=== PATIENT | male | born 1935 | race Caucasian/White ===

== ENCOUNTER 2017-11-08 22:45 | Inpatient (IN) | payer OTHER ==
--- NOTE | 2017-11-08 23:02 | PDOC ---
History of Present Illness - General History Source: Patient, Care Home Records Exam Limitations: No Limitations - History of Present Illness Initial Comments: 11/08/17 23:10 The patient is an 82 year old male from [facility] with past medical history of anemia, BPH, hypertension, hyperlipidemia, CAD, CKD, depression, anxiety, and dementia who presents to the ED for rectal bleed. As per intermediate, he was found to have blood per rectum this evening. Upon presentation to the ED, the patient was also found to be hypotensive in the 80s. The patient is a poor historian and is asymptomatic at this time. As per , the patient has been losing weight over the past few weeks and has been losing his appetite. As per nursing notes, the patient is on Xarelto, but the wifer reports she is unsure for what. The patient is known to follow up with physicians affiliated with [facility]. <[facility] - Last Filed: 11/08/17 23:47> <Carlie Perla - Last Filed: 11/09/17 00:41> - General Stated Complaint: RECTAL BLEED Time Seen by Provider: 11/08/17 22:52 Past History <[facility] - Last Filed: 11/08/17 23:47> <Carlie Perla - Last Filed: 11/09/17 00:41> - Past Medical History Allergies/Adverse Reactions: Allergies Allergy/AdvReac Type Severity Reaction Status Date / Time No Known Allergies Allergy Verified 11/08/17 23:20 Home Medications: Ambulatory Orders Acetaminophen 325 mg PO DAILY 11/08/17 Aspirin 81 mg PO DAILY 11/08/17 Calcium Carbonate/Vitamin D3 [Oyster Shell 500-Vit D3 200 Tb] 1 each PO DAILY Celexa - 10 mg PO DAILY 11/08/17 Clonazepam 0.125 mg PO DAILY 11/08/17 Donepezil HCl [Aricept -] 5 mg PO DAILY 11/08/17 Ferrous Sulfate 325 mg PO DAILY 11/08/17 Metoprolol Succinate 25 mg PO DAILY 11/08/17 Rivaroxaban [Xarelto -] 20 mg PO DAILY 11/08/17 Tamsulosin HCl [Flomax] 0.4 mg PO DAILY 11/08/17 Review of Systems - Review of Systems Able to Perform ROS?: Yes Comments:: 11/08/17 23:48 GENERAL/CONSTITUTIONAL: No fever or chills. No weakness. HEAD, EYES, EARS, NOSE AND THROAT: No change in vision. No ear pain or discharge. No sore throat. CARDIOVASCULAR: No chest pain or shortness of breath. RESPIRATORY: No cough, wheezing, or hemoptysis. GASTROINTESTINAL: Present: blood per rectum No nausea, vomiting, diarrhea or constipation. GENITOURINARY: No dysuria, frequency, or change in urination. MUSCULOSKELETAL: No joint or muscle swelling or pain. No neck or back pain. SKIN: No rash NEUROLOGIC: No headache, vertigo, loss of consciousness, or change in strength/ sensation. ENDOCRINE: No increased thirst. No abnormal weight change. HEMATOLOGIC/LYMPHATIC: No anemia, easy bleeding, or history of blood clots. ALLERGIC/IMMUNOLOGIC: No hives or skin allergy. All Other Systems: Reviewed and Negative <[facility] - Last Filed: 11/08/17 23:47> *Physical Exam - Physical Exam Comments: 11/08/17 23:48 GENERAL: Awake, alert, and fully oriented, in no acute distress HEAD: No signs of trauma EYES: PERRLA, EOMI, sclera anicteric, conjunctiva clear ENT: Auricles normal inspection, hearing grossly normal, nares patent, oropharynx clear without exudates. Moist mucosa NECK: Normal ROM, supple, no lymphadenopathy, JVD, or masses LUNGS: Breath sounds equal, clear to auscultation bilaterally. No wheezes, and no crackles HEART: Regular rate and rhythm, normal S1 and S2, no murmurs, rubs or gallops ABDOMEN: Soft, nontender, normoactive bowel sounds. No guarding, no rebound. No masses EXTREMITIES: Normal range of motion, no edema. No clubbing or cyanosis. No cords, erythema, or tenderness NEUROLOGICAL: Cranial nerves II through XII grossly intact. Normal speech, normal gait SKIN: Warm, Dry, normal turgor, no rashes or lesions noted. <LacyOd - Last Filed: 11/08/17 23:47> Heart Score/ECG Review - ECG Intrepretation Comment:: 11/09/17 00:40 sinus at 88, st depressiom v2-6, i avl, abnl ekg <Carlie Perla - Last Filed: 11/09/17 00:41> ED Treatment Course - LABORATORY CBC & Chemistry Diagram: 11/08/17 23:22 11/08/17 23:22 <[facility] - Last Filed: 11/08/17 23:47> - LABORATORY CBC & Chemistry Diagram: 11/08/17 23:22 11/08/17 23:22 <Carlie Perla - Last Filed: 11/09/17 00:41> Medical Decision Making - Medical Decision Making 11/08/17 23:[address] Dr[address] Singletary, television and radio repairer physician for GI. Call was returned promptly and case was discussed. Call placed to Dr. Alonzo, and call connected immediately. Case discussed. Call placed to ICU and case was discussed. <[facility] - Last Filed: 11/08/17 23:47> - Critical Care Time Total Critical Care Time (minutes): 45 Critical Care Statement: The care of this patient involved high complexity decision making to prevent further life threatening deterioration of the patient 's condition and/or to evaluate & treat vital organ system(s) failure or risk of failure. - Medical Decision Making 11/08/17 23:23 82yo sent from [facility] for eval of GI bleeding melena - active bleeding on xarelto hypotensive upon arrival also on aspirin pt is demented and cannot provide hx denies abd pain melena on exam case discussed with Dr. Singletary (GI) who will see the patient in consult will start protonix gtt will give ivf hdyraiton consenting for blood transfusion 11/08/17 23:37 case discussed with Mino from the ICU - accepts pt to the ICU case discussed with Dr. Alonzo - accepts pt to her service will place consult to Dr. Mcarthur 11/08/17 23:38 [facility] pRBC and FFP ordered <Carlie Perla - Last Filed: 11/09/17 00:41> *DC/Admit/Observation/Transfer - Attestations Scribe Attestion: 11/08/17 23:33 Documentation prepared by [facility], acting as medical aide for Carlie Perla DO. <[facility] - Last Filed: 11/08/17 23:47> - Discharge Dispostion Admit: Yes - Attestations Physician Attestion: 11/08/17 23:38 I, Dr. Carlie Perla, DO, attest that this document has been prepared under my direction and personally reviewed by me in its entirety. I further attest, that it accurately reflects all work, treatment, procedures and medical decision -making performed by me. <Carlie Perla - Last Filed: 11/09/17 00:41> Diagnosis at time of Disposition: GI bleed - Discharge Dispostion Condition at time of disposition: Critical
[2017-11-08] MEDS ORDERED: SODIUM CHLORIDE 0.9% 1000 ML INFUS.BAG IV ONE (23:23)
[2017-11-08] MEDS ORDERED: PANTOPRAZOLE SODIUM 40 MG VIAL ONE ×2 (23:24→23:45)
[2017-11-08] MEDS ORDERED: PANTOPRAZOLE SODIUM 40 MG VIAL IVPUSH ONE (23:30)
[2017-11-08 23:41] LABS: BASO % 0.3 % (0-2.0); EOS % 0.1 % (0-4.5); LYMPH % 4.3 % (8-40); MCH 31.5 pg (25.7-33.7); MCHC 32.2 g/dl (32.0-35.9); MEAN CELL VOLUME 97.8 fl (80-96); MEAN PLT VOLUME 8.4 fl (7.5-11.1); MONO % 2.5 % (3.8-10.2); NEUT % 92.8 % (42.8-82.8); PLATELET COUNT 265 K/MM3 (134-434); RBC 3.17 M/mm3 (4.00-5.60); WHITE BLOOD COUNT 13.9 K/mm3 (4.0-10.0)
[2017-11-08] MEDS: PANTOPRAZOLE SODIUM 80 MG in SODIUM CHLORIDE 100 ML IVPB SCH (23:50)
[2017-11-08 23:53] LABS: INR 2.97 (0.82-1.09); PROTHROMBIN TIME (PATIENT) 33.6 SEC (9.98-11.88)
[2017-11-08 23:56] LABS: ACTIVATED PTT 35.5 SECONDS (26.9-34.4)
[2017-11-09 00:25] LABS: ALBUMIN 2.3 g/dl (3.4-5.0); ANION GAP 9 (8-16); BILIRUBIN,TOTAL 0.4 mg/dL (0.2-1.0); BLOOD UREA NITROGEN 58 mg/dL (7-18); CALCIUM 8.2 mg/dL (8.5-10.1); CHLORIDE 106 mmol/L (98-107); CO2 26 mmol/L (21-32); CREATININE 1.5 mg/dL (0.7-1.3); GLUCOSE,RANDOM 132 mg/dL (74-106); SGPT/ALT 11 U/L (12-78); SODIUM 141 mmol/L (136-145); TOT PROT 5.5 g/dl (6.4-8.2)
[2017-11-09 00:28] LABS: ALK PHOS 111 U/L (45-117)
[2017-11-09 00:35] LABS: POTASSIUM 5.7 mmol/L (3.5-5.1); SGOT/AST 13 U/L (15-37)
[2017-11-09] MEDS ORDERED: DESMOPRESSIN ACETATE 4 MCG/ML AMP IVPB STA (00:44)
[2017-11-09 01:00] LABS: URINE APPEARANCE CLOUDY; URINE BILIRUBIN NEGATIVE (NEGATIVE); URINE BLOOD 1+ (NEGATIVE); URINE COLOR YELLOW; URINE GLUCOSE (UA) NEGATIVE (NEGATIVE); URINE KETONE NEGATIVE (NEGATIVE); URINE NITRITE NEGATIVE (NEGATIVE); URINE UROBILINOGEN NEGATIVE mg/dL (0.2-1.0)
[2017-11-09 01:14] LABS: URINE LEUK ESTERASE 3+ (NEGATIVE); URINE PROTEIN 1+ (NEGATIVE)
[2017-11-09 01:14] LABS: BASO % 1.7 % (0-2.0); EOS % 0.2 % (0-4.5); HEMATOCRIT 29.5 % (35.4-49); HEMOGLOBIN 9.1 GM/dL (11.7-16.9); LYMPH % 4.8 % (8-40); MCH 31.1 pg (25.7-33.7); MCHC 30.7 g/dl (32.0-35.9); MEAN CELL VOLUME 101.2 fl (80-96); MEAN PLT VOLUME 8.2 fl (7.5-11.1); MONO % 3.9 % (3.8-10.2); NEUT % 89.4 % (42.8-82.8); PLATELET COUNT 251 K/MM3 (134-434); RBC 2.92 M/mm3 (4.00-5.60); RDW 16.9 % (11.9-15.9)
[2017-11-09 01:15] LABS: EPI CELLS RARE /HPF (FEW)
--- NOTE | 2017-11-09 01:18 | CONSULT ---
Consult Consult Specialty:: PULM/CCM Referred by:: Dr. Evon Alonzo Reason for Consultation:: GIB - History of Present Illness Chief Complaint: MELENA History of Present Illness: Mr. Chen is an 82 y/o man w/ anemia, BPH, HTN, HLD, CAD, CKD, depression, anxiety, & BRETHA BIBA from [facility] w/ melena. In the ED pt hypotensive w/ SBP --> the 80's & copious melena. The patient is a poor historian and is asymptomatic. A/p , the pt has been FTT throughout the past few weeks w/ poor PO intake & rapid weigh loss. Of note, pt on Xarelto for PAD/PVD. Pt is originally from [place] & all of his physicains are loacted @ [facility]. Pt admitted to the ICU now w/ GIB. 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 No: CVA, Seizure Cardio/Vascular: Yes: CAD, HTN, Hyperlipdemia Pulmonary: Yes: COPD Gastrointestinal: No: GI Bleed, Hemorrhoids Hepatobiliary: No: Cirrhosis Renal/: Yes: BPH Heme/Onc: Yes: Anemia Psych: Yes: Depression - Alcohol/Substance Use Hx Alcohol Use: No - Smoking History Smoking history: Unknown if ever smoked Have you smoked in the past 12 months: No Home Medications - Allergies Allergies/Adverse Reactions: Allergies Allergy/AdvReac Type Severity Reaction Status Date / Time No Known Allergies Allergy Verified 11/08/17 23:20 - Home Medications Home Medications: Ambulatory Orders Acetaminophen 325 mg PO DAILY 11/08/17 Aspirin 81 mg PO DAILY 11/08/17 Calcium Carbonate/Vitamin D3 [Oyster Shell 500-Vit D3 200 Tb] 1 each PO DAILY Celexa - 10 mg PO DAILY 11/08/17 Clonazepam 0.125 mg PO DAILY 11/08/17 Donepezil HCl [Aricept -] 5 mg PO DAILY 11/08/17 Ferrous Sulfate 325 mg PO DAILY 11/08/17 Metoprolol Succinate 25 mg PO DAILY 11/08/17 Rivaroxaban [Xarelto -] 20 mg PO DAILY 11/08/17 Tamsulosin HCl [Flomax] 0.4 mg PO DAILY 11/08/17 Family Disease History - Family Disease History Family History: Unable to Obtain Review of Systems Unable to obtain ROS, reason: UTO --> BERTHA Physical Exam Vital Signs: Vital Signs Temperature 97.3 F L 11/08/17 23:11 Pulse Rate 60 11/08/17 23:11 Respiratory Rate 14 11/08/17 23:11 Blood Pressure 80/60 11/08/17 23:11 O2 Sat by Pulse Oximetry (%) Constitutional: Yes: No Distress, Pallor, Thin Eyes: Yes: WNL, Conjunctiva Clear, EOM Intact HENT: Yes: WNL, Atraumatic, Normocephalic Neck: Yes: WNL, Supple, Trachea Midline Cardiovascular: Yes: WNL, Regular Rate and Rhythm Respiratory: Yes: WNL, Regular, CTA Bilaterally Gastrointestinal: Yes: WNL, Normal Bowel Sounds, Soft, Hyperactive Bowel Sounds , Melena ...Rectal Exam: Yes: Deferred Renal/: Yes: WNL Breast(s): Yes: WNL Musculoskeletal: Yes: WNL (Chronic LE venous stasis changes L > R) Extremities: Yes: WNL, Other (Chronic Venous stasis changes L > R) Edema: No Integumentary: Yes: WNL Neurological: Yes: WNL, Alert ...Motor Strength: WNL Psychiatric: Yes: Agitated Labs: CBC, BMP 11/08/17 23:22 Imaging - Results Chest X-ray: Image Reviewed (CXR 11/08: Clear (My Read)) EKG: Report Reviewed (12-LEAD 11/09: RSR in the 80's w/o ect, ST depression throughout the anterolateral leads, QTc = 462ms (My Read).) Problem List - Problems (1) GI bleed Code(s): K92.2 - GASTROINTESTINAL HEMORRHAGE, UNSPECIFIED Assessment/Plan ASSESS: This is an 82 y/o man w/ anemia, BPH, HTN, HLD, CAD, CKD, PAD/DVD (on xeralto), depression, anxiety, & BERTHA BIBA from [facility] w/ a GIB. PLAN: -D/c Xeralto -NPO -HOB > 92% -Supp FiO2 for an SpO2 > 92% -Maintain large bore IVs X2 -Maintain active T &S -Consider KCentra -DDAVP -Vit K -PPI gtt -Normal Transfusion Thresholds -Trend LA -GI -Trend Troponin -Strict I's & O's -Monitor UOP -Replete e-lytes prn -Trend Troponins -Trend CK-MB -CARDS -SCDs -No AC for now Mino Schmidt, ACNP- [facility] [id number]
[2017-11-09 06:45] LABS: HEMATOCRIT 29.3 % (35.4-49); HEMOGLOBIN 9.6 GM/dL (11.7-16.9); MCH 31.6 pg (25.7-33.7); MCHC 32.9 g/dl (32.0-35.9); MEAN PLT VOLUME 8.1 fl (7.5-11.1); PLATELET COUNT 209 K/MM3 (134-434); RBC 3.05 M/mm3 (4.00-5.60); RDW 16.9 % (11.9-15.9); WHITE BLOOD COUNT 11.5 K/mm3 (4.0-10.0)
--- NOTE | 2017-11-09 07:01 | PN ---
Physical Exam: SUBJECTIVE: Patient seen and examined. Brought in [facility] with hx of melanotic stools, on xarelto for PAD. Had no melanotic bowel movement until around noon, with recent CBC showing drop from 9.6 to 8.6. Pt is demented at baseline but was awake and communicating (hard to comprehend). Came in initially with SBP in 80s but BP has been maintained with MAP>65. No hematemesis noted or bleeding from any orifice. OBJECTIVE: Vital Signs Period Temp Pulse Resp BP Sys/Mcdowell Pulse Ox Last 24 Hr 97.3 F-98.4 F 60-80 14-22 80-116/54-61 100 Vital Signs Temp 97.8 F 11/09/17 06:07 Pulse 70 11/09/17 06:07 Resp 22 11/09/17 06:07 BP 116/54 11/09/17 06:07 Pulse Ox 100 11/09/17 01:38 Intake & Output 11/06/17 11/07/17 11/08/17 11/09/17 23:59 23:59 23:59 23:59 Intake Total 410 Output Total 1300 Balance -890 Weight 81.647 kg 63.4 kg GENERAL: The patient is awake, but drowsy, communicating with slurred words and some confusion. HEAD: Normal with no signs of trauma. EYES: PERRL, extraocular movements intact, sclera anicteric, conjunctiva clear. ENT: oropharynx clear without exudates, moist mucous membranes, no evidence of bleeding, NC-2L . NECK: supple. LUNGS: Breath sounds equal, clear to auscultation bilaterally, no wheezes, no crackles, n HEART: Regular rate and rhythm, S1, S2 without murmur, rub or gallop. ABDOMEN: Soft, mild suprapubic tenderness and burning sensation,(ross in place draining clear urine). EXTREMITIES: 2+ pulses, warm, well-perfused, no edema. NEUROLOGICAL: Awake, demented at baseline but communicating. gait not observed. PSYCH: Unable to assess Lines: NC, ross, 2UE large bore peripheral lines Laboratory Results - last 24 hr 11/08/17 11/08/17 11/08/17 23:22 23:22 23:22 WBC RBC Hgb Hct MCV MCH MCHC RDW Plt Count MPV Neutrophils % Lymphocytes % Monocytes % Eosinophils % Basophils % PT with INR 33.60 H INR 2.97 H PTT (Actin FS) 35.5 H Sodium 141 Potassium 5.7 H Chloride 106 Carbon Dioxide 26 Anion Gap 9 BUN 58 H Creatinine 1.5 H Creat Clearance w eGFR 45.03 Random Glucose 132 H Lactic Acid 3.6 H* Calcium 8.2 L Magnesium 2.0 Total Bilirubin 0.4 AST 13 L ALT 11 L Alkaline Phosphatase 111 Creatine Kinase 34 L Troponin I 0.03 B-Natriuretic Peptide Total Protein 5.5 L Albumin 2.3 L Urine Color Urine Appearance Urine pH Ur Specific [place] Urine Protein Urine Glucose (UA) Urine Ketones Urine Blood Urine Nitrite Urine Bilirubin Urine Urobilinogen Ur Leukocyte Esterase Urine WBC (Auto) Urine RBC (Auto) Ur Epithelial Cells Stool Occult Blood Blood Type Antibody Screen Crossmatch 11/08/17 11/08/17 11/08/17 23:22 23:22 23:22 WBC 13.9 H RBC 3.17 L Hgb 10.0 L Hct 31.0 L MCV 97.8 H MCH 31.5 MCHC 32.2 RDW 16.0 H Plt Count 265 MPV 8.4 Neutrophils % 92.8 H Lymphocytes % 4.3 L Monocytes % 2.5 L Eosinophils % 0.1 Basophils % 0.3 PT with INR INR PTT (Actin FS) Sodium Potassium Chloride Carbon Dioxide Anion Gap BUN Creatinine Creat Clearance w eGFR Random Glucose Lactic Acid Calcium Magnesium Total Bilirubin AST ALT Alkaline Phosphatase Creatine Kinase Troponin I B-Natriuretic Peptide 8130.55 H Total Protein Albumin Urine Color Urine Appearance Urine pH Ur Specific [place] Urine Protein Urine Glucose (UA) Urine Ketones Urine Blood Urine Nitrite Urine Bilirubin Urine Urobilinogen Ur Leukocyte Esterase Urine WBC (Auto) Urine RBC (Auto) Ur Epithelial Cells Stool Occult Blood Blood Type O POSITIVE Antibody Screen Negative Crossmatch See Detail 11/08/17 11/08/17 11/09/17 23:23 23:57 00:49 WBC RBC Hgb Hct MCV MCH MCHC RDW Plt Count MPV Neutrophils % Lymphocytes % Monocytes % Eosinophils % Basophils % PT with INR INR PTT (Actin FS) Sodium Potassium Chloride Carbon Dioxide Anion Gap BUN Creatinine Creat Clearance w eGFR Random Glucose Lactic Acid Calcium Magnesium Total Bilirubin AST ALT Alkaline Phosphatase Creatine Kinase Troponin I B-Natriuretic Peptide Total Protein Albumin Urine Color Yellow Urine Appearance Cloudy Urine pH 5.0 Ur Specific [place] 1.017 Urine Protein 1+ H Urine Glucose (UA) Negative Urine Ketones Negative Urine Blood 1+ H Urine Nitrite Negative Urine Bilirubin Negative Urine Urobilinogen Negative Ur Leukocyte Esterase 3+ H Urine WBC (Auto) 608 Urine RBC (Auto) 19 Ur Epithelial Cells Rare Stool Occult Blood Negative Blood Type O POSITIVE Antibody Screen Crossmatch 11/09/17 11/09/17 00:50 03:30 WBC 14.0 H RBC 2.92 L Hgb 9.1 L Hct 29.5 L MCV 101.2 H MCH 31.1 MCHC 30.7 L RDW 16.9 H Plt Count 251 MPV 8.2 Neutrophils % 89.4 H Lymphocytes % 4.8 L Monocytes % 3.9 Eosinophils % 0.2 D Basophils % 1.7 D PT with INR INR PTT (Actin FS) Sodium Potassium Chloride Carbon Dioxide Anion Gap BUN Creatinine Creat Clearance w eGFR Random Glucose Lactic Acid 2.2 H* Calcium Magnesium Total Bilirubin AST ALT Alkaline Phosphatase Creatine Kinase Troponin I B-Natriuretic Peptide Total Protein Albumin Urine Color Urine Appearance Urine pH Ur Specific [place] Urine Protein Urine Glucose (UA) Urine Ketones Urine Blood Urine Nitrite Urine Bilirubin Urine Urobilinogen Ur Leukocyte Esterase Urine WBC (Auto) Urine RBC (Auto) Ur Epithelial Cells Stool Occult Blood Blood Type Antibody Screen Crossmatch Ambulatory Orders Acetaminophen 325 mg PO DAILY 11/08/17 Aspirin 81 mg PO DAILY 11/08/17 Calcium Carbonate/Vitamin D3 [Oyster Shell 500-Vit D3 200 Tb] 1 each PO DAILY Celexa - 10 mg PO DAILY 11/08/17 Clonazepam 0.125 mg PO DAILY 11/08/17 Donepezil HCl [Aricept -] 5 mg PO DAILY 11/08/17 Ferrous Sulfate 325 mg PO DAILY 11/08/17 Metoprolol Succinate 25 mg PO DAILY 11/08/17 Rivaroxaban [Xarelto -] 20 mg PO DAILY 11/08/17 Tamsulosin HCl [Flomax] 0.4 mg PO DAILY 11/08/17 Active Medications Generic Name Dose Route Start Last Admin Trade Name Freq PRN Reason Stop Dose Admin Pantoprazole Sodium 80 mg/ 100 mls @ 10 mls/hr 11/08/17 23:30 11/08/17 23:50 Sodium Chloride IVPB 10 mls/hr Q10H ERNIE Administration 8 MG/HR ASSESSMENT/PLAN: 82 y/o male with PMHx of anemia, BPH, HTN, HLD, CAD, CKD, depression, anxiety, presented from [facility] w/ melena (on home xarelto for PAD), found to be initially hypotensive w/ SBP- 80's in the ED. Neuro: Dementia, depression, anxiety Awake but confused On home Donepezil HCl [Aricept -] 5 mg PO DAILY On home Clonazepam 0.125 mg PO Celexa - 10 mg PO DAILY GI: Acute GI bleed- likely upper GI repeated melanotic stools- pt previously on xarelto- for PAD recent drop in Hb by 1g-11/09/17 at noon iv Vit k K stat FFPs 1U 2U PRBCs Repeat CBC- after transfusion Dr Enriquez on board follow coags Follow CBC- transfuse as needed Monitor for bleeding For EGD when less hypocoagulable Hold xarelto Protonix drip NPO- with acute bleed Hemonc: Recent hx of anemia Appears to be chronically anemic- on home iron Hx of PAD- on xarelto Hold xarelto in acute bleeding Cardio: HTN, HLD, CAD Hold ASA Hold Metoprolol Succinate 25 mg PO with hx of hypotension Hold xarelto in acute bleeding trops-0.03 BNP- 8130 Pulm: Acute hypoxic respiratory failure On NC- 2L Titrate to keep SpO2>92, wean off as tolerated CXR- clear : KEVEN R/O CKD Cr-1.5 Follow Ucx UA-LE 3+, WBC-608 Iv Ceftriaxone 2g daily CMPs Avooid nephrotoxic drugs Transfuse as needed FEN: Receiving transfusions, currently not on fluids Monitor lytes and replete as needed NPO- with active GI bleed Prophylaxis: GI- protonix drip DVT- SCDs ( no chemical prophylaxis in active bleed) Dispo: Continue ICU monitoring Visit type - Emergency Visit Emergency Visit: Yes ED Registration Date: 11/08/17 Care time: The patient presented to the Emergency Department on the above date and was hospitalized for further evaluation of their emergent condition. - New Patient This patient is new to me today: Yes Date on this admission: 11/09/17 - Critical Care Critical Care patient: Yes Total Critical Care Time (in minutes): 48 Critical Care Statement: The care of this patient involved high complexity decision making to prevent further life threatening deterioration of the patient 's condition and/or to evaluate & treat vital organ system(s) failure or risk of failure. - Discharge Referral Referred to [facility] No
[2017-11-09 07:14] LABS: CHLORIDE 110 mmol/L (98-107); POTASSIUM 5.1 mmol/L (3.5-5.1); SODIUM 143 mmol/L (136-145)
[2017-11-09 07:24] LABS: ALBUMIN 2.1 g/dl (3.4-5.0); ALK PHOS 92 U/L (45-117); ANION GAP 8 (8-16); BILIRUBIN,DIRECT 0.2 mg/dL (0.0-0.2); BILIRUBIN,TOTAL 0.6 mg/dL (0.2-1.0); BLOOD UREA NITROGEN 57 mg/dL (7-18); CALCIUM 7.5 mg/dL (8.5-10.1); CO2 25 mmol/L (21-32); CREATININE 1.5 mg/dL (0.7-1.3); GLUCOSE,RANDOM 93 mg/dL (74-106); SGOT/AST 11 U/L (15-37); SGPT/ALT 9 U/L (12-78); TOT PROT 4.9 g/dl (6.4-8.2)
[2017-11-09 09:21] LABS: MAGNESIUM 1.9 mg/dL (1.8-2.4); PHOSPHOROUS 3.1 mg/dL (2.5-4.9)
[2017-11-09] MEDS: PANTOPRAZOLE SODIUM 80 MG in SODIUM CHLORIDE 100 ML IVPB SCH (09:51)
[2017-11-09] MEDS: CEFTRIAXONE IN IS-OSM DEXTROSE 2 GM/50 ML BAG IVPB SCH (09:51)
--- NOTE | 2017-11-09 10:00 | EKG ---
Test Reason : Blood Pressure : / mmHG Vent. Rate : 088 BPM Atrial Rate : 088 BPM P-R Int : 164 ms QRS Dur : 094 ms QT Int : 382 ms P-R-T Axes : 026 087 155 degrees QTc Int : 462 ms POOR DATA QUALITY, INTERPRETATION MAY BE ADVERSELY AFFECTED NORMAL SINUS RHYTHM WITH SINUS ARRHYTHMIA ABNORMAL ECG NO PREVIOUS ECGS AVAILABLE Confirmed by DADA NEW MD ([id number]) on 11/09/2017 9:59:50 AM Referred By: Confirmed By:DADA NEW MD
--- NOTE | 2017-11-09 10:01 | PN ---
Progress Note (short form) - Note Progress Note: Case was d/w ER last night. Consult was for Dr. Garcia who was on service call last night. Discussed case w/ Dr. Bermudez this morning. Dr. Enriquez will be seeing the patient.
--- NOTE | 2017-11-09 10:24 | CON.CARD ---
Cardiology Consult (text) - Consultation Consultation Note: cc: gib hx from charts, pt with dementia hpi: 82 m hx dementia, htn, hld, pad, cad, ckd, sent [place] for [place] bleed. Pt on xarelto at [place] for pad per charts, had rectal bleed so came to ER. Pt offers no complaints but has significant dementia. No further gib this AM with BM. Bp initially low, now improved. pmh: per hpi psh: unknown social: unknown fam: unknown ros: unable to obtain 2/2 dementia meds: Home Medications Medication Instructions Recorded Acetaminophen 325 mg PO DAILY 11/08/17 Aspirin 81 mg PO DAILY 11/08/17 Calcium Carbonate/Vitamin D3 1 each PO DAILY 11/08/17 [Oyster Shell 500-Vit D3 200 Tb] Celexa - 10 mg PO DAILY 11/08/17 Clonazepam 0.125 mg PO DAILY 11/08/17 Donepezil HCl [Aricept -] 5 mg PO DAILY 11/08/17 Ferrous Sulfate 325 mg PO DAILY 11/08/17 Metoprolol Succinate 25 mg PO DAILY 11/08/17 Rivaroxaban [Xarelto -] 20 mg PO DAILY 11/08/17 Tamsulosin HCl [Flomax] 0.4 mg PO DAILY 11/08/17 pe: Vital Signs Period Temp Pulse Resp BP Sys/Mcdowell Pulse Ox Last 24 Hr 97.3 F-98.4 F 60-80 14-22 80-116/54-61 100-100 nad no jvd rrr s1s2 no mrg cta bl, poor eff awake, confused no jaundice diaphoresis pos dp pt no carotid bruits abd nt nd pos bs no le e/c/c Laboratory Last Values WBC 11.5 K/mm3 (4.0-10.0) H 11/09/17 06:30 RBC 3.05 M/mm3 (4.00-5.60) L 11/09/17 06:30 Hgb 9.6 GM/dL (11.7-16.9) L 11/09/17 06:30 Hct 29.3 % (35.4-49) L 11/09/17 06:30 MCV 96.0 fl (80-96) 11/09/17 06:30 MCH 31.6 pg (25.7-33.7) 11/09/17 06:30 MCHC 32.9 g/dl (32.0-35.9) 11/09/17 06:30 RDW 16.9 % (11.9-15.9) H 11/09/17 06:30 Plt Count 209 K/MM3 (134-434) 11/09/17 06:30 MPV 8.1 fl (7.5-11.1) 11/09/17 06:30 Neutrophils % 89.4 % (42.8-82.8) H 11/09/17 00:50 Lymphocytes % 4.8 % (8-40) L 11/09/17 00:50 Monocytes % 3.9 % (3.8-10.2) 11/09/17 00:50 Eosinophils % 0.2 % (0-4.5) D 11/09/17 00:50 Basophils % 1.7 % (0-2.0) D 11/09/17 00:50 PT with INR 33.60 SEC (9.98-11.88) H 11/08/17 23:22 INR 2.97 (0.82-1.09) H 11/08/17 23:22 PTT (Actin FS) 33.7 SECONDS (26.9-34.4) 11/09/17 06:30 Sodium 143 mmol/L (136-145) 11/09/17 06:30 Potassium 5.1 mmol/L (3.5-5.1) 11/09/17 06:30 Chloride 110 mmol/L (98-107) H 11/09/17 06:30 Carbon Dioxide 25 mmol/L (21-32) 11/09/17 06:30 Anion Gap 8 (8-16) 11/09/17 06:30 BUN 57 mg/dL (7-18) H 11/09/17 06:30 Creatinine 1.5 mg/dL (0.7-1.3) H 11/09/17 06:30 Creat Clearance w eGFR 45.03 (>60) 11/09/17 06:30 Random Glucose 93 mg/dL (74-106) D 11/09/17 06:30 Lactic Acid 1.4 mmol/L (0.0-2.0) 11/09/17 06:30 Calcium 7.5 mg/dL (8.5-10.1) L 11/09/17 06:30 Phosphorus 3.1 mg/dL (2.5-4.9) 11/09/17 06:30 Magnesium 1.9 mg/dL (1.8-2.4) 11/09/17 06:30 Total Bilirubin 0.6 mg/dL (0.2-1.0) D 11/09/17 06:30 Direct Bilirubin 0.2 mg/dL (0.0-0.2) 11/09/17 06:30 AST 11 U/L (15-37) L 11/09/17 06:30 ALT 9 U/L (12-78) L 11/09/17 06:30 Alkaline Phosphatase 92 U/L (45-117) 11/09/17 06:30 Creatine Kinase 34 IU/L (39-308) L 11/08/17 23:22 Troponin I 0.03 ng/ml (0.00-0.05) 11/09/17 06:30 B-Natriuretic Peptide 8130.55 pg/ml (5-450) H 11/08/17 23:22 Total Protein 4.9 g/dl (6.4-8.2) L 11/09/17 06:30 Albumin 2.1 g/dl (3.4-5.0) L 11/09/17 06:30 Urine Color Yellow 11/09/17 00:49 Urine Appearance Cloudy 11/09/17 00:49 Urine pH 5.0 (5.0-8.0) 11/09/17 00:49 Ur Specific [place] 1.017 (1.001-1.035) 11/09/17 00:49 Urine Protein 1+ (NEGATIVE) H 11/09/17 00:49 Urine Glucose (UA) Negative (NEGATIVE) 11/09/17 00:49 Urine Ketones Negative (NEGATIVE) 11/09/17 00:49 Urine Blood 1+ (NEGATIVE) H 11/09/17 00:49 Urine Nitrite Negative (NEGATIVE) 11/09/17 00:49 Urine Bilirubin Negative (NEGATIVE) 11/09/17 00:49 Urine Urobilinogen Negative mg/dL (0.2-1.0) 11/09/17 00:49 Ur Leukocyte Esterase 3+ (NEGATIVE) H 11/09/17 00:49 Urine WBC (Auto) 608 /hpf (3-5) 11/09/17 00:49 Urine RBC (Auto) 19 /hpf (0-3) 11/09/17 00:49 Ur Epithelial Cells Rare /HPF (FEW) 11/09/17 00:49 Stool Occult Blood Negative (NEGATIVE) 11/08/17 23:57 Blood Type O POSITIVE 11/08/17 23:23 Antibody Screen Negative 11/08/17 23:22 Crossmatch See Detail 11/08/17 23:22 cxr: clear lungs ecg: sr, nl intervals, ant/lat twis and subtle st depressions tele: sr, pacs a/p: 82 m hx dementia, htn, hld, pad, cad, ckd, sent [place] bleed. gib: -on xarelto at [place] for PAD per charts (needs further clarification from [place] records). holding for now. also holding asa. -hgb stable today, no further GIB with todays BM -plans per GI htn: -low bp initially, improved now. hold home bb and monitor for now. hld: -stable, statin not listed on home meds cad: -details not available -no signs acs, ce's neg x2 -ecg with subtle st depressions, likely due to demand from anemia in setting of cad -check echo -holding home asa and bb as above ckd: -unknown baseline, monitor cr trend here
--- NOTE | 2017-11-09 11:01 | CONSULT ---
Consult Consult Specialty:: general surgery Referred by:: Evon Alonzo -PMD Reason for Consultation:: GI bleed - History of Present Illness Chief Complaint: bloody bowel movements History of Present Illness: 82 yo male [place] resident [facility] anemia, BPH, hypertension, hyperlipidemia, CAD, CKD, dementia, depression, anxiety, and dementia who presents to the emergency department with rectal bleed. As per jail, he was found to have a bloody bowel movements the evening before admission. In the ED, the patient was also found to be hypotensive in the 80s. The patient is a poor historian. Per his , the patient has been losing weight over the past few weeks and has no appetite. Per nursing notes, the patient is on Xarelto. No previous abdominal surgery. Unable to determine if there is an individual history of colon cancer or diverticular disease. 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 No: CVA, Seizure Cardio/Vascular: Yes: CAD, HTN, Hyperlipdemia Pulmonary: Yes: COPD Gastrointestinal: No: GI Bleed, Hemorrhoids Hepatobiliary: No: Cirrhosis Renal/: Yes: BPH Psych: Yes: Depression - Alcohol/Substance Use Hx Alcohol Use: No - Smoking History Smoking history: Unknown if ever smoked Have you smoked in the past 12 months: No - Social History Place of : [facility] History of Recent Travel: No Home Medications - Allergies Allergies/Adverse Reactions: Allergies Allergy/AdvReac Type Severity Reaction Status Date / Time No Known Allergies Allergy Verified 11/08/17 23:20 - Home Medications Home Medications: Ambulatory Orders Acetaminophen 325 mg PO DAILY 11/08/17 Aspirin 81 mg PO DAILY 11/08/17 Calcium Carbonate/Vitamin D3 [Oyster Shell 500-Vit D3 200 Tb] 1 each PO DAILY Celexa - 10 mg PO DAILY 11/08/17 Clonazepam 0.125 mg PO DAILY 11/08/17 Donepezil HCl [Aricept -] 5 mg PO DAILY 11/08/17 Ferrous Sulfate 325 mg PO DAILY 11/08/17 Metoprolol Succinate 25 mg PO DAILY 11/08/17 Rivaroxaban [Xarelto -] 20 mg PO DAILY 11/08/17 Tamsulosin HCl [Flomax] 0.4 mg PO DAILY 11/08/17 Review of Systems - Review of Systems Constitutional: denies: Chills, Fever Eyes: denies: Blurred Vision, Recent Change in Vision HENT: denies: Difficult Swallowing, Throat Pain Neck: denies: Lumps, Pain on Movement Cardiovascular: denies: Chest Pain, Shortness of Breath Respiratory: denies: Cough, SOB Gastrointestinal: denies: Constipation, Diarrhea Genitourinary: denies: Burning, Discharge Breasts: reports: No Symptoms Reported. denies: Pain Musculoskeletal: denies: Muscle Cramps, Muscle Weakness Integumentary: reports: Bruising. denies: Pallor Neurological: reports: Confusion. denies: Change in LOC Hematology/Lymphatic: reports: Easily Bruised (xeralto), Excessive Bleeding Psychiatric: reports: Depression. denies: Anxiety Physical Exam Vital Signs: Vital Signs Temperature 97.7 F 11/09/17 10:00 Pulse Rate 76 11/09/17 10:00 Respiratory Rate 18 11/09/17 10:00 Blood Pressure 101/54 11/09/17 10:00 O2 Sat by Pulse Oximetry (%) 100 11/09/17 09:00 Vital Signs Period Temp Pulse Resp BP Sys/Mcdowell Pulse Ox Last 24 Hr 97.3 F-98.4 F 60-80 14-22 80-116/54-61 100-100 Constitutional: Yes: No Distress, Calm, Thin Eyes: Yes: Conjunctiva Clear, EOM Intact HENT: Yes: Atraumatic, Normocephalic Neck: Yes: Supple, Trachea Midline Cardiovascular: Yes: Regular Rate and Rhythm, S1, S2. No: Murmur Respiratory: Yes: Regular, CTA Bilaterally Gastrointestinal: Yes: Normal Bowel Sounds, Soft, Rectal Bleeding (melena, large melenic BM in exam), Other (scaphoid). No: Hepatomegaly, Tenderness, Tenderness, Epigastrium, Tenderness, Rebound ...Rectal Exam: Yes: Other (melena) Renal/: No: CVA Tenderness - Left, CVA Tenderness - Right Extremities: No: Calf Tenderness, Cool, Cyanosis Edema: No Peripheral Pulses WNL: Yes Integumentary: No: Rash Neurological: Yes: Alert, Confusion Psychiatric: Yes: Alert Labs: CBC, BMP 11/09/17 06:30 11/09/17 06:30 INR, PTT INR 2.97 (0.82-1.09) H 11/08/17 23:22 was on xeralto Imaging - Results Chest X-ray: Report Reviewed (clear lung hall), Image Reviewed EKG: Report Reviewed, Image Reviewed Problem List - Problems (1) Gastrointestinal hemorrhage with melena Assessment/Plan: 82yo male [place] presented from [place] with GI bleed with Melena X2, 1 gram drop in H& H, Transfused 1RBC with appropriate response, he is hemodynamically stable at present. NPO and IVF resuscitation monitored setting Transfuse RBC and FFP as needed Correct coagulopathy (vitK) Trend H&H [id number] GI reccomendations appreciated - upper and lower endoscopy Tagged RBC scan may useful in localizing the bleed before the weekend, compaired with angiography as this seem to be a relatively slower bleed Request records from [facility] will follow for serial exams. This patient is critically ill. Time spent reviewing chart, examining patient, talking with providers and/or family and documentation is 45 minutes Thank you for the opportunity to participate in the care of this patient. Code(s): K92.1 - MELENA (2) Hyperlipidemia Code(s): E78.5 - HYPERLIPIDEMIA, UNSPECIFIED (3) HTN (hypertension) Code(s): I10 - ESSENTIAL (PRIMARY) HYPERTENSION (4) CAD (coronary artery disease) Code(s): I25.10 - ATHSCL HEART DISEASE OF [place] CORONARY ARTERY W/O ANG PCTRS (5) BPH (benign prostatic hyperplasia) Code(s): N40.0 - BENIGN PROSTATIC HYPERPLASIA WITHOUT LOWER URINRY TRACT SYMP (6) Dementia Code(s): F03.90 - UNSPECIFIED DEMENTIA WITHOUT BEHAVIORAL DISTURBANCE
--- NOTE | 2017-11-09 12:07 | PN ---
Teaching Attending Note Name of Resident: Kaila Zamora ATTENDING PHYSICIAN STATEMENT I saw and evaluated the patient. I reviewed the resident's note and discussed the case with the resident. I agree with the resident's findings and plan as documented. SUBJECTIVE: Patient seen and examined in the ICU. Lethargic and confused, but arousable. Reports lower abdominal / supra-pubic discomfort. He denies CP or SOB. Intake & Output 11/06/17 11/07/17 11/08/17 11/09/17 23:59 23:59 23:59 23:59 Intake Total 410 Output Total 700 Balance -290 Weight 180 lb 139 lb 12.369 oz Last Vital Signs Temp Pulse Resp BP Pulse Ox 97.7 F 76 18 101/54 100 11/09/17 10:00 11/09/17 10:00 11/09/17 10:00 11/09/17 10:00 11/09/17 09:00 Active Medications Pantoprazole Sodium 80 mg/ (Sodium Chloride) 100 mls @ 10 mls/hr IVPB Q10H ERNIE PRN Reason: 8 MG/HR Stop: 11/09/17 18:00 Last Admin: 11/09/17 09:51 Dose: 10 mls/hr CEFTRIAXONE IN IS-OSM DEXTROSE (Ceftriaxone 2 Gm-D5w Bag) 2 gm in 50 mls @ 100 mls/hr IVPB DAILY ERNIE Last Admin: 11/09/17 09:51 Dose: 100 mls/hr Pantoprazole Sodium 160 mg/ (Dextrose) 290 mls @ 14.5 mls/hr IVPB Q20H ERNIE PRN Reason: 8 MG/HR Constitutional: Yes: No Distress, Pallor, Thin Eyes: Yes: WNL, Conjunctiva Clear, EOM Intact HENT: Yes: WNL, Atraumatic, Normocephalic Neck: Yes: WNL, Supple, Trachea Midline Cardiovascular: Yes: WNL, Regular Rate and Rhythm Respiratory: Yes: WNL, Regular, CTA Bilaterally Gastrointestinal: Yes: WNL, Normal Bowel Sounds, Soft, Hyperactive Bowel Sounds , Melena ...Rectal Exam: Yes: Deferred Renal/: Yes: WNL Breast(s): Yes: WNL Musculoskeletal: Yes: WNL (Chronic LE venous stasis changes L > R) Extremities: Yes: WNL, Other (Chronic Venous stasis changes L > R) Edema: No Integumentary: Yes: WNL Neurological: Yes: WNL, Alert ...Motor Strength: WNL Psychiatric: Yes: Agitated Labs: Laboratory Results - last 24 hr 11/08/17 11/08/17 11/08/17 23:22 23:22 23:22 WBC RBC Hgb Hct MCV MCH MCHC RDW Plt Count MPV Neutrophils % Lymphocytes % Monocytes % Eosinophils % Basophils % PT with INR 33.60 H INR 2.97 H PTT (Actin FS) 35.5 H Sodium 141 Potassium 5.7 H Chloride 106 Carbon Dioxide 26 Anion Gap 9 BUN 58 H Creatinine 1.5 H Creat Clearance w eGFR 45.03 Random Glucose 132 H Lactic Acid 3.6 H* Calcium 8.2 L Phosphorus Magnesium 2.0 Total Bilirubin 0.4 Direct Bilirubin AST 13 L ALT 11 L Alkaline Phosphatase 111 Creatine Kinase 34 L Troponin I 0.03 B-Natriuretic Peptide Total Protein 5.5 L Albumin 2.3 L Urine Color Urine Appearance Urine pH Ur Specific [place] Urine Protein Urine Glucose (UA) Urine Ketones Urine Blood Urine Nitrite Urine Bilirubin Urine Urobilinogen Ur Leukocyte Esterase Urine WBC (Auto) Urine RBC (Auto) Ur Epithelial Cells Stool Occult Blood Blood Type Antibody Screen Crossmatch 11/08/17 11/08/17 11/08/17 23:22 23:22 23:22 WBC 13.9 H RBC 3.17 L Hgb 10.0 L Hct 31.0 L MCV 97.8 H MCH 31.5 MCHC 32.2 RDW 16.0 H Plt Count 265 MPV 8.4 Neutrophils % 92.8 H Lymphocytes % 4.3 L Monocytes % 2.5 L Eosinophils % 0.1 Basophils % 0.3 PT with INR INR PTT (Actin FS) Sodium Potassium Chloride Carbon Dioxide Anion Gap BUN Creatinine Creat Clearance w eGFR Random Glucose Lactic Acid Calcium Phosphorus Magnesium Total Bilirubin Direct Bilirubin AST ALT Alkaline Phosphatase Creatine Kinase Troponin I B-Natriuretic Peptide 8130.55 H Total Protein Albumin Urine Color Urine Appearance Urine pH Ur Specific [place] Urine Protein Urine Glucose (UA) Urine Ketones Urine Blood Urine Nitrite Urine Bilirubin Urine Urobilinogen Ur Leukocyte Esterase Urine WBC (Auto) Urine RBC (Auto) Ur Epithelial Cells Stool Occult Blood Blood Type O POSITIVE Antibody Screen Negative Crossmatch See Detail 11/08/17 11/08/17 11/09/17 23:23 23:57 00:49 WBC RBC Hgb Hct MCV MCH MCHC RDW Plt Count MPV Neutrophils % Lymphocytes % Monocytes % Eosinophils % Basophils % PT with INR INR PTT (Actin FS) Sodium Potassium Chloride Carbon Dioxide Anion Gap BUN Creatinine Creat Clearance w eGFR Random Glucose Lactic Acid Calcium Phosphorus Magnesium Total Bilirubin Direct Bilirubin AST ALT Alkaline Phosphatase Creatine Kinase Troponin I B-Natriuretic Peptide Total Protein Albumin Urine Color Yellow Urine Appearance Cloudy Urine pH 5.0 Ur Specific [place] 1.017 Urine Protein 1+ H Urine Glucose (UA) Negative Urine Ketones Negative Urine Blood 1+ H Urine Nitrite Negative Urine Bilirubin Negative Urine Urobilinogen Negative Ur Leukocyte Esterase 3+ H Urine WBC (Auto) 608 Urine RBC (Auto) 19 Ur Epithelial Cells Rare Stool Occult Blood Negative Blood Type O POSITIVE Antibody Screen Crossmatch 11/09/17 11/09/17 11/09/17 00:50 03:30 06:30 WBC 14.0 H RBC 2.92 L Hgb 9.1 L Hct 29.5 L MCV 101.2 H MCH 31.1 MCHC 30.7 L RDW 16.9 H Plt Count 251 MPV 8.2 Neutrophils % 89.4 H Lymphocytes % 4.8 L Monocytes % 3.9 Eosinophils % 0.2 D Basophils % 1.7 D PT with INR INR PTT (Actin FS) Sodium Potassium Chloride Carbon Dioxide Anion Gap BUN Creatinine Creat Clearance w eGFR Random Glucose Lactic Acid 2.2 H* 1.4 Calcium Phosphorus Magnesium Total Bilirubin Direct Bilirubin AST ALT Alkaline Phosphatase Creatine Kinase Troponin I B-Natriuretic Peptide Total Protein Albumin Urine Color Urine Appearance Urine pH Ur Specific [place] Urine Protein Urine Glucose (UA) Urine Ketones Urine Blood Urine Nitrite Urine Bilirubin Urine Urobilinogen Ur Leukocyte Esterase Urine WBC (Auto) Urine RBC (Auto) Ur Epithelial Cells Stool Occult Blood Blood Type Antibody Screen Crossmatch 11/09/17 11/09/17 11/09/17 06:30 06:30 06:30 WBC 11.5 H RBC 3.05 L Hgb 9.6 L Hct 29.3 L MCV 96.0 MCH 31.6 MCHC 32.9 RDW 16.9 H Plt Count 209 MPV 8.1 Neutrophils % Lymphocytes % Monocytes % Eosinophils % Basophils % PT with INR INR PTT (Actin FS) 33.7 Sodium 143 Potassium 5.1 Chloride 110 H Carbon Dioxide 25 Anion Gap 8 BUN 57 H Creatinine 1.5 H Creat Clearance w eGFR 45.03 Random Glucose 93 D Lactic Acid Calcium 7.5 L Phosphorus 3.1 Magnesium 1.9 Total Bilirubin 0.6 D Direct Bilirubin 0.2 AST 11 L ALT 9 L Alkaline Phosphatase 92 Creatine Kinase Troponin I 0.03 B-Natriuretic Peptide Total Protein 4.9 L Albumin 2.1 L Urine Color Urine Appearance Urine pH Ur Specific [place] Urine Protein Urine Glucose (UA) Urine Ketones Urine Blood Urine Nitrite Urine Bilirubin Urine Urobilinogen Ur Leukocyte Esterase Urine WBC (Auto) Urine RBC (Auto) Ur Epithelial Cells Stool Occult Blood Blood Type Antibody Screen Crossmatch 11/09/17 11/09/17 06:30 06:30 WBC RBC Hgb Hct MCV MCH MCHC RDW Plt Count MPV Neutrophils % Lymphocytes % Monocytes % Eosinophils % Basophils % PT with INR INR PTT (Actin FS) Sodium Potassium Chloride Carbon Dioxide Anion Gap BUN Creatinine Creat Clearance w eGFR Random Glucose Lactic Acid Calcium Phosphorus Cancelled Magnesium Cancelled Total Bilirubin Cancelled Direct Bilirubin Cancelled AST Cancelled ALT Cancelled Alkaline Phosphatase Cancelled Creatine Kinase Troponin I B-Natriuretic Peptide Total Protein Cancelled Albumin Cancelled Urine Color Urine Appearance Urine pH Ur Specific [place] Urine Protein Urine Glucose (UA) Urine Ketones Urine Blood Urine Nitrite Urine Bilirubin Urine Urobilinogen Ur Leukocyte Esterase Urine WBC (Auto) Urine RBC (Auto) Ur Epithelial Cells Stool Occult Blood Blood Type Antibody Screen Crossmatch Problem List - Problems (1) GI bleed Code(s): K92.2 - GASTROINTESTINAL HEMORRHAGE, UNSPECIFIED Assessment/Plan GI Bleed Anemia BPH HTN HLD CAD CKD PAD on xeralto Depression Anxiety PLAN: -Continue to hold Xeralto -NPO -HOB > 92% -Supp FiO2 for an SpO2 > 92% -Maintain large bore IVs X2 -Noted DDAVP given -PPI drip -Normal Transfusion Thresholds -GI and surgical consults were called -Strict I's & O's -Monitor UOP -SCDs Dr Rojas Critical care time spent in reviewing chart, evaluating patient and formulating plan - 36 minutes.
[2017-11-09 12:51] LABS: BASO % 0.9 % (0-2.0); EOS % 0.5 % (0-4.5); HEMATOCRIT 26.6 % (35.4-49); HEMOGLOBIN 8.6 GM/dL (11.7-16.9); LYMPH % 11.1 % (8-40); MCH 30.9 pg (25.7-33.7); MCHC 32.3 g/dl (32.0-35.9); MEAN CELL VOLUME 95.5 fl (80-96); MEAN PLT VOLUME 7.6 fl (7.5-11.1); MONO % 6.2 % (3.8-10.2); NEUT % 81.3 % (42.8-82.8); PLATELET COUNT 174 K/MM3 (134-434); RBC 2.79 M/mm3 (4.00-5.60); RDW 17.5 % (11.9-15.9); WHITE BLOOD COUNT 9.9 K/mm3 (4.0-10.0)
--- NOTE | 2017-11-09 14:22 | CON.GI ---
Consult Consult Specialty:: GI - History of Present Illness History of Present Illness: Chart reviewed. Events noted. The pt cannot provide history due to dementia 82 yo male [place] resident with anemia, BPH, hypertension, hyperlipidemia, CAD, CKD , dementia, depression, anxiety, and dementia on Xarelto with INR ~ 3 sent to ED after observed to have one episode of melena. In ED noted to be hypotensive, hgb was 10 g/dl, positive UTI. No bms, or bleeding up uuntil this afternoon. Hgb decreased to 8 g/dl. No hemodynamic hanges. 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 No: CVA, Seizure Cardio/Vascular: Yes: CAD, HTN, Hyperlipdemia Pulmonary: Yes: COPD Gastrointestinal: No: GI Bleed, Hemorrhoids Hepatobiliary: No: Cirrhosis Renal/: Yes: BPH Psych: Yes: Depression - Alcohol/Substance Use Hx Alcohol Use: No - Smoking History Smoking history: Unknown if ever smoked Have you smoked in the past 12 months: No - Social History History of Recent Travel: No Home Medications - Allergies Allergies/Adverse Reactions: Allergies Allergy/AdvReac Type Severity Reaction Status Date / Time No Known Allergies Allergy Verified 11/08/17 23:20 - Home Medications Home Medications: Ambulatory Orders Acetaminophen 325 mg PO DAILY 11/08/17 Aspirin 81 mg PO DAILY 11/08/17 Calcium Carbonate/Vitamin D3 [Oyster Shell 500-Vit D3 200 Tb] 1 each PO DAILY Celexa - 10 mg PO DAILY 11/08/17 Clonazepam 0.125 mg PO DAILY 11/08/17 Donepezil HCl [Aricept -] 5 mg PO DAILY 11/08/17 Ferrous Sulfate 325 mg PO DAILY 11/08/17 Metoprolol Succinate 25 mg PO DAILY 11/08/17 Rivaroxaban [Xarelto -] 20 mg PO DAILY 11/08/17 Tamsulosin HCl [Flomax] 0.4 mg PO DAILY 11/08/17 Family Disease History - Family Disease History Family History: Unremarkable Review of Systems Findings/Remarks: Please refer to HPI and H&P. Physical Exam-GI Vital Signs: Vital Signs Temperature 97.7 F 11/09/17 14:00 Pulse Rate 66 11/09/17 14:00 Respiratory Rate 18 11/09/17 14:00 Blood Pressure 117/61 11/09/17 14:00 O2 Sat by Pulse Oximetry (%) 100 11/09/17 09:00 Constitutional: Yes: No Distress, Calm Eyes: Yes: Conjunctiva Clear HENT: Yes: Atraumatic Neck: Yes: Supple Cardiovascular: Yes: Regular Rate and Rhythm Respiratory: Yes: Regular Gastrointestinal Inspection: No: Ascites, Distention ...Palpate: No: Firm/Rigid, Guarding, Soft, Tenderness, Epigastium Neurological: Yes: Alert, Confusion. No: Lethargy Labs: CBC, BMP 11/09/17 12:40 11/09/17 06:30 INR, PTT INR 2.97 (0.82-1.09) H 11/08/17 23:22 Laboratory Tests 11/08/17 11/08/17 11/08/17 23:22 23:22 23:22 WBC RBC Hgb Hct MCV MCH MCHC RDW Plt Count MPV Neutrophils % Lymphocytes % Monocytes % Eosinophils % Basophils % PT with INR 33.60 H INR 2.97 H PTT (Actin FS) 35.5 H Sodium 141 Potassium 5.7 H Chloride 106 Carbon Dioxide 26 Anion Gap 9 BUN 58 H Creatinine 1.5 H Creat Clearance w eGFR 45.03 Random Glucose 132 H Lactic Acid 3.6 H* Calcium 8.2 L Phosphorus Magnesium 2.0 Total Bilirubin 0.4 Direct Bilirubin AST 13 L ALT 11 L Alkaline Phosphatase 111 Creatine Kinase 34 L Troponin I 0.03 B-Natriuretic Peptide Total Protein 5.5 L Albumin 2.3 L Urine Color Urine Appearance Urine pH Ur Specific [place] Urine Protein Urine Glucose (UA) Urine Ketones Urine Blood Urine Nitrite Urine Bilirubin Urine Urobilinogen Ur Leukocyte Esterase Urine WBC (Auto) Urine RBC (Auto) Ur Epithelial Cells Stool Occult Blood Blood Type Antibody Screen Crossmatch 11/08/17 11/08/17 11/08/17 23:22 23:22 23:22 WBC 13.9 H RBC 3.17 L Hgb 10.0 L Hct 31.0 L MCV 97.8 H MCH 31.5 MCHC 32.2 RDW 16.0 H Plt Count 265 MPV 8.4 Neutrophils % 92.8 H Lymphocytes % 4.3 L Monocytes % 2.5 L Eosinophils % 0.1 Basophils % 0.3 PT with INR INR PTT (Actin FS) Sodium Potassium Chloride Carbon Dioxide Anion Gap BUN Creatinine Creat Clearance w eGFR Random Glucose Lactic Acid Calcium Phosphorus Magnesium Total Bilirubin Direct Bilirubin AST ALT Alkaline Phosphatase Creatine Kinase Troponin I B-Natriuretic Peptide 8130.55 H Total Protein Albumin Urine Color Urine Appearance Urine pH Ur Specific [place] Urine Protein Urine Glucose (UA) Urine Ketones Urine Blood Urine Nitrite Urine Bilirubin Urine Urobilinogen Ur Leukocyte Esterase Urine WBC (Auto) Urine RBC (Auto) Ur Epithelial Cells Stool Occult Blood Blood Type O POSITIVE Antibody Screen Negative Crossmatch See Detail 11/08/17 11/08/17 11/09/17 23:23 23:57 00:49 WBC RBC Hgb Hct MCV MCH MCHC RDW Plt Count MPV Neutrophils % Lymphocytes % Monocytes % Eosinophils % Basophils % PT with INR INR PTT (Actin FS) Sodium Potassium Chloride Carbon Dioxide Anion Gap BUN Creatinine Creat Clearance w eGFR Random Glucose Lactic Acid Calcium Phosphorus Magnesium Total Bilirubin Direct Bilirubin AST ALT Alkaline Phosphatase Creatine Kinase Troponin I B-Natriuretic Peptide Total Protein Albumin Urine Color Yellow Urine Appearance Cloudy Urine pH 5.0 Ur Specific [place] 1.017 Urine Protein 1+ H Urine Glucose (UA) Negative Urine Ketones Negative Urine Blood 1+ H Urine Nitrite Negative Urine Bilirubin Negative Urine Urobilinogen Negative Ur Leukocyte Esterase 3+ H Urine WBC (Auto) 608 Urine RBC (Auto) 19 Ur Epithelial Cells Rare Stool Occult Blood Negative Blood Type O POSITIVE Antibody Screen Crossmatch 11/09/17 11/09/17 11/09/17 00:50 03:30 06:30 WBC 14.0 H RBC 2.92 L Hgb 9.1 L Hct 29.5 L MCV 101.2 H MCH 31.1 MCHC 30.7 L RDW 16.9 H Plt Count 251 MPV 8.2 Neutrophils % 89.4 H Lymphocytes % 4.8 L Monocytes % 3.9 Eosinophils % 0.2 D Basophils % 1.7 D PT with INR INR PTT (Actin FS) Sodium Potassium Chloride Carbon Dioxide Anion Gap BUN Creatinine Creat Clearance w eGFR Random Glucose Lactic Acid 2.2 H* 1.4 Calcium Phosphorus Magnesium Total Bilirubin Direct Bilirubin AST ALT Alkaline Phosphatase Creatine Kinase Troponin I B-Natriuretic Peptide Total Protein Albumin Urine Color Urine Appearance Urine pH Ur Specific [place] Urine Protein Urine Glucose (UA) Urine Ketones Urine Blood Urine Nitrite Urine Bilirubin Urine Urobilinogen Ur Leukocyte Esterase Urine WBC (Auto) Urine RBC (Auto) Ur Epithelial Cells Stool Occult Blood Blood Type Antibody Screen Crossmatch 11/09/17 11/09/17 11/09/17 06:30 06:30 06:30 WBC 11.5 H RBC 3.05 L Hgb 9.6 L Hct 29.3 L MCV 96.0 MCH 31.6 MCHC 32.9 RDW 16.9 H Plt Count 209 MPV 8.1 Neutrophils % Lymphocytes % Monocytes % Eosinophils % Basophils % PT with INR INR PTT (Actin FS) 33.7 Sodium 143 Potassium 5.1 Chloride 110 H Carbon Dioxide 25 Anion Gap 8 BUN 57 H Creatinine 1.5 H Creat Clearance w eGFR 45.03 Random Glucose 93 D Lactic Acid Calcium 7.5 L Phosphorus 3.1 Magnesium 1.9 Total Bilirubin 0.6 D Direct Bilirubin 0.2 AST 11 L ALT 9 L Alkaline Phosphatase 92 Creatine Kinase Troponin I 0.03 B-Natriuretic Peptide Total Protein 4.9 L Albumin 2.1 L Urine Color Urine Appearance Urine pH Ur Specific [place] Urine Protein Urine Glucose (UA) Urine Ketones Urine Blood Urine Nitrite Urine Bilirubin Urine Urobilinogen Ur Leukocyte Esterase Urine WBC (Auto) Urine RBC (Auto) Ur Epithelial Cells Stool Occult Blood Blood Type Antibody Screen Crossmatch 11/09/17 11/09/17 11/09/17 06:30 06:30 12:40 WBC 9.9 RBC 2.79 L Hgb 8.6 L D Hct 26.6 L MCV 95.5 MCH 30.9 MCHC 32.3 RDW 17.5 H Plt Count 174 MPV 7.6 Neutrophils % 81.3 Lymphocytes % 11.1 D Monocytes % 6.2 Eosinophils % 0.5 D Basophils % 0.9 PT with INR INR PTT (Actin FS) Sodium Potassium Chloride Carbon Dioxide Anion Gap BUN Creatinine Creat Clearance w eGFR Random Glucose Lactic Acid Calcium Phosphorus Cancelled Magnesium Cancelled Total Bilirubin Cancelled Direct Bilirubin Cancelled AST Cancelled ALT Cancelled Alkaline Phosphatase Cancelled Creatine Kinase Troponin I B-Natriuretic Peptide Total Protein Cancelled Albumin Cancelled Urine Color Urine Appearance Urine pH Ur Specific [place] Urine Protein Urine Glucose (UA) Urine Ketones Urine Blood Urine Nitrite Urine Bilirubin Urine Urobilinogen Ur Leukocyte Esterase Urine WBC (Auto) Urine RBC (Auto) Ur Epithelial Cells Stool Occult Blood Blood Type Antibody Screen Crossmatch Assessment/Plan An 82 yom, NHR with GI bleeding while unticoagulated with Xarelto, also was on ASA. In ICU for close monitoring. Hemodynamically stable, non-toxic and not in distress. Exam is negative for acute abdomen. Keep Hgb above 7 g/dl Reverse hypocoagulable state. Hold ASA if possible PPI po bid NPO except medications IVF hydration Plan EGD/Colonoscopy ?UTI
[2017-11-09] MEDS ORDERED: PT OWN MED DRAWER 7, Y5N ONE (15:15)
[2017-11-09] MEDS ORDERED: PANTOPRAZOLE SODIUM 160 MG in DEXTROSE 5%-WATER - 250 ML IVPB SCH ×2 (15:30→18:00)
[2017-11-09] MEDS ORDERED: PHYTONADIONE 10 MG/1 ML AMP IVPB ONE (16:00)
--- NOTE | 2017-11-09 22:01 | HP ---
Admitting History and Physical - Admission Chief Complaint: hypotensive / melena. patient is demented and unable to provide hx History of Present Illness: Mr. Chen is an 82 y/o man w/ anemia, BPH, HTN, HLD, CAD, CKD, depression, anxiety, & BERTHA BIBA from [facility] w/ melena, hypotension. patient with dementia unable to provide hx. In the ED pt hypotensive w/ SBP --> the 80's & copious melena. The patient is a poor historian and appears asymptomatic. A/p , over past few weeks patient w/ poor PO intake & rapid weigh loss. Of note, pt on Xarelto for PAD/ PVD. Pt is originally from [place] & all of his physicains are loacted @ [facility]. 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 No: CVA, Seizure Cardiovascular: Yes: CAD, HTN, Hyperlipdemia Pulmonary: Yes: COPD Gastrointestinal: No: GI Bleed, Hemorrhoids Hepatobiliary: No: Cirrhosis Renal/: Yes: BPH Heme/Onc: Yes: Anemia Psych: Yes: Depression - Smoking History Smoking history: Unknown if ever smoked Have you smoked in the past 12 months: No - Alcohol/Substance Use Hx Alcohol Use: No - Social History ADL: Support Services History of Recent Travel: No Home Medications - Allergies Allergies/Adverse Reactions: Allergies Allergy/AdvReac Type Severity Reaction Status Date / Time No Known Allergies Allergy Verified 11/08/17 23:20 - Home Medications Home Medications: Ambulatory Orders Acetaminophen 325 mg PO DAILY 11/08/17 Aspirin 81 mg PO DAILY 11/08/17 Calcium Carbonate/Vitamin D3 [Oyster Shell 500-Vit D3 200 Tb] 1 each PO DAILY Celexa - 10 mg PO DAILY 11/08/17 Clonazepam 0.125 mg PO DAILY 11/08/17 Donepezil HCl [Aricept -] 5 mg PO DAILY 11/08/17 Ferrous Sulfate 325 mg PO DAILY 11/08/17 Metoprolol Succinate 25 mg PO DAILY 11/08/17 Rivaroxaban [Xarelto -] 20 mg PO DAILY 11/08/17 Tamsulosin HCl [Flomax] 0.4 mg PO DAILY 02/01/18 Physical Examination Vital Signs: Vital Signs Temperature 97.7 F 11/09/17 18:00 Pulse Rate 72 11/09/17 18:00 Respiratory Rate 20 11/09/17 18:00 Blood Pressure 114/59 11/09/17 18:00 O2 Sat by Pulse Oximetry (%) 100 11/09/17 09:00 Constitutional: Yes: Calm, Cachectic, Pallor Eyes: Yes: Conjunctiva Clear, EOM Intact HENT: Yes: Atraumatic, Normocephalic Neck: Yes: Supple, Trachea Midline Cardiovascular: Yes: Regular Rate and Rhythm Respiratory: Yes: CTA Bilaterally Gastrointestinal: Yes: Normal Bowel Sounds, Soft, Melena ...Rectal Exam: Yes: Guaiac Positive Renal/: Yes: WNL Breast(s): Yes: WNL Musculoskeletal: Yes: WNL Extremities: No: Cold, Cool, Deformity Edema: No Peripheral Pulses: Left Radial: 2+, Right Radial: 2+, Left Doralis Pedis: 2+, Right Dorsalis Pedis: 2+, Left Femoral: 2+, Right Femoral: 2+ Wound/Incision: Yes: Clean/Dry Neurological: Yes: Pre-Existing Deficit Labs: CBC, BMP 11/09/17 12:40 11/09/17 06:30 Problem List - Problems (1) Gastrointestinal hemorrhage with melena Code(s): K92.1 - MELENA (2) GI bleed Code(s): K92.2 - GASTROINTESTINAL HEMORRHAGE, UNSPECIFIED (3) Dementia Code(s): F03.90 - UNSPECIFIED DEMENTIA WITHOUT BEHAVIORAL DISTURBANCE (4) BPH (benign prostatic hyperplasia) Code(s): N40.0 - BENIGN PROSTATIC HYPERPLASIA WITHOUT LOWER URINRY TRACT SYMP (5) CAD (coronary artery disease) Code(s): I25.10 - ATHSCL HEART DISEASE OF [place] CORONARY ARTERY W/O ANG PCTRS (6) HTN (hypertension) Code(s): I10 - ESSENTIAL (PRIMARY) HYPERTENSION (7) Hyperlipidemia Code(s): E78.5 - HYPERLIPIDEMIA, UNSPECIFIED Assessment/Plan admit to ICU transfuse 2 units P RBC FFP serial h/h - transfuse as needed off NOAC last dose night of admission Gi consult surgical consult
[2017-11-09] MEDS: PANTOPRAZOLE SOD 40 MG SUSPENSION PACKET PO SCH (22:15)
[2017-11-10 00:56] LABS: BASO % 0.7 % (0-2.0); HEMATOCRIT 30.6 % (35.4-49); HEMOGLOBIN 10.2 GM/dL (11.7-16.9); LYMPH % 8.6 % (8-40); MCH 31.5 pg (25.7-33.7); MCHC 33.3 g/dl (32.0-35.9); MEAN CELL VOLUME 94.4 fl (80-96); MEAN PLT VOLUME 8.3 fl (7.5-11.1); MONO % 6.4 % (3.8-10.2); NEUT % 81.3 % (42.8-82.8); PLATELET COUNT 170 K/MM3 (134-434); RBC 3.24 M/mm3 (4.00-5.60); RDW 17.1 % (11.9-15.9); WHITE BLOOD COUNT 9.4 K/mm3 (4.0-10.0)
[2017-11-10 06:15] LABS: BASO % 0.9 % (0-2.0); EOS % 4.2 % (0-4.5); HEMATOCRIT 30.7 % (35.4-49); HEMOGLOBIN 10.5 GM/dL (11.7-16.9); LYMPH % 8.3 % (8-40); MCHC 34.1 g/dl (32.0-35.9); MEAN CELL VOLUME 93.9 fl (80-96); MONO % 5.7 % (3.8-10.2); NEUT % 80.9 % (42.8-82.8); PLATELET COUNT 185 K/MM3 (134-434); RBC 3.27 M/mm3 (4.00-5.60); WHITE BLOOD COUNT 9.1 K/mm3 (4.0-10.0)
[2017-11-10 06:28] LABS: INR 1.18 (0.82-1.09); PROTHROMBIN TIME (PATIENT) 13.3 SEC (9.98-11.88)
[2017-11-10 06:52] LABS: ALBUMIN 2.4 g/dl (3.4-5.0); ANION GAP 5 (8-16); BLOOD UREA NITROGEN 50 mg/dL (7-18); CALCIUM 7.6 mg/dL (8.5-10.1); CHLORIDE 112 mmol/L (98-107); CO2 26 mmol/L (21-32); GLUCOSE,RANDOM 70 mg/dL (74-106); MAGNESIUM 1.9 mg/dL (1.8-2.4); POTASSIUM 4.1 mmol/L (3.5-5.1); SODIUM 143 mmol/L (136-145)
[2017-11-10 06:56] LABS: ALK PHOS 100 U/L (45-117); BILIRUBIN,TOTAL 0.7 mg/dL (0.2-1.0); CREATININE 1.1 mg/dL (0.7-1.3); PHOSPHOROUS 2.6 mg/dL (2.5-4.9); SGOT/AST 10 U/L (15-37); SGPT/ALT 10 U/L (12-78); TOT PROT 5.3 g/dl (6.4-8.2)
[2017-11-10] MEDS ORDERED: PT OWN MED DRAWER 7, Y5N ONE (09:15)
[2017-11-10] MEDS: CEFTRIAXONE IN IS-OSM DEXTROSE 2 GM/50 ML BAG IVPB SCH (09:16)
[2017-11-10] MEDS: PANTOPRAZOLE SOD 40 MG SUSPENSION PACKET PO SCH (09:16)
--- NOTE | 2017-11-10 09:18 | PN ---
Progress Note (short form) - Note Progress Note: PULMONARY/CCM Pt seen and examined in the ICU. 2 dark bowel movements noted by nursing overnight. Has received 3 units PRBC so far. Denies abdominal pain, shortness of breath or chest pain. Last Vital Signs Temp Pulse Resp BP Pulse Ox 97 F L 61 18 127/76 100 11/10/17 06:00 11/10/17 08:00 11/10/17 08:00 11/10/17 08:00 11/09/17 21:00 Intake & Output 11/07/17 11/08/17 11/09/17 11/10/17 23:59 23:59 23:59 23:59 Intake Total 1570 350 Output Total 1900 500 Balance -330 -150 Weight 81.647 kg 63.4 kg 64.138 kg Gen: confused, breathing nonlabored Heart: RRR Lung: decreased breath sounds at the bases Abd: soft, nontender Ext: no edema CBC, BMP 11/10/17 05:20 11/10/17 05:20 Active Medications Bisacodyl (Dulcolax -) 20 mg PO ONCE ONE Stop: 11/11/17 15:12 CEFTRIAXONE IN IS-OSM DEXTROSE (Ceftriaxone 2 Gm-D5w Bag) 2 gm in 50 mls @ 100 mls/hr IVPB DAILY [facility] Last Admin: 11/09/17 09:51 Dose: 100 mls/hr Pantoprazole Sodium (Protonix Packets For Oral Suspension -) 40 mg PO BID [facility] Last Admin: 11/09/17 22:15 Dose: 40 mg Polyethylene Glycol/Electrolytes (Golytely Solution -) 4,000 ml PO ONCE ONE Stop: 11/11/17 15:12 A/P GI Bleed Acute Blood Loss Anemia Lactic Acidosis UTI PAD CAD CKD HTN Hyperlipidemia Dementia - monitor H/H - transfuse as needed - protonix - hold all anticoagulation, antiplatelet therapy - continue antibiotics - f/u cultures - for EGD/colonoscopy per GI - DVT prophylaxis - continue ICU monitoring critical care time spent in reviewing chart, evaluating patient and formulating plan 35 min
--- NOTE | 2017-11-10 09:42 | PN ---
Progress Note, Physician Chief Complaint: GIB History of Present Illness: denies cp, sob, palpitations, wheezing - Current Medication List Current Medications: Active Medications Bisacodyl (Dulcolax -) 20 mg PO ONCE ONE Stop: 11/11/17 15:12 CEFTRIAXONE IN IS-OSM DEXTROSE (Ceftriaxone 2 Gm-D5w Bag) 2 gm in 50 mls @ 100 mls/hr IVPB DAILY [facility] Last Admin: 11/10/17 09:16 Dose: 100 mls/hr Pantoprazole Sodium (Protonix Packets For Oral Suspension -) 40 mg PO BID [facility] Last Admin: 11/10/17 09:16 Dose: 40 mg Polyethylene Glycol/Electrolytes (Golytely Solution -) 4,000 ml PO ONCE ONE Stop: 11/11/17 15:12 - Objective Vital Signs: Vital Signs Temperature 97 F L 11/10/17 06:00 Pulse Rate 61 11/10/17 08:00 Respiratory Rate 18 11/10/17 08:00 Blood Pressure 127/76 11/10/17 08:00 O2 Sat by Pulse Oximetry (%) 100 11/09/17 21:00 Constitutional: Yes: Well Nourished, No Distress, Calm Cardiovascular: Yes: Regular Rate and Rhythm, S1, S2. No: Gallop, Murmur Respiratory: Yes: Regular, CTA Bilaterally. No: Accessory Muscle Use, Rales, Wheezes Extremities: No: Cold Edema: No Neurological: Yes: Alert. No: Seizure Psychiatric: No: Agitated Labs: CBC, BMP 11/10/17 05:20 11/10/17 05:20 INR, PTT INR 1.18 (0.82-1.09) H D 11/10/17 05:20 - ....Imaging EKG: Other (tele: NSR, sinus arrhythmia) Assessment/Plan cxr: clear lungs ecg: sr, nl intervals, ant/lat twis and subtle st depressions Echo 11/25: borderline vs mildly reduced LVSF (regional wall motion eval is TDS) . nl RV. mild LAE. valve fxn WNL. a/p: 82 m hx dementia, htn, hld, pad, cad, ckd, [facility] [place]. gib: -[facility] xarelto [facility] for PAD per charts, with no mention of Afib--PAD is not an approved indication for NOAC, hence have to assume there is h/o pafib here. -no h/o CVA per [place] dx list. -also on ASA. -holding both ASA and AC until GIB w/u and tx is complete. for EGD/FOC per dr garcia. -hgb remains stable, BP/HR stable. -given pt baseline dementia, and current mentation (? at baseline or not), it seems that risks of GIB on AC are > benefits of CVA prevention. will plan to resume ASA later once stable per GI oracle application consultant. -he should have outpt f/u and if cognition/quality of life is such that CVA prevention makes sense at that time, d/w family can be re-visited regarding R/B of AC cad: -details not available, carries CAD dx per [place] notes -no signs acs here, ce's neg x2 -ecg with subtle st depressions, likely due to demand from anemia in setting of cad -preserved LV fxn on echo -holding home asa and bb, as above htn: -low bp initially, improved now. -holding home bb, monitor trend hld: -stable, statin not listed on home meds KEVEN: -unknown baseline -creat initially 1.5-->down to 1.1 -monitor labs trend
--- NOTE | 2017-11-10 13:59 | PN ---
Progress Note, Physician Chief Complaint: GI bleed History of Present Illness: 82 yo male [place] resident [facility] anemia, BPH, hypertension, hyperlipidemia, CAD, CKD, dementia, depression, anxiety, and dementia who presents to the emergency department with rectal bleed. As per fdc, he was found to have a bloody bowel movements the evening before admission. In the ED, the patient was also found to be hypotensive in the 80s. The patient is a poor historian. Per his , the patient has been losing weight over the past few weeks and has no appetite. Per nursing notes, the patient is on Xarelto. No previous abdominal surgery. Unable to determine if there is an individual history of colon cancer or diverticular disease. The majority of his care at [facility] - Current Medication List Current Medications: Active Medications Bisacodyl (Dulcolax -) 20 mg PO ONCE ONE Stop: 11/11/17 15:12 CEFTRIAXONE IN IS-OSM DEXTROSE (Ceftriaxone 2 Gm-D5w Bag) 2 gm in 50 mls @ 100 mls/hr IVPB DAILY [facility] Last Admin: 11/10/17 09:16 Dose: 100 mls/hr Pantoprazole Sodium (Protonix Packets For Oral Suspension -) 40 mg PO BID [facility] Last Admin: 11/10/17 09:16 Dose: 40 mg Polyethylene Glycol/Electrolytes (Golytely Solution -) 4,000 ml PO ONCE ONE Stop: 11/11/17 15:12 - Objective Vital Signs: Vital Signs Temperature 97.6 F 11/10/17 12:00 Pulse Rate 72 11/10/17 12:00 Respiratory Rate 18 11/10/17 12:00 Blood Pressure 111/70 11/10/17 12:00 O2 Sat by Pulse Oximetry (%) 100 11/10/17 10:00 Vital Signs Period Temp Pulse Resp BP Sys/Mcdowell Pulse Ox Last 24 Hr 97 F-98.8 F 60-74 16-20 109-141/59-83 100-100 Intake & Output 11/09/17 11/10/17 11/10/17 23:59 07:59 15:59 Intake Total 1160 350 Output Total 600 500 Balance 560 -150 Weight 141 lb 6.4 oz Intake: IV 110 protonix 110 IVPB 100 Packed Cells 350 350 Fresh Frozen Plasma 600 Output: Urine 600 500 Paul 600 500 Other: Voiding Method Indwelling Catheter Indwelling Catheter Bowel Movement Yes: dark/ loose bm Yes: dark, black, tarry, loose bm # Bowel Movements 1 1 Weight Measurement Method Built in [facility] Constitutional: Yes: No Distress, Calm Eyes: Yes: Conjunctiva Clear, EOM Intact HENT: Yes: Atraumatic, Normocephalic Neck: Yes: Supple, Trachea Midline Cardiovascular: Yes: Regular Rate and Rhythm, S1, S2 Respiratory: Yes: Regular, CTA Bilaterally Gastrointestinal: Yes: Normal Bowel Sounds, Soft, Rectal Bleeding, Other ( scaphoid). No: Tenderness ...Rectal Exam: Yes: Other (1 reported melenic stool) Edema: No Peripheral Pulses WNL: Yes Peripheral Pulses: Left Femoral: 2+, Right Femoral: 2+ Integumentary: Yes: Bruising Neurological: Yes: Alert, Oriented Psychiatric: Yes: Alert, Oriented Labs: CBC, BMP 11/10/17 05:20 11/10/17 05:20 INR, PTT INR 1.18 (0.82-1.09) H D 11/10/17 05:20 CBC,CMP WBC 9.1 K/mm3 (4.0-10.0) 11/10/17 05:20 RBC 3.27 M/mm3 (4.00-5.60) L 11/10/17 05:20 Hgb 10.5 GM/dL (11.7-16.9) L 11/10/17 05:20 Hct 30.7 % (35.4-49) L 11/10/17 05:20 MCV 93.9 fl (80-96) 11/10/17 05:20 MCH 32.0 pg (25.7-33.7) 11/10/17 05:20 MCHC 34.1 g/dl (32.0-35.9) 11/10/17 05:20 RDW 17.0 % (11.9-15.9) H 11/10/17 05:20 Plt Count 185 K/MM3 (134-434) 11/10/17 05:20 MPV 8.0 fl (7.5-11.1) 11/10/17 05:20 Neutrophils % 80.9 % (42.8-82.8) 11/10/17 05:20 Lymphocytes % 8.3 % (8-40) 11/10/17 05:20 Monocytes % 5.7 % (3.8-10.2) 11/10/17 05:20 Eosinophils % 4.2 % (0-4.5) 11/10/17 05:20 Basophils % 0.9 % (0-2.0) 11/10/17 05:20 Sodium 143 mmol/L (136-145) 11/10/17 05:20 Potassium 4.1 mmol/L (3.5-5.1) 11/10/17 05:20 Chloride 112 mmol/L (98-107) H 11/10/17 05:20 Carbon Dioxide 26 mmol/L (21-32) 11/10/17 05:20 Anion Gap 5 (8-16) L 11/10/17 05:20 BUN 50 mg/dL (7-18) H 11/10/17 05:20 Creatinine 1.1 mg/dL (0.7-1.3) D 11/10/17 05:20 Creat Clearance w eGFR > 60 (>60) 11/10/17 05:20 Random Glucose 70 mg/dL (74-106) L D 11/10/17 05:20 Lactic Acid 1.4 mmol/L (0.0-2.0) 11/09/17 06:30 Calcium 7.6 mg/dL (8.5-10.1) L 11/10/17 05:20 Phosphorus 2.6 mg/dL (2.5-4.9) 11/10/17 05:20 Magnesium 1.9 mg/dL (1.8-2.4) 11/10/17 05:20 Total Bilirubin 0.7 mg/dL (0.2-1.0) 11/10/17 05:20 Direct Bilirubin 0.2 mg/dL (0.0-0.2) 11/09/17 06:30 AST 10 U/L (15-37) L 11/10/17 05:20 ALT 10 U/L (12-78) L 11/10/17 05:20 Alkaline Phosphatase 100 U/L (45-117) 11/10/17 05:20 Creatine Kinase 34 IU/L (39-308) L 11/08/17 23:22 Troponin I 0.03 ng/ml (0.00-0.05) 11/09/17 06:30 B-Natriuretic Peptide 8130.55 pg/ml (5-450) H 11/08/17 23:22 Total Protein 5.3 g/dl (6.4-8.2) L 11/10/17 05:20 Albumin 2.4 g/dl (3.4-5.0) L 11/10/17 05:20 Problem List - Problems (1) Gastrointestinal hemorrhage with melena Assessment/Plan: 82yo male MMP presented from [place] with GI bleed with Melena X2, 1 gram drop in H& H, Transfused 1RBC with appropriate response, he is hemodynamically stable at present. slow but persistent GI bleed, coagulopathy improved. NPO and IVF resuscitation monitored setting Transfuse RBC and FFP as needed Trend H&H [id number] GI reccomendations appreciated - upper and lower endoscopy Tagged RBC scan not done Request records from [facility] will follow for serial exams Code(s): K92.1 - MELENA (2) Hyperlipidemia Code(s): E78.5 - HYPERLIPIDEMIA, UNSPECIFIED (3) HTN (hypertension) Code(s): I10 - ESSENTIAL (PRIMARY) HYPERTENSION (4) CAD (coronary artery disease) Code(s): I25.10 - ATHSCL HEART DISEASE OF [place] CORONARY ARTERY W/O ANG PCTRS (5) BPH (benign prostatic hyperplasia) Code(s): N40.0 - BENIGN PROSTATIC HYPERPLASIA WITHOUT LOWER URINRY TRACT SYMP (6) Dementia Code(s): F03.90 - UNSPECIFIED DEMENTIA WITHOUT BEHAVIORAL DISTURBANCE
--- NOTE | 2017-11-10 14:47 | PN ---
Progress Note, Physician History of Present Illness: Melena was reported. No scarlet hematochezia, or hematemesis. Hemodynamically stable. Hgb remains stable for now. The pt is awake an dalert, disoriented. - Current Medication List Current Medications: Active Medications Bisacodyl (Dulcolax -) 20 mg PO ONCE ONE Stop: 11/11/17 15:12 CEFTRIAXONE IN IS-OSM DEXTROSE (Ceftriaxone 2 Gm-D5w Bag) 2 gm in 50 mls @ 100 mls/hr IVPB DAILY [facility] Last Admin: 11/10/17 09:16 Dose: 100 mls/hr Pantoprazole Sodium (Protonix Packets For Oral Suspension -) 40 mg PO BID [facility] Last Admin: 11/10/17 09:16 Dose: 40 mg Polyethylene Glycol/Electrolytes (Golytely Solution -) 4,000 ml PO ONCE ONE Stop: 11/11/17 15:12 - Objective Vital Signs: Vital Signs Temperature 97.6 F 11/10/17 12:00 Pulse Rate 72 11/10/17 12:00 Respiratory Rate 18 11/10/17 12:00 Blood Pressure 111/70 11/10/17 12:00 O2 Sat by Pulse Oximetry (%) 100 11/10/17 10:00 Constitutional: Yes: No Distress, Pallor Eyes: Yes: Conjunctiva Clear HENT: Yes: Atraumatic Neck: Yes: Supple Gastrointestinal: Yes: Soft, Melena. No: Distention, Rectal Bleeding, Tenderness, Tenderness, Epigastrium, Vomiting Neurological: Yes: Alert Labs: CBC, BMP 11/10/17 05:20 11/10/17 05:20 INR, PTT INR 1.18 (0.82-1.09) H D 11/10/17 05:20 CBCD WBC 9.1 K/mm3 (4.0-10.0) 11/10/17 05:20 RBC 3.27 M/mm3 (4.00-5.60) L 11/10/17 05:20 Hgb 10.5 GM/dL (11.7-16.9) L 11/10/17 05:20 Hct 30.7 % (35.4-49) L 11/10/17 05:20 MCV 93.9 fl (80-96) 11/10/17 05:20 MCHC 34.1 g/dl (32.0-35.9) 11/10/17 05:20 RDW 17.0 % (11.9-15.9) H 11/10/17 05:20 Plt Count 185 K/MM3 (134-434) 11/10/17 05:20 MPV 8.0 fl (7.5-11.1) 11/10/17 05:20 CMP Sodium 143 mmol/L (136-145) 11/10/17 05:20 Potassium 4.1 mmol/L (3.5-5.1) 11/10/17 05:20 Chloride 112 mmol/L (98-107) H 11/10/17 05:20 Carbon Dioxide 26 mmol/L (21-32) 11/10/17 05:20 Anion Gap 5 (8-16) L 11/10/17 05:20 BUN 50 mg/dL (7-18) H 11/10/17 05:20 Creatinine 1.1 mg/dL (0.7-1.3) D 11/10/17 05:20 Creat Clearance w eGFR > 60 (>60) 11/10/17 05:20 Calcium 7.6 mg/dL (8.5-10.1) L 11/10/17 05:20 Total Bilirubin 0.7 mg/dL (0.2-1.0) 11/10/17 05:20 AST 10 U/L (15-37) L 11/10/17 05:20 ALT 10 U/L (12-78) L 11/10/17 05:20 Alkaline Phosphatase 100 U/L (45-117) 11/10/17 05:20 Total Protein 5.3 g/dl (6.4-8.2) L 11/10/17 05:20 Albumin 2.4 g/dl (3.4-5.0) L 11/10/17 05:20 Problem List - Problems (1) GI bleed Code(s): K92.2 - GASTROINTESTINAL HEMORRHAGE, UNSPECIFIED (2) Gastrointestinal hemorrhage with melena Code(s): K92.1 - MELENA Assessment/Plan An 82 yom, NHR with GI bleeding while unticoagulated with Xarelto, also was on ASA. In ICU for close monitoring. Hemodynamically stable, non-toxic and not in distress. Exam is negative for acute abdomen. Keep Hgb above 7 g/dl Reverse hypocoagulable state. Hold ASA if possible PPI po bid Clear liquid diet PO/IVF hydration Plan EGD/Colonoscopy
[2017-11-10] MEDS ORDERED: VASOPRESSIN 20 UNITS/ML VIAL IV ONE (17:43)
[2017-11-10] MEDS ORDERED: SUCCINYLCHOLINE CHLORIDE 200 MG/10 ML VIAL ONE (17:47)
[2017-11-10] MEDS ORDERED: NOREPINEPHRINE BITARTRATE 4 MG/4 ML ML IV ONE (17:49)
[2017-11-10] MEDS ORDERED: PHENYLEPHRINE HCL 10 MG/1 ML SINGLE DOSE VIAL ONE (17:52)
[2017-11-10] MEDS ORDERED: ADENOSINE 6 MG/2 ML VIAL IVPUSH ONE (18:49)
[2017-11-10] MEDS ORDERED: EPINEPHrine/PF 1 MG/1 ML (1:1,000) AMPULE ONE (18:59)
--- NOTE | 2017-11-10 19:15 | PN ---
Progress Note, Physician Chief Complaint: Was called to assess patient for EGD for GI bleed. Upon arrival to bedside, patient was unexpectedly unresponsive, with a BP of 50s/30s and HR 120s and satting 99%. Dr Peng arrived at bedside as well; he informed me that just an hour or so earlier, patient was alert and oriented and hemodynamically stable. Given the fact that the patient was about to code, and the fact that no ICU physician/GOLF COURSE SUPERINTENDENT/PA was immediately available, decision was made to intubate, start a central line and an [place] in order to stablize the patient. After patient was confirmed to be full code, we called the rapid response team and proceeded with the plan. Pt was easily intubated with a MAC3 and size 8.0 ETT after 100mg Succinylcholine given. I assisted Dr Peng with the central line- right triple lumen IJ placed under U/ S guidance - 1 attempt after sterile prep and drape. Left sided radial Kiko placed with 22G arrow after prep. Vasopressin (6units/hr) and levophed (30mcg/min) were initiated, bringing pressures to 130s/80s. Additional PRBCs and NaCl was given as well - Current Medication List Current Medications: Active Medications Bisacodyl (Dulcolax -) 20 mg PO ONCE ONE Stop: 11/11/17 15:12 CEFTRIAXONE IN IS-OSM DEXTROSE (Ceftriaxone 2 Gm-D5w Bag) 2 gm in 50 mls @ 100 mls/hr IVPB DAILY [facility] Last Admin: 11/10/17 09:16 Dose: 100 mls/hr Pantoprazole Sodium (Protonix Packets For Oral Suspension -) 40 mg PO BID [facility] Last Admin: 11/10/17 09:16 Dose: 40 mg Polyethylene Glycol/Electrolytes (Golytely Solution -) 4,000 ml PO ONCE ONE Stop: 11/11/17 15:12 - Objective Vital Signs: Vital Signs Temperature 97.7 F 11/10/17 14:00 Pulse Rate 71 11/10/17 14:00 Respiratory Rate 12 11/10/17 18:00 Blood Pressure 107/72 11/10/17 14:00 O2 Sat by Pulse Oximetry (%) 100 11/10/17 10:00 Constitutional: Yes: Other (hypotensive/unresponsive except to pain) Labs: CBC, BMP 11/10/17 05:20 11/10/17 05:20 INR, PTT INR 1.18 (0.82-1.09) H D 11/10/17 05:20 Assessment/Plan Further care to be continued by medical team
[2017-11-10] MEDS: SODIUM CHLORIDE IVPB SCH (19:30)
[2017-11-10] MEDS: OCTREOTIDE ACETATE IVPB SCH (19:30)
[2017-11-10] MEDS ORDERED: PANTOPRAZOLE SODIUM 80 MG in SODIUM CHLORIDE 100 ML IVPB SCH ×2 (19:30→20:15)
[2017-11-10] MEDS ORDERED: PANTOPRAZOLE SODIUM 160 MG in DEXTROSE 5%-WATER - 290 ML IVPB SCH (19:45)
--- NOTE | 2017-11-10 19:45 | PN ---
Progress Note (short form) - Note Progress Note: Called and informed about a large melenic stool which was passed shortly after 430pm. Patient was seen and examined in extremis. Non-responsive on IVF and blood transfusion started. vitals marginal 50/30 hr 130 and irregular. contacted by nurse to confirm that everything should be done to preserve life. Central venous access and arterial line placed emergently. Vasopressor and IVF boluses started. GI contacted for emergency endoscopy. Emergency upper endoscopy identified a large bleeding ulcer in the 1st portion of the duodenum. Injected with epinephrine. could note be clipped or cauterized per GI given location. IR is the next best option for treatment if and when this measure fails. He is not likely to survive a surgical procedure. This was discussed with the and son. They are considering goals of care. But for now would like to continue all efforts. Problem List - Problems (1) Gastrointestinal hemorrhage with melena Code(s): K92.1 - MELENA (2) Hyperlipidemia Code(s): E78.5 - HYPERLIPIDEMIA, UNSPECIFIED (3) HTN (hypertension) Code(s): I10 - ESSENTIAL (PRIMARY) HYPERTENSION (4) CAD (coronary artery disease) Code(s): I25.10 - ATHSCL HEART DISEASE OF [place] CORONARY ARTERY W/O ANG PCTRS (5) BPH (benign prostatic hyperplasia) Code(s): N40.0 - BENIGN PROSTATIC HYPERPLASIA WITHOUT LOWER URINRY TRACT SYMP (6) Dementia Code(s): F03.90 - UNSPECIFIED DEMENTIA WITHOUT BEHAVIORAL DISTURBANCE
--- NOTE | 2017-11-10 19:59 | PN ---
Progress Note (short form) - Note Progress Note: examined in ICU provides no complaints reports per nursing 2 dark BM overnight however patient remains hemodyamically stable Vital Signs Period Temp Pulse Resp BP Sys/Mcdowell Pulse Ox Last 24 Hr 97 F-98.8 F 60-94 12-26 53-141/31-83 100-100 Intake & Output 11/07/17 11/08/17 11/09/17 11/10/17 23:59 23:59 23:59 23:59 Intake Total 1570 750 Output Total 1900 1000 Balance -330 -250 Weight 180 lb 139 lb 12.369 oz 141 lb 6.4 oz IN bed NAD confused / unable to provide hx neck supple heart S1/S2 reg lungs no wheezing/ grossly clear abd soft no tenderness / ext no edema CBC, BMP 11/10/17 05:20 11/10/17 05:20 Active Medications Bisacodyl (Dulcolax -) 20 mg PO ONCE ONE Stop: 11/11/17 15:12 CEFTRIAXONE IN IS-OSM DEXTROSE (Ceftriaxone 2 Gm-D5w Bag) 2 gm in 50 mls @ 100 mls/hr IVPB DAILY [facility] Last Admin: 11/10/17 09:16 Dose: 100 mls/hr Octreotide Acetate 1,200 mcg/ (Sodium Chloride) 500 mls @ 20.83 mls/hr IVPB ASDIR ERNIE PRN Reason: 50 MCG/HR Pantoprazole Sodium 160 mg/ (Dextrose) 290 mls @ 14.5 mls/hr IVPB Q20H ERN[facility] Pantoprazole Sodium (Protonix Packets For Oral Suspension -) 40 mg PO BID [facility] Last Admin: 11/10/17 09:16 Dose: 40 mg Polyethylene Glycol/Electrolytes (Golytely Solution -) 4,000 ml PO ONCE ONE Stop: 11/11/17 15:12 Microbiology 11/09/17 00:59 Urine - Urine - Catheterized Urine Culture - Final NO GROWTH OBTAINED 82 y/o male Hx dementia /HTN /PAD/CKD/ PVD/ was transfered from [facility] with rectal bleed and hypotensive # Gi Bleed H/H has remained stable Gi / surgical consult on case off NOAC / ASA discussed with Cardio - will not resume A/C as no strong indications ASA only after clearing with GI continue to monitor h/h CCU care # HTN admitted with low Bp has remained stable will resume if needed # KEVEN Cr normalized unclear baseline Cr # CAD will discuss with cardio as poor hx No signs of ACS EKG / Echo / TNI negative for acute event Problem List - Problems (1) Gastrointestinal hemorrhage with melena Code(s): K92.1 - MELENA (2) GI bleed Code(s): K92.2 - GASTROINTESTINAL HEMORRHAGE, UNSPECIFIED (3) Dementia Code(s): F03.90 - UNSPECIFIED DEMENTIA WITHOUT BEHAVIORAL DISTURBANCE (4) BPH (benign prostatic hyperplasia) Code(s): N40.0 - BENIGN PROSTATIC HYPERPLASIA WITHOUT LOWER URINRY TRACT SYMP (5) CAD (coronary artery disease) Code(s): I25.10 - ATHSCL HEART DISEASE OF [place] CORONARY ARTERY W/O ANG PCTRS (6) HTN (hypertension) Code(s): I10 - ESSENTIAL (PRIMARY) HYPERTENSION (7) Hyperlipidemia Code(s): E78.5 - HYPERLIPIDEMIA, UNSPECIFIED
--- NOTE | 2017-11-10 20:06 | PROC ---
Endoscopy Procedure Endoscopy procedure completed. Please see scanned procedure report. EGD with control of bleeding in ICU 5. Informed by the pt's nurse pt had large, maroon-colored bm. Hypotensive. EGD at bedside revealed a large ~4 cm round, deep with attached clot and fresh blood ulcer. Slow, pulsating bleed noted at the age of the clot. The clot was removed form the ulcer bed revealing an actively bleeding area. The whole ulcer bed was injected with a total of 23 cc of 1:10,000 epi with immediate, complete hemostats. The ulcer is not amendable to clipping (too large), or cautery (too deep). The ulcer was irrigated for ~ 10 min with a total of ~ 300 cc sterile water through the scope while observing for recurrent bleeding. A complete hemostasis was achieved at the end of the procedure. No lesions in the total stomach, 2nd portion of the duodenum, or esophagus noted. An NGT was inserted and confirmed by endo direct visualization. The NGT to be connected to low intermittent suction to be used for medications as needed and to monitor for recurrent bleeding. PPI IV drip carafate octreotide 2 u PRBC again and CBC q 4 hrs x 24 hrs NPO except meds IR consult for possible embolization if actively bleeding again. and son on site. Discussed the endo results. Aware of the pt's state
[2017-11-10] MEDS: SODIUM CHLORIDE 1,000 ML IV SCH (20:15)
[2017-11-10] MEDS: NOREPINEPHRINE BITARTRATE 8,000 MCG in SODIUM CHLORIDE 492 ML IV SCH (20:30)
[2017-11-10] MEDS: PANTOPRAZOLE SODIUM 160 MG in DEXTROSE 5%-WATER - 290 ML IVPB SCH (21:00)
[2017-11-10 21:05] LABS: MCHC 31.7 g/dl (32.0-35.9); MEAN CELL VOLUME 94.5 fl (80-96); PLATELET COUNT 152 K/MM3 (134-434); RBC 2.24 M/mm3 (4.00-5.60); WHITE BLOOD COUNT 26.3 K/mm3 (4.0-10.0)
[2017-11-10 21:11] LABS: ARTERIAL BLOOD GAS BASE EXCESS -8.8 meq/l (-2-2); ARTERIAL BLOOD GAS pH 7.22 (7.35-7.45)
[2017-11-10 21:12] LABS: ARTERIAL BLD GAS O2 SATURATION 98.3 % (90-98.9)
[2017-11-10 21:21] LABS: HEMATOCRIT 21.1 % (35.4-49); HEMOGLOBIN 6.7 GM/dL (11.7-16.9)
[2017-11-10 21:42] LABS: INR 1.53 (0.82-1.09); PROTHROMBIN TIME (PATIENT) 17.3 SEC (9.98-11.88)
[2017-11-10 22:05] LABS: ANION GAP 10 (8-16); BLOOD UREA NITROGEN 49 mg/dL (7-18); CHLORIDE 117 mmol/L (98-107); CO2 20 mmol/L (21-32); CREATININE 1.1 mg/dL (0.7-1.3); GLUCOSE,RANDOM 180 mg/dL (74-106); MAGNESIUM 1.6 mg/dL (1.8-2.4); PHOSPHOROUS 3.2 mg/dL (2.5-4.9); POTASSIUM 3.8 mmol/L (3.5-5.1); SODIUM 147 mmol/L (136-145)
[2017-11-10 22:07] LABS: CALCIUM 6.3 mg/dL (8.5-10.1)
[2017-11-10] MEDS ORDERED: CALCIUM GLUCONATE 10% - 1,000 MG/10 ML VIAL IVPB ONE ×2 (22:11→22:12)
[2017-11-10 22:20] LABS: ANISOCYTOSIS 1+; OVALOCYTE 1+
[2017-11-10 22:21] LABS: PLATELET ESTIMATE ADEQUATE
[2017-11-10] MEDS ORDERED: PIPERACILLIN/TAZOB 3.375 GM 3.375 GM in DEXTROSE 5%-WATER - 100 ML IVPB ONE (22:45)
[2017-11-10] MEDS ORDERED: PIPERACILLIN/TAZOB 3.375 GM 3.375 GM in DEXTROSE 5%-WATER - 250 ML IVPB ONE (22:45)
[2017-11-10] MEDS ORDERED: VANCOMYCIN 1,000 MG in DEXTROSE 5%-WATER - 250 ML IVPB ONE (22:45)
[2017-11-10] MEDS ORDERED: PIPERACILLIN/TAZOB 3.375 GM/50 ML PRE-DOCKED IVPB ONE (22:45)
[2017-11-10 23:23] LABS: ALLENS TEST POSITIVE; ARTERIAL BLD GAS O2 SATURATION 98.8 % (90-98.9); ARTERIAL BLOOD GAS BASE EXCESS -9.8 meq/l (-2-2); ARTERIAL BLOOD GAS PCO2 37.3 mmHg (35-45)
[2017-11-10 23:24] LABS: ARTERIAL BLOOD GAS pH 7.26 (7.35-7.45)
[2017-11-11] MEDS ORDERED: PROPOFOL 1,000,000 MCG/100 ML VIAL ONE (01:29)
[2017-11-11] MEDS: PROPOFOL 1,000,000 MCG/100 ML VIAL IVPB SCH (01:31)
[2017-11-11 05:44] LABS: HEMOGLOBIN 9.3 GM/dL (11.7-16.9); LYMPH % 1.3 % (8-40); MCH 29.6 pg (25.7-33.7); MCHC 33.1 g/dl (32.0-35.9); MEAN CELL VOLUME 89.4 fl (80-96); MEAN PLT VOLUME 8.4 fl (7.5-11.1); MONO % 4.3 % (3.8-10.2); NEUT % 94.4 % (42.8-82.8); PLATELET COUNT 145 K/MM3 (134-434); RBC 3.13 M/mm3 (4.00-5.60); RDW 16.5 % (11.9-15.9); WHITE BLOOD COUNT 28.4 K/mm3 (4.0-10.0)
[2017-11-11 05:58] LABS: INR 1.36 (0.82-1.09); PROTHROMBIN TIME (PATIENT) 15.4 SEC (9.98-11.88)
[2017-11-11 06:01] LABS: ACTIVATED PTT 28.9 SECONDS (26.9-34.4)
[2017-11-11 07:13] LABS: ALBUMIN 2.2 g/dl (3.4-5.0); ALK PHOS 72 U/L (45-117); ANION GAP 11 (8-16); BILIRUBIN,TOTAL 0.8 mg/dL (0.2-1.0); BLOOD UREA NITROGEN 49 mg/dL (7-18); CHLORIDE 117 mmol/L (98-107); CO2 18 mmol/L (21-32); CREATININE 1.3 mg/dL (0.7-1.3); GLUCOSE,RANDOM 181 mg/dL (74-106); MAGNESIUM 1.4 mg/dL (1.8-2.4); PHOSPHOROUS 2.2 mg/dL (2.5-4.9); SGOT/AST 13 U/L (15-37); SGPT/ALT 11 U/L (12-78); SODIUM 146 mmol/L (136-145); TOT PROT 4.3 g/dl (6.4-8.2)
[2017-11-11 07:23] LABS: CALCIUM 6.7 mg/dL (8.5-10.1)
[2017-11-11] MEDS ORDERED: CALCIUM GLUCONATE 10% - 1,000 MG/10 ML VIAL IVPB STA ×2 (07:58→07:59)
[2017-11-11] MEDS: SODIUM CHLORIDE 1,000 ML IV SCH (08:39)
--- NOTE | 2017-11-11 09:04 | PN ---
Progress Note, Physician Chief Complaint: UGIB History of Present Illness: large melena yest, had urgent EGD. tele shows tachycardic all night and this AM, afib yest, currently MAT <120 bpm pt currently intubated, non-communicative - Current Medication List Current Medications: Active Medications Calcium Gluconate (Calcium Gluconate 10% -) 1,000 mg IVPB ONCE STA Stop: 11/11/17 07:59 Calcium Gluconate (Calcium Gluconate 10% -) 1,000 mg IVPB ONCE STA Stop: 11/11/17 08:00 Octreotide Acetate 1,200 mcg/ (Sodium Chloride) 500 mls @ 20.83 mls/hr IVPB ASDIR ERNIE PRN Reason: 50 MCG/HR Last Admin: 11/10/17 19:30 Dose: 20.83 mls/hr Sodium Chloride (Normal Saline -) 1,000 mls @ 150 mls/hr IV ASDIR ERNIE Last Admin: 11/11/17 08:39 Dose: 150 mls/hr Norepinephrine Bitartrate 8, (000 mcg/ Sodium Chloride) 500 mls @ 18.75 mls/hr IV TITR ERNIE; 5 MCG/MIN PRN Reason: Protocol Last Titration: 11/11/17 08:35 Dose: 7 mcg/min, 26.25 mls/hr Pantoprazole Sodium 160 mg/ (Dextrose) 290 mls @ 14.5 mls/hr IVPB Q20H ERNIE Last Admin: 11/10/17 21:00 Dose: 14.5 mls/hr Piperacillin Sod/Tazobactam (Sod 3.375 gm/ Dextrose) 100 mls @ 100 mls/hr IVPB Q8H-IV ERNIE Propofol (Diprivan -) 1,000,000 mcg in 100 mls @ 1.924 mls/hr IVPB TITR ERNIE; 5 MCG/KG/MIN PRN Reason: Protocol Last Admin: 11/11/17 01:31 Dose: 10 mcg/kg/min, 3.848 mls/hr Magnesium Sulfate/Dextrose 2 (gm/ Miscellaneous) 200 mls @ 100 mls/hr IVPB ONCE ONE Stop: 11/11/17 09:58 - Objective Vital Signs: Vital Signs Temperature 98.9 F 11/11/17 06:00 Pulse Rate 118 H 11/11/17 08:35 Respiratory Rate 28 H 11/11/17 08:33 Blood Pressure 153/98 11/11/17 08:35 O2 Sat by Pulse Oximetry (%) 100 11/10/17 20:00 Constitutional: Yes: Well Nourished, No Distress, Calm Cardiovascular: Yes: Pulse Irregular, S1, S2. No: JVD, Gallop, Murmur Respiratory: Yes: Regular, CTA Bilaterally (anteriorly). No: Accessory Muscle Use, Rales, Wheezes Extremities: No: Cold Edema: No Neurological: No: Alert, Oriented Psychiatric: No: Agitated Labs: CBC, BMP 11/11/17 05:25 11/11/17 05:25 INR, PTT INR 1.36 (0.82-1.09) H 11/11/17 05:25 - ....Imaging EKG: Other (tele: probably afib-->currently MAT. NSVT x5b vs AF with aberrancy) Assessment/Plan cxr: clear lungs cxr 11/10: no chf findings ecg: sr, nl intervals, ant/lat twis and subtle st depressions Echo 11/25: borderline vs mildly reduced LVSF (regional wall motion eval is TDS) . nl RV. mild LAE. valve fxn WNL. a/p: 82 m hx dementia, htn, hld, pad, cad, ckd, sent from [facility] for rectal bleed. PAfib, MAT: -episodes of both (ongoing MAT) 2/-->2/4 in setting of large UGIB and urgent EGD -HR remains suboptimal -hypotensive to 80s on 2/, ? due to GIB vs due to sedation at time of procedure /intubation. currently hemodynamically stable -start digoxin 0.125mg qd IVP rate control, serial dig levels ordered -if BP remains stable and no recurrent bleeding can start low dose metoprolol UGIB (from PUD): -recurrent large melena 2/3 with bleeding ulcer treated on EGD. -on xarelto at [facility] for PAD per charts, with no mention of Afib--PAD is not an approved indication for NOAC, hence have to assume there is h/o pafib here. no h /o CVA per [place] dx list, and per d/w family -also on ASA for CAD or PAD history (or both) -holding both ASA and AC until GIB w/u and tx is complete. for EGD/FOC per dr garcia. -family describes moderate dementia at baseline, which worsened the past 6 mo or so. -d/w'd dtr and today, that his risk of recurrent GIB on AC is fairly high even after the present episode is treated, vs estimated 4-5%/yr risk of stroke ( CHADS VASC =4-5 (? chf hx)). they state they strongly desire avoiding recurrent bleeding (bebeto given present episode was potentially life-threatening) or recurrent hospitalization, and hence prefer ASA over AC (verbalize understanding that ASA offers incomplete CVA prevention). -would not pursue Watchman here given pt's baseline dementia status -resume ASA 81 mg later once stable per GI nurse consultant. CHF: -prior h/o "water on the heart" per , ? details -Echo here unremarkable -euvolemic at present, observe PAD: -outside vascular follows for LE disease per family htn: -low bp initially, improved now. -holding home bb, monitor trend hld: -stable, statin not listed on home meds KEVEN: -unknown baseline -creat initially 1.5-->down to 1.1 -fluctuating but stable (1.3), observe trend est'd time in data review, pt exam, and formulating mgmt plan of potentially life-threatening problems = 35 min
--- NOTE | 2017-11-11 09:24 | PN ---
Progress Note (short form) - Note Progress Note: PULMONARY/CCM Pt seen and examined in the ICU. Events overnight noted. Acute blood loss requiring emergent EGD showing large pulsatile bleeding from 1st part of duodenum. s/p epinephrine injection with hemostasis, unable to cauterize or clip. GI/Anesthesia/surgery assistance greatly appreciated. Now intubated, sedated on levophed, protonix and octreotide gtts. Last Vital Signs Temp Pulse Resp BP Pulse Ox 98.9 F 118 H 28 H 153/98 100 11/11/17 06:00 11/11/17 08:35 11/11/17 08:33 11/11/17 08:35 11/10/17 20:00 Intake & Output 11/08/17 11/09/17 11/10/17 11/11/17 23:59 23:59 23:59 23:59 Intake Total 1570 2550 3428 Output Total 1900 1000 500 Balance -330 1550 2928 Weight 81.647 kg 63.4 kg 64.138 kg 78 kg Gen: confused, breathing nonlabored Heart: RRR Lung: decreased breath sounds at the bases Abd: soft, nontender Ext: no edema CBC, BMP 11/11/17 05:25 11/11/17 05:25 Active Medications Calcium Gluconate (Calcium Gluconate 10% -) 1,000 mg IVPB ONCE STA Stop: 11/11/17 07:59 Calcium Gluconate (Calcium Gluconate 10% -) 1,000 mg IVPB ONCE STA Stop: 11/11/17 08:00 Octreotide Acetate 1,200 mcg/ (Sodium Chloride) 500 mls @ 20.83 mls/hr IVPB ASDIR ERNIE PRN Reason: 50 MCG/HR Last Admin: 11/10/17 19:30 Dose: 20.83 mls/hr Sodium Chloride (Normal Saline -) 1,000 mls @ 150 mls/hr IV ASDIR ERNIE Last Admin: 11/11/17 08:39 Dose: 150 mls/hr Norepinephrine Bitartrate 8, (000 mcg/ Sodium Chloride) 500 mls @ 18.75 mls/hr IV TITR ERNIE; 5 MCG/MIN PRN Reason: Protocol Last Titration: 11/11/17 08:35 Dose: 7 mcg/min, 26.25 mls/hr Pantoprazole Sodium 160 mg/ (Dextrose) 290 mls @ 14.5 mls/hr IVPB Q20H ERNIE Last Admin: 11/10/17 21:00 Dose: 14.5 mls/hr Piperacillin Sod/Tazobactam (Sod 3.375 gm/ Dextrose) 100 mls @ 100 mls/hr IVPB Q8H-IV ERNIE Propofol (Diprivan -) 1,000,000 mcg in 100 mls @ 1.924 mls/hr IVPB TITR ERNIE; 5 MCG/KG/MIN PRN Reason: Protocol Last Admin: 11/11/17 01:31 Dose: 10 mcg/kg/min, 3.848 mls/hr Magnesium Sulfate/Dextrose 2 (gm/ Miscellaneous) 200 mls @ 100 mls/hr IVPB ONCE ONE Stop: 11/11/17 09:58 A/P GI Bleed from Duodenal Ulcer Acute Blood Loss Anemia Hemorrhagic Shock Lactic Acidosis UTI PAD CAD CKD HTN Hyperlipidemia Dementia - monitor H/H - transfuse as needed - protonix, octreotide gtts - hold all anticoagulation, antiplatelet therapy - taper pressors to maintain MAP >65 - continue antibiotics - f/u cultures - DVT prophylaxis - continue ICU monitoring critical care time spent in reviewing chart, evaluating patient and formulating plan 35 min
[2017-11-11] MEDS ORDERED: MAGNESIUM SULFATE IN WATER 2 GM/50 ML IVPB IVPB ONE (10:00)
[2017-11-11] MEDS: PIPERACILLIN/TAZOB 3.375 GM 3.375 GM in DEXTROSE 5%-WATER - 100 ML IVPB SCH ×2 (10:11→18:12)
[2017-11-11] MEDS ORDERED: CALCIUM GLUCONATE 10% - 1,000 MG/10 ML VIAL ONE (10:19)
--- NOTE | 2017-11-11 11:17 | CON.ID ---
Consult - History of Present Illness History of Present Illness: This is an 82 y.o. male NH resident with history of CAD, HTN, BLD, BPH, CKD, dementia, depression, PAD on Xarelto who presented with hypotension and melena. Reported to have weakness and lack of appetite prior to hospitalization. Pt underwent endoscopy and was noted to have duodenal ulcer bleeding. Hemostasis was achieved with epinephrine injection and is currently without melena. Pt is s /p multiple blood transfusions and developed leukocytosis, currently intubated/ sedated on Norepinephrine drip. Currently he has low grade fever 100.4F with wbc of 28K and elevated lactate level. Initially had been on Ceftriaxone for possible UTI. Now on broader spectrum antibiotics empirically. He is arousable but not a source of history. 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 No: CVA, Seizure Cardio/Vascular: Yes: CAD, HTN, Hyperlipdemia Pulmonary: Yes: COPD Gastrointestinal: No: GI Bleed, Hemorrhoids Hepatobiliary: No: Cirrhosis Renal/: Yes: BPH Psych: Yes: Depression - Alcohol/Substance Use Hx Alcohol Use: No - Smoking History Smoking history: Unknown if ever smoked Have you smoked in the past 12 months: No - Social History Usual Living Arrangement: Long Term ADL: Support Services History of Recent Travel: No Home Medications - Allergies Allergies/Adverse Reactions: Allergies Allergy/AdvReac Type Severity Reaction Status Date / Time No Known Allergies Allergy Verified 11/08/17 23:20 - Home Medications Home Medications: Ambulatory Orders Acetaminophen 325 mg PO DAILY 11/08/17 Aspirin 81 mg PO DAILY 11/08/17 Calcium Carbonate/Vitamin D3 [Oyster Shell 500-Vit D3 200 Tb] 1 each PO DAILY Celexa - 10 mg PO DAILY 11/08/17 Clonazepam 0.125 mg PO DAILY 11/08/17 Donepezil HCl [Aricept -] 5 mg PO DAILY 11/08/17 Ferrous Sulfate 325 mg PO DAILY 11/08/17 Metoprolol Succinate 25 mg PO DAILY 11/08/17 Rivaroxaban [Xarelto -] 20 mg PO DAILY 11/08/17 Tamsulosin HCl [Flomax] 0.4 mg PO DAILY 11/08/17 Family Disease History - Family Disease History Family History: Unable to Obtain Review of Systems Unable to obtain ROS, reason: pt intubated Physical Exam Vital Signs: Vital Signs Temperature 99.4 F 11/11/17 10:00 Pulse Rate 103 H 11/11/17 10:12 Respiratory Rate 18 11/11/17 10:33 Blood Pressure 158/89 11/11/17 10:12 O2 Sat by Pulse Oximetry (%) 100 11/10/17 20:00 Constitutional: Yes: Other (intubated/sedated) HENT: Yes: WNL Neck: Yes: Supple Cardiovascular: Yes: Tachycardia Respiratory: Yes: Intubated Gastrointestinal: Yes: Normal Bowel Sounds, Soft Renal/: Yes: Paul Present Extremities: Yes: Other (echymoses in upper extremities) Labs: CBC, BMP 11/11/17 05:25 11/11/17 05:25 Abnormal Lab Results 11/08/17 11/08/17 11/10/17 23:22 23:23 20:40 WBC 26.3 H D RBC 2.24 L D Hgb 6.7 L* D Hct 21.1 L D MCHC 31.7 L RDW 16.0 H Neutrophils % Neutrophils % (Manual) 91.0 H* Lymphocytes % Lymphocytes % (Manual) 1.0 L PT with INR INR ABG pH ABG pCO2 at Pt Temp ABG pO2 at Pt Temp ABG HCO3 ABG O2 Content ABG Base Excess Sodium Chloride Carbon Dioxide BUN Random Glucose Lactic Acid Calcium Phosphorus Magnesium AST ALT Troponin I Total Protein Albumin Crossmatch See Detail See Detail 11/10/17 11/10/17 11/10/17 20:40 20:40 20:40 WBC RBC Hgb Hct MCHC RDW Neutrophils % Neutrophils % (Manual) Lymphocytes % Lymphocytes % (Manual) PT with INR INR ABG pH ABG pCO2 at Pt Temp ABG pO2 at Pt Temp ABG HCO3 ABG O2 Content ABG Base Excess Sodium 147 H Chloride 117 H Carbon Dioxide 20 L D BUN 49 H Random Glucose 180 H D Lactic Acid 2.7 H* Calcium 6.3 L* Phosphorus Magnesium 1.6 L AST ALT Troponin I 0.06 H D Total Protein Albumin Crossmatch 11/10/17 11/10/17 11/10/17 20:40 20:49 23:00 WBC RBC Hgb Hct MCHC RDW Neutrophils % Neutrophils % (Manual) Lymphocytes % Lymphocytes % (Manual) PT with INR 17.30 H INR 1.53 H ABG pH 7.22 L* 7.26 L ABG pCO2 at Pt Temp 46.0 H ABG pO2 at Pt Temp 120.0 H 134.0 H ABG HCO3 17.9 L 16.0 L ABG O2 Content 10.8 L 11.8 L ABG Base Excess -8.8 L -9.8 L Sodium Chloride Carbon Dioxide BUN Random Glucose Lactic Acid Calcium Phosphorus Magnesium AST ALT Troponin I Total Protein Albumin Crossmatch 11/11/17 11/11/17 11/11/17 05:25 05:25 05:25 WBC 28.4 H RBC 3.13 L D Hgb 9.3 L D Hct 28.0 L D MCHC RDW 16.5 H Neutrophils % 94.4 H Neutrophils % (Manual) Lymphocytes % 1.3 L D Lymphocytes % (Manual) PT with INR 15.40 H INR 1.36 H ABG pH ABG pCO2 at Pt Temp ABG pO2 at Pt Temp ABG HCO3 ABG O2 Content ABG Base Excess Sodium 146 H Chloride 117 H Carbon Dioxide 18 L BUN 49 H Random Glucose 181 H Lactic Acid Calcium 6.7 L* Phosphorus 2.2 L D Magnesium 1.4 L AST 13 L D ALT 11 L Troponin I Total Protein 4.3 L Albumin 2.2 L Crossmatch 11/09/17: Urine culture - no growth Imaging - Results Chest X-ray: Report Reviewed (pulmonary congestion with possible Lt sided infiltrate) Problem List - Problems (1) BPH (benign prostatic hyperplasia) Code(s): N40.0 - BENIGN PROSTATIC HYPERPLASIA WITHOUT LOWER URINRY TRACT SYMP (2) CAD (coronary artery disease) Code(s): I25.10 - ATHSCL HEART DISEASE OF [place] CORONARY ARTERY W/O ANG PCTRS (3) Dementia Code(s): F03.90 - UNSPECIFIED DEMENTIA WITHOUT BEHAVIORAL DISTURBANCE (4) Duodenal ulcer with hemorrhage but without obstruction Code(s): K26.4 - CHRONIC OR UNSPECIFIED DUODENAL ULCER WITH HEMORRHAGE (5) Gastrointestinal hemorrhage with melena Code(s): K92.1 - MELENA (6) HTN (hypertension) Code(s): I10 - ESSENTIAL (PRIMARY) HYPERTENSION (7) Hyperlipidemia Code(s): E78.5 - HYPERLIPIDEMIA, UNSPECIFIED Assessment/Plan 82 y.o. male NH resident with multiple medical problems presenting with hypotension, anemia, multiple episodes of melena, bleeding duodenal ulcer s/p endoscopy/epinephrine injection/multiple blood transfusions. Currently with elevated wbc count, low grade fevers, lactic acidosis, intubated/sedated on norephinephrine drip. Shock Sepsis, possible PNA Acute GI bleed Acute respiratory failure/intubated - continue Zosyn IV - Blood cultures - sputum cultures - repeat Lactic Acid - monitor wbc and temperature trend - continue rest of care per ICU - GI/Surgery following cc time: 45 min Thank you
[2017-11-11] MEDS: DIGOXIN 0.5 MG/2 ML AMPUL IVPUSH SCH (11:30)
--- NOTE | 2017-11-11 12:14 | PROC ---
Central Line Insertion Indication: Vasopressor Risks and Benefits Explained: Yes Consent on Chart: Yes Central Line: Triple Lumen Catheter Sterile Technique: Yes Ultrasound Guided Assistance: Yes Position: Right Internal Jugular Post Insertion: Yes: Bilateral Breath Sounds, Chest X-Ray Ordered Sterile Dressing Applied: Yes Remarks: right IJ tlc modified seldinger attemped streile placement with ultrasound during emergency
[2017-11-11] MEDS: LACTATED RINGERS SOLUTION 1,000 ML/1,000 ML INFUS.BAG IV SCH (12:40)
--- NOTE | 2017-11-11 13:01 | EKG ---
Test Reason : Blood Pressure : / mmHG Vent. Rate : 182 BPM Atrial Rate : 187 BPM P-R Int : 000 ms QRS Dur : 090 ms QT Int : 278 ms P-R-T Axes : 000 093 192 degrees QTc Int : 483 ms ATRIAL FIBRILLATION WITH RAPID VENTRICULAR RESPONSE RIGHTWARD AXIS MARKED ST ABNORMALITY, POSSIBLE LATERAL SUBENDOCARDIAL INJURY ABNORMAL ECG WHEN COMPARED WITH ECG OF 09-NOV-2017 00:27, ATRIAL FIBRILLATION HAS REPLACED SINUS RHYTHM VENT. RATE HAS INCREASED BY 94 BPM CLINICAL CORRELATION IS RECOMMENDED Confirmed by ESTEVAN EUBANKS MD ([id number]) on 11/11/2017 1:01:45 PM Referred By: Confirmed By:ESTEVAN EUBANKS MD
--- NOTE | 2017-11-11 13:27 | PN ---
Progress Note, Physician History of Present Illness: intubated. awake, communicates via nodding his head. - Current Medication List Current Medications: Active Medications Digoxin (Lanoxin Injection -) 0.125 mg IVPUSH DAILY ERNIE Last Admin: 11/11/17 11:30 Dose: 0.125 mg Octreotide Acetate 1,200 mcg/ (Sodium Chloride) 500 mls @ 20.83 mls/hr IVPB ASDIR ERNIE PRN Reason: 50 MCG/HR Last Admin: 11/10/17 19:30 Dose: 20.83 mls/hr Norepinephrine Bitartrate 8, (000 mcg/ Sodium Chloride) 500 mls @ 18.75 mls/hr IV TITR ERNIE; 5 MCG/MIN PRN Reason: Protocol Last Titration: 11/11/17 12:21 Dose: 5 mcg/min, 18.75 mls/hr Pantoprazole Sodium 160 mg/ (Dextrose) 290 mls @ 14.5 mls/hr IVPB Q20H ERNIE Last Admin: 11/10/17 21:00 Dose: 14.5 mls/hr Piperacillin Sod/Tazobactam (Sod 3.375 gm/ Dextrose) 100 mls @ 100 mls/hr IVPB Q8H-IV ERNIE Last Admin: 11/11/17 10:11 Dose: 100 mls/hr Propofol (Diprivan -) 1,000,000 mcg in 100 mls @ 1.924 mls/hr IVPB TITR ERNIE; 5 MCG/KG/MIN PRN Reason: Protocol Last Admin: 11/11/17 01:31 Dose: 10 mcg/kg/min, 3.848 mls/hr Lactated Ringer's (Lactated Ringers Solution) 1,000 ml in 1,000 mls @ 100 mls/ hr IV ASDIR ERNIE Last Admin: 11/11/17 12:40 Dose: 100 mls/hr - Objective Vital Signs: Vital Signs Temperature 99.4 F 11/11/17 12:00 Pulse Rate 101 H 11/11/17 12:21 Respiratory Rate 18 11/11/17 12:00 Blood Pressure 141/63 11/11/17 12:21 O2 Sat by Pulse Oximetry (%) 100 11/11/17 10:00 Constitutional: Yes: No Distress, Calm. No: Pallor Eyes: Yes: Conjunctiva Clear Respiratory: Yes: Mechanically Ventilated Gastrointestinal: Yes: Soft, Melena, Other (NGT clear). No: Distention, Rectal Bleeding, Tenderness, Vomiting Neurological: Yes: Alert Labs: CBC, BMP 11/11/17 05:25 11/11/17 05:25 INR, PTT INR 1.36 (0.82-1.09) H 11/11/17 05:25 CBCD WBC 28.4 K/mm3 (4.0-10.0) H 11/11/17 05:25 RBC 3.13 M/mm3 (4.00-5.60) L D 11/11/17 05:25 Hgb 9.3 GM/dL (11.7-16.9) L D 11/11/17 05:25 Hct 28.0 % (35.4-49) L D 11/11/17 05:25 MCV 89.4 fl (80-96) 11/11/17 05:25 MCHC 33.1 g/dl (32.0-35.9) 11/11/17 05:25 RDW 16.5 % (11.9-15.9) H 11/11/17 05:25 Plt Count 145 K/MM3 (134-434) 11/11/17 05:25 MPV 8.4 fl (7.5-11.1) 11/11/17 05:25 CMP Sodium 146 mmol/L (136-145) H 11/11/17 05:25 Potassium 4.0 mmol/L (3.5-5.1) 11/11/17 05:25 Chloride 117 mmol/L (98-107) H 11/11/17 05:25 Carbon Dioxide 18 mmol/L (21-32) L 11/11/17 05:25 Anion Gap 11 (8-16) 11/11/17 05:25 BUN 49 mg/dL (7-18) H 11/11/17 05:25 Creatinine 1.3 mg/dL (0.7-1.3) 11/11/17 05:25 Creat Clearance w eGFR 53.12 (>60) 11/11/17 05:25 Calcium 6.7 mg/dL (8.5-10.1) L* 11/11/17 05:25 Total Bilirubin 0.8 mg/dL (0.2-1.0) 11/11/17 05:25 AST 13 U/L (15-37) L D 11/11/17 05:25 ALT 11 U/L (12-78) L 11/11/17 05:25 Alkaline Phosphatase 72 U/L (45-117) D 11/11/17 05:25 Total Protein 4.3 g/dl (6.4-8.2) L 11/11/17 05:25 Albumin 2.2 g/dl (3.4-5.0) L 11/11/17 05:25 Problem List - Problems (1) GI bleed Code(s): K92.2 - GASTROINTESTINAL HEMORRHAGE, UNSPECIFIED (2) Gastrointestinal hemorrhage with melena Code(s): K92.1 - MELENA (3) Duodenal ulcer disease Code(s): K26.9 - DUODENAL ULCER, UNSP ACUTE OR CHRONIC, W/O HEMOR OR PERF (4) Duodenal ulcer hemorrhage Code(s): K26.4 - CHRONIC OR UNSPECIFIED DUODENAL ULCER WITH HEMORRHAGE Assessment/Plan Awake. Intubated. Communicates via nodding his head. Clinically much better than last night. No BMs since last night. Continue current care and medications Hgb tonight Discussed with the pt's nurse
[2017-11-11] MEDS ORDERED: BISACODYL 5 MG TABLET.DR (FP) PO ONE (15:11)
[2017-11-11] MEDS ORDERED: PEG 3350/NA SULF BICARB CL/KCL 4000 ML SOLN.RECON PO ONE (15:11)
[2017-11-11] MEDS: PANTOPRAZOLE SODIUM 160 MG in DEXTROSE 5%-WATER - 290 ML IVPB SCH (17:59)
[2017-11-11] MEDS ORDERED: PT OWN MED DRAWER 7, Y5N ONE (18:10)
[2017-11-11] MEDS: OCTREOTIDE ACETATE IVPB SCH (19:30)
[2017-11-11] MEDS: SODIUM CHLORIDE IVPB SCH (19:30)
--- NOTE | 2017-11-11 20:49 | PN ---
Progress Note (short form) - Note Progress Note: examined in ICU Events overnight noted. patient with acute blood loss requiring emergent EGD /blood transfusion / FFP / was intubated and supported with pressors. Upper GI bleed identified and controlled . ---surgery and GI assistance greatly appreciated Now intubated, sedated on levophed, protonix and octreotide gtts. Vital Signs Period Temp Pulse Resp BP Sys/Mcdowell Pulse Ox Last 24 Hr 98.4 F-100.5 F 66-118 14-28 102-158/62-98 100-100 Intake & Output 11/08/17 11/09/17 11/10/17 11/11/17 23:59 23:59 23:59 23:59 Intake Total 1570 2550 5691.8 Output Total 1900 1000 800 Balance -330 1550 4891.8 Weight 180 lb 139 lb 12.369 oz 141 lb 6.4 oz 171 lb 15.369 oz Intubated / sedated neck no JVD heart S1/S2 reg lungs no wheezing/ grossly clear abd soft no tenderness / ext no edema CBC, BMP 11/10/17 05:20 11/10/17 05:20 Active Medications Bisacodyl (Dulcolax -) 20 mg PO ONCE ONE Stop: 11/11/17 15:12 CEFTRIAXONE IN IS-OSM DEXTROSE (Ceftriaxone 2 Gm-D5w Bag) 2 gm in 50 mls @ 100 mls/hr IVPB DAILY [facility] Last Admin: 11/10/17 09:16 Dose: 100 mls/hr Octreotide Acetate 1,200 mcg/ (Sodium Chloride) 500 mls @ 20.83 mls/hr IVPB ASDIR ERNIE PRN Reason: 50 MCG/HR Pantoprazole Sodium 160 mg/ (Dextrose) 290 mls @ 14.5 mls/hr IVPB Q20H [facility] Pantoprazole Sodium (Protonix Packets For Oral Suspension -) 40 mg PO BID [facility] Last Admin: 11/10/17 09:16 Dose: 40 mg Polyethylene Glycol/Electrolytes (Golytely Solution -) 4,000 ml PO ONCE ONE Stop: 11/11/17 15:12 Microbiology 11/09/17 00:59 Urine - Urine - Catheterized Urine Culture - Final NO GROWTH OBTAINED 82 y/o male Hx dementia /HTN /PAD/CKD/ PVD/ was transfered from [facility] with rectal bleed and hypotension. Episode of acute bleed late yesterday -- requiring transfusion / emergent EGD # Gi Bleed Acute Upper GI bleed /shock s/p blood transfusion / FFP s/p emergent EGD continue to monitor h/h continue protonix / octreotide drip avoid all A/C CCU care # shock, hemorrhagic continue supportive care CCu care # Tachyacrdia PA fib with rvr / MAT 2/2 to acute blood loss remains in MAT dig for rate control until Bp normalizes appreciate Cardio follow up Problem List - Problems (1) Gastrointestinal hemorrhage with melena Code(s): K92.1 - MELENA (2) GI bleed Code(s): K92.2 - GASTROINTESTINAL HEMORRHAGE, UNSPECIFIED (3) Dementia Code(s): F03.90 - UNSPECIFIED DEMENTIA WITHOUT BEHAVIORAL DISTURBANCE (4) BPH (benign prostatic hyperplasia) Code(s): N40.0 - BENIGN PROSTATIC HYPERPLASIA WITHOUT LOWER URINRY TRACT SYMP (5) CAD (coronary artery disease) Code(s): I25.10 - ATHSCL HEART DISEASE OF [place] CORONARY ARTERY W/O ANG PCTRS (6) HTN (hypertension) Code(s): I10 - ESSENTIAL (PRIMARY) HYPERTENSION (7) Hyperlipidemia Code(s): E78.5 - HYPERLIPIDEMIA, UNSPECIFIED
[2017-11-11] MEDS: NOREPINEPHRINE BITARTRATE 8,000 MCG in SODIUM CHLORIDE 492 ML IV SCH (22:31)
[2017-11-12] MEDS: PROPOFOL 1,000,000 MCG/100 ML VIAL IVPB SCH (01:30)
[2017-11-12] MEDS: PIPERACILLIN/TAZOB 3.375 GM 3.375 GM in DEXTROSE 5%-WATER - 100 ML IVPB SCH ×3 (02:00→18:44)
[2017-11-12 06:10] LABS: BASO % 0.4 % (0-2.0); EOS % 0.2 % (0-4.5); HEMATOCRIT 15.7 % (35.4-49); MCHC 32.7 g/dl (32.0-35.9); MEAN CELL VOLUME 91.9 fl (80-96); MEAN PLT VOLUME 8.5 fl (7.5-11.1); MONO % 5.8 % (3.8-10.2); NEUT % 89.6 % (42.8-82.8); PLATELET COUNT 122 K/MM3 (134-434); RBC 1.71 M/mm3 (4.00-5.60); WHITE BLOOD COUNT 13.4 K/mm3 (4.0-10.0)
[2017-11-12 06:48] LABS: ALBUMIN 1.4 g/dl (3.4-5.0); ANION GAP 10 (8-16); BLOOD UREA NITROGEN 44 mg/dL (7-18); CHLORIDE 118 mmol/L (98-107); CO2 21 mmol/L (21-32); GLUCOSE,RANDOM 142 mg/dL (74-106); MAGNESIUM 1.8 mg/dL (1.8-2.4); POTASSIUM 3.9 mmol/L (3.5-5.1); SODIUM 149 mmol/L (136-145)
[2017-11-12 06:52] LABS: INR 1.65 (0.82-1.09); PROTHROMBIN TIME (PATIENT) 18.7 SEC (9.98-11.88)
[2017-11-12 07:01] LABS: HEMOGLOBIN 5.1 GM/dL (11.7-16.9)
[2017-11-12 07:03] LABS: ALK PHOS 48 U/L (45-117); BILIRUBIN,TOTAL 0.6 mg/dL (0.2-1.0); CREATININE 1.5 mg/dL (0.7-1.3); PHOSPHOROUS 2.2 mg/dL (2.5-4.9); SGOT/AST 9 U/L (15-37); SGPT/ALT 8 U/L (12-78)
[2017-11-12 07:53] LABS: CALCIUM 6.4 mg/dL (8.5-10.1)
[2017-11-12] MEDS ORDERED: EPINEPHrine 1:10,000 (P-F SYR) 1 MG/10 ML DISP.SYRIN ONE (07:57)
[2017-11-12] MEDS ORDERED: PROPOFOL 20 ML ONE (08:23)
[2017-11-12] MEDS ORDERED: EPINEPHrine 1:10,000 (P-F SYR) 1 MG/10 ML DISP.SYRIN IVPUSH ONE (08:48)
--- NOTE | 2017-11-12 08:59 | PN ---
Physical Exam: SUBJECTIVE: Patient seen and examined in ICU Patient currently intubated/sedated/on levophed. Patient underwent EGD/clipping this AM. Hgb around 5.1 this morning. OBJECTIVE: Vital Signs Period Temp Pulse Resp BP Sys/Mcdowell Pulse Ox Last 24 Hr 97.5 F-100.5 F 66-154 14-23 79-158/50-89 99-100 GENERAL: The patient is Intubated/sedated HEAD: Normal with no signs of trauma. ENT: Tube in place LUNGS: Decreased Breath sounds , clear to auscultation bilaterally, no wheezes, no crackles, no accessory muscle use. HEART: Regular rate and rhythm, S1, S2 without murmur, rub or gallop. ABDOMEN: Soft, nontender, nondistended, normoactive bowel sounds, no guarding, no rebound, no hepatosplenomegaly, no masses. Laboratory Results - last 24 hr 11/08/17 11/08/17 11/10/17 23:22 23:23 20:40 WBC RBC Hgb Hct MCV MCH MCHC RDW Plt Count MPV Neutrophils % Lymphocytes % Monocytes % Eosinophils % Basophils % Hypersegmented Neuts Hypochromia Toxic Granulation Dohle Bodies Polychromasia Poikilocytosis Basophilic Stippling Anisocytosis Microcytosis Macrocytosis Spherocytes Siderocytes Sickle Cells Target Cells Tear Drop Cells Ovalocytes Stomatocytes Helmet Cells Dozier-[place] Bodies [place] Rings Sandie Cells Acanthocytes (Spur) Rouleaux Fragmented RBCs Schistocytes Morphology Comment PT with INR Cancelled INR Cancelled Sodium Potassium Chloride Carbon Dioxide Anion Gap BUN Creatinine Creat Clearance w eGFR POC Glucometer Random Glucose Lactic Acid Calcium Phosphorus Magnesium Total Bilirubin AST ALT Alkaline Phosphatase Total Protein Albumin Digoxin Blood Type O POSITIVE Antibody Screen Negative Crossmatch See Detail See Detail 11/11/17 11/11/17 11/11/17 05:25 05:25 05:39 WBC RBC Hgb Hct MCV MCH MCHC RDW Plt Count MPV Neutrophils % Lymphocytes % Monocytes % Eosinophils % Basophils % Hypersegmented Neuts Hypochromia Toxic Granulation Dohle Bodies Polychromasia Poikilocytosis Basophilic Stippling Anisocytosis Microcytosis Macrocytosis Spherocytes Siderocytes Sickle Cells Target Cells Tear Drop Cells Ovalocytes Stomatocytes Helmet Cells Dozier-[place] Bodies [place] Rings [place] Cells Acanthocytes (Spur) Rouleaux Fragmented RBCs Schistocytes Morphology Comment PT with INR INR Sodium Potassium Chloride Carbon Dioxide Anion Gap BUN Creatinine Creat Clearance w eGFR POC Glucometer [phone] Random Glucose Lactic Acid 1.9 Calcium Phosphorus Magnesium Total Bilirubin AST ALT Alkaline Phosphatase Total Protein Albumin Digoxin Blood Type O POSITIVE Antibody Screen Negative Crossmatch See Detail 11/12/17 11/12/17 11/12/17 05:20 05:20 05:40 WBC 13.4 H D RBC 1.71 L D Hgb 5.1 L* D Hct 15.7 L D MCV 91.9 MCH 30.0 MCHC 32.7 RDW 17.0 H Plt Count 122 L MPV 8.5 Neutrophils % 89.6 H Lymphocytes % 4.0 L D Monocytes % 5.8 Eosinophils % 0.2 D Basophils % 0.4 D Hypersegmented Neuts Cancelled Hypochromia Cancelled Toxic Granulation Cancelled Dohle Bodies Cancelled Polychromasia Cancelled Poikilocytosis Cancelled Basophilic Stippling Cancelled Anisocytosis Cancelled Microcytosis Cancelled Macrocytosis Cancelled Spherocytes Cancelled Siderocytes Cancelled Sickle Cells Cancelled Target Cells Cancelled Tear Drop Cells Cancelled Ovalocytes Cancelled Stomatocytes Cancelled Helmet Cells Cancelled Dozier-[place]el Bodies Cancelled [place] Rings Cancelled Sandie Cells Cancelled Acanthocytes (Spur) Cancelled Rouleaux Cancelled Fragmented RBCs Cancelled Schistocytes Cancelled Morphology Comment Cancelled PT with INR 18.70 H INR 1.65 H Sodium 149 H Potassium 3.9 Chloride 118 H Carbon Dioxide 21 Anion Gap 10 BUN 44 H Creatinine 1.5 H Creat Clearance w eGFR 45.03 POC Glucometer Random Glucose 142 H D Lactic Acid Calcium 6.4 L* Phosphorus 2.2 L Magnesium 1.8 D Total Bilirubin 0.6 D AST 9 L D ALT 8 L D Alkaline Phosphatase 48 D Total Protein 3.0 L D Albumin 1.4 L D Digoxin 0.2474 L Blood Type Antibody Screen Crossmatch Active Medications Generic Name Dose Route Start Last Admin Trade Name Freq PRN Reason Stop Dose Admin Digoxin 0.125 mg 11/11/17 10:45 11/11/17 11:30 Lanoxin Injection - IVPUSH 0.125 mg DAILY ERNIE Administration Octreotide Acetate 1,200 mcg/ 500 mls @ 20.83 mls/hr 11/10/17 19:30 11/11/17 19:30 Sodium Chloride IVPB 20.83 mls/hr ASDIR ERNIE Administration 50 MCG/HR Norepinephrine Bitartrate 8, 500 mls @ 18.75 mls/hr 11/10/17 20:30 11/11/17 22:31 000 mcg/ Sodium Chloride IV Not Given TITR ERNIE Protocol 5 MCG/MIN Pantoprazole Sodium 160 mg/ 290 mls @ 14.5 mls/hr 11/10/17 21:00 11/11/17 17: 59 Dextrose IVPB 14.5 mls/hr Q20H ERNIE Administration Piperacillin Sod/Tazobactam 100 mls @ 100 mls/hr 11/11/17 10:00 11/12/17 02: 00 Sod 3.375 gm/ Dextrose IVPB 100 mls/hr Q8H-IV ERNIE Administration Propofol 1,000,000 mcg in 100 mls @ 1.924 mls/hr 11/11/17 01:30 11/12/17 01: 30 Diprivan - IVPB Not Given TITR ERNIE Protocol 5 MCG/KG/MIN Lactated Ringer's 1,000 ml in 1,000 mls @ 100 mls/hr 11/11/17 12:15 11/11/17 12:40 Lactated Ringers Solution IV 100 mls/hr ASDIR ERNIE Administration ASSESSMENT/PLAN: 82 y/o male with PMHx of anemia, BPH, HTN, HLD, CAD, CKD, depression, anxiety, presented from [facility] w/ melena (on home xarelto for PAD), found to be initially hypotensive w/ SBP- 80's in the ED #GI Acute GI bleed from duodenal ulcer -S/p EGD and clipping this AM -Monitor CBC -Transfuse prbc as needed, maintan hgb >7 -Protonix drip and octreotide drip -Keep patient off anticoagulation -Given 10 mg IV Vit K to reverse coagulopathy -GI on board, Dr. Enriquez -Surgery on board, Dr. Peng #Heme Acute blood loss anemia -Monitor CBC -Transfuse prbc as needed, maintan hgb >7 -Keep patient off anticoagulation -Given 10 mg IV Vit K to reverse coagulopathy #Cardio HTN, HLD, CAD -Digoxin 0.25 mg po daily -Levophed for pressure support -LR @ 100 cc/hr -Hold ASA -Hold Metoprolol Succinate 25 mg PO with hx of hypotension -Hold xarelto in acute bleeding #Resp Intubated/sedated, sepsis -Continue propofol -Continue zosyn -Monitor respiratory status #Renal KEVEN on CKD -Continue zosyn -LR @ 100 cc/hr -Avoid nephrotoxic medications -monitor Cr, urine output #FEN/GI -LR @ 100 cc/hr -monitor BMP -NPO #PPx -SCDs -Protonix drip #Dispo: Continue icu level of care Visit type - Emergency Visit Emergency Visit: Yes ED Registration Date: 11/08/17 Care time: The patient presented to the Emergency Department on the above date and was hospitalized for further evaluation of their emergent condition. - New Patient This patient is new to me today: Yes Date on this admission: 11/12/17 - Critical Care Critical Care patient: Yes Total Critical Care Time (in minutes): 40 Critical Care Statement: The care of this patient involved high complexity decision making to prevent further life threatening deterioration of the patient 's condition and/or to evaluate & treat vital organ system(s) failure or risk of failure.
--- NOTE | 2017-11-12 09:13 | PROC ---
Endoscopy Procedure Endoscopy procedure completed. Please see scanned procedure report. Hgb 5 g/dl, melena and hemodynamic instability this am. An emergent EGD with control of bleeding via 4 cc of epi injection and 3 clips to the visible blood vessel in the duodenal bulb ulcer was done. Tachycardia in 170s during injection limited the total amount of epi given. Complete hemostasis achieved. 4 u of PRBC to be transfused today. IR for possible embolization if rebleeds. Pt's was informed of the events and the intervention.
--- NOTE | 2017-11-12 09:22 | PN ---
Progress Note, Physician Chief Complaint: GIB, tachy History of Present Illness: intubated, not communicative - Current Medication List Current Medications: Active Medications Digoxin (Lanoxin Injection -) 0.125 mg IVPUSH DAILY [facility] Last Admin: 11/11/17 11:30 Dose: 0.125 mg Octreotide Acetate 1,200 mcg/ (Sodium Chloride) 500 mls @ 20.83 mls/hr IVPB ASDIR ERNIE PRN Reason: 50 MCG/HR Last Admin: 11/11/17 19:30 Dose: 20.83 mls/hr Norepinephrine Bitartrate 8, (000 mcg/ Sodium Chloride) 500 mls @ 18.75 mls/hr IV TITR ERNIE; 5 MCG/MIN PRN Reason: Protocol Last Admin: 11/11/17 22:31 Dose: Not Given Pantoprazole Sodium 160 mg/ (Dextrose) 290 mls @ 14.5 mls/hr IVPB Q20H [facility] Last Admin: 11/11/17 17:59 Dose: 14.5 mls/hr Piperacillin Sod/Tazobactam (Sod 3.375 gm/ Dextrose) 100 mls @ 100 mls/hr IVPB Q8H-IV ERNIE Last Admin: 11/12/17 02:00 Dose: 100 mls/hr Propofol (Diprivan -) 1,000,000 mcg in 100 mls @ 1.924 mls/hr IVPB TITR ERNIE; 5 MCG/KG/MIN PRN Reason: Protocol Last Admin: 11/12/17 01:30 Dose: Not Given Lactated Ringer's (Lactated Ringers Solution) 1,000 ml in 1,000 mls @ 100 mls/ hr IV ASDIR [facility] Last Admin: 11/11/17 12:40 Dose: 100 mls/hr - Objective Vital Signs: Vital Signs Temperature 97.5 F L 11/12/17 06:00 Pulse Rate 121 H 11/12/17 08:57 Respiratory Rate 18 11/12/17 08:57 Blood Pressure 94/53 11/12/17 08:00 O2 Sat by Pulse Oximetry (%) 100 11/12/17 08:57 Constitutional: Yes: Well Nourished, No Distress, Calm Cardiovascular: Yes: Regular Rate and Rhythm, S1, S2. No: Gallop, Murmur Respiratory: Yes: Regular, CTA Bilaterally (anteriorly). No: Rales, Wheezes Extremities: No: Cold Edema: No Neurological: No: Alert, Oriented, Seizure Psychiatric: No: Agitated Labs: CBC, BMP 11/12/17 05:20 11/12/17 05:20 INR, PTT INR 1.65 (0.82-1.09) H 11/12/17 05:40 - ....Imaging EKG: Other (tele: MAT vs sinus tach/APCs (to 200 bpm briefly), prob no afib) Assessment/Plan cxr: clear lungs cxr /3: no chf findings ecg: sr, nl intervals, ant/lat twis and subtle st depressions Echo 11/25: borderline vs mildly reduced LVSF (regional wall motion eval is TDS) . nl RV. mild LAE. valve fxn WNL. a/p: 82 m hx dementia, htn, hld, pad, cad, ckd, [place]. PAfib, MAT: -episodes of both (ongoing MAT) 2/3-->2/4 in setting of large UGIB and urgent EGD -exacerbated overnight by acute large bleed and epinephrine injection into bleeding vessel at urgent EGD. -cont digoxin, incr dose to 0.25 qd, monitor daily levels UGIB (from PUD): -recurrent large melena 2/3 with bleeding ulcer treated on EGD. -severe rebleed 2/5 (hgb 5) with hypotension, urgent rpt EGD with control of visibly bleeding vessel. -on xarelto [place] for PAD per charts, with no mention of Afib--PAD is not an approved indication for NOAC, hence have to assume there is h/o pafib here. no h /o CVA per [place] dx list, and per d/w family -also on ASA for CAD or PAD history (or both) -holding both ASA and AC until GIB w/u and tx is complete. for EGD/FOC per dr garcia. -family describes moderate dementia at baseline, which worsened the past 6 mo or so. -d/w'd dtr and today, that his risk of recurrent GIB on AC is fairly high even after the present episode is treated, vs estimated 4-5%/yr risk of stroke ( CHADS VASC =4-5 (? chf hx)). they state they strongly desire avoiding recurrent bleeding (bebeto given present episode was potentially life-threatening) or recurrent hospitalization, and hence prefer ASA over AC (verbalize understanding that ASA offers incomplete CVA prevention). -would not pursue Watchman here given pt's baseline dementia status -resume ASA 81 mg later once stable per GI etl consultant. CHF: -prior h/o "water on the heart" per , ? details -Echo here unremarkable -euvolemic at present, observe PAD: -outside vascular follows for LE disease per family htn: -low bp initially, improved now. -holding home bb, monitor trend hld: -stable, statin not listed on home meds KEVEN: -unknown baseline -creat fluctuating 1.1-1.5 here -anemia correction +/- IVF as doing, observe trend est'd time in data review, pt exam, and formulating mgmt plan of potentially life-threatening problems = 35 min
--- NOTE | 2017-11-12 09:36 | PN ---
Progress Note, Physician Chief Complaint: GI bleed History of Present Illness: 82 yo male [place] resident [facility] anemia, BPH, hypertension, hyperlipidemia, CAD, CKD, dementia, depression, anxiety, and dementia who presents to the emergency department with rectal bleed. As per prison, he was found to have a bloody bowel movements the evening before admission. In the ED, the patient was also found to be hypotensive in the 80s. The patient is a poor historian. Per his , the patient has been losing weight over the past few weeks and has no appetite. Per nursing notes, the patient is on Xarelto. No previous abdominal surgery. Unable to determine if there is an individual history of colon cancer or diverticular disease. The majority of his care at [facility] - Current Medication List Current Medications: Active Medications Digoxin (Lanoxin Injection -) 0.125 mg IVPUSH DAILY ERNIE Last Admin: 11/11/17 11:30 Dose: 0.125 mg Octreotide Acetate 1,200 mcg/ (Sodium Chloride) 500 mls @ 20.83 mls/hr IVPB ASDIR ERNIE PRN Reason: 50 MCG/HR Last Admin: 11/11/17 19:30 Dose: 20.83 mls/hr Norepinephrine Bitartrate 8, (000 mcg/ Sodium Chloride) 500 mls @ 18.75 mls/hr IV TITR ERNIE; 5 MCG/MIN PRN Reason: Protocol Last Admin: 11/11/17 22:31 Dose: Not Given Pantoprazole Sodium 160 mg/ (Dextrose) 290 mls @ 14.5 mls/hr IVPB Q20H ERNIE Last Admin: 11/11/17 17:59 Dose: 14.5 mls/hr Piperacillin Sod/Tazobactam (Sod 3.375 gm/ Dextrose) 100 mls @ 100 mls/hr IVPB Q8H-IV ERNIE Last Admin: 11/12/17 02:00 Dose: 100 mls/hr Propofol (Diprivan -) 1,000,000 mcg in 100 mls @ 1.924 mls/hr IVPB TITR ERNIE; 5 MCG/KG/MIN PRN Reason: Protocol Last Admin: 11/12/17 01:30 Dose: Not Given Lactated Ringer's (Lactated Ringers Solution) 1,000 ml in 1,000 mls @ 100 mls/ hr IV ASDIR ERNIE Last Admin: 11/11/17 12:40 Dose: 100 mls/hr - Objective Vital Signs: Vital Signs Temperature 97.5 F L 11/12/17 06:00 Pulse Rate 121 H 11/12/17 08:57 Respiratory Rate 18 11/12/17 08:57 Blood Pressure 94/53 11/12/17 08:00 O2 Sat by Pulse Oximetry (%) 100 11/12/17 08:57 Vital Signs Period Temp Pulse Resp BP Sys/Mcdowell Pulse Ox Last 24 Hr 97.5 F-99.8 F 66-154 14-23 79-158/50-89 99-100 Intake & Output 11/11/17 11/12/17 11/12/17 23:59 07:59 15:59 Intake Total 2263.8 2026 0 Output Total 300 450 Balance 1963.8 1576 0 Weight 172 lb 6.4 oz Intake: IV 1813.8 1926 0 DIPRIVAN - 1,000,000 mcg 11.8 48 In 100 ml @ 5 MCG/KG/MIN 1.924 mls/hr IVPB TITR ERNIE Rx#:[id number] LACTATED RINGERS SOLUTION 350 1200 1,000 ml In 1,000 ml @ 100 mls/hr IV ASDIR ERNIE Rx#:[id number] Levophed - 8,000 Mcg In 278 540 Normal Saline - 492 ml @ 5 MCG/MIN 18.75 mls/hr IV TITR ERNIE Rx#:[id number] Normal Saline - 1,000 ml 1000 @ 150 mls/hr IV ASDIR ERNIE Rx#:[id number] protonix 174 138 IVPB 450 100 Output: Urine 300 450 Paul 300 450 Other: Voiding Method Indwelling Catheter Bowel Movement Yes Yes # Bowel Movements 1 2 Weight Measurement Method [facility] Constitutional: Yes: No Distress, Calm, Thin Eyes: Yes: Conjunctiva Clear, EOM Intact HENT: Yes: Atraumatic, Normocephalic Neck: Yes: Supple, Trachea Midline Cardiovascular: Yes: Regular Rate and Rhythm, S1, S2 Respiratory: Yes: Regular, Intubated, Mechanically Ventilated Gastrointestinal: Yes: Normal Bowel Sounds, Soft, Other (scaphoid). No: Tenderness ...Rectal Exam: Yes: Sphincter Tone Normal, Other (Melena) Genitourinary: No: CVA Tenderness - Left, CVA Tenderness - Right Extremities: No: Cool, Cyanosis Neurological: Yes: Alert, Oriented Psychiatric: Yes: Alert, Oriented Labs: CBC, BMP 11/12/17 05:20 11/12/17 05:20 INR, PTT INR 1.65 (0.82-1.09) H 11/12/17 05:40 Problem List - Problems (1) Gastrointestinal hemorrhage with melena Assessment/Plan: 82yo male [place] presented from [place] with GI bleed with Melena. MAssive transfusion over the weekend. 9 units, On ventilator and maintained on vasopressor. Refractory GI bleed. He is not likely to survive a surgical intervention at this time, this was discussed with the family . NPO and IVF resuscitation monitored setting Transfuse RBC and FFP as needed Trend H&H [id number] Re-eval by GI for repeat endoscopy appreciated IR for embolization of GDA Request records from [facility] will follow for serial exams Code(s): K92.1 - MELENA (2) Hyperlipidemia Code(s): E78.5 - HYPERLIPIDEMIA, UNSPECIFIED (3) HTN (hypertension) Code(s): I10 - ESSENTIAL (PRIMARY) HYPERTENSION (4) CAD (coronary artery disease) Code(s): I25.10 - ATHSCL HEART DISEASE OF [place] CORONARY ARTERY W/O ANG PCTRS (5) BPH (benign prostatic hyperplasia) Code(s): N40.0 - BENIGN PROSTATIC HYPERPLASIA WITHOUT LOWER URINRY TRACT SYMP (6) Dementia Code(s): F03.90 - UNSPECIFIED DEMENTIA WITHOUT BEHAVIORAL DISTURBANCE
[2017-11-12] MEDS: NOREPINEPHRINE BITARTRATE 8,000 MCG in SODIUM CHLORIDE 492 ML IV SCH ×2 (10:00→21:58)
[2017-11-12] MEDS ORDERED: PT OWN MED DRAWER 7, Y5N ONE ×2 (10:31→18:40)
[2017-11-12] MEDS: DIGOXIN 0.5 MG/2 ML AMPUL IVPUSH SCH ×2 (10:35→10:36)
--- NOTE | 2017-11-12 11:28 | PN ---
Progress Note (short form) - Note Progress Note: In view of recurrent, life-threatening duodenal bulb ulcer bleeding, the case was discussed with the interventional radiology service to have mesenteric angiogram with embolization of the blood supply to the duodenal bulb. Problem List - Problems (1) GI bleed Code(s): K92.2 - GASTROINTESTINAL HEMORRHAGE, UNSPECIFIED (2) Gastrointestinal hemorrhage with melena Code(s): K92.1 - MELENA (3) Duodenal ulcer disease Code(s): K26.9 - DUODENAL ULCER, UNSP ACUTE OR CHRONIC, W/O HEMOR OR PERF (4) Duodenal ulcer hemorrhage Code(s): K26.4 - CHRONIC OR UNSPECIFIED DUODENAL ULCER WITH HEMORRHAGE
--- NOTE | 2017-11-12 12:28 | PN ---
Teaching Attending Note Name of Resident: Ajit You ATTENDING PHYSICIAN STATEMENT I saw and evaluated the patient. I reviewed the resident's note and discussed the case with the resident. I agree with the resident's findings and plan as documented. SUBJECTIVE: Patient seen and examined in the ICU. S/P EGD with clipping this AM. Severe anemia despite transfusional support. AC mode of vent. Remains on NE for hemodynamic support. Intake & Output 11/09/17 11/10/17 11/11/17 11/12/17 23:59 23:59 23:59 23:59 Intake Total 1570 2550 5691.8 2026 Output Total 1900 1000 1100 450 Balance -330 1550 4591.8 1576 Weight 139 lb 12.369 oz 141 lb 6.4 oz 171 lb 15.369 oz 172 lb 6.4 oz Last Vital Signs Temp Pulse Resp BP Pulse Ox 99.2 F 140 H 18 96/77 100 11/12/17 10:00 11/12/17 10:35 11/12/17 11:25 11/12/17 10:00 11/12/17 10:02 Active Medications Digoxin (Lanoxin Injection -) 0.25 mg IVPUSH DAILY ERNIE Last Admin: 11/12/17 10:36 Dose: 0.25 mg Norepinephrine Bitartrate 8, (000 mcg/ Sodium Chloride) 500 mls @ 18.75 mls/hr IV TITR ERNIE; 5 MCG/MIN PRN Reason: Protocol Last Admin: 11/12/17 10:00 Dose: 15 mcg/min, 56.25 mls/hr Pantoprazole Sodium 160 mg/ (Dextrose) 290 mls @ 14.5 mls/hr IVPB Q20H ERNIE Last Admin: 11/11/17 17:59 Dose: 14.5 mls/hr Piperacillin Sod/Tazobactam (Sod 3.375 gm/ Dextrose) 100 mls @ 100 mls/hr IVPB Q8H-IV ERNIE Last Admin: 11/12/17 10:32 Dose: 100 mls/hr Propofol (Diprivan -) 1,000,000 mcg in 100 mls @ 1.924 mls/hr IVPB TITR ERNIE; 5 MCG/KG/MIN PRN Reason: Protocol Last Admin: 11/12/17 01:30 Dose: Not Given Lactated Ringer's (Lactated Ringers Solution) 1,000 ml in 1,000 mls @ 100 mls/ hr IV ASDIR ERNIE Last Admin: 11/11/17 12:40 Dose: 100 mls/hr Gen: Intubated and sedated Heart: RRR Lung: decreased breath sounds at the bases Abd: soft, (+) BS, nontender Ext: no edema Laboratory Results - last 24 hr 11/08/17 11/08/17 11/11/17 23:22 23:23 05:25 WBC RBC Hgb Hct MCV MCH MCHC RDW Plt Count MPV Neutrophils % Lymphocytes % Monocytes % Eosinophils % Basophils % Hypersegmented Neuts Hypochromia Toxic Granulation Dohle Bodies Polychromasia Poikilocytosis Basophilic Stippling Anisocytosis Microcytosis Macrocytosis Spherocytes Siderocytes Sickle Cells Target Cells Tear Drop Cells Ovalocytes Stomatocytes Helmet Cells Dozier-Garber Bodies [place] Cells Acanthocytes (Spur) Rouleaux Fragmented RBCs Schistocytes Morphology Comment PT with INR INR Sodium Potassium Chloride Carbon Dioxide Anion Gap BUN Creatinine Creat Clearance w eGFR POC Glucometer Random Glucose Calcium Phosphorus Magnesium Total Bilirubin AST ALT Alkaline Phosphatase Total Protein Albumin Digoxin Blood Type O POSITIVE O POSITIVE Antibody Screen Negative Negative Crossmatch See Detail See Detail See Detail 11/11/17 11/12/17 11/12/17 05:39 05:20 05:20 WBC 13.4 H D RBC 1.71 L D Hgb 5.1 L* D Hct 15.7 L D MCV 91.9 MCH 30.0 MCHC 32.7 RDW 17.0 H Plt Count 122 L MPV 8.5 Neutrophils % 89.6 H Lymphocytes % 4.0 L D Monocytes % 5.8 Eosinophils % 0.2 D Basophils % 0.4 D Hypersegmented Neuts Cancelled Hypochromia Cancelled Toxic Granulation Cancelled Dohle Bodies Cancelled Polychromasia Cancelled Poikilocytosis Cancelled Basophilic Stippling Cancelled Anisocytosis Cancelled Microcytosis Cancelled Macrocytosis Cancelled Spherocytes Cancelled Siderocytes Cancelled Sickle Cells Cancelled Target Cells Cancelled Tear Drop Cells Cancelled Ovalocytes Cancelled Stomatocytes Cancelled Helmet Cells Cancelled Dozier-Garber Bodies Cancelled [place] Cancelled [place] Cells Cancelled Acanthocytes (Spur) Cancelled Rouleaux Cancelled Fragmented RBCs Cancelled Schistocytes Cancelled Morphology Comment Cancelled PT with INR INR Sodium 149 H Potassium 3.9 Chloride 118 H Carbon Dioxide 21 Anion Gap 10 BUN 44 H Creatinine 1.5 H Creat Clearance w eGFR 45.03 POC Glucometer 268.65484 Random Glucose 142 H D Calcium 6.4 L* Phosphorus 2.2 L Magnesium 1.8 D Total Bilirubin 0.6 D AST 9 L D ALT 8 L D Alkaline Phosphatase 48 D Total Protein 3.0 L D Albumin 1.4 L D Digoxin 0.2474 L Blood Type Antibody Screen Crossmatch 11/12/17 05:40 WBC RBC Hgb Hct MCV MCH MCHC RDW Plt Count MPV Neutrophils % Lymphocytes % Monocytes % Eosinophils % Basophils % Hypersegmented Neuts Hypochromia Toxic Granulation Dohle Bodies Polychromasia Poikilocytosis Basophilic Stippling Anisocytosis Microcytosis Macrocytosis Spherocytes Siderocytes Sickle Cells Target Cells Tear Drop Cells Ovalocytes Stomatocytes Helmet Cells Dozier-Garber Bodies [place] Cells Acanthocytes (Spur) Rouleaux Fragmented RBCs Schistocytes Morphology Comment PT with INR 18.70 H INR 1.65 H Sodium Potassium Chloride Carbon Dioxide Anion Gap BUN Creatinine Creat Clearance w eGFR POC Glucometer Random Glucose Calcium Phosphorus Magnesium Total Bilirubin AST ALT Alkaline Phosphatase Total Protein Albumin Digoxin Blood Type Antibody Screen Crossmatch IMP: Acute Respiratory Failure GI Bleed from Duodenal Ulcer Acute Blood Loss Anemia Hemorrhagic Shock Lactic Acidosis UTI PAD CAD CKD HTN Hyperlipidemia Dementia - monitor H/H - transfuse as needed - protonix, octreotide gtts - hold all anticoagulation, antiplatelet therapy - taper pressors to maintain MAP >65 - continue antibiotics - f/u cultures - DVT prophylaxis - continue ICU monitoring - Case D/W IR and surgery and GI. Concern the the source of bleeding has not been adequately controlled. Patient is still in shock with severe anemia. We feel that the next best step in management would be IR evaluation and possible embolization given his critical condition. Will proceed with IR intervention. Dr Rojas Critical care time spent in reviewing chart, evaluating patient and formulating plan 36 min
[2017-11-12] MEDS: LACTATED RINGERS SOLUTION 1,000 ML/1,000 ML INFUS.BAG IV SCH (12:30)
--- NOTE | 2017-11-12 13:14 | PN ---
Progress Note, Physician History of Present Illness: continue to be intubated patient for embolization still with bleed on pressors - Current Medication List Current Medications: Active Medications Digoxin (Lanoxin Injection -) 0.25 mg IVPUSH DAILY [facility] Last Admin: 11/12/17 10:36 Dose: 0.25 mg Norepinephrine Bitartrate 8, (000 mcg/ Sodium Chloride) 500 mls @ 18.75 mls/hr IV TITR ERNIE; 5 MCG/MIN PRN Reason: Protocol Last Admin: 11/12/17 10:00 Dose: 15 mcg/min, 56.25 mls/hr Pantoprazole Sodium 160 mg/ (Dextrose) 290 mls @ 14.5 mls/hr IVPB Q20H [facility] Last Admin: 11/11/17 17:59 Dose: 14.5 mls/hr Piperacillin Sod/Tazobactam (Sod 3.375 gm/ Dextrose) 100 mls @ 100 mls/hr IVPB Q8H-IV [facility]NIE Last Admin: 11/12/17 10:32 Dose: 100 mls/hr Propofol (Diprivan -) 1,000,000 mcg in 100 mls @ 1.924 mls/hr IVPB TITR ERNIE; 5 MCG/KG/MIN PRN Reason: Protocol Last Admin: 11/12/17 01:30 Dose: Not Given Lactated Ringer's (Lactated Ringers Solution) 1,000 ml in 1,000 mls @ 100 mls/ hr IV ASDIR [facility] Last Admin: 11/11/17 12:40 Dose: 100 mls/hr - Objective Vital Signs: Vital Signs Temperature 98.3 F 11/12/17 12:00 Pulse Rate 135 H 11/12/17 12:00 Respiratory Rate 21 11/12/17 12:00 Blood Pressure 135/69 11/12/17 12:00 O2 Sat by Pulse Oximetry (%) 100 11/12/17 10:02 Constitutional: Yes: Other Cardiovascular: Yes: Regular Rate and Rhythm, Tachycardia Respiratory: Yes: Intubated, Mechanically Ventilated Gastrointestinal: Yes: Soft, Hypoactive Bowel Sounds Musculoskeletal: Yes: WNL Extremities: Yes: WNL Neurological: Yes: Other Labs: CBC, BMP 11/12/17 05:20 11/12/17 05:20 INR, PTT INR 1.65 (0.82-1.09) H 11/12/17 05:40 Assessment/Plan Problem List - Problems (1) Gastrointestinal hemorrhage with melena Code(s): K92.1 - MELENA (2) Hyperlipidemia Code(s): E78.5 - HYPERLIPIDEMIA, UNSPECIFIED (3) HTN (hypertension) Code(s): I10 - ESSENTIAL (PRIMARY) HYPERTENSION (4) CAD (coronary artery disease) Code(s): I25.10 - ATHSCL HEART DISEASE OF [place] CORONARY ARTERY W/O ANG PCTRS (5) BPH (benign prostatic hyperplasia) Code(s): N40.0 - BENIGN PROSTATIC HYPERPLASIA WITHOUT LOWER URINRY TRACT SYMP (6) Dementia Code(s): F03.90 - UNSPECIFIED DEMENTIA WITHOUT BEHAVIORAL DISTURBANCE Lactic Acidosis UTI PAD CKD plan continue abx await for final procedure patient critical rest as per icu and surgery pressors cc time 40 min
[2017-11-12] MEDS: PANTOPRAZOLE SODIUM 160 MG in DEXTROSE 5%-WATER - 290 ML IVPB SCH (13:26)
[2017-11-12] MEDS ORDERED: POTASSIUM PHOSPHATE 30 MM in SODIUM CHLORIDE 250 ML IVPB ONE (14:18)
[2017-11-12] MEDS ORDERED: CALCIUM GLUCONATE 10% - 1,000 MG/10 ML VIAL IVPB ONE (15:30)
[2017-11-12 18:24] LABS: BASO % 0.4 % (0-2.0); EOS % 0.1 % (0-4.5); HEMATOCRIT 31.8 % (35.4-49); HEMOGLOBIN 10.7 GM/dL (11.7-16.9); LYMPH % 4.1 % (8-40); MCHC 33.6 g/dl (32.0-35.9); MEAN CELL VOLUME 89.3 fl (80-96); MEAN PLT VOLUME 8.6 fl (7.5-11.1); MONO % 7.9 % (3.8-10.2); NEUT % 87.5 % (42.8-82.8); PLATELET COUNT 111 K/MM3 (134-434); RBC 3.56 M/mm3 (4.00-5.60); RDW 15.7 % (11.9-15.9); WHITE BLOOD COUNT 19.3 K/mm3 (4.0-10.0)
[2017-11-12 18:51] LABS: INR 1.38 (0.82-1.09); PROTHROMBIN TIME (PATIENT) 15.6 SEC (9.98-11.88)
[2017-11-12] MEDS ORDERED: NOREPINEPHRINE BITARTRATE 4 MG/4 ML ML IV ONE (19:07)
[2017-11-12 19:15] LABS: ALBUMIN 1.8 g/dl (3.4-5.0); ANION GAP 11 (8-16); BLOOD UREA NITROGEN 43 mg/dL (7-18); CHLORIDE 117 mmol/L (98-107); CO2 18 mmol/L (21-32); CREATININE 1.5 mg/dL (0.7-1.3); GLUCOSE,RANDOM 140 mg/dL (74-106); POTASSIUM 3.3 mmol/L (3.5-5.1); SGOT/AST 14 U/L (15-37); SGPT/ALT 11 U/L (12-78); SODIUM 146 mmol/L (136-145)
[2017-11-12 19:16] LABS: ALK PHOS 59 U/L (45-117); BILIRUBIN,TOTAL 1.2 mg/dL (0.2-1.0); TOT PROT 3.8 g/dl (6.4-8.2)
[2017-11-12 19:21] LABS: CALCIUM 6.6 mg/dL (8.5-10.1)
[2017-11-12] MEDS: MUPIROCIN 2% TOPICAL OINTMENT FOR DECOLONIZATION NS SCH (21:57)
[2017-11-12] MEDS: CHLORHEXIDINE GLUCONATE 4% CLEANSER FOR DECOLONIZATION TP SCH (22:00)
--- NOTE | 2017-11-12 23:38 | PN ---
Progress Note (short form) - Note Progress Note: examined in ICU acute bleed this am Hgb 5 g/dl, melena and hemodynamic instability this am. Emergent EGD with control of bleeding by GI. Complete hemostasis achieved. 4 u of PRBC to be transfused today. IR for possible embolization if rebleeds. Family aware Vital Signs Period Temp Pulse Resp BP Sys/Mcdowell Pulse Ox Last 24 Hr 96.4 F-99.2 F 76-171 18-21 68-195/42-104 100-100 Intake & Output 11/09/17 11/10/17 11/11/17 11/12/17 23:59 23:59 23:59 23:59 Intake Total 1570 2550 5691.8 5638 Output Total 1900 1000 1100 450 Balance -330 1550 4591.8 5188 Weight 139 lb 12.369 oz 141 lb 6.4 oz 171 lb 15.369 oz 172 lb 6.4 oz Intubated / sedated /hypotensive blood being transfused - on first unit Pale Intubated heart S1/S2 irreg / tachy lungs no wheezing/ grossly clear abd soft no tenderness / distended ext no edema Active Medications Bisacodyl (Dulcolax -) 20 mg PO ONCE ONE Stop: 11/11/17 15:12 CEFTRIAXONE IN IS-OSM DEXTROSE (Ceftriaxone 2 Gm-D5w Bag) 2 gm in 50 mls @ 100 mls/hr IVPB DAILY [facility] Last Admin: 11/10/17 09:16 Dose: 100 mls/hr Octreotide Acetate 1,200 mcg/ (Sodium Chloride) 500 mls @ 20.83 mls/hr IVPB ASDIR ERNIE PRN Reason: 50 MCG/HR Pantoprazole Sodium 160 mg/ (Dextrose) 290 mls @ 14.5 mls/hr IVPB Q20H [facility] Pantoprazole Sodium (Protonix Packets For Oral Suspension -) 40 mg PO BID [facility] Last Admin: 11/10/17 09:16 Dose: 40 mg Polyethylene Glycol/Electrolytes (Golytely Solution -) 4,000 ml PO ONCE ONE Stop: 11/11/17 15:12 Microbiology 11/09/17 00:59 Urine - Urine - Catheterized Urine Culture - Final NO GROWTH OBTAINED 82 y/o male Hx dementia /HTN /PAD/CKD/ PVD/ was transfered from [facility] with rectal bleed and hypotension. Episode of acute bleed late yesterday -- requiring transfusion / emergent EGD # Gi Bleed recurrent Acute Upper GI bleed /shock 4 unit blood transfusion now / FFP s/p repeat emergent EGD continue to monitor h/h continue protonix / octreotide drip avoid all A/C IR for possible emolization possible surgical intervention CCU care # shock, hemorrhagic continue supportive care CCu care # Tachyacrdia PA fib with rvr / MAT 2/2 to acute blood loss remains in MAT dig for rate control until Bp normalizes appreciate Cardio follow up Problem List - Problems (1) Gastrointestinal hemorrhage with melena Code(s): K92.1 - MELENA (2) GI bleed Code(s): K92.2 - GASTROINTESTINAL HEMORRHAGE, UNSPECIFIED (3) Dementia Code(s): F03.90 - UNSPECIFIED DEMENTIA WITHOUT BEHAVIORAL DISTURBANCE (4) BPH (benign prostatic hyperplasia) Code(s): N40.0 - BENIGN PROSTATIC HYPERPLASIA WITHOUT LOWER URINRY TRACT SYMP (5) CAD (coronary artery disease) Code(s): I25.10 - ATHSCL HEART DISEASE OF [place] CORONARY ARTERY W/O ANG PCTRS (6) HTN (hypertension) Code(s): I10 - ESSENTIAL (PRIMARY) HYPERTENSION (7) Hyperlipidemia Code(s): E78.5 - HYPERLIPIDEMIA, UNSPECIFIED
[2017-11-13] MEDS: PIPERACILLIN/TAZOB 3.375 GM 3.375 GM in DEXTROSE 5%-WATER - 100 ML IVPB SCH ×3 (03:00→18:59)
[2017-11-13] MEDS ORDERED: PT OWN MED DRAWER 7, Y5N ONE ×3 (03:51→18:51)
[2017-11-13 06:09] LABS: BASO % 0.3 % (0-2.0); EOS % 3.3 % (0-4.5); HEMATOCRIT 29.8 % (35.4-49); HEMOGLOBIN 10.1 GM/dL (11.7-16.9); LYMPH % 4.2 % (8-40); MCH 30.3 pg (25.7-33.7); MEAN CELL VOLUME 89.1 fl (80-96); MEAN PLT VOLUME 8.3 fl (7.5-11.1); MONO % 5.7 % (3.8-10.2); NEUT % 86.5 % (42.8-82.8); PLATELET COUNT 96 K/MM3 (134-434); RBC 3.34 M/mm3 (4.00-5.60); RDW 15.9 % (11.9-15.9); WHITE BLOOD COUNT 18.8 K/mm3 (4.0-10.0)
[2017-11-13 06:24] LABS: INR 1.33 (0.82-1.09)
[2017-11-13 06:27] LABS: ALBUMIN 1.6 g/dl (3.4-5.0); ANION GAP 10 (8-16); BLOOD UREA NITROGEN 38 mg/dL (7-18); CHLORIDE 118 mmol/L (98-107); CO2 19 mmol/L (21-32); GLUCOSE,RANDOM 122 mg/dL (74-106); MAGNESIUM 1.7 mg/dL (1.8-2.4); POTASSIUM 3.3 mmol/L (3.5-5.1); SODIUM 147 mmol/L (136-145)
[2017-11-13 06:42] LABS: ALK PHOS 60 U/L (45-117); BILIRUBIN,TOTAL 0.8 mg/dL (0.2-1.0); CREATININE 1.4 mg/dL (0.7-1.3); PHOSPHOROUS 2.6 mg/dL (2.5-4.9); SGOT/AST 11 U/L (15-37); SGPT/ALT 9 U/L (12-78); TOT PROT 3.5 g/dl (6.4-8.2)
[2017-11-13] MEDS ORDERED: PROPOFOL 1,000,000 MCG/100 ML VIAL ONE (06:51)
[2017-11-13 06:56] LABS: CALCIUM 6.5 mg/dL (8.5-10.1)
[2017-11-13] MEDS: PROPOFOL 1,000,000 MCG/100 ML VIAL IVPB SCH ×2 (07:18→14:28)
[2017-11-13] MEDS ORDERED: CALCIUM GLUCONATE 10% - 1,000 MG/10 ML VIAL IVPB ONE (08:20)
--- NOTE | 2017-11-13 08:25 | PN ---
Progress Note, Physician History of Present Illness: No BMs overnight. Hgb 10 g/dl. Levofed, propofol being tapered down. - Current Medication List Current Medications: Active Medications Chlorhexidine Gluconate (Hibiclens For Decolonization -) 1 applic TP HS [facility] Last Admin: 11/12/17 22:00 Dose: 1 applic Digoxin (Lanoxin Injection -) 0.25 mg IVPUSH DAILY [facility] Last Admin: 11/12/17 10:36 Dose: 0.25 mg Norepinephrine Bitartrate 8, (000 mcg/ Sodium Chloride) 500 mls @ 18.75 mls/hr IV TITR ERNIE; 5 MCG/MIN PRN Reason: Protocol Last Admin: 11/12/17 21:58 Dose: 10 mcg/min, 37.5 mls/hr Pantoprazole Sodium 160 mg/ (Dextrose) 290 mls @ 14.5 mls/hr IVPB Q20H [facility] Last Admin: 11/12/17 13:26 Dose: 14.5 mls/hr Piperacillin Sod/Tazobactam (Sod 3.375 gm/ Dextrose) 100 mls @ 100 mls/hr IVPB Q8H-IV [facility] Last Admin: 11/13/17 03:00 Dose: 100 mls/hr Propofol (Diprivan -) 1,000,000 mcg in 100 mls @ 1.924 mls/hr IVPB TITR ERNIE; 5 MCG/KG/MIN PRN Reason: Protocol Last Admin: 11/13/17 07:18 Dose: 50 mcg/kg/min, 19.241 mls/hr Lactated Ringer's (Lactated Ringers Solution) 1,000 ml in 1,000 mls @ 100 mls/ hr IV ASDIR [facility] Last Admin: 11/12/17 12:30 Dose: Not Given Mupirocin (Bactroban Ointment (For Decolonization) -) 1 applic NS BID [facility] Stop: 11/17/17 21:59 Last Admin: 11/12/17 21:57 Dose: 1 applic - Objective Vital Signs: Vital Signs Temperature 97.8 F 11/13/17 06:00 Pulse Rate 86 11/13/17 06:00 Respiratory Rate 18 11/13/17 07:26 Blood Pressure 123/83 11/13/17 06:00 O2 Sat by Pulse Oximetry (%) 100 11/13/17 00:54 Constitutional: Yes: Other (sedated) Gastrointestinal: Yes: Soft. No: Melena, Rectal Bleeding, Tenderness Labs: CBC, BMP 11/13/17 05:15 11/13/17 05:15 INR, PTT INR 1.33 (0.82-1.09) H 11/13/17 05:15 Laboratory Results - last 24 hr 11/08/17 11/11/17 11/12/17 23:22 05:25 18:00 WBC 19.3 H D RBC 3.56 L D Hgb 10.7 L D Hct 31.8 L D MCV 89.3 MCH 30.0 MCHC 33.6 RDW 15.7 Plt Count 111 L MPV 8.6 Neutrophils % 87.5 H Lymphocytes % 4.1 L Monocytes % 7.9 Eosinophils % 0.1 Basophils % 0.4 PT with INR INR PTT (Actin FS) Sodium Potassium Chloride Carbon Dioxide Anion Gap BUN Creatinine Creat Clearance w eGFR Random Glucose Calcium Phosphorus Magnesium Total Bilirubin AST ALT Alkaline Phosphatase Total Protein Albumin Digoxin Blood Type O POSITIVE O POSITIVE Antibody Screen Negative Negative Crossmatch See Detail See Detail 11/12/17 11/12/17 11/13/17 18:00 18:00 05:15 WBC RBC Hgb Hct MCV MCH MCHC RDW Plt Count MPV Neutrophils % Lymphocytes % Monocytes % Eosinophils % Basophils % PT with INR 15.60 H INR 1.38 H PTT (Actin FS) Sodium 146 H 147 H Potassium 3.3 L 3.3 L Chloride 117 H 118 H Carbon Dioxide 18 L 19 L Anion Gap 11 10 BUN 43 H 38 H Creatinine 1.5 H 1.4 H Creat Clearance w eGFR 45.03 48.76 Random Glucose 140 H 122 H Calcium 6.6 L* 6.5 L* Phosphorus 2.6 Magnesium 1.7 L Total Bilirubin 1.2 H D 0.8 D AST 14 L D 11 L D ALT 11 L D 9 L Alkaline Phosphatase 59 D 60 Total Protein 3.8 L D 3.5 L Albumin 1.8 L D 1.6 L Digoxin 0.6941 L Blood Type Antibody Screen Crossmatch 11/13/17 11/13/17 05:15 05:15 WBC 18.8 H RBC 3.34 L Hgb 10.1 L Hct 29.8 L MCV 89.1 MCH 30.3 MCHC 34.0 RDW 15.9 Plt Count 96 L MPV 8.3 Neutrophils % 86.5 H Lymphocytes % 4.2 L Monocytes % 5.7 Eosinophils % 3.3 D Basophils % 0.3 PT with INR 15.00 H INR 1.33 H PTT (Actin FS) 31.0 Sodium Potassium Chloride Carbon Dioxide Anion Gap BUN Creatinine Creat Clearance w eGFR Random Glucose Calcium Phosphorus Magnesium Total Bilirubin AST ALT Alkaline Phosphatase Total Protein Albumin Digoxin Blood Type Antibody Screen Crossmatch Problem List - Problems (1) GI bleed Code(s): K92.2 - GASTROINTESTINAL HEMORRHAGE, UNSPECIFIED (2) Gastrointestinal hemorrhage with melena Code(s): K92.1 - MELENA (3) Duodenal ulcer disease Code(s): K26.9 - DUODENAL ULCER, UNSP ACUTE OR CHRONIC, W/O HEMOR OR PERF (4) Duodenal ulcer hemorrhage Code(s): K26.4 - CHRONIC OR UNSPECIFIED DUODENAL ULCER WITH HEMORRHAGE Assessment/Plan No acute events overnight. Agree with weaning the pt of sedative and pressors Close monitoring for signs of rebleed. Hgb q6 hrs x 24 hrs Continue PPI, octreotide, carafate via OGT NPO
[2017-11-13 08:34] LABS: ARTERIAL BLD GAS O2 SATURATION 99.7 % (90-98.9); ARTERIAL BLOOD GAS BASE EXCESS -6.3 meq/l (-2-2)
[2017-11-13 08:36] LABS: ALLENS TEST POSITIVE
[2017-11-13] MEDS ORDERED: MAGNESIUM SULF 50% (8.12 MEQ/2 ML-1 GM VIAL) IVPB ONE (09:00)
--- NOTE | 2017-11-13 09:06 | PN ---
Progress Note, Physician Chief Complaint: GI bleed History of Present Illness: 82 yo [place] resident [facility] anemia, BPH, hypertension, hyperlipidemia, CAD, CKD, dementia, depression, anxiety, and dementia who presents to the emergency department with rectal bleed. Additional melena was reported, passing clots per rectum. He had second endoscopy and clipping of the bleeding ulcer as well as GDA embolization by IR. Remains in the ICU sedated and intubated. - Current Medication List Current Medications: Active Medications Chlorhexidine Gluconate (Hibiclens For Decolonization -) 1 applic TP HS [facility] Last Admin: 11/12/17 22:00 Dose: 1 applic Digoxin (Lanoxin Injection -) 0.25 mg IVPUSH DAILY [facility] Last Admin: 11/12/17 10:36 Dose: 0.25 mg Norepinephrine Bitartrate 8, (000 mcg/ Sodium Chloride) 500 mls @ 18.75 mls/hr IV TITR ERNIE; 5 MCG/MIN PRN Reason: Protocol Last Admin: 11/12/17 21:58 Dose: 10 mcg/min, 37.5 mls/hr Pantoprazole Sodium 160 mg/ (Dextrose) 290 mls @ 14.5 mls/hr IVPB Q20H [facility] Last Admin: 11/12/17 13:26 Dose: 14.5 mls/hr Piperacillin Sod/Tazobactam (Sod 3.375 gm/ Dextrose) 100 mls @ 100 mls/hr IVPB Q8H-IV [facility] Last Admin: 11/13/17 03:00 Dose: 100 mls/hr Propofol (Diprivan -) 1,000,000 mcg in 100 mls @ 1.924 mls/hr IVPB TITR ERNIE; 5 MCG/KG/MIN PRN Reason: Protocol Last Admin: 11/13/17 07:18 Dose: 50 mcg/kg/min, 19.241 mls/hr Lactated Ringer's (Lactated Ringers Solution) 1,000 ml in 1,000 mls @ 100 mls/ hr IV ASDIR [facility] Last Admin: 11/12/17 12:30 Dose: Not Given Potassium Chloride 10 meq/ (Sodium Chloride) 105 mls @ 100 mls/hr IVPB Q60M [facility] Stop: 11/13/17 10:29 Mupirocin (Bactroban Ointment (For Decolonization) -) 1 applic NS BID [facility] Stop: 11/17/17 21:59 Last Admin: 11/12/17 21:57 Dose: 1 applic - Objective Vital Signs: Vital Signs Temperature 97.8 F 11/13/17 06:00 Pulse Rate 86 11/13/17 06:00 Respiratory Rate 18 11/13/17 07:26 Blood Pressure 123/83 11/13/17 06:00 O2 Sat by Pulse Oximetry (%) 100 11/13/17 00:54 Vital Signs Period Temp Pulse Resp BP Sys/Mcdowell Pulse Ox Last 24 Hr 96.4 F-99.2 F 76-153 18-21 91-195/42-104 100-100 Intake & Output 11/12/17 11/13/17 11/13/17 23:59 07:59 15:59 Intake Total 3612 1972 Output Total 1100 Balance 3612 872 Weight 178 lb 4.8 oz Intake: IV 1662 1722 DIPRIVAN - 1,000,000 mcg 148 276 In 100 ml @ 5 MCG/KG/MIN 1.924 mls/hr IVPB TITR [facility] Rx#:[id number] LACTATED RINGERS SOLUTION 600 1,000 ml In 1,000 ml @ 100 mls/hr IV ASDIR [facility] Rx#:[id number] Levophed - 8,000 Mcg In 540 360 Normal Saline - 492 ml @ 5 MCG/MIN 18.75 mls/hr IV TITR ERNIE Rx#:[id number] normal saline 100 936 protonix 174 150 sandostatin drip 100 IVPB 550 250 Packed Cells 1400 Output: Urine 1100 Paul 1100 Other: Voiding Method Indwelling Catheter Weight Measurement Method Built in [facility] Constitutional: Yes: Well Nourished, No Distress, Calm Eyes: Yes: Conjunctiva Clear, EOM Intact HENT: Yes: Atraumatic, Normocephalic Neck: Yes: Supple, Trachea Midline Cardiovascular: Yes: Regular Rate and Rhythm, Tachycardia, S1, S2 Respiratory: Yes: Regular, CTA Bilaterally, Intubated, Mechanically Ventilated Gastrointestinal: Yes: Normal Bowel Sounds, Soft ...Rectal Exam: Yes: Deferred Genitourinary: No: CVA Tenderness - Left, CVA Tenderness - Right Musculoskeletal: No: Muscle Pain, Muscle Weakness Extremities: No: Cool, Cyanosis Edema: Yes Edema: LUE: 2+, RUE: 2+, LLE: 2+, RLE: 2+ Peripheral Pulses: Left Radial: 2+, Right Radial: 2+, Left Doralis Pedis: 2+, Right Dorsalis Pedis: 2+, Left Femoral: 2+, Right Femoral: 2+ Integumentary: No: Jaundice, Rash Neurological: Yes: Unresponsive (sedated) Psychiatric: Yes: Alert, Oriented Labs: CBC, BMP 11/13/17 05:15 11/13/17 05:15 INR, PTT INR 1.33 (0.82-1.09) H 11/13/17 05:15 Problem List - Problems (1) Gastrointestinal hemorrhage with melena Assessment/Plan: 82yo male MMP presented from [place] with GI bleed with Melena. MAssive transfusion over the weekend. 9 units, On ventilator and maintained on vasopressor. Refractory GI bleed. s/p repeat endoscopy and clipping and IR embolization of GDA. ICU management Transfuse RBC and FFP as needed Trend H&H [id number] Request records from [facility] electrolytes will follow for serial exams Code(s): K92.1 - MELENA (2) Hyperlipidemia Code(s): E78.5 - HYPERLIPIDEMIA, UNSPECIFIED (3) HTN (hypertension) Code(s): I10 - ESSENTIAL (PRIMARY) HYPERTENSION (4) CAD (coronary artery disease) Code(s): I25.10 - ATHSCL HEART DISEASE OF [place] CORONARY ARTERY W/O ANG PCTRS (5) BPH (benign prostatic hyperplasia) Code(s): N40.0 - BENIGN PROSTATIC HYPERPLASIA WITHOUT LOWER URINRY TRACT SYMP (6) Dementia Code(s): F03.90 - UNSPECIFIED DEMENTIA WITHOUT BEHAVIORAL DISTURBANCE
[2017-11-13] MEDS ORDERED: LYTES/YERBA SANTA 240 ML BOTTLE MM SCH (10:00)
--- NOTE | 2017-11-13 10:44 | PN ---
Progress Note (short form) - Note Progress Note: examined in ICU acute bleed this am Hgb 5 g/dl, melena and hemodynamic instability this am. Emergent EGD with control of bleeding by GI. Complete hemostasis achieved. 4 u of PRBC to be transfused today. IR for possible embolization if rebleeds. Family aware Vital Signs Period Temp Pulse Resp BP Sys/Mcdowell Pulse Ox Last 24 Hr 96.4 F-99.2 F 76-171 18-21 68-195/42-104 100-100 Intake & Output 11/09/17 11/10/17 11/11/17 11/12/17 23:59 23:59 23:59 23:59 Intake Total 1570 2550 5691.8 5638 Output Total 1900 1000 1100 450 Balance -330 1550 4591.8 5188 Weight 139 lb 12.369 oz 141 lb 6.4 oz 171 lb 15.369 oz 172 lb 6.4 oz Intubated / sedated /hypotensive blood being transfused - on first unit Pale Intubated heart S1/S2 irreg / tachy lungs no wheezing/ grossly clear abd soft no tenderness / distended ext no edema Active Medications Bisacodyl (Dulcolax -) 20 mg PO ONCE ONE Stop: 11/11/17 15:12 CEFTRIAXONE IN IS-OSM DEXTROSE (Ceftriaxone 2 Gm-D5w Bag) 2 gm in 50 mls @ 100 mls/hr IVPB DAILY [facility] Last Admin: 11/10/17 09:16 Dose: 100 mls/hr Octreotide Acetate 1,200 mcg/ (Sodium Chloride) 500 mls @ 20.83 mls/hr IVPB ASDIR ERNIE PRN Reason: 50 MCG/HR Pantoprazole Sodium 160 mg/ (Dextrose) 290 mls @ 14.5 mls/hr IVPB Q20H [facility] Pantoprazole Sodium (Protonix Packets For Oral Suspension -) 40 mg PO BID [facility] Last Admin: 11/10/17 09:16 Dose: 40 mg Polyethylene Glycol/Electrolytes (Golytely Solution -) 4,000 ml PO ONCE ONE Stop: 11/11/17 15:12 Microbiology 11/09/17 00:59 Urine - Urine - Catheterized Urine Culture - Final NO GROWTH OBTAINED 82 y/o male Hx dementia /HTN /PAD/CKD/ PVD/ was transfered from [facility] with rectal bleed and hypotension. Episode of acute bleed -- requiring transfusion / emergent EGD # Gi Bleed recurrent Acute Upper GI bleed /shock 4 unit blood transfusion now / FFP s/p repeat emergent EGD continue to monitor h/h continue protonix / octreotide drip avoid all A/C IR for possible emolization possible surgical intervention CCU care # shock, hemorrhagic continue supportive care CCu care # Tachyacrdia PA fib with rvr / MAT 2/2 to acute blood loss remains in MAT dig for rate control until Bp normalizes appreciate Cardio follow up Problem List - Problems (1) Gastrointestinal hemorrhage with melena Code(s): K92.1 - MELENA (2) GI bleed Code(s): K92.2 - GASTROINTESTINAL HEMORRHAGE, UNSPECIFIED (3) Dementia Code(s): F03.90 - UNSPECIFIED DEMENTIA WITHOUT BEHAVIORAL DISTURBANCE (4) BPH (benign prostatic hyperplasia) Code(s): N40.0 - BENIGN PROSTATIC HYPERPLASIA WITHOUT LOWER URINRY TRACT SYMP (5) CAD (coronary artery disease) Code(s): I25.10 - ATHSCL HEART DISEASE OF [place] CORONARY ARTERY W/O ANG PCTRS (6) HTN (hypertension) Code(s): I10 - ESSENTIAL (PRIMARY) HYPERTENSION (7) Hyperlipidemia Code(s): E78.5 - HYPERLIPIDEMIA, UNSPECIFIED
--- NOTE | 2017-11-13 11:06 | PN ---
Progress Note (short form) - Note Progress Note: Chief Complaint: GIB, tachy History of Present Illness: intubated, not communicative. s/p prbc's yesterday. Digoxin increased to 0.25 mg IV daily today. weaning pressors (remains on norepi). IVF con't. Current Medications Chlorhexidine Gluconate (Hibiclens For Decolonization -) 1 applic TP HS [facility] Last Admin: 11/12/17 22:00 Dose: 1 applic Digoxin (Lanoxin Injection -) 0.25 mg IVPUSH DAILY [facility] Last Admin: 11/12/17 10:36 Dose: 0.25 mg Norepinephrine Bitartrate 8, (000 mcg/ Sodium Chloride) 500 mls @ 18.75 mls/hr IV TITR ERNIE; 5 MCG/MIN PRN Reason: Protocol Last Titration: 11/13/17 10:32 Dose: 4 mcg/min, 15 mls/hr Pantoprazole Sodium 160 mg/ (Dextrose) 290 mls @ 14.5 mls/hr IVPB Q20H [facility] Last Admin: 11/12/17 13:26 Dose: 14.5 mls/hr Piperacillin Sod/Tazobactam (Sod 3.375 gm/ Dextrose) 100 mls @ 100 mls/hr IVPB Q8H-IV ERNIE Last Admin: 11/13/17 03:00 Dose: 100 mls/hr Propofol (Diprivan -) 1,000,000 mcg in 100 mls @ 1.924 mls/hr IVPB TITR ERNIE; 5 MCG/KG/MIN PRN Reason: Protocol Last Admin: 11/13/17 07:18 Dose: 50 mcg/kg/min, 19.241 mls/hr Lactated Ringer's (Lactated Ringers Solution) 1,000 ml in 1,000 mls @ 100 mls/ hr IV ASDIR [facility] Last Admin: 11/12/17 12:30 Dose: Not Given Mupirocin (Bactroban Ointment (For Decolonization) -) 1 applic NS BID [facility] Stop: 11/17/17 21:59 Last Admin: 11/12/17 21:57 Dose: 1 applic - Objective Vital Signs: Vital Signs - 24 hr 11/12/17 11/12/17 11/12/17 11:00 11:25 12:00 Temperature 98.6 F 98.3 F Pulse Rate 141 H 135 H Pulse Rate [ Left Calf] Respiratory 19 18 21 Rate Respiratory Rate [Left Calf ] Blood Pressure 91/42 135/69 Blood Pressure [Left Calf] O2 Sat by Pulse Oximetry (%) O2 Sat by Pulse Oximetry (%) [ Left Calf] 11/12/17 11/12/17 11/12/17 13:00 14:31 14:36 Temperature Pulse Rate 135 H 134 H Pulse Rate [ Left Calf] Respiratory 18 19 Rate Respiratory Rate [Left Calf ] Blood Pressure 138/75 131/62 Blood Pressure [Left Calf] O2 Sat by Pulse 100 Oximetry (%) O2 Sat by Pulse Oximetry (%) [ Left Calf] 11/12/17 11/12/17 11/12/17 14:46 14:56 15:06 Temperature Pulse Rate Pulse Rate [ 126 H 114 H 118 H Left Calf] Respiratory Rate Respiratory 19 19 Rate [Left Calf ] Blood Pressure Blood Pressure 130/62 103/62 191/101 [Left Calf] O2 Sat by Pulse Oximetry (%) O2 Sat by Pulse 100 100 100 Oximetry (%) [ Left Calf] 11/12/17 11/12/17 11/12/17 15:16 15:26 15:30 Temperature Pulse Rate Pulse Rate [ 113 H 116 H 141 H Left Calf] Respiratory Rate Respiratory 20 20 19 Rate [Left Calf ] Blood Pressure Blood Pressure 150/104 170/72 194/65 [Left Calf] O2 Sat by Pulse Oximetry (%) O2 Sat by Pulse 100 100 100 Oximetry (%) [ Left Calf] 11/12/17 11/12/17 11/12/17 15:40 15:47 16:01 Temperature Pulse Rate Pulse Rate [ 118 H 126 H 137 H Left Calf] Respiratory Rate Respiratory 19 19 19 Rate [Left Calf ] Blood Pressure Blood Pressure 195/64 180/48 155/95 [Left Calf] O2 Sat by Pulse Oximetry (%) O2 Sat by Pulse 100 100 100 Oximetry (%) [ Left Calf] 11/12/17 11/12/17 11/12/17 16:11 16:21 16:31 Temperature Pulse Rate Pulse Rate [ 111 H 109 H 128 H Left Calf] Respiratory Rate Respiratory 19 19 19 Rate [Left Calf ] Blood Pressure Blood Pressure 155/76 155/76 155/76 [Left Calf] O2 Sat by Pulse Oximetry (%) O2 Sat by Pulse 100 100 100 Oximetry (%) [ Left Calf] 11/12/17 11/12/17 11/12/17 16:41 16:51 17:01 Temperature Pulse Rate Pulse Rate [ 115 H 117 H 112 H Left Calf] Respiratory Rate Respiratory 19 20 19 Rate [Left Calf ] Blood Pressure Blood Pressure 163/59 146/83 146/83 [Left Calf] O2 Sat by Pulse Oximetry (%) O2 Sat by Pulse 100 100 100 Oximetry (%) [ Left Calf] 11/12/17 11/12/17 11/12/17 17:11 17:21 18:27 Temperature Pulse Rate 110 H Pulse Rate [ 76 114 H Left Calf] Respiratory 19 18 Rate Respiratory 19 19 Rate [Left Calf ] Blood Pressure 155/63 Blood Pressure 151/78 155/63 [Left Calf] O2 Sat by Pulse 100 Oximetry (%) O2 Sat by Pulse 100 100 Oximetry (%) [ Left Calf] 11/12/17 11/12/17 11/12/17 19:00 20:25 21:00 Temperature 96.8 F L 96.4 F L Pulse Rate 121 H 110 H Pulse Rate [ Left Calf] Respiratory 18 18 Rate Respiratory Rate [Left Calf ] Blood Pressure 167/85 134/76 Blood Pressure [Left Calf] O2 Sat by Pulse 100 Oximetry (%) O2 Sat by Pulse Oximetry (%) [ Left Calf] 11/12/17 11/12/17 11/13/17 21:30 21:58 00:00 Temperature Pulse Rate 116 H 86 Pulse Rate [ Left Calf] Respiratory 18 18 Rate Respiratory Rate [Left Calf ] Blood Pressure 140/92 Blood Pressure [Left Calf] O2 Sat by Pulse Oximetry (%) O2 Sat by Pulse Oximetry (%) [ Left Calf] 11/13/17 11/13/17 11/13/17 00:54 02:00 03:08 Temperature 98.2 F Pulse Rate 94 H 93 H Pulse Rate [ Left Calf] Respiratory 18 18 18 Rate Respiratory Rate [Left Calf ] Blood Pressure 134/79 Blood Pressure [Left Calf] O2 Sat by Pulse 100 Oximetry (%) O2 Sat by Pulse Oximetry (%) [ Left Calf] 11/13/17 11/13/17 11/13/17 04:00 05:00 06:00 Temperature 97.8 F Pulse Rate 86 86 Pulse Rate [ Left Calf] Respiratory 18 18 18 Rate Respiratory Rate [Left Calf ] Blood Pressure 129/82 123/83 Blood Pressure [Left Calf] O2 Sat by Pulse Oximetry (%) O2 Sat by Pulse Oximetry (%) [ Left Calf] 11/13/17 11/13/17 11/13/17 07:26 07:30 08:00 Temperature Pulse Rate 90 Pulse Rate [ Left Calf] Respiratory 18 18 Rate Respiratory Rate [Left Calf ] Blood Pressure 137/99 127/92 Blood Pressure [Left Calf] O2 Sat by Pulse Oximetry (%) O2 Sat by Pulse Oximetry (%) [ Left Calf] 11/13/17 11/13/17 11/13/17 09:00 09:14 10:32 Temperature Pulse Rate 96 H 97 H Pulse Rate [ Left Calf] Respiratory 18 Rate Respiratory Rate [Left Calf ] Blood Pressure 137/82 154/86 Blood Pressure [Left Calf] O2 Sat by Pulse Oximetry (%) O2 Sat by Pulse Oximetry (%) [ Left Calf] 11/13/17 10:44 Temperature Pulse Rate Pulse Rate [ Left Calf] Respiratory 18 Rate Respiratory Rate [Left Calf ] Blood Pressure Blood Pressure [Left Calf] O2 Sat by Pulse Oximetry (%) O2 Sat by Pulse Oximetry (%) [ Left Calf] Vital Signs - 24 hr 11/12/17 11/12/17 11/12/17 20:25 21:00 21:30 Temperature 96.4 F L Pulse Rate 110 H Respiratory 18 18 Rate Blood Pressure 134/76 O2 Sat by Pulse 100 Oximetry (%) 11/12/17 11/13/17 11/13/17 21:58 00:00 00:54 Temperature Pulse Rate 116 H 86 94 H Respiratory 18 18 Rate Blood Pressure 140/92 O2 Sat by Pulse 100 Oximetry (%) 11/13/17 11/13/17 11/13/17 02:00 03:08 04:00 Temperature 98.2 F Pulse Rate 93 H 86 Respiratory 18 18 18 Rate Blood Pressure 134/79 129/82 O2 Sat by Pulse Oximetry (%) 11/13/17 11/13/17 11/13/17 05:00 06:00 07:26 Temperature 97.8 F Pulse Rate 86 Respiratory 18 18 18 Rate Blood Pressure 123/83 O2 Sat by Pulse Oximetry (%) 11/13/17 11/13/17 11/13/17 07:30 08:00 09:00 Temperature Pulse Rate 90 Respiratory 18 18 Rate Blood Pressure 137/99 127/92 O2 Sat by Pulse Oximetry (%) 11/13/17 11/13/17 11/13/17 09:14 10:00 10:32 Temperature 99 F Pulse Rate 96 H 92 H 97 H Respiratory 18 Rate Blood Pressure 137/82 110/64 154/86 O2 Sat by Pulse Oximetry (%) 11/13/17 11/13/17 11/13/17 10:44 11:26 11:43 Temperature 97.5 F L Pulse Rate 92 H 77 Respiratory 18 18 Rate Blood Pressure 106/66 O2 Sat by Pulse Oximetry (%) Intake & Output 11/11/17 11/12/17 11/13/17 11/14/17 07:59 07:59 07:59 07:59 Intake Total 5628 4289.8 5584 Output Total 1000 1050 1100 Balance 4628 3239.8 4484 Weight 171 lb 15.369 oz 172 lb 6.4 oz 178 lb 4.8 oz Constitutional: Yes: Well Nourished, No Distress, Calm/sedated. Intubated Cardiovascular: Yes: Regular Rate and Rhythm, S1, S2. No: Gallop, Murmur Respiratory: Yes: Regular, CTA Bilaterally . No: Rales, Wheezes + bs soft nt nd Extremities: No: Cold Edema: No Neurological: No: Alert, Oriented, Seizure Psychiatric: No: Agitated Labs: CBC, BMP 11/13/17 05:15 11/13/17 05:15 Laboratory Tests 11/12/17 05:20 Hgb 5.1 L* D 11/10/17 11/12/17 11/12/17 23:00 05:20 18:00 Plt Count 111 L INR ABG pH 7.26 L ABG pCO2 at Pt Temp Sodium 149 H Creatinine 1.5 H Calcium Magnesium Total Bilirubin AST ALT Alkaline Phosphatase Albumin Digoxin 11/13/17 11/13/17 11/13/17 05:15 05:15 05:15 Plt Count 96 L INR 1.33 H ABG pH ABG pCO2 at Pt Temp Sodium Creatinine Calcium 6.5 L* Magnesium 1.7 L Total Bilirubin 0.8 D AST 11 L D ALT 9 L Alkaline Phosphatase 60 Albumin 1.6 L Digoxin 0.6941 L 11/13/17 08:18 Plt Count INR ABG pH 7.40 ABG pCO2 at Pt Temp 28.0 L D Sodium Creatinine Calcium Magnesium Total Bilirubin AST ALT Alkaline Phosphatase Albumin Digoxin - ....Imaging EKG: Other (tele: sr with intermittent SVT/afib and atrial runs. occ 3-4 beat nsvt. intermittent runs of accelerated idioventricular rhythm ) Assessment/Plan cxr: clear lungs cxr 11/10: no chf findings ecg: sr, nl intervals, ant/lat twis and subtle st depressions Echo 11/25: borderline vs mildly reduced LVSF (regional wall motion eval is TDS) . nl RV. mild LAE. valve fxn WNL. a/p: 82 m hx dementia, htn, hld, pad, cad, ckd, sent [place] for [place] bleed. PAfib , MAT: -on xarelto (in addition to asa for pad/cad) at [place] per charts, with no mention of Afib--indication for xarelto was reported as PAD which is not an approved indication--> hence have to assume there is h/o pafib here. no h/o CVA per [facility] dx list, and per d/w family - holding AC and ASA in setting of GIB. Resume asa if/when cleared by GI. -episodes of both rapid afib/MAT 2/3-->2/4 in setting of acute large GI bleed ( hgb drop to 5) and urgent EGD with epinephrine injection into bleeding vessel. -2/6 improving rate control today. Dig level subtherapeutic --> digoxin dose increased to 0.25 IV qd (first dose today), con't to monitor daily levels h/o CAD/pad, unknown details - outside vascular follows for LE disease per family. details of cad unknown. - 2/6 s/p prbc's yesterday for hgb 5. Intermittent accelerated idioventricular rhythm on tele --> aggressive lyte repletion. Norepi being weaned, digoxin level low today --> con't to monitor. UGIB (from [facility]): - p/w GIB in setting of xarelto and ASA --> now on hold. -recurrent large melena 2/3 with bleeding ulcer treated on EGD. -severe rebleed 2/5 (hgb 5) with hypotension, urgent rpt EGD with control of visibly bleeding vessel. -holding both ASA and AC until GIB w/u and tx is complete. s/p EGD/FOC and epinephrine injection. -family describes moderate dementia at baseline, which worsened the past 6 mo or so. 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 chf hx)). they state they strongly desire avoiding recurrent bleeding (bebeto given present episode was potentially life-threatening) or recurrent hospitalization, and hence prefer ASA over AC (verbalize understanding that ASA offers incomplete CVA prevention). -would not pursue Watchman here given pt's baseline dementia status -resume ASA 81 mg later once stable per GI healthcare risk control consultant. CHF: -prior h/o "water on the heart" per , ? details -Echo here unremarkable -2/6 Weight up today with increased congestion on cxr (by my review) s/p prbc's yesterday. However, patient still NPO requiring IVF and pressors. Would prioritize mgm't of bleed/hemodynamic stability and would not recommend changing management (ie. ok for continued ivf) htn: -remains on pressors -holding home bb, monitor trend hld: -stable, statin not listed on home meds KEVEN: -unknown baseline -creat fluctuating 1.1-1.5 here -anemia correction +/- IVF as doing, observe trend est'd time in data review, pt exam, and formulating mgmt plan of potentially life-threatening problems = 35 min
[2017-11-13] MEDS: PANTOPRAZOLE SODIUM 160 MG in DEXTROSE 5%-WATER - 290 ML IVPB SCH (11:21)
[2017-11-13] MEDS: POTASSIUM CHLORIDE 10 MEQ in SODIUM CHLORIDE 100 ML IVPB SCH ×2 (11:22→12:08)
[2017-11-13] MEDS: DIGOXIN 0.5 MG/2 ML AMPUL IVPUSH SCH (11:26)
[2017-11-13] MEDS: MUPIROCIN 2% TOPICAL OINTMENT FOR DECOLONIZATION NS SCH ×2 (11:33→22:28)
--- NOTE | 2017-11-13 11:36 | PN ---
Teaching Attending Note Name of Resident: Ajit You ATTENDING PHYSICIAN STATEMENT I saw and evaluated the patient. I reviewed the resident's note and discussed the case with the resident. I agree with the resident's findings and plan as documented. SUBJECTIVE: Patient seen and examined in the ICU. Remains intubated and sedated, AC Mode of vent. Lower bleeding noted this AM, dark liquid. Nothing is being aspirated from the NGT. Remains on NE for hemodynamic support. Intake & Output 11/10/17 11/11/17 11/12/17 11/13/17 23:59 23:59 23:59 23:59 Intake Total 2550 5691.8 5638 1972 Output Total 1000 8674 324 2920 Balance 1550 4591.8 5188 872 Weight 141 lb 6.4 oz 171 lb 15.369 oz 172 lb 6.4 oz 178 lb 4.8 oz Last Vital Signs Temp Pulse Resp BP Pulse Ox 97.8 F 92 H 18 154/86 100 11/13/17 06:00 11/13/17 11:26 11/13/17 10:44 11/13/17 10:32 11/13/17 00:54 Active Medications Chlorhexidine Gluconate (Hibiclens For Decolonization -) 1 applic TP HS [facility] Last Admin: 11/12/17 22:00 Dose: 1 applic Digoxin (Lanoxin Injection -) 0.25 mg IVPUSH DAILY [facility] Last Admin: 11/13/17 11:26 Dose: 0.25 mg Norepinephrine Bitartrate 8, (000 mcg/ Sodium Chloride) 500 mls @ 18.75 mls/hr IV TITR ERNIE; 5 MCG/MIN PRN Reason: Protocol Last Titration: 11/13/17 10:32 Dose: 4 mcg/min, 15 mls/hr Pantoprazole Sodium 160 mg/ (Dextrose) 290 mls @ 14.5 mls/hr IVPB Q20H [facility] Last Admin: 11/13/17 11:21 Dose: 14.5 mls/hr Piperacillin Sod/Tazobactam (Sod 3.375 gm/ Dextrose) 100 mls @ 100 mls/hr IVPB Q8H-IV [facility] Last Admin: 11/13/17 11:29 Dose: 100 mls/hr Propofol (Diprivan -) 1,000,000 mcg in 100 mls @ 1.924 mls/hr IVPB TITR ERNIE; 5 MCG/KG/MIN PRN Reason: Protocol Last Titration: 11/13/17 10:15 Dose: 0 mcg/kg/min, 0 mls/hr Lactated Ringer's (Lactated Ringers Solution) 1,000 ml in 1,000 mls @ 100 mls/ hr IV ASDIR [facility] Last Admin: 11/12/17 12:30 Dose: Not Given Mupirocin (Bactroban Ointment (For Decolonization) -) 1 applic NS BID [facility] Stop: 11/17/17 21:59 Last Admin: 11/13/17 11:33 Dose: 1 applic Gen: Intubated and sedated Heart: RRR Lung: decreased breath sounds at the bases Abd: soft, (+) BS, nontender Ext: no edema Laboratory Results - last 24 hr 11/08/17 11/11/17 11/12/17 23:22 05:25 18:00 WBC 19.3 H D RBC 3.56 L D Hgb 10.7 L D Hct 31.8 L D MCV 89.3 MCH 30.0 MCHC 33.6 RDW 15.7 Plt Count 111 L MPV 8.6 Neutrophils % 87.5 H Lymphocytes % 4.1 L Monocytes % 7.9 Eosinophils % 0.1 Basophils % 0.4 PT with INR INR PTT (Actin FS) Puncture Site ABG pH ABG pCO2 at Pt Temp ABG pO2 at Pt Temp ABG HCO3 ABG O2 Sat (Measured) ABG O2 Content ABG Base Excess Ramses Test O2 Delivery Device Oxygen Flow Rate Vent Mode Vent Rate Mechanical Rate PEEP Pressure Support Vent Sodium Potassium Chloride Carbon Dioxide Anion Gap BUN Creatinine Creat Clearance w eGFR Random Glucose Calcium Phosphorus Magnesium Total Bilirubin AST ALT Alkaline Phosphatase Total Protein Albumin Digoxin Blood Type O POSITIVE O POSITIVE Antibody Screen Negative Negative Crossmatch See Detail See Detail 11/12/17 11/12/17 11/13/17 18:00 18:00 05:15 WBC RBC Hgb Hct MCV MCH MCHC RDW Plt Count MPV Neutrophils % Lymphocytes % Monocytes % Eosinophils % Basophils % PT with INR 15.60 H INR 1.38 H PTT (Actin FS) Puncture Site ABG pH ABG pCO2 at Pt Temp ABG pO2 at Pt Temp ABG HCO3 ABG O2 Sat (Measured) ABG O2 Content ABG Base Excess Ramses Test O2 Delivery Device Oxygen Flow Rate Vent Mode Vent Rate Mechanical Rate PEEP Pressure Support Vent Sodium 146 H 147 H Potassium 3.3 L 3.3 L Chloride 117 H 118 H Carbon Dioxide 18 L 19 L Anion Gap 11 10 BUN 43 H 38 H Creatinine 1.5 H 1.4 H Creat Clearance w eGFR 45.03 48.76 Random Glucose 140 H 122 H Calcium 6.6 L* 6.5 L* Phosphorus 2.6 Magnesium 1.7 L Total Bilirubin 1.2 H D 0.8 D AST 14 L D 11 L D ALT 11 L D 9 L Alkaline Phosphatase 59 D 60 Total Protein 3.8 L D 3.5 L Albumin 1.8 L D 1.6 L Digoxin 0.6941 L Blood Type Antibody Screen Crossmatch 11/13/17 11/13/17 11/13/17 05:15 05:15 08:18 WBC 18.8 H RBC 3.34 L Hgb 10.1 L Hct 29.8 L MCV 89.1 MCH 30.3 MCHC 34.0 RDW 15.9 Plt Count 96 L MPV 8.3 Neutrophils % 86.5 H Lymphocytes % 4.2 L Monocytes % 5.7 Eosinophils % 3.3 D Basophils % 0.3 PT with INR 15.00 H INR 1.33 H PTT (Actin FS) 31.0 Puncture Site Right radial ABG pH 7.40 ABG pCO2 at Pt Temp 28.0 L D ABG pO2 at Pt Temp 174.0 H* D ABG HCO3 17.0 L ABG O2 Sat (Measured) 99.7 H* ABG O2 Content 14.6 L ABG Base Excess -6.3 L Ramses Test Positive O2 Delivery Device Mech vent Oxygen Flow Rate 50 Vent Mode A/c Vent Rate 18 Mechanical Rate Yes PEEP 5.0 Pressure Support Vent Tidal volume 400 Sodium Potassium Chloride Carbon Dioxide Anion Gap BUN Creatinine Creat Clearance w eGFR Random Glucose Calcium Phosphorus Magnesium Total Bilirubin AST ALT Alkaline Phosphatase Total Protein Albumin Digoxin Blood Type Antibody Screen Crossmatch IMP: Acute Respiratory Failure GI Bleed from Duodenal Ulcer Acute Blood Loss Anemia Hemorrhagic Shock Lactic Acidosis UTI PAD CAD CKD HTN Hyperlipidemia Dementia - monitor H/H - transfuse as needed - protonix, octreotide drips - hold all anticoagulation, antiplatelet therapy - taper pressors to maintain MAP >65 - continue antibiotics - f/u cultures - DVT prophylaxis - Close monitoring for bleeding: GI / IR / surgical backup in place - continue ICU monitoring Dr Rojas Critical care time spent in reviewing chart, evaluating patient and formulating plan 36 min
[2017-11-13] MEDS ORDERED: DEXTROSE 5%-0.45% SALINE 1,000 ML IV SCH (11:45)
--- NOTE | 2017-11-13 11:46 | PN ---
Physical Exam: SUBJECTIVE: Patient seen and examined Patient currently intubated/sedated/on levophed. Patient with liquidly melanotic stool during rounds. H/H stable this AM. No aspiration of bloody fluid from NG tube able to be obtained OBJECTIVE: Vital Signs Period Temp Pulse Resp BP Sys/Mcdowell Pulse Ox Last 24 Hr 96.4 F-98.3 F 76-141 18-21 103-195/48-104 100-100 GENERAL: The patient is Intubated/sedated HEAD: Normal with no signs of trauma. ENT: Tube in place LUNGS: Decreased Breath sounds , clear to auscultation bilaterally, no wheezes, no crackles, no accessory muscle use. HEART: Regular rate and rhythm, S1, S2 without murmur, rub or gallop. ABDOMEN: Soft, nontender, nondistended, normoactive bowel sounds, no guarding, no rebound, no hepatosplenomegaly, no masses. Laboratory Results - last 24 hr 11/08/17 11/11/17 11/12/17 23:22 05:25 18:00 WBC 19.3 H D RBC 3.56 L D Hgb 10.7 L D Hct 31.8 L D MCV 89.3 MCH 30.0 MCHC 33.6 RDW 15.7 Plt Count 111 L MPV 8.6 Neutrophils % 87.5 H Lymphocytes % 4.1 L Monocytes % 7.9 Eosinophils % 0.1 Basophils % 0.4 PT with INR INR PTT (Actin FS) Puncture Site ABG pH ABG pCO2 at Pt Temp ABG pO2 at Pt Temp ABG HCO3 ABG O2 Sat (Measured) ABG O2 Content ABG Base Excess Ramses Test O2 Delivery Device Oxygen Flow Rate Vent Mode Vent Rate Mechanical Rate PEEP Pressure Support Vent Sodium Potassium Chloride Carbon Dioxide Anion Gap BUN Creatinine Creat Clearance w eGFR Random Glucose Calcium Phosphorus Magnesium Total Bilirubin AST ALT Alkaline Phosphatase Total Protein Albumin Digoxin Blood Type O POSITIVE O POSITIVE Antibody Screen Negative Negative Crossmatch See Detail See Detail 11/12/17 11/12/17 11/13/17 18:00 18:00 05:15 WBC RBC Hgb Hct MCV MCH MCHC RDW Plt Count MPV Neutrophils % Lymphocytes % Monocytes % Eosinophils % Basophils % PT with INR 15.60 H INR 1.38 H PTT (Actin FS) Puncture Site ABG pH ABG pCO2 at Pt Temp ABG pO2 at Pt Temp ABG HCO3 ABG O2 Sat (Measured) ABG O2 Content ABG Base Excess Ramses Test O2 Delivery Device Oxygen Flow Rate Vent Mode Vent Rate Mechanical Rate PEEP Pressure Support Vent Sodium 146 H 147 H Potassium 3.3 L 3.3 L Chloride 117 H 118 H Carbon Dioxide 18 L 19 L Anion Gap 11 10 BUN 43 H 38 H Creatinine 1.5 H 1.4 H Creat Clearance w eGFR 45.03 48.76 Random Glucose 140 H 122 H Calcium 6.6 L* 6.5 L* Phosphorus 2.6 Magnesium 1.7 L Total Bilirubin 1.2 H D 0.8 D AST 14 L D 11 L D ALT 11 L D 9 L Alkaline Phosphatase 59 D 60 Total Protein 3.8 L D 3.5 L Albumin 1.8 L D 1.6 L Digoxin 0.6941 L Blood Type Antibody Screen Crossmatch 11/13/17 11/13/17 11/13/17 05:15 05:15 08:18 WBC 18.8 H RBC 3.34 L Hgb 10.1 L Hct 29.8 L MCV 89.1 MCH 30.3 MCHC 34.0 RDW 15.9 Plt Count 96 L MPV 8.3 Neutrophils % 86.5 H Lymphocytes % 4.2 L Monocytes % 5.7 Eosinophils % 3.3 D Basophils % 0.3 PT with INR 15.00 H INR 1.33 H PTT (Actin FS) 31.0 Puncture Site Right radial ABG pH 7.40 ABG pCO2 at Pt Temp 28.0 L D ABG pO2 at Pt Temp 174.0 H* D ABG HCO3 17.0 L ABG O2 Sat (Measured) 99.7 H* ABG O2 Content 14.6 L ABG Base Excess -6.3 L Ramses Test Positive O2 Delivery Device Mech vent Oxygen Flow Rate 50 Vent Mode A/c Vent Rate 18 Mechanical Rate Yes PEEP 5.0 Pressure Support Vent Tidal volume 400 Sodium Potassium Chloride Carbon Dioxide Anion Gap BUN Creatinine Creat Clearance w eGFR Random Glucose Calcium Phosphorus Magnesium Total Bilirubin AST ALT Alkaline Phosphatase Total Protein Albumin Digoxin Blood Type Antibody Screen Crossmatch Active Medications Generic Name Dose Route Start Last Admin Trade Name Freq PRN Reason Stop Dose Admin Chlorhexidine Gluconate 1 applic 11/12/17 22:00 11/12/17 22:00 Hibiclens For Decolonization - TP 1 applic HS ERNIE Administration Digoxin 0.25 mg 11/12/17 10:17 11/13/17 11:26 Lanoxin Injection - IVPUSH 0.25 mg DAILY ERNIE Administration Norepinephrine Bitartrate 8, 500 mls @ 18.75 mls/hr 11/10/17 20:30 11/13/17 10:32 000 mcg/ Sodium Chloride IV 4 mcg/min TITR ERNIE 15 mls/hr Protocol Titration 5 MCG/MIN Pantoprazole Sodium 160 mg/ 290 mls @ 14.5 mls/hr 11/10/17 21:00 11/13/17 11: 21 Dextrose IVPB 14.5 mls/hr Q20H ERNIE Administration Piperacillin Sod/Tazobactam 100 mls @ 100 mls/hr 11/11/17 10:00 11/13/17 11: 29 Sod 3.375 gm/ Dextrose IVPB 100 mls/hr Q8H-IV ERNIE Administration Propofol 1,000,000 mcg in 100 mls @ 1.924 mls/hr 11/11/17 01:30 11/13/17 10: 15 Diprivan - IVPB 0 mcg/kg/min TITR ERNIE 0 mls/hr Protocol Titration 5 MCG/KG/MIN Lactated Ringer's 1,000 ml in 1,000 mls @ 100 mls/hr 11/11/17 12:15 11/12/17 12:30 Lactated Ringers Solution IV Not Given ASDIR ERNIE Dextrose/Sodium Chloride 1,000 mls @ 100 mls/hr 11/13/17 11:45 D5-1/2ns - IV ASDIR ERNIE Mupirocin 1 applic 11/12/17 22:00 11/13/17 11:33 Bactroban Ointment (For Decolonization) - NS 11/17/17 21:59 1 applic BID ERNIE Administration ASSESSMENT/PLAN: 82 y/o male with PMHx of anemia, BPH, HTN, HLD, CAD, CKD, depression, anxiety, presented from [facility] w/ melena (on home xarelto for PAD), found to be initially hypotensive w/ SBP- 80's in the ED #GI Acute GI bleed from duodenal ulcer -S/p EGD and clipping and IR embolization -Monitor CBC -Transfuse prbc as needed, maintan hgb >7 -Protonix drip and octreotide drip -Keep patient off anticoagulation -Given 10 mg IV Vit K to reverse coagulopathy -Recheck CBC stat -GI on board, Dr. Enriquez -Surgery on board, Dr. Peng #Heme Acute blood loss anemia -Monitor CBC -Transfuse prbc as needed, maintan hgb >7 -Keep patient off anticoagulation -Given 10 mg IV Vit K to reverse coagulopathy -Recheck cbc stat #Cardio HTN, HLD, CAD -Digoxin 0.25 mg po daily -Levophed for pressure support -D5 1/2 NS@ 100 cc/hr with potassium -Hold ASA -Hold Metoprolol Succinate 25 mg PO with hx of hypotension -Hold xarelto in acute bleeding #Resp Intubated/sedated, sepsis -Continue propofol -Continue zosyn -Monitor respiratory status #Renal KEVEN on CKD -D5 1/2 NS@ 100 cc/hr w/ potassium -Avoid nephrotoxic medications -monitor Cr, urine output #FEN/GI -D5 1/2 NS@ 100 cc/hr w/ potassium -monitor BMP -NPO #PPx -SCDs -Protonix drip #Dispo: Continue icu level of care, Call IR if patient's BP drops Visit type - Emergency Visit Emergency Visit: Yes ED Registration Date: 11/08/17 Care time: The patient presented to the Emergency Department on the above date and was hospitalized for further evaluation of their emergent condition. - New Patient This patient is new to me today: No - Critical Care Critical Care patient: Yes Total Critical Care Time (in minutes): 40 Critical Care Statement: The care of this patient involved high complexity decision making to prevent further life threatening deterioration of the patient 's condition and/or to evaluate & treat vital organ system(s) failure or risk of failure.
[2017-11-13] MEDS ORDERED: D5-NS + 20 MEQ KCL - 20 MEQ/1,000 ML INFUS.BAG IV SCH (11:55)
[2017-11-13 14:27] LABS: HEMATOCRIT 30.3 % (35.4-49); HEMOGLOBIN 9.9 GM/dL (11.7-16.9); MCH 29.5 pg (25.7-33.7); MCHC 32.8 g/dl (32.0-35.9); MEAN CELL VOLUME 89.9 fl (80-96); MEAN PLT VOLUME 8.2 fl (7.5-11.1); PLATELET COUNT 77 K/MM3 (134-434); RBC 3.37 M/mm3 (4.00-5.60); RDW 16.3 % (11.9-15.9); WHITE BLOOD COUNT 19.6 K/mm3 (4.0-10.0)
--- NOTE | 2017-11-13 15:15 | PN ---
Progress Note, Physician History of Present Illness: continues to be sedated and intubated still on support wbc continues to be high - Current Medication List Current Medications: Active Medications Chlorhexidine Gluconate (Hibiclens For Decolonization -) 1 applic TP HS COUNT INCLUDES THE [facility] Last Admin: 11/12/17 22:00 Dose: 1 applic Digoxin (Lanoxin Injection -) 0.25 mg IVPUSH DAILY ERNIE Last Admin: 11/13/17 11:26 Dose: 0.25 mg Norepinephrine Bitartrate 8, (000 mcg/ Sodium Chloride) 500 mls @ 18.75 mls/hr IV TITR ERNIE; 5 MCG/MIN PRN Reason: Protocol Last Titration: 11/13/17 10:32 Dose: 4 mcg/min, 15 mls/hr Pantoprazole Sodium 160 mg/ (Dextrose) 290 mls @ 14.5 mls/hr IVPB Q20H ERNIE Last Admin: 11/13/17 11:21 Dose: 14.5 mls/hr Piperacillin Sod/Tazobactam (Sod 3.375 gm/ Dextrose) 100 mls @ 100 mls/hr IVPB Q8H-IV ERNIE Last Admin: 11/13/17 11:29 Dose: 100 mls/hr Propofol (Diprivan -) 1,000,000 mcg in 100 mls @ 1.924 mls/hr IVPB TITR ERNIE; 5 MCG/KG/MIN PRN Reason: Protocol Last Admin: 11/13/17 14:28 Dose: 50 mcg/kg/min, 19.241 mls/hr Dextrose/Sodium Chloride (Dextrose 5%-Normal Saline+20 Meq Kcl -) 20 meq in 1, 000 mls @ 100 mls/hr IV ASDIR ERNIE Last Admin: 11/13/17 12:52 Dose: 100 mls/hr Mupirocin (Bactroban Ointment (For Decolonization) -) 1 applic NS BID COUNT INCLUDES THE [facility] Stop: 11/17/17 21:59 Last Admin: 11/13/17 11:33 Dose: 1 applic - Objective Vital Signs: Vital Signs Temperature 97.5 F L 11/13/17 11:43 Pulse Rate 77 11/13/17 11:43 Respiratory Rate 18 11/13/17 12:30 Blood Pressure 106/66 11/13/17 11:43 O2 Sat by Pulse Oximetry (%) 100 11/13/17 00:54 Constitutional: Yes: Other Neck: Yes: Supple Cardiovascular: Yes: Regular Rate and Rhythm Respiratory: Yes: Intubated, Mechanically Ventilated Gastrointestinal: Yes: Soft, Hypoactive Bowel Sounds Extremities: Yes: WNL Labs: CBC, BMP 11/13/17 13:20 11/13/17 05:15 INR, PTT INR 1.33 (0.82-1.09) H 11/13/17 05:15 Assessment/Plan Problem List - Problems (1) Gastrointestinal hemorrhage with melena Code(s): K92.1 - MELENA (2) Hyperlipidemia Code(s): E78.5 - HYPERLIPIDEMIA, UNSPECIFIED (3) HTN (hypertension) Code(s): I10 - ESSENTIAL (PRIMARY) HYPERTENSION (4) CAD (coronary artery disease) Code(s): I25.10 - ATHSCL HEART DISEASE OF [place] CORONARY ARTERY W/O ANG PCTRS (5) BPH (benign prostatic hyperplasia) Code(s): N40.0 - BENIGN PROSTATIC HYPERPLASIA WITHOUT LOWER URINRY TRACT SYMP (6) Dementia Code(s): F03.90 - UNSPECIFIED DEMENTIA WITHOUT BEHAVIORAL DISTURBANCE Lactic Acidosis UTI PAD CKD plan continue abx follow h and h monitor vital closely rest as per icu wbc follow up cc time 40 min
[2017-11-13] MEDS ORDERED: NOREPINEPHRINE BITARTRATE 4 MG/4 ML ML IV ONE ×2 (17:20)
[2017-11-13] MEDS ORDERED: MAGNESIUM 1GM/D5W 100ML - 100 ML IVPB IVPB ONE (20:15)
[2017-11-13 22:00] LABS: BASO % 0.6 % (0-2.0); EOS % 6.1 % (0-4.5); HEMATOCRIT 27.8 % (35.4-49); HEMOGLOBIN 9.3 GM/dL (11.7-16.9); LYMPH % 5.7 % (8-40); MCH 30.2 pg (25.7-33.7); MCHC 33.5 g/dl (32.0-35.9); MEAN CELL VOLUME 90.2 fl (80-96); MEAN PLT VOLUME 8.3 fl (7.5-11.1); MONO % 4.6 % (3.8-10.2); PLATELET COUNT 85 K/MM3 (134-434); RBC 3.08 M/mm3 (4.00-5.60); RDW 16.1 % (11.9-15.9); WHITE BLOOD COUNT 16.2 K/mm3 (4.0-10.0)
[2017-11-13] MEDS: CHLORHEXIDINE GLUCONATE 0.12% 15ML CUP MM SCH (22:28)
[2017-11-13] MEDS: CHLORHEXIDINE GLUCONATE 4% CLEANSER FOR DECOLONIZATION TP SCH (22:28)
[2017-11-13] MEDS: NOREPINEPHRINE BITARTRATE 8,000 MCG in SODIUM CHLORIDE 492 ML IV SCH (22:31)
[2017-11-14] MEDS ORDERED: PT OWN MED DRAWER 7, Y5N ONE ×2 (01:16→21:06)
[2017-11-14] MEDS: PROPOFOL 1,000,000 MCG/100 ML VIAL IVPB SCH ×2 (01:18→09:58)
[2017-11-14] MEDS: PIPERACILLIN/TAZOB 3.375 GM 3.375 GM in DEXTROSE 5%-WATER - 100 ML IVPB SCH ×3 (01:18→17:56)
[2017-11-14 05:56] LABS: ARTERIAL BLOOD GAS BASE EXCESS -6.7 meq/l (-2-2); ARTERIAL BLOOD GAS PCO2 27.6 mmHg (35-45)
[2017-11-14 06:03] LABS: ALLENS TEST POSITIVE
[2017-11-14 06:10] LABS: ARTERIAL BLD GAS O2 SATURATION 99.7 % (90-98.9)
[2017-11-14 06:25] LABS: BASO % 0.5 % (0-2.0); EOS % 10.1 % (0-4.5); HEMATOCRIT 27.8 % (35.4-49); HEMOGLOBIN 9.5 GM/dL (11.7-16.9); LYMPH % 6.9 % (8-40); MCH 30.4 pg (25.7-33.7); MCHC 34.1 g/dl (32.0-35.9); MEAN CELL VOLUME 89.1 fl (80-96); MEAN PLT VOLUME 8.8 fl (7.5-11.1); MONO % 4.8 % (3.8-10.2); NEUT % 77.7 % (42.8-82.8); PLATELET COUNT 82 K/MM3 (134-434); RBC 3.13 M/mm3 (4.00-5.60); RDW 16.4 % (11.9-15.9); WHITE BLOOD COUNT 13.9 K/mm3 (4.0-10.0)
[2017-11-14 06:53] LABS: ALBUMIN 1.4 g/dl (3.4-5.0); ANION GAP 10 (8-16); BILIRUBIN,TOTAL 0.5 mg/dL (0.2-1.0); BLOOD UREA NITROGEN 27 mg/dL (7-18); CHLORIDE 120 mmol/L (98-107); CO2 19 mmol/L (21-32); CREATININE 1.3 mg/dL (0.7-1.3); GLUCOSE,RANDOM 151 mg/dL (74-106); MAGNESIUM 2.2 mg/dL (1.8-2.4); PHOSPHOROUS 1.6 mg/dL (2.5-4.9); SGOT/AST 11 U/L (15-37); SGPT/ALT 8 U/L (12-78); SODIUM 149 mmol/L (136-145); TOT PROT 3.4 g/dl (6.4-8.2)
[2017-11-14 07:05] LABS: ALK PHOS 59 U/L (45-117)
[2017-11-14 07:14] LABS: CALCIUM 6.6 mg/dL (8.5-10.1); POTASSIUM 2.9 mmol/L (3.5-5.1)
[2017-11-14 07:16] LABS: INR 1.22 (0.82-1.09); PROTHROMBIN TIME (PATIENT) 13.8 SEC (9.98-11.88)
[2017-11-14] MEDS ORDERED: POTASSIUM PHOSPHATE 30 MM in DEXTROSE 5%-WATER - 250 ML IVPB ONE (08:15)
[2017-11-14] MEDS ORDERED: CALCIUM GLUCONATE 10% - 1,000 MG/10 ML VIAL IVPB ONE (09:15)
[2017-11-14] MEDS: PANTOPRAZOLE SODIUM 160 MG in DEXTROSE 5%-WATER - 290 ML IVPB SCH (09:44)
--- NOTE | 2017-11-14 10:05 | PN ---
Progress Note, Physician History of Present Illness: No events to suggest ongoing bleeding. - Current Medication List Current Medications: Active Medications Chlorhexidine Gluconate (Hibiclens For Decolonization -) 1 applic TP HS [facility] Last Admin: 11/13/17 22:28 Dose: 1 applic Chlorhexidine Gluconate (Peridex -) 15 ml MM BID [facility] Last Admin: 11/13/17 22:28 Dose: 15 ml Digoxin (Lanoxin Injection -) 0.25 mg IVPUSH DAILY [facility] Last Admin: 11/13/17 11:26 Dose: 0.25 mg Norepinephrine Bitartrate 8, (000 mcg/ Sodium Chloride) 500 mls @ 18.75 mls/hr IV TITR ERNIE; 5 MCG/MIN PRN Reason: Protocol Last Admin: 11/13/17 22:31 Dose: 4 mcg/min, 15 mls/hr Pantoprazole Sodium 160 mg/ (Dextrose) 290 mls @ 14.5 mls/hr IVPB Q20H [facility] Last Admin: 11/13/17 11:21 Dose: 14.5 mls/hr Piperacillin Sod/Tazobactam (Sod 3.375 gm/ Dextrose) 100 mls @ 100 mls/hr IVPB Q8H-IV ERNIE Last Admin: 11/14/17 01:18 Dose: 100 mls/hr Propofol (Diprivan -) 1,000,000 mcg in 100 mls @ 1.924 mls/hr IVPB TITR ERNIE; 5 MCG/KG/MIN PRN Reason: Protocol Last Admin: 11/14/17 01:18 Dose: 50 mcg/kg/min, 19.241 mls/hr Dextrose/Sodium Chloride (Dextrose 5%-Normal Saline+20 Meq Kcl -) 20 meq in 1, 000 mls @ 100 mls/hr IV ASDIR [facility] Last Admin: 11/13/17 12:52 Dose: 100 mls/hr Potassium Phosphate 30 mm/ (Dextrose) 260 mls @ 62.5 mls/hr IVPB ONCE ONE Stop: 11/14/17 12:24 Mupirocin (Bactroban Ointment (For Decolonization) -) 1 applic NS BID [facility] Stop: 11/17/17 21:59 Last Admin: 11/13/17 22:28 Dose: 1 applic - Objective Vital Signs: Vital Signs Temperature 98.9 F 11/14/17 06:00 Pulse Rate 74 11/14/17 08:00 Respiratory Rate 18 11/14/17 08:15 Blood Pressure 101/75 11/14/17 08:00 O2 Sat by Pulse Oximetry (%) 100 11/14/17 08:09 Constitutional: Yes: No Distress, Calm, Pallor Gastrointestinal: Yes: Other (no guarding, rigidity). No: Distention, Hematemesis, Rectal Bleeding Labs: CBC, BMP 11/14/17 06:10 11/14/17 06:10 INR, PTT INR 1.22 (0.82-1.09) H 11/14/17 06:10 Problem List - Problems (1) GI bleed Code(s): K92.2 - GASTROINTESTINAL HEMORRHAGE, UNSPECIFIED (2) Gastrointestinal hemorrhage with melena Code(s): K92.1 - MELENA (3) Duodenal ulcer disease Code(s): K26.9 - DUODENAL ULCER, UNSP ACUTE OR CHRONIC, W/O HEMOR OR PERF (4) Duodenal ulcer hemorrhage Code(s): K26.4 - CHRONIC OR UNSPECIFIED DUODENAL ULCER WITH HEMORRHAGE Assessment/Plan No acute events overnight. Close monitoring for signs of rebleed. Continue PPI, octreotide, carafate via OGT NPO
--- NOTE | 2017-11-14 10:05 | PN ---
Physical Exam: SUBJECTIVE: Patient seen and examined Patient currently intubated/sedated/on levophed. Patient with minimal melena overnight. H/H stable this AM OBJECTIVE: Vital Signs Period Temp Pulse Resp BP Sys/Mcdowell Pulse Ox Last 24 Hr 97.2 F-99 F 67-97 18-84 95-154/64-86 100-100 GENERAL: The patient is Intubated/sedated HEAD: Normal with no signs of trauma. ENT: Tube in place, OG in place LUNGS: Decreased Breath sounds , clear to auscultation bilaterally, no wheezes, no crackles, no accessory muscle use. HEART: Regular rate and rhythm, S1, S2 without murmur, rub or gallop. ABDOMEN: Soft, nontender, nondistended, normoactive bowel sounds, no guarding, no rebound, no hepatosplenomegaly, no masses. Ext: 2+ edema with weeping Laboratory Results - last 24 hr 11/08/17 11/08/17 11/13/17 23:22 23:23 13:20 WBC 19.6 H RBC 3.37 L Hgb 9.9 L Hct 30.3 L MCV 89.9 MCH 29.5 MCHC 32.8 RDW 16.3 H Plt Count 77 L MPV 8.2 Neutrophils % Lymphocytes % Monocytes % Eosinophils % Basophils % PT with INR INR Puncture Site ABG pH ABG pCO2 at Pt Temp ABG pO2 at Pt Temp ABG HCO3 ABG O2 Sat (Measured) ABG O2 Content ABG Base Excess Ramses Test O2 Delivery Device Oxygen Flow Rate Vent Mode Vent Rate Mechanical Rate PEEP Pressure Support Vent Sodium Potassium Chloride Carbon Dioxide Anion Gap BUN Creatinine Creat Clearance w eGFR Random Glucose Calcium Phosphorus Magnesium Total Bilirubin AST ALT Alkaline Phosphatase Total Protein Albumin Digoxin Blood Type O POSITIVE O POSITIVE Antibody Screen Negative Crossmatch See Detail See Detail 11/13/17 11/14/17 11/14/17 21:50 06:00 06:10 WBC 16.2 H RBC 3.08 L Hgb 9.3 L Hct 27.8 L MCV 90.2 MCH 30.2 MCHC 33.5 RDW 16.1 H Plt Count 85 L MPV 8.3 Neutrophils % 83.0 H Lymphocytes % 5.7 L D Monocytes % 4.6 Eosinophils % 6.1 H D Basophils % 0.6 PT with INR INR Puncture Site Right radial ABG pH 7.40 ABG pCO2 at Pt Temp 27.6 L ABG pO2 at Pt Temp 188.0 H* ABG HCO3 16.6 L ABG O2 Sat (Measured) 99.7 H* ABG O2 Content 16.3 ABG Base Excess -6.7 L Ramses Test Positive O2 Delivery Device Mech vent Oxygen Flow Rate 50 Vent Mode A/c Vent Rate 18 Mechanical Rate Y PEEP 5.0 Pressure Support Vent 500 Sodium 149 H Potassium 2.9 L* Chloride 120 H Carbon Dioxide 19 L Anion Gap 10 BUN 27 H D Creatinine 1.3 Creat Clearance w eGFR 53.12 Random Glucose 151 H D Calcium 6.6 L* Phosphorus 1.6 L D Magnesium 2.2 D Total Bilirubin 0.5 D AST 11 L ALT 8 L Alkaline Phosphatase 59 Total Protein 3.4 L Albumin 1.4 L Digoxin 0.7366 L Blood Type Antibody Screen Crossmatch 11/14/17 11/14/17 06:10 06:10 WBC 13.9 H RBC 3.13 L Hgb 9.5 L Hct 27.8 L MCV 89.1 MCH 30.4 MCHC 34.1 RDW 16.4 H Plt Count 82 L MPV 8.8 Neutrophils % 77.7 Lymphocytes % 6.9 L D Monocytes % 4.8 Eosinophils % 10.1 H Basophils % 0.5 PT with INR 13.80 H INR 1.22 H Puncture Site ABG pH ABG pCO2 at Pt Temp ABG pO2 at Pt Temp ABG HCO3 ABG O2 Sat (Measured) ABG O2 Content ABG Base Excess Ramses Test O2 Delivery Device Oxygen Flow Rate Vent Mode Vent Rate Mechanical Rate PEEP Pressure Support Vent Sodium Potassium Chloride Carbon Dioxide Anion Gap BUN Creatinine Creat Clearance w eGFR Random Glucose Calcium Phosphorus Magnesium Total Bilirubin AST ALT Alkaline Phosphatase Total Protein Albumin Digoxin Blood Type Antibody Screen Crossmatch Active Medications Generic Name Dose Route Start Last Admin Trade Name Freq PRN Reason Stop Dose Admin Chlorhexidine Gluconate 1 applic 11/12/17 22:00 11/13/17 22:28 Hibiclens For Decolonization - TP 1 applic HS ERNIE Administration Chlorhexidine Gluconate 15 ml 11/13/17 22:00 11/13/17 22:28 Peridex - MM 15 ml BID ERNIE Administration Digoxin 0.25 mg 11/12/17 10:17 11/13/17 11:26 Lanoxin Injection - IVPUSH 0.25 mg DAILY ERNIE Administration Norepinephrine Bitartrate 8, 500 mls @ 18.75 mls/hr 11/10/17 20:30 11/13/17 22:31 000 mcg/ Sodium Chloride IV 4 mcg/min TITR ERNIE 15 mls/hr Protocol Administration 5 MCG/MIN Pantoprazole Sodium 160 mg/ 290 mls @ 14.5 mls/hr 11/10/17 21:00 11/13/17 11: 21 Dextrose IVPB 14.5 mls/hr Q20H ERNIE Administration Piperacillin Sod/Tazobactam 100 mls @ 100 mls/hr 11/11/17 10:00 11/14/17 01: 18 Sod 3.375 gm/ Dextrose IVPB 100 mls/hr Q8H-IV ERNIE Administration Propofol 1,000,000 mcg in 100 mls @ 1.924 mls/hr 11/11/17 01:30 11/14/17 01: 18 Diprivan - IVPB 50 mcg/kg/min TITR ERNIE 19.241 mls/hr Protocol Administration 5 MCG/KG/MIN Dextrose/Sodium Chloride 20 meq in 1,000 mls @ 100 mls/hr 11/13/17 11:55 03/25 12:52 Dextrose 5%-Normal Saline+20 Meq Kcl - IV 100 mls/hr ASDIR ERNIE Administration Potassium Phosphate 30 mm/ 260 mls @ 62.5 mls/hr 11/14/17 08:15 Dextrose IVPB 11/14/17 12:24 ONCE ONE Mupirocin 1 applic 11/12/17 22:00 11/13/17 22:28 Bactroban Ointment (For Decolonization) - NS 11/17/17 21:59 1 applic BID ERNIE Administration ASSESSMENT/PLAN: 82 y/o male with PMHx of anemia, BPH, HTN, HLD, CAD, CKD, depression, anxiety, presented from [facility] w/ melena (on home xarelto for PAD), found to be initially hypotensive w/ SBP- 80's in the ED #GI Acute GI bleed from duodenal ulcer -S/p EGD and clipping and IR embolization -Monitor CBC -Transfuse prbc as needed, maintan hgb >7 -Protonix drip -Keep patient off anticoagulation -Given 10 mg IV Vit K to reverse coagulopathy -GI on board, Dr. Enriquez -Surgery on board, Dr. Peng -IR on board, Dr. Pratt #Heme Acute blood loss anemia -Monitor CBC -Transfuse prbc as needed, maintan hgb >7 -Keep patient off anticoagulation -Given 10 mg IV Vit K to reverse coagulopathy #Cardio HTN, HLD, CAD -Digoxin 0.25 mg po daily -Levophed for pressure support -D5 1/2 NS@ 100 cc/hr with potassium -Hold ASA -Hold Metoprolol Succinate 25 mg PO with hx of hypotension -Hold xarelto in acute bleeding #Resp Intubated/sedated, sepsis -Propofol stopped today -Continue zosyn -Monitor respiratory status -Sedation vacations, trial on cpap to assess respiratory drive #Renal KEVEN on CKD -D5 1/2 NS@ 100 cc/hr w/ potassium -Avoid nephrotoxic medications -monitor Cr, urine output #FEN/GI -D5 1/2 NS@ 100 cc/hr w/ potassium -monitor BMP -NPO #PPx -SCDs -Protonix drip #Dispo: Continue icu level of care, Call IR or surgery if patient's BP drops or has large melanotic stool Visit type - Emergency Visit Emergency Visit: Yes ED Registration Date: 11/08/17 Care time: The patient presented to the Emergency Department on the above date and was hospitalized for further evaluation of their emergent condition. - New Patient This patient is new to me today: No - Critical Care Critical Care patient: Yes Total Critical Care Time (in minutes): 40 Critical Care Statement: The care of this patient involved high complexity decision making to prevent further life threatening deterioration of the patient 's condition and/or to evaluate & treat vital organ system(s) failure or risk of failure.
[2017-11-14] MEDS ORDERED: NOREPINEPHRINE BITARTRATE 4 MG/4 ML ML IV ONE (10:21)
[2017-11-14] MEDS: DIGOXIN 0.5 MG/2 ML AMPUL IVPUSH SCH (10:26)
[2017-11-14] MEDS: CHLORHEXIDINE GLUCONATE 0.12% 15ML CUP MM SCH ×2 (10:28→21:12)
[2017-11-14] MEDS: MUPIROCIN 2% TOPICAL OINTMENT FOR DECOLONIZATION NS SCH ×2 (10:30→21:11)
[2017-11-14] MEDS: KCL 10 MEQ IVPB 10 MEQ/100 ML INFUS.BAG IVPB SCH ×2 (11:05→12:33)
--- NOTE | 2017-11-14 11:32 | PN ---
Progress Note, Physician Chief Complaint: GI bleed History of Present Illness: 82 yo male [place] resident [facility] anemia, BPH, hypertension, hyperlipidemia, CAD, CKD, dementia, depression, anxiety, and dementia who presents to the emergency department with rectal bleed. Additional melena was reported, passing clots per rectum. He had second endoscopy and clipping of the bleeding ulcer as well as GDA embolization by IR. Remains in the ICU sedated and intubated. - Current Medication List Current Medications: Active Medications Chlorhexidine Gluconate (Hibiclens For Decolonization -) 1 applic TP HS COUNTS INCLUDE 234 BEDS AT THE [facility] Last Admin: 11/13/17 22:28 Dose: 1 applic Chlorhexidine Gluconate (Peridex -) 15 ml MM BID ERNIE Last Admin: 11/14/17 10:28 Dose: 15 ml Digoxin (Lanoxin Injection -) 0.25 mg IVPUSH DAILY COUNTS INCLUDE 234 BEDS AT THE [facility] Last Admin: 11/14/17 10:26 Dose: 0.25 mg Norepinephrine Bitartrate 8, (000 mcg/ Sodium Chloride) 500 mls @ 18.75 mls/hr IV TITR ERNIE; 5 MCG/MIN PRN Reason: Protocol Last Admin: 11/13/17 22:31 Dose: 4 mcg/min, 15 mls/hr Pantoprazole Sodium 160 mg/ (Dextrose) 290 mls @ 14.5 mls/hr IVPB Q20H COUNTS INCLUDE 234 BEDS AT THE [facility] Last Admin: 11/14/17 09:44 Dose: 14.5 mls/hr Piperacillin Sod/Tazobactam (Sod 3.375 gm/ Dextrose) 100 mls @ 100 mls/hr IVPB Q8H-IV ERNIE Last Admin: 11/14/17 10:03 Dose: 100 mls/hr Propofol (Diprivan -) 1,000,000 mcg in 100 mls @ 1.924 mls/hr IVPB TITR ERNIE; 5 MCG/KG/MIN PRN Reason: Protocol Last Admin: 11/14/17 09:58 Dose: 50 mcg/kg/min, 19.241 mls/hr Dextrose/Sodium Chloride (Dextrose 5%-Normal Saline+20 Meq Kcl -) 20 meq in 1, 000 mls @ 100 mls/hr IV ASDIR COUNTS INCLUDE 234 BEDS AT THE [facility] Last Admin: 11/13/17 12:52 Dose: 100 mls/hr Potassium Phosphate 30 mm/ (Dextrose) 260 mls @ 62.5 mls/hr IVPB ONCE ONE Stop: 11/14/17 12:24 Last Admin: 11/14/17 09:39 Dose: 62.5 mls/hr Mupirocin (Bactroban Ointment (For Decolonization) -) 1 applic NS BID ERNIE Stop: 11/17/17 21:59 Last Admin: 11/14/17 10:30 Dose: 1 applic - Objective Vital Signs: Vital Signs Temperature 98.9 F 11/14/17 06:00 Pulse Rate 74 11/14/17 10:26 Respiratory Rate 18 11/14/17 10:45 Blood Pressure 121/99 11/14/17 10:00 O2 Sat by Pulse Oximetry (%) 100 11/14/17 08:09 Vital Signs Period Temp Pulse Resp BP Sys/Mcdowell Pulse Ox Last 24 Hr 97.2 F-98.9 F 67-92 18-84 95-130/64-99 100-100 Intake & Output 11/13/17 11/14/17 11/14/17 23:59 07:59 15:59 Intake Total 2973.5 1265.4 Output Total 500 800 Balance 2473.5 465.4 Weight 178 lb 5 oz Intake: IV 2473.5 1065.4 DEXTROSE 5%-NORMAL SALINE 1200 700 +20 MEQ KCL - 20 meq In 1 ,000 ml @ 100 mls/hr IV ASDIR ERNIE Rx#:[id number] DIPRIVAN - 1,000,000 mcg 291 133 In 100 ml @ 5 MCG/KG/MIN 1.924 mls/hr IVPB TITR ERNIE Rx#:[id number] LACTATED RINGERS SOLUTION 300 1,000 ml In 1,000 ml @ 100 mls/hr IV ASDIR ERNIE Rx#:[id number] Levophed - 8,000 Mcg In 466 130.9 Normal Saline - 492 ml @ 5 MCG/MIN 18.75 mls/hr IV TITR ERNIE Rx#:[id number] protonix 216.5 101.5 IVPB 500 200 Output: Gastric Drainage 0 Urine 500 800 Paul 500 800 Other: Voiding Method Indwelling Catheter Bowel Movement Yes: maroon # Bowel Movements 1 Weight Measurement Method Built in [facility] Constitutional: Yes: Well Nourished, No Distress, Calm, Pallor (improved), Other Eyes: Yes: Conjunctiva Clear HENT: Yes: Atraumatic, Normocephalic Neck: Yes: Supple, Trachea Midline Cardiovascular: Yes: Regular Rate and Rhythm, S1, S2 Respiratory: Yes: Regular, Intubated, Mechanically Ventilated Gastrointestinal: Yes: Normal Bowel Sounds, Soft ...Rectal Exam: Yes: Deferred Genitourinary: No: CVA Tenderness - Left, CVA Tenderness - Right Extremities: No: Cool, Cyanosis Edema: No Peripheral Pulses WNL: Yes Integumentary: No: Jaundice, Rash Neurological: Yes: Alert, Oriented Psychiatric: Yes: Alert, Oriented Labs: CBC, BMP 11/14/17 06:10 11/14/17 06:10 INR, PTT INR 1.22 (0.82-1.09) H 11/14/17 06:10 Problem List - Problems (1) Gastrointestinal hemorrhage with melena Assessment/Plan: 82yo male [place] presented from [place] with GI bleed with Melena. MAssive transfusion over the weekend. 9 units, On ventilator and maintained on vasopressor. Refractory GI bleed. s/p repeat endoscopy and clipping and IR embolization of GDA. ICU management Transfuse RBC and FFP as needed Trend H&H [id number] correct electrolytes will follow for serial exams Code(s): K92.1 - MELENA (2) Hyperlipidemia Code(s): E78.5 - HYPERLIPIDEMIA, UNSPECIFIED (3) HTN (hypertension) Code(s): I10 - ESSENTIAL (PRIMARY) HYPERTENSION (4) CAD (coronary artery disease) Code(s): I25.10 - ATHSCL HEART DISEASE OF [place] CORONARY ARTERY W/O ANG PCTRS (5) BPH (benign prostatic hyperplasia) Code(s): N40.0 - BENIGN PROSTATIC HYPERPLASIA WITHOUT LOWER URINRY TRACT SYMP (6) Dementia Code(s): F03.90 - UNSPECIFIED DEMENTIA WITHOUT BEHAVIORAL DISTURBANCE
--- NOTE | 2017-11-14 12:15 | PN ---
Progress Note (short form) - Note Progress Note: Chief Complaint: GIB, tachy History of Present Illness: intubated, not communicative. remains on norepi Current Medications Generic Name Dose Route Start Last Admin Trade Name Dario PRN Reason Stop Dose Admin Chlorhexidine Gluconate 1 applic 11/12/17 22:00 11/13/17 22:28 Hibiclens For Decolonization - TP 1 applic HS ERNIE Administration Chlorhexidine Gluconate 15 ml 11/13/17 22:00 11/14/17 10:28 Peridex - MM 15 ml BID ERNIE Administration Digoxin 0.25 mg 11/12/17 10:17 11/14/17 10:26 Lanoxin Injection - IVPUSH 0.25 mg DAILY ERNIE Administration Norepinephrine Bitartrate 8, 500 mls @ 18.75 mls/hr 11/10/17 20:30 11/13/17 22:31 000 mcg/ Sodium Chloride IV 4 mcg/min TITR ERNIE 15 mls/hr Protocol Administration 5 MCG/MIN Pantoprazole Sodium 160 mg/ 290 mls @ 14.5 mls/hr 11/10/17 21:00 11/14/17 09: 44 Dextrose IVPB 14.5 mls/hr Q20H ERNIE Administration Piperacillin Sod/Tazobactam 100 mls @ 100 mls/hr 11/11/17 10:00 11/14/17 10: 03 Sod 3.375 gm/ Dextrose IVPB 100 mls/hr Q8H-IV ERNIE Administration Propofol 1,000,000 mcg in 100 mls @ 1.924 mls/hr 11/11/17 01:30 11/14/17 09: 58 Diprivan - IVPB 50 mcg/kg/min TITR ERNIE 19.241 mls/hr Protocol Administration 5 MCG/KG/MIN Dextrose/Sodium Chloride 20 meq in 1,000 mls @ 100 mls/hr 11/13/17 11:55 03/25 12:52 Dextrose 5%-Normal Saline+20 Meq Kcl - IV 100 mls/hr ASDIR ERNIE Administration Potassium Phosphate 30 mm/ 260 mls @ 62.5 mls/hr 11/14/17 08:15 11/14/17 09: 39 Dextrose IVPB 11/14/17 12:24 62.5 mls/hr ONCE ONE Administration Mupirocin 1 applic 11/12/17 22:00 11/14/17 10:30 Bactroban Ointment (For Decolonization) - NS 11/17/17 21:59 1 applic BID ERNIE Administration - Objective Vital Signs: Vital Signs Temp 98.9 F 11/14/17 06:00 Pulse 74 11/14/17 10:26 Resp 18 11/14/17 10:45 BP 121/99 11/14/17 10:00 Pulse Ox 100 11/14/17 08:09 Intake & Output 11/13/17 11/14/17 11/14/17 23:59 11:59 23:59 Intake Total 2973.5 1265.4 Output Total 500 800 Balance 2473.5 465.4 Weight 178 lb 5 oz Intake: IV 2473.5 1065.4 DEXTROSE 5%-NORMAL SALINE 1200 700 +20 MEQ KCL - 20 meq In 1 ,000 ml @ 100 mls/hr IV ASDIR ERNIE Rx#:[id number] DIPRIVAN - 1,000,000 mcg 291 133 In 100 ml @ 5 MCG/KG/MIN 1.924 mls/hr IVPB TITR ERNIE Rx#:[id number] LACTATED RINGERS SOLUTION 300 1,000 ml In 1,000 ml @ 100 mls/hr IV ASDIR ERNIE Rx#:[id number] Levophed - 8,000 Mcg In 466 130.9 Normal Saline - 492 ml @ 5 MCG/MIN 18.75 mls/hr IV TITR ERNIE Rx#:[id number] protonix 216.5 101.5 IVPB 500 200 Output: Gastric Drainage 0 Urine 500 800 Paul 500 800 Other: Voiding Method Indwelling Catheter Bowel Movement Yes: maroon # Bowel Movements 1 Weight Measurement Method Built in [facility] Constitutional: Yes: Well Nourished, No Distress, Calm/sedated. Intubated Cardiovascular: Yes: Regular Rate and Rhythm, S1, S2. No: Gallop, Murmur Respiratory: Yes: Regular, CTA Bilaterally vented. No: Rales, Wheezes + bs soft nt nd Extremities: No: Cold Edema: No Neurological: No: sedated no jaundice diaphoresis Psychiatric: No: Agitated Labs: Laboratory Last Values WBC 13.9 K/mm3 (4.0-10.0) H 11/14/17 06:10 RBC 3.13 M/mm3 (4.00-5.60) L 11/14/17 06:10 Hgb 9.5 GM/dL (11.7-16.9) L 11/14/17 06:10 Hct 27.8 % (35.4-49) L 11/14/17 06:10 MCV 89.1 fl (80-96) 11/14/17 06:10 MCH 30.4 pg (25.7-33.7) 11/14/17 06:10 MCHC 34.1 g/dl (32.0-35.9) 11/14/17 06:10 RDW 16.4 % (11.9-15.9) H 11/14/17 06:10 Plt Count 82 K/MM3 (134-434) L 11/14/17 06:10 MPV 8.8 fl (7.5-11.1) 11/14/17 06:10 Total Counted 100 11/10/17 20:40 Neutrophils % 77.7 % (42.8-82.8) 11/14/17 06:10 Neutrophils % (Manual) 91.0 % (42.8-82.8) H* 11/10/17 20:40 Band Neutrophils % 3.0 % 11/10/17 20:40 Lymphocytes % 6.9 % (8-40) L D 11/14/17 06:10 Lymphocytes % (Manual) 1.0 % (8-40) L 11/10/17 20:40 Monocytes % 4.8 % (3.8-10.2) 11/14/17 06:10 Monocytes % (Manual) 5 % (3.8-10.2) 11/10/17 20:40 Eosinophils % 10.1 % (0-4.5) H 11/14/17 06:10 Basophils % 0.5 % (0-2.0) 11/14/17 06:10 Differential Comment Man diff performed 11/10/17 20:40 Hypersegmented Neuts Cancelled 11/12/17 05:20 Hypochromia Cancelled 11/12/17 05:20 Toxic Granulation Cancelled 11/12/17 05:20 Dohle Bodies Cancelled 11/12/17 05:20 Platelet Estimate Adequate 11/10/17 20:40 Platelet Comment 11/10/17 20:40 Polychromasia Cancelled 11/12/17 05:20 Poikilocytosis 1+ 11/10/17 20:40 Basophilic Stippling Cancelled 11/12/17 05:20 Anisocytosis 1+ 11/10/17 20:40 Microcytosis Cancelled 11/12/17 05:20 Macrocytosis Cancelled 11/12/17 05:20 Spherocytes Cancelled 11/12/17 05:20 Siderocytes Cancelled 11/12/17 05:20 Sickle Cells Cancelled 11/12/17 05:20 Target Cells Cancelled 11/12/17 05:20 Tear Drop Cells Cancelled 11/12/17 05:20 Ovalocytes 1+ 11/10/17 20:40 Stomatocytes Cancelled 11/12/17 05:20 Helmet Cells Cancelled 11/12/17 05:20 Dozier-Lastrup Bodies Cancelled 11/12/17 05:20 [place] Rings Cancelled 11/12/17 05:20 Sandie Cells Cancelled 11/12/17 05:20 Acanthocytes (Spur) Cancelled 11/12/17 05:20 Rouleaux Cancelled 11/12/17 05:20 Fragmented RBCs Cancelled 11/12/17 05:20 Schistocytes Cancelled 11/12/17 05:20 Morphology Comment Cancelled 11/12/17 05:20 PT with INR 13.80 SEC (9.98-11.88) H 11/14/17 06:10 INR 1.22 (0.82-1.09) H 11/14/17 06:10 PTT (Actin FS) 31.0 SECONDS (26.9-34.4) 11/13/17 05:15 Anticoagulation Therapy No Result Required. 11/10/17 20:40 Puncture Site Right radial 11/14/17 06:00 ABG pH 7.40 (7.35-7.45) 11/14/17 06:00 ABG pCO2 at Pt Temp 27.6 mmHg (35-45) L 11/14/17 06:00 ABG pO2 at Pt Temp 188.0 mmHg (68-100) H* 11/14/17 06:00 ABG HCO3 16.6 meq/L (22-26) L 11/14/17 06:00 ABG O2 Sat (Measured) 99.7 % (90-98.9) H* 11/14/17 06:00 ABG O2 Content 16.3 % vol (15-22) 11/14/17 06:00 ABG Base Excess -6.7 meq/l (-2-2) L 11/14/17 06:00 Ramses Test Positive 11/14/17 06:00 O2 Delivery Device [facility] vent 11/14/17 06:00 Oxygen Flow Rate 50 11/14/17 06:00 Vent Mode A/c 11/14/17 06:00 Vent Rate 18 11/14/17 06:00 Mechanical Rate Y 11/14/17 06:00 PEEP 5.0 cmH2O 11/14/17 06:00 Pressure Support Vent 500 11/14/17 06:00 Sodium 149 mmol/L (136-145) H 11/14/17 06:10 Potassium 2.9 mmol/L (3.5-5.1) L* 11/14/17 06:10 Chloride 120 mmol/L (98-107) H 11/14/17 06:10 Carbon Dioxide 19 mmol/L (21-32) L 11/14/17 06:10 Anion Gap 10 (8-16) 11/14/17 06:10 BUN 27 mg/dL (7-18) H D 11/14/17 06:10 Creatinine 1.3 mg/dL (0.7-1.3) 11/14/17 06:10 Creat Clearance w eGFR 53.12 (>60) 11/14/17 06:10 POC Glucometer 268.92270 UNITS (80-120) 11/11/17 05:39 Random Glucose 151 mg/dL (74-106) H D 11/14/17 06:10 Lactic Acid 1.9 mmol/L (0.0-2.0) 11/11/17 05:25 Calcium 6.6 mg/dL (8.5-10.1) L* 11/14/17 06:10 Phosphorus 1.6 mg/dL (2.5-4.9) L D 11/14/17 06:10 Magnesium 2.2 mg/dL (1.8-2.4) D 11/14/17 06:10 Total Bilirubin 0.5 mg/dL (0.2-1.0) D 11/14/17 06:10 Direct Bilirubin 0.2 mg/dL (0.0-0.2) 11/09/17 06:30 AST 11 U/L (15-37) L 11/14/17 06:10 ALT 8 U/L (12-78) L 11/14/17 06:10 Alkaline Phosphatase 59 U/L (45-117) 11/14/17 06:10 Creatine Kinase 57 IU/L (39-308) 11/10/17 20:40 Troponin I 0.06 ng/ml (0.00-0.05) H D 11/10/17 20:40 B-Natriuretic Peptide 8130.55 pg/ml (5-450) H 11/08/17 23:22 Total Protein 3.4 g/dl (6.4-8.2) L 11/14/17 06:10 Albumin 1.4 g/dl (3.4-5.0) L 11/14/17 06:10 Urine Color Yellow 11/09/17 00:49 Urine Appearance Cloudy 11/09/17 00:49 Urine pH 5.0 (5.0-8.0) 11/09/17 00:49 Ur Specific [place] 1.017 (1.001-1.035) 11/09/17 00:49 Urine Protein 1+ (NEGATIVE) H 11/09/17 00:49 Urine Glucose (UA) Negative (NEGATIVE) 11/09/17 00:49 Urine Ketones Negative (NEGATIVE) 11/09/17 00:49 Urine Blood 1+ (NEGATIVE) H 11/09/17 00:49 Urine Nitrite Negative (NEGATIVE) 11/09/17 00:49 Urine Bilirubin Negative (NEGATIVE) 11/09/17 00:49 Urine Urobilinogen Negative mg/dL (0.2-1.0) 11/09/17 00:49 Ur Leukocyte Esterase 3+ (NEGATIVE) H 11/09/17 00:49 Urine WBC (Auto) 608 /hpf (3-5) 11/09/17 00:49 Urine RBC (Auto) 19 /hpf (0-3) 11/09/17 00:49 Ur Epithelial Cells Rare /HPF (FEW) 11/09/17 00:49 Stool Occult Blood Negative (NEGATIVE) 11/08/17 23:57 Digoxin 0.7366 ng/ml (0.8-2.0) L 11/14/17 06:10 Blood Type O POSITIVE 11/11/17 05:25 Antibody Screen Negative 11/11/17 05:25 Crossmatch See Detail 11/11/17 05:25 - ....Imaging EKG: Other (tele: sr with intermittent SVT/afib) cxr: no sig chf ecg: sr, nl intervals, ant/lat twis and subtle st depressions Echo 11/25: borderline vs mildly reduced LVSF (regional wall motion eval is TDS) . nl RV. mild LAE. valve fxn WNL. repeat echo 11/2017: lvh, nl lv/rv, mild tr, mild phtn est cct 35 mins a/p: 82 m hx dementia, htn, hld, pad, cad, ckd, sent from ri for rectal bleed. PAfib , MAT: -on xarelto (in addition to asa for pad/cad) at ri per charts, with no mention of Afib--indication for xarelto was reported as PAD which is not an approved indication--> hence have to assume there is h/o pafib here. no h/o CVA per [place] dx list, and per d/w family - holding AC and ASA in setting of GIB. Resume asa if/when cleared by GI. -episodes of both rapid afib/MAT 2/3-->2/4 in setting of acute large GI bleed ( hgb drop to 5) and urgent EGD with epinephrine injection into bleeding vessel. -2/6-7: improved rate control. cont dig (level ok). h/o CAD/pad, unknown details - outside vascular follows for LE disease per family. details of cad unknown. UGIB (from PUD): - p/w GIB in setting of xarelto and ASA --> now on hold. -recurrent large melena 2/3 with bleeding ulcer treated on EGD. -severe rebleed 2/5 (hgb 5) with hypotension, urgent rpt EGD with control of visibly bleeding vessel. -holding both ASA and AC until GIB w/u and tx is complete. s/p EGD/FOC and epinephrine injection. -family describes moderate dementia at baseline, which worsened the past 6 mo or so. 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 chf hx)). they state they strongly desire avoiding recurrent bleeding (bebeto given present episode was potentially life-threatening) or recurrent hospitalization, and hence prefer ASA over AC (verbalize understanding that ASA offers incomplete CVA prevention). -would not pursue Watchman here given pt's baseline dementia status -resume ASA 81 mg later once stable per GI law firm consultant. CHF: -prior h/o "water on the heart" per , ? details -Echo here unremarkable -patient still NPO requiring IVF and pressors. Would prioritize mgm't of bleed/ hemodynamic stability and would not recommend diuresis for now (ok for continued ivf) htn: -remains on pressors-->attempt to wean off -holding home bb, monitor trend hld: -stable, statin not listed on home meds KEVEN: -unknown baseline -creat fluctuating 1.1-1.5 here -anemia correction +/- IVF as doing, observe trend
[2017-11-14] MEDS ORDERED: D5-NS + 20 MEQ KCL - 20 MEQ/1,000 ML INFUS.BAG IV SCH (12:49)
[2017-11-14] MEDS: POTASSIUM CHLORIDE 20 MEQ in DEXTROSE 5%-NORMAL SALINE 1,000 ML IVPB SCH (14:34)
--- NOTE | 2017-11-14 15:18 | PN ---
Progress Note (short form) - Note Progress Note: 82 year old male intubated in ICU. s/p multiple rectal bleeds/ transfusions. Vital Signs Period Temp Pulse Resp BP Sys/Mcdowell Pulse Ox Last 24 Hr 97.2 F-98.9 F 67-92 12-21 98-130/64-99 100-100 HEENT- NL Neck- supple Lungs- clear bilaterally Heart- s1/s2 Abd- soft, NT Ext- 1 + pitting edema bilateral CBC, BMP 11/14/17 06:10 11/14/17 06:10 Active Medications Chlorhexidine Gluconate (Hibiclens For Decolonization -) 1 applic TP HS ERNIE Last Admin: 11/13/17 22:28 Dose: 1 applic Chlorhexidine Gluconate (Peridex -) 15 ml MM BID ERNIE Last Admin: 11/14/17 10:28 Dose: 15 ml Digoxin (Lanoxin Injection -) 0.25 mg IVPUSH DAILY [facility] Last Admin: 11/14/17 10:26 Dose: 0.25 mg Norepinephrine Bitartrate 8, (000 mcg/ Sodium Chloride) 500 mls @ 18.75 mls/hr IV TITR ERNIE; 5 MCG/MIN PRN Reason: Protocol Last Admin: 11/13/17 22:31 Dose: 4 mcg/min, 15 mls/hr Pantoprazole Sodium 160 mg/ (Dextrose) 290 mls @ 14.5 mls/hr IVPB Q20H ERNIE Last Admin: 11/14/17 09:44 Dose: 14.5 mls/hr Piperacillin Sod/Tazobactam (Sod 3.375 gm/ Dextrose) 100 mls @ 100 mls/hr IVPB Q8H-IV ERNIE Last Admin: 11/14/17 10:03 Dose: 100 mls/hr Propofol (Diprivan -) 1,000,000 mcg in 100 mls @ 1.924 mls/hr IVPB TITR ERNIE; 5 MCG/KG/MIN PRN Reason: Protocol Last Titration: 11/14/17 10:30 Dose: 0 mcg/kg/min, 0 mls/hr Potassium Chloride 20 meq/ (Dextrose/Sodium Chloride) 1,010 mls @ 100 mls/hr IVPB Q10H ERNIE Last Admin: 11/14/17 14:34 Dose: 100 mls/hr Mupirocin (Bactroban Ointment (For Decolonization) -) 1 applic NS BID ERNIE Stop: 11/17/17 21:59 Last Admin: 11/14/17 10:30 Dose: 1 applic # Intubated In ICU/ comatose # GI Bleed recurrent Acute Upper GI bleed /shock EGD results pending continue to monitor h/h continue protonix / octreotide drip avoid all A/C IR for possible emolization possible surgical intervention # shock, hemorrhagic continue supportive care CCU care # Tachycardia PA fib with rvr / MAT 2/2 to acute blood loss remains in MAT Problem List - Problems (1) Gastrointestinal hemorrhage with melena Code(s): K92.1 - MELENA (2) GI bleed Code(s): K92.2 - GASTROINTESTINAL HEMORRHAGE, UNSPECIFIED (3) Dementia Code(s): F03.90 - UNSPECIFIED DEMENTIA WITHOUT BEHAVIORAL DISTURBANCE (4) BPH (benign prostatic hyperplasia) Code(s): N40.0 - BENIGN PROSTATIC HYPERPLASIA WITHOUT LOWER URINRY TRACT SYMP (5) CAD (coronary artery disease) Code(s): I25.10 - ATHSCL HEART DISEASE OF [place] CORONARY ARTERY W/O ANG PCTRS (6) HTN (hypertension) Code(s): I10 - ESSENTIAL (PRIMARY) HYPERTENSION (7) Hyperlipidemia Code(s): E78.5 - HYPERLIPIDEMIA, UNSPECIFIED
--- NOTE | 2017-11-14 15:50 | PN ---
Teaching Attending Note Name of Resident: Ajit You ATTENDING PHYSICIAN STATEMENT I saw and evaluated the patient. I reviewed the resident's note and discussed the case with the resident. I agree with the resident's findings and plan as documented. SUBJECTIVE: Pt seen and examined in the ICU. Remains intubated, sedated. Dark stools overnight but H/H stable and last PRBC 2/5. OBJECTIVE: Last Vital Signs Temp Pulse Resp BP Pulse Ox 98.9 F 80 21 105/74 100 11/14/17 06:00 11/14/17 12:00 11/14/17 13:15 11/14/17 12:00 11/14/17 08:09 Intake & Output 11/11/17 11/12/17 11/13/17 11/14/17 23:59 23:59 23:59 23:59 Intake Total 5691.8 5638 4945.5 1265.4 Output Total 4934 744 1017 800 Balance 4591.8 5188 3345.5 465.4 Weight 78 kg 78.199 kg 80.876 kg 80.881 kg Gen: intubated, sedated Heart: RRR Lung: decreased breath sounds at the bases Abd: soft, nontender Ext: + edema CBC, BMP 11/14/17 06:10 11/14/17 06:10 Active Medications Chlorhexidine Gluconate (Hibiclens For Decolonization -) 1 applic TP HS [facility] Last Admin: 11/13/17 22:28 Dose: 1 applic Chlorhexidine Gluconate (Peridex -) 15 ml MM BID ERNIE Last Admin: 11/14/17 10:28 Dose: 15 ml Digoxin (Lanoxin Injection -) 0.25 mg IVPUSH DAILY [facility] Last Admin: 11/14/17 10:26 Dose: 0.25 mg Norepinephrine Bitartrate 8, (000 mcg/ Sodium Chloride) 500 mls @ 18.75 mls/hr IV TITR ERNIE; 5 MCG/MIN PRN Reason: Protocol Last Admin: 11/13/17 22:31 Dose: 4 mcg/min, 15 mls/hr Pantoprazole Sodium 160 mg/ (Dextrose) 290 mls @ 14.5 mls/hr IVPB Q20H ERNIE Last Admin: 11/14/17 09:44 Dose: 14.5 mls/hr Piperacillin Sod/Tazobactam (Sod 3.375 gm/ Dextrose) 100 mls @ 100 mls/hr IVPB Q8H-IV ERNIE Last Admin: 11/14/17 10:03 Dose: 100 mls/hr Propofol (Diprivan -) 1,000,000 mcg in 100 mls @ 1.924 mls/hr IVPB TITR ERNIE; 5 MCG/KG/MIN PRN Reason: Protocol Last Titration: 11/14/17 10:30 Dose: 0 mcg/kg/min, 0 mls/hr Potassium Chloride 20 meq/ (Dextrose/Sodium Chloride) 1,010 mls @ 100 mls/hr IVPB Q10H ERNIE Last Admin: 11/14/17 14:34 Dose: 100 mls/hr Mupirocin (Bactroban Ointment (For Decolonization) -) 1 applic NS BID ERNIE Stop: 11/17/17 21:59 Last Admin: 11/14/17 10:30 Dose: 1 applic ASSESSMENT AND PLAN: GI Bleed from Duodenal Ulcer Acute Blood Loss Anemia Hemorrhagic Shock Paroxysmal Atrial Fibrillation Lactic Acidosis UTI PAD CAD CKD HTN Hyperlipidemia Dementia - monitor H/H - transfuse as needed - protonix gtt - hold all anticoagulation, antiplatelet therapy - taper pressors to maintain MAP >65 - rate control - continue antibiotics - f/u cultures - DVT prophylaxis - continue ICU monitoring critical care time spent in reviewing chart, evaluating patient and formulating plan 35 min
--- NOTE | 2017-11-14 16:14 | PN ---
Progress Note, Physician History of Present Illness: continue to be intubated patient for embolization still with bleed on pressors - Current Medication List Current Medications: Active Medications Chlorhexidine Gluconate (Hibiclens For Decolonization -) 1 applic TP HS [facility] Last Admin: 11/13/17 22:28 Dose: 1 applic Chlorhexidine Gluconate (Peridex -) 15 ml MM BID [facility] Last Admin: 11/14/17 10:28 Dose: 15 ml Digoxin (Lanoxin Injection -) 0.25 mg IVPUSH DAILY [facility] Last Admin: 11/14/17 10:26 Dose: 0.25 mg Norepinephrine Bitartrate 8, (000 mcg/ Sodium Chloride) 500 mls @ 18.75 mls/hr IV TITR ERNIE; 5 MCG/MIN PRN Reason: Protocol Last Admin: 11/13/17 22:31 Dose: 4 mcg/min, 15 mls/hr Pantoprazole Sodium 160 mg/ (Dextrose) 290 mls @ 14.5 mls/hr IVPB Q20H [facility] Last Admin: 11/14/17 09:44 Dose: 14.5 mls/hr Piperacillin Sod/Tazobactam (Sod 3.375 gm/ Dextrose) 100 mls @ 100 mls/hr IVPB Q8H-IV ERNIE Last Admin: 11/14/17 10:03 Dose: 100 mls/hr Propofol (Diprivan -) 1,000,000 mcg in 100 mls @ 1.924 mls/hr IVPB TITR ERNIE; 5 MCG/KG/MIN PRN Reason: Protocol Last Titration: 11/14/17 10:30 Dose: 0 mcg/kg/min, 0 mls/hr Potassium Chloride 20 meq/ (Dextrose/Sodium Chloride) 1,010 mls @ 100 mls/hr IVPB Q10H [facility] Last Admin: 11/14/17 14:34 Dose: 100 mls/hr Mupirocin (Bactroban Ointment (For Decolonization) -) 1 applic NS BID [facility] Stop: 11/17/17 21:59 Last Admin: 11/14/17 10:30 Dose: 1 applic - Objective Vital Signs: Vital Signs Temperature 95.9 F L 11/14/17 14:00 Pulse Rate 91 H 11/14/17 14:00 Respiratory Rate 14 11/14/17 14:00 Blood Pressure 124/84 11/14/17 14:00 O2 Sat by Pulse Oximetry (%) 100 11/14/17 08:09 Constitutional: Yes: Other Cardiovascular: Yes: Regular Rate and Rhythm Respiratory: Yes: Intubated, Mechanically Ventilated Gastrointestinal: Yes: Soft Labs: CBC, BMP 11/14/17 06:10 11/14/17 06:10 INR, PTT INR 1.22 (0.82-1.09) H 11/14/17 06:10 - ....Imaging Chest X-ray: Report Reviewed, Image Reviewed Assessment/Plan Problem List - Problems (1) Gastrointestinal hemorrhage with melena Code(s): K92.1 - MELENA (2) Hyperlipidemia Code(s): E78.5 - HYPERLIPIDEMIA, UNSPECIFIED (3) HTN (hypertension) Code(s): I10 - ESSENTIAL (PRIMARY) HYPERTENSION (4) CAD (coronary artery disease) Code(s): I25.10 - ATHSCL HEART DISEASE OF [place] CORONARY ARTERY W/O ANG PCTRS (5) BPH (benign prostatic hyperplasia) Code(s): N40.0 - BENIGN PROSTATIC HYPERPLASIA WITHOUT LOWER URINRY TRACT SYMP (6) Dementia Code(s): F03.90 - UNSPECIFIED DEMENTIA WITHOUT BEHAVIORAL DISTURBANCE Lactic Acidosis UTI PAD CKD plan continue abx follow h and h monitor vital closely rest as per icu wbc follow up no gross bleeding noted wbc trending down cc time 40 min
[2017-11-14] MEDS: NOREPINEPHRINE BITARTRATE 8,000 MCG in SODIUM CHLORIDE 492 ML IV SCH ×2 (18:08→20:30)
[2017-11-14] MEDS ORDERED: POTASSIUM PHOSPHATE 40 MM in DEXTROSE 5%-WATER - 250 ML IVPB ONE (18:27)
[2017-11-14 19:21] LABS: HEMATOCRIT 30.1 % (35.4-49); HEMOGLOBIN 9.9 GM/dL (11.7-16.9); MCHC 32.9 g/dl (32.0-35.9); MEAN CELL VOLUME 91.4 fl (80-96); MEAN PLT VOLUME 9.3 fl (7.5-11.1); PLATELET COUNT 86 K/MM3 (134-434); WHITE BLOOD COUNT 13.8 K/mm3 (4.0-10.0)
[2017-11-14 19:36] LABS: ANION GAP 9 (8-16); BLOOD UREA NITROGEN 24 mg/dL (7-18); CHLORIDE 120 mmol/L (98-107); CO2 18 mmol/L (21-32); CREATININE 1.2 mg/dL (0.7-1.3); GLUCOSE,RANDOM 115 mg/dL (74-106); SODIUM 147 mmol/L (136-145)
[2017-11-14 19:48] LABS: CALCIUM 6.6 mg/dL (8.5-10.1)
[2017-11-14] MEDS: CHLORHEXIDINE GLUCONATE 4% CLEANSER FOR DECOLONIZATION TP SCH (21:12)
[2017-11-15] MEDS: POTASSIUM CHLORIDE 20 MEQ in DEXTROSE 5%-NORMAL SALINE 1,000 ML IVPB SCH ×3 (00:15→20:15)
[2017-11-15] MEDS: PANTOPRAZOLE SODIUM 160 MG in DEXTROSE 5%-WATER - 290 ML IVPB SCH ×2 (00:30→21:12)
[2017-11-15] MEDS: PIPERACILLIN/TAZOB 3.375 GM 3.375 GM in DEXTROSE 5%-WATER - 100 ML IVPB SCH ×3 (01:40→17:14)
[2017-11-15 05:59] LABS: ARTERIAL BLD GAS O2 SATURATION 98.1 % (90-98.9); ARTERIAL BLOOD GAS BASE EXCESS -8.7 meq/l (-2-2); ARTERIAL BLOOD GAS PCO2 29.3 mmHg (35-45); ARTERIAL BLOOD GAS pH 7.35 (7.35-7.45)
[2017-11-15 06:00] LABS: ALLENS TEST POSITIVE
[2017-11-15 06:23] LABS: BASO % 0.6 % (0-2.0); EOS % 3.7 % (0-4.5); HEMOGLOBIN 9.3 GM/dL (11.7-16.9); LYMPH % 3.9 % (8-40); MCH 30.3 pg (25.7-33.7); MCHC 33.2 g/dl (32.0-35.9); MEAN CELL VOLUME 91.4 fl (80-96); MEAN PLT VOLUME 9.5 fl (7.5-11.1); MONO % 4.7 % (3.8-10.2); NEUT % 87.1 % (42.8-82.8); PLATELET COUNT 93 K/MM3 (134-434); RBC 3.06 M/mm3 (4.00-5.60); RDW 16.7 % (11.9-15.9); WHITE BLOOD COUNT 13.2 K/mm3 (4.0-10.0)
[2017-11-15 07:01] LABS: CHLORIDE 121 mmol/L (98-107); POTASSIUM 3.9 mmol/L (3.5-5.1); SODIUM 148 mmol/L (136-145)
[2017-11-15 07:21] LABS: ALBUMIN 1.6 g/dl (3.4-5.0); ALK PHOS 71 U/L (45-117); ANION GAP 10 (8-16); BILIRUBIN,TOTAL 0.6 mg/dL (0.2-1.0); BLOOD UREA NITROGEN 22 mg/dL (7-18); CO2 17 mmol/L (21-32); CREATININE 1.2 mg/dL (0.7-1.3); GLUCOSE,RANDOM 118 mg/dL (74-106); MAGNESIUM 2.1 mg/dL (1.8-2.4); SGOT/AST 17 U/L (15-37); SGPT/ALT 10 U/L (12-78); TOT PROT 3.7 g/dl (6.4-8.2)
[2017-11-15 07:56] LABS: CALCIUM 6.7 mg/dL (8.5-10.1)
[2017-11-15] MEDS ORDERED: CALCIUM GLUCONATE 10% - 1,000 MG/10 ML VIAL IVPB ONE (09:02)
[2017-11-15] MEDS: MUPIROCIN 2% TOPICAL OINTMENT FOR DECOLONIZATION NS SCH ×2 (10:00→21:12)
--- NOTE | 2017-11-15 10:05 | PN ---
Physical Exam: SUBJECTIVE: Patient seen and examined Patient currently intubated/off sedation/on levophed. Patient with no bloody bowel movements overnight. H/H stable this AM OBJECTIVE: Vital Signs Period Temp Pulse Resp BP Sys/Mcdowell Pulse Ox Last 24 Hr 95.9 F-98.9 F 74-107 12-24 94-124/58-84 98-100 GENERAL: The patient is Intubated/sedated HEAD: Normal with no signs of trauma. ENT: Tube in place, OG in place LUNGS: Decreased Breath sounds , clear to auscultation bilaterally, no wheezes, no crackles, no accessory muscle use. HEART: Regular rate and rhythm, S1, S2 without murmur, rub or gallop. ABDOMEN: Soft, nontender, nondistended, normoactive bowel sounds, no guarding, no rebound, no hepatosplenomegaly, no masses. Ext: 2+ edema with weeping Laboratory Results - last 24 hr 11/11/17 11/14/17 11/14/17 05:25 18:45 18:45 WBC 13.8 H RBC 3.30 L Hgb 9.9 L Hct 30.1 L MCV 91.4 MCH 30.0 MCHC 32.9 RDW 17.0 H Plt Count 86 L MPV 9.3 Neutrophils % Lymphocytes % Monocytes % Eosinophils % Basophils % Puncture Site ABG pH ABG pCO2 at Pt Temp ABG pO2 at Pt Temp ABG HCO3 ABG O2 Sat (Measured) ABG O2 Content ABG Base Excess Ramses Test O2 Delivery Device Oxygen Flow Rate Vent Mode Vent Rate PEEP Pressure Support Vent Sodium 147 H Potassium 4.0 D Chloride 120 H Carbon Dioxide 18 L Anion Gap 9 BUN 24 H Creatinine 1.2 Creat Clearance w eGFR Random Glucose 115 H D Calcium 6.6 L* Phosphorus Magnesium Total Bilirubin AST ALT Alkaline Phosphatase Total Protein Albumin Digoxin Blood Type O POSITIVE Antibody Screen Negative Crossmatch See Detail 11/15/17 11/15/17 11/15/17 05:15 05:15 05:50 WBC 13.2 H RBC 3.06 L Hgb 9.3 L Hct 28.0 L MCV 91.4 MCH 30.3 MCHC 33.2 RDW 16.7 H Plt Count 93 L MPV 9.5 Neutrophils % 87.1 H Lymphocytes % 3.9 L D Monocytes % 4.7 Eosinophils % 3.7 Basophils % 0.6 Puncture Site Right radial ABG pH 7.35 ABG pCO2 at Pt Temp 29.3 L ABG pO2 at Pt Temp 98.0 D ABG HCO3 15.6 L ABG O2 Sat (Measured) 98.1 ABG O2 Content 12.6 L ABG Base Excess -8.7 L Ramses Test Positive O2 Delivery Device Mech vent Oxygen Flow Rate 40 Vent Mode A/c Vent Rate 14 PEEP 5.0 Pressure Support Vent 500 Sodium 148 H Potassium 3.9 Chloride 121 H Carbon Dioxide 17 L Anion Gap 10 BUN 22 H Creatinine 1.2 Creat Clearance w eGFR 58.26 Random Glucose 118 H Calcium 6.7 L* Phosphorus 3.0 D Magnesium 2.1 Total Bilirubin 0.6 AST 17 D ALT 10 L D Alkaline Phosphatase 71 D Total Protein 3.7 L Albumin 1.6 L Digoxin 1.1657 Blood Type Antibody Screen Crossmatch Active Medications Generic Name Dose Route Start Last Admin Trade Name Freq PRN Reason Stop Dose Admin Calcium Gluconate 1,000 mg 11/15/17 09:02 Calcium Gluconate 10% - IVPB 11/15/17 09:03 ONCE ONE Chlorhexidine Gluconate 1 applic 11/12/17 22:00 11/14/17 21:12 Hibiclens For Decolonization - TP 1 applic HS ERNIE Administration Chlorhexidine Gluconate 15 ml 11/13/17 22:00 11/14/17 21:12 Peridex - MM 15 ml BID ERNIE Administration Digoxin 0.25 mg 11/12/17 10:17 11/14/17 10:26 Lanoxin Injection - IVPUSH 0.25 mg DAILY ERNIE Administration Norepinephrine Bitartrate 8, 500 mls @ 18.75 mls/hr 11/10/17 20:30 11/15/17 04:00 000 mcg/ Sodium Chloride IV 2 mcg/min TITR ERNIE 7.5 mls/hr Protocol Titration 5 MCG/MIN Pantoprazole Sodium 160 mg/ 290 mls @ 14.5 mls/hr 11/10/17 21:00 11/15/17 00: 30 Dextrose IVPB 14.5 mls/hr Q20H ERNIE Administration Piperacillin Sod/Tazobactam 100 mls @ 100 mls/hr 11/11/17 10:00 11/15/17 01: 40 Sod 3.375 gm/ Dextrose IVPB 100 mls/hr Q8H-IV ERNIE Administration Potassium Chloride 20 meq/ 1,010 mls @ 100 mls/hr 11/14/17 14:15 11/15/17 00: 15 Dextrose/Sodium Chloride IVPB 100 mls/hr Q10H ERNIE Administration Mupirocin 1 applic 11/12/17 22:00 11/14/17 21:11 Bactroban Ointment (For Decolonization) - NS 11/17/17 21:59 1 applic BID ERNIE Administration ASSESSMENT/PLAN: 82 y/o male with PMHx of anemia, BPH, HTN, HLD, CAD, CKD, depression, anxiety, presented from [facility] w/ melena (on home xarelto for PAD), found to be initially hypotensive w/ SBP- 80's in the ED #GI Acute GI bleed from duodenal ulcer -S/p EGD and clipping and IR embolization -Monitor CBC -Transfuse prbc as needed, maintan hgb >7 -Protonix drip -Keep patient off anticoagulation -Given 10 mg IV Vit K to reverse coagulopathy -GI on board, Dr. Enriquez -Surgery on board, Dr. Peng -IR on board, Dr. Pratt #Heme Acute blood loss anemia, stable -Monitor CBC -Transfuse prbc as needed, maintan hgb >7 -Keep patient off anticoagulation -Given 10 mg IV Vit K to reverse coagulopathy #Cardio HTN, HLD, CAD -Digoxin 0.25 mg po daily -Levophed for pressure support -D5 1/2 NS@ 100 cc/hr with potassium -Hold ASA -Hold Metoprolol Succinate 25 mg PO with hx of hypotension -Hold xarelto in acute bleeding #Resp Intubated/sedated, sepsis -Propofol stopped -Continue zosyn -Mucus plugging on cxr, will suction -Monitor respiratory status -Sedation vacations, trial on cpap to assess respiratory drive #Renal KEVEN on CKD -D5 1/2 NS@ 100 cc/hr w/ potassium -Avoid nephrotoxic medications -monitor Cr, urine output #FEN/GI -D5 1/2 NS@ 100 cc/hr w/ potassium -monitor BMP -Will start tube feeds #PPx -SCDs -Protonix drip #Dispo: Continue icu level of care Visit type - Emergency Visit Emergency Visit: Yes ED Registration Date: 02/01/18 Care time: The patient presented to the Emergency Department on the above date and was hospitalized for further evaluation of their emergent condition. - New Patient This patient is new to me today: No - Critical Care Critical Care patient: Yes Total Critical Care Time (in minutes): 35 Critical Care Statement: The care of this patient involved high complexity decision making to prevent further life threatening deterioration of the patient 's condition and/or to evaluate & treat vital organ system(s) failure or risk of failure.
[2017-11-15] MEDS: DIGOXIN 0.5 MG/2 ML AMPUL IVPUSH SCH (10:15)
[2017-11-15] MEDS: CHLORHEXIDINE GLUCONATE 0.12% 15ML CUP MM SCH ×2 (10:15→21:12)
--- NOTE | 2017-11-15 10:36 | PN ---
Progress Note, Physician Chief Complaint: GI bleed History of Present Illness: 82 yo male [place] resident [facility] anemia, BPH, hypertension, hyperlipidemia, CAD, CKD, dementia, depression, anxiety, and dementia who presents to the emergency department with rectal bleed. Additional melena was reported, passing clots per rectum. He had second endoscopy and clipping of the bleeding ulcer as well as GDA embolization by IR. Remains in the ICU sedated and intubated. - Current Medication List Current Medications: Active Medications Calcium Gluconate (Calcium Gluconate 10% -) 1,000 mg IVPB ONCE ONE Stop: 11/15/17 09:03 Last Admin: 11/15/17 10:27 Dose: 1,000 mg Chlorhexidine Gluconate (Hibiclens For Decolonization -) 1 applic TP HS [facility] Last Admin: 11/14/17 21:12 Dose: 1 applic Chlorhexidine Gluconate (Peridex -) 15 ml MM BID [facility] Last Admin: 11/15/17 10:15 Dose: 15 ml Digoxin (Lanoxin Injection -) 0.25 mg IVPUSH DAILY [facility] Last Admin: 11/15/17 10:15 Dose: 0.25 mg Norepinephrine Bitartrate 8, (000 mcg/ Sodium Chloride) 500 mls @ 18.75 mls/hr IV TITR ERNIE; 5 MCG/MIN PRN Reason: Protocol Last Titration: 11/15/17 04:00 Dose: 2 mcg/min, 7.5 mls/hr Pantoprazole Sodium 160 mg/ (Dextrose) 290 mls @ 14.5 mls/hr IVPB Q20H [facility] Last Admin: 11/15/17 00:30 Dose: 14.5 mls/hr Piperacillin Sod/Tazobactam (Sod 3.375 gm/ Dextrose) 100 mls @ 100 mls/hr IVPB Q8H-IV ERNIE Last Admin: 11/15/17 10:14 Dose: 100 mls/hr Potassium Chloride 20 meq/ (Dextrose/Sodium Chloride) 1,010 mls @ 100 mls/hr IVPB Q10H ERNIE Last Admin: 11/15/17 10:16 Dose: 100 mls/hr Mupirocin (Bactroban Ointment (For Decolonization) -) 1 applic NS BID [facility] Stop: 11/17/17 21:59 Last Admin: 11/14/17 21:11 Dose: 1 applic - Objective Vital Signs: Vital Signs Temperature 98.9 F 11/15/17 06:00 Pulse Rate 72 11/15/17 10:15 Respiratory Rate 15 11/15/17 09:53 Blood Pressure 120/70 11/15/17 08:00 O2 Sat by Pulse Oximetry (%) 100 11/15/17 09:56 Vital Signs Period Temp Pulse Resp BP Sys/Mcdowell Pulse Ox Last 24 Hr 95.9 F-98.9 F 72-107 12-24 94-124/58-84 98-100 Intake & Output 11/15/17 11/15/17 11/15/17 07:59 15:59 23:59 Intake Total 1464 200 Output Total 300 400 Balance 1164 -200 Weight 187 lb 14.4 oz Intake: IV 1364 DEXTROSE 5%-NORMAL SALINE 1100 +20 MEQ KCL - 20 meq In 1 ,000 ml @ 100 mls/hr IV ASDIR ERNIE Rx#:[id number] Levophed - 8,000 Mcg In 90 Normal Saline - 492 ml @ 5 MCG/MIN 18.75 mls/hr IV TITR ERNIE Rx#:[id number] protonix 174 IVPB 100 200 Output: Gastric Drainage 0 Urine 300 400 Paul 300 400 Other: Voiding Method Indwelling Catheter Indwelling Catheter Bowel Movement No Weight Measurement Method Built in Bedscale Constitutional: Yes: Well Nourished, No Distress, Calm HENT: Yes: Atraumatic, Normocephalic Neck: Yes: Supple, Trachea Midline Cardiovascular: Yes: Regular Rate and Rhythm, S1, S2. No: Murmur Respiratory: Yes: Regular, CTA Bilaterally, Intubated, Mechanically Ventilated Gastrointestinal: Yes: Normal Bowel Sounds, Soft, Other (scaphoid). No: Tenderness ...Rectal Exam: Yes: Deferred Genitourinary: No: CVA Tenderness - Left, CVA Tenderness - Right Extremities: No: Cool, Cyanosis Edema: Yes Edema: LUE: 2+, RUE: 2+, LLE: 2+, RLE: 2+ Peripheral Pulses WNL: Yes Integumentary: Yes: Petechiae. No: Jaundice, Rash Neurological: Yes: Alert, Oriented Psychiatric: Yes: Alert, Oriented Labs: CBC, BMP 11/15/17 05:15 11/15/17 05:15 INR, PTT INR 1.22 (0.82-1.09) H 11/14/17 06:10 Problem List - Problems (1) Gastrointestinal hemorrhage with melena Assessment/Plan: 82yo male MMP presented from [place] with GI bleed with Melena. Massive transfusion over the weekend. 9 units, On ventilator and maintained on vasopressor. Refractory GI bleed. s/p repeat endoscopy and clipping and IR embolization of GDA. sheath removed today. he is very edematous peripherally. no more bloody bowel movements. ICU management Trend H&H i0bonks correct electrolytes will follow for serial exams This patient is critically ill. Time spent reviewing chart, examining patient, talking with providers and/or family and documentation is 35 minutes Code(s): K92.1 - MELENA (2) Hyperlipidemia Code(s): E78.5 - HYPERLIPIDEMIA, UNSPECIFIED (3) HTN (hypertension) Code(s): I10 - ESSENTIAL (PRIMARY) HYPERTENSION (4) CAD (coronary artery disease) Code(s): I25.10 - ATHSCL HEART DISEASE OF [place] CORONARY ARTERY W/O ANG PCTRS (5) BPH (benign prostatic hyperplasia) Code(s): N40.0 - BENIGN PROSTATIC HYPERPLASIA WITHOUT LOWER URINRY TRACT SYMP (6) Dementia Code(s): F03.90 - UNSPECIFIED DEMENTIA WITHOUT BEHAVIORAL DISTURBANCE
--- NOTE | 2017-11-15 11:21 | PN ---
Progress Note (short form) - Note Progress Note: Chief Complaint: GIB, tachy History of Present Illness: intubated, not communicative. pressors off now Current Medications Generic Name Dose Route Start Last Admin Trade Name Dario PRN Reason Stop Dose Admin Chlorhexidine Gluconate 1 applic 11/12/17 22:00 11/14/17 21:12 Hibiclens For Decolonization - TP 1 applic HS ERNIE Administration Chlorhexidine Gluconate 15 ml 11/13/17 22:00 11/15/17 10:15 Peridex - MM 15 ml BID ERNIE Administration Digoxin 0.25 mg 11/12/17 10:17 11/15/17 10:15 Lanoxin Injection - IVPUSH 0.25 mg DAILY ERNIE Administration Norepinephrine Bitartrate 8, 500 mls @ 18.75 mls/hr 11/10/17 20:30 11/15/17 04:00 000 mcg/ Sodium Chloride IV 2 mcg/min TITR ERNIE 7.5 mls/hr Protocol Titration 5 MCG/MIN Pantoprazole Sodium 160 mg/ 290 mls @ 14.5 mls/hr 11/10/17 21:00 11/15/17 00: 30 Dextrose IVPB 14.5 mls/hr Q20H ERNIE Administration Piperacillin Sod/Tazobactam 100 mls @ 100 mls/hr 11/11/17 10:00 11/15/17 10: 14 Sod 3.375 gm/ Dextrose IVPB 100 mls/hr Q8H-IV ERNIE Administration Potassium Chloride 20 meq/ 1,010 mls @ 100 mls/hr 11/14/17 14:15 11/15/17 10: 16 Dextrose/Sodium Chloride IVPB 100 mls/hr Q10H ERNIE Administration Mupirocin 1 applic 11/12/17 22:00 11/14/17 21:11 Bactroban Ointment (For Decolonization) - NS 11/17/17 21:59 1 applic BID ERNIE Administration - Objective Vital Signs: Vital Signs Temp 98.9 F 11/15/17 06:00 Pulse 72 11/15/17 10:15 Resp 15 11/15/17 09:53 BP 120/70 11/15/17 08:00 Pulse Ox 100 11/15/17 09:56 Intake & Output 11/14/17 11/14/17 11/15/17 11:59 23:59 11:59 Intake Total 1265.4 1464 Output Total 800 500 300 Balance 465.4 -500 1164 Weight 178 lb 5 oz 187 lb 14.4 oz Intake: IV 1065.4 1364 DEXTROSE 5%-NORMAL SALINE 700 1100 +20 MEQ KCL - 20 meq In 1 ,000 ml @ 100 mls/hr IV ASDIR ERNIE Rx#:[id number] DIPRIVAN - 1,000,000 mcg 133 In 100 ml @ 5 MCG/KG/MIN 1.924 mls/hr IVPB TITR ERNIE Rx#:[id number] Levophed - 8,000 Mcg In 130.9 90 Normal Saline - 492 ml @ 5 MCG/MIN 18.75 mls/hr IV TITR ERNIE Rx#:[id number] protonix 101.5 174 IVPB 200 100 Output: Gastric Drainage 0 Urine 800 500 300 Paul 800 500 300 Other: Voiding Method Indwelling Catheter Indwelling Catheter Bowel Movement No No Weight Measurement Method [facility] in [facility] Constitutional: Yes: Well Nourished, No Distress, Calm/sedated. Intubated Cardiovascular: Yes: Regular Rate and Rhythm, S1, S2. No: Gallop, Murmur Respiratory: Yes: Regular, CTA Bilaterally vented. No: Rales, Wheezes + bs soft nt nd Extremities: No: Cold Edema: No Neurological: No: sedated no jaundice diaphoresis Psychiatric: No: Agitated Labs: Laboratory Last Values WBC 13.2 K/mm3 (4.0-10.0) H 11/15/17 05:15 RBC 3.06 M/mm3 (4.00-5.60) L 11/15/17 05:15 Hgb 9.3 GM/dL (11.7-16.9) L 11/15/17 05:15 Hct 28.0 % (35.4-49) L 11/15/17 05:15 MCV 91.4 fl (80-96) 11/15/17 05:15 MCH 30.3 pg (25.7-33.7) 11/15/17 05:15 MCHC 33.2 g/dl (32.0-35.9) 11/15/17 05:15 RDW 16.7 % (11.9-15.9) H 11/15/17 05:15 Plt Count 93 K/MM3 (134-434) L 11/15/17 05:15 MPV 9.5 fl (7.5-11.1) 11/15/17 05:15 Total Counted 100 11/10/17 20:40 Neutrophils % 87.1 % (42.8-82.8) H 11/15/17 05:15 Neutrophils % (Manual) 91.0 % (42.8-82.8) H* 11/10/17 20:40 Band Neutrophils % 3.0 % 11/10/17 20:40 Lymphocytes % 3.9 % (8-40) L D 11/15/17 05:15 Lymphocytes % (Manual) 1.0 % (8-40) L 11/10/17 20:40 Monocytes % 4.7 % (3.8-10.2) 11/15/17 05:15 Monocytes % (Manual) 5 % (3.8-10.2) 11/10/17 20:40 Eosinophils % 3.7 % (0-4.5) 11/15/17 05:15 Basophils % 0.6 % (0-2.0) 11/15/17 05:15 Differential Comment Man diff performed 11/10/17 20:40 Hypersegmented Neuts Cancelled 11/12/17 05:20 Hypochromia Cancelled 11/12/17 05:20 Toxic Granulation Cancelled 11/12/17 05:20 Dohle Bodies Cancelled 11/12/17 05:20 Platelet Estimate Adequate 11/10/17 20:40 Platelet Comment 11/10/17 20:40 Polychromasia Cancelled 11/12/17 05:20 Poikilocytosis 1+ 11/10/17 20:40 Basophilic Stippling Cancelled 11/12/17 05:20 Anisocytosis 1+ 11/10/17 20:40 Microcytosis Cancelled 11/12/17 05:20 Macrocytosis Cancelled 11/12/17 05:20 Spherocytes Cancelled 11/12/17 05:20 Siderocytes Cancelled 11/12/17 05:20 Sickle Cells Cancelled 11/12/17 05:20 Target Cells Cancelled 11/12/17 05:20 Tear Drop Cells Cancelled 11/12/17 05:20 Ovalocytes 1+ 11/10/17 20:40 Stomatocytes Cancelled 11/12/17 05:20 Helmet Cells Cancelled 11/12/17 05:20 Dozier-Erma Bodies Cancelled 11/12/17 05:20 [place] Rings Cancelled 11/12/17 05:20 [place] Cells Cancelled 11/12/17 05:20 Acanthocytes (Spur) Cancelled 11/12/17 05:20 Rouleaux Cancelled 11/12/17 05:20 Fragmented RBCs Cancelled 11/12/17 05:20 Schistocytes Cancelled 11/12/17 05:20 Morphology Comment Cancelled 11/12/17 05:20 PT with INR 13.80 SEC (9.98-11.88) H 11/14/17 06:10 INR 1.22 (0.82-1.09) H 11/14/17 06:10 PTT (Actin FS) 31.0 SECONDS (26.9-34.4) 11/13/17 05:15 Anticoagulation Therapy No Result Required. 11/10/17 20:40 Puncture Site Right radial 11/15/17 05:50 ABG pH 7.35 (7.35-7.45) 11/15/17 05:50 ABG pCO2 at Pt Temp 29.3 mmHg (35-45) L 11/15/17 05:50 ABG pO2 at Pt Temp 98.0 mmHg (68-100) D 11/15/17 05:50 ABG HCO3 15.6 meq/L (22-26) L 11/15/17 05:50 ABG O2 Sat (Measured) 98.1 % (90-98.9) 11/15/17 05:50 ABG O2 Content 12.6 % vol (15-22) L 11/15/17 05:50 ABG Base Excess -8.7 meq/l (-2-2) L 11/15/17 05:50 Ramses Test Positive 11/15/17 05:50 O2 Delivery Device Mech vent 11/15/17 05:50 Oxygen Flow Rate 40 11/15/17 05:50 Vent Mode A/c 11/15/17 05:50 Vent Rate 14 11/15/17 05:50 Mechanical Rate Y 11/14/17 06:00 PEEP 5.0 cmH2O 11/15/17 05:50 Pressure Support Vent 500 11/15/17 05:50 Sodium 148 mmol/L (136-145) H 11/15/17 05:15 Potassium 3.9 mmol/L (3.5-5.1) 11/15/17 05:15 Chloride 121 mmol/L (98-107) H 11/15/17 05:15 Carbon Dioxide 17 mmol/L (21-32) L 11/15/17 05:15 Anion Gap 10 (8-16) 11/15/17 05:15 BUN 22 mg/dL (7-18) H 11/15/17 05:15 Creatinine 1.2 mg/dL (0.7-1.3) 11/15/17 05:15 Creat Clearance w eGFR 58.26 (>60) 11/15/17 05:15 POC Glucometer 268.05451 UNITS (80-120) 11/11/17 05:39 Random Glucose 118 mg/dL (74-106) H 11/15/17 05:15 Lactic Acid 1.9 mmol/L (0.0-2.0) 11/11/17 05:25 Calcium 6.7 mg/dL (8.5-10.1) L* 11/15/17 05:15 Phosphorus 3.0 mg/dL (2.5-4.9) D 11/15/17 05:15 Magnesium 2.1 mg/dL (1.8-2.4) 11/15/17 05:15 Total Bilirubin 0.6 mg/dL (0.2-1.0) 11/15/17 05:15 Direct Bilirubin 0.2 mg/dL (0.0-0.2) 11/09/17 06:30 AST 17 U/L (15-37) D 11/15/17 05:15 ALT 10 U/L (12-78) L D 11/15/17 05:15 Alkaline Phosphatase 71 U/L (45-117) D 11/15/17 05:15 Creatine Kinase 57 IU/L (39-308) 11/10/17 20:40 Troponin I 0.06 ng/ml (0.00-0.05) H D 11/10/17 20:40 B-Natriuretic Peptide 8130.55 pg/ml (5-450) H 11/08/17 23:22 Total Protein 3.7 g/dl (6.4-8.2) L 11/15/17 05:15 Albumin 1.6 g/dl (3.4-5.0) L 11/15/17 05:15 Urine Color Yellow 11/09/17 00:49 Urine Appearance Cloudy 11/09/17 00:49 Urine pH 5.0 (5.0-8.0) 11/09/17 00:49 Ur Specific [place] 1.017 (1.001-1.035) 11/09/17 00:49 Urine Protein 1+ (NEGATIVE) H 11/09/17 00:49 Urine Glucose (UA) Negative (NEGATIVE) 11/09/17 00:49 Urine Ketones Negative (NEGATIVE) 11/09/17 00:49 Urine Blood 1+ (NEGATIVE) H 11/09/17 00:49 Urine Nitrite Negative (NEGATIVE) 11/09/17 00:49 Urine Bilirubin Negative (NEGATIVE) 11/09/17 00:49 Urine Urobilinogen Negative mg/dL (0.2-1.0) 11/09/17 00:49 Ur Leukocyte Esterase 3+ (NEGATIVE) H 11/09/17 00:49 Urine WBC (Auto) 608 /hpf (3-5) 11/09/17 00:49 Urine RBC (Auto) 19 /hpf (0-3) 11/09/17 00:49 Ur Epithelial Cells Rare /HPF (FEW) 11/09/17 00:49 Stool Occult Blood Negative (NEGATIVE) 11/08/17 23:57 Digoxin 1.1657 ng/ml (0.8-2.0) 11/15/17 05:15 Blood Type O POSITIVE 11/11/17 05:25 Antibody Screen Negative 11/11/17 05:25 Crossmatch See Detail 11/11/17 05:25 - ....Imaging EKG: Other (tele: afib, rate ok) cxr: no sig chf ecg: sr, nl intervals, ant/lat twis and subtle st depressions Echo 11/25: borderline vs mildly reduced LVSF (regional wall motion eval is TDS) . nl RV. mild LAE. valve fxn WNL. repeat echo 11/2017: lvh, nl lv/rv, mild tr, mild phtn est cct 35 mins a/p: 82 m hx dementia, htn, hld, pad, cad, ckd, [facility] [place] [facility] [place]. PAfib , MAT: -on xarelto (in addition to asa for pad/cad) at [facility] per charts, with no mention of Afib--indication for xarelto was reported as PAD which is not an approved indication--> hence have to assume there is h/o pafib here. no h/o CVA per [place] dx list, and per d/w family - holding AC and ASA in setting of GIB. Resume asa if/when cleared by GI. -episodes of both rapid afib/MAT 2/3-->2/4 in setting of acute large GI bleed ( hgb drop to 5) and urgent EGD with epinephrine injection into bleeding vessel. -6-8: improved rate control. cont dig (level ok). h/o CAD/pad, unknown details - outside vascular follows for LE disease per family. details of cad unknown. UGIB (from PUD): - p/w GIB in setting of xarelto and ASA --> now on hold. -recurrent large melena 2/3 with bleeding ulcer treated on EGD. -severe rebleed 2/5 (hgb 5) with hypotension, urgent rpt EGD with control of visibly bleeding vessel. -holding both ASA and AC until GIB w/u and tx is complete. s/p EGD/FOC and epinephrine injection. -family describes moderate dementia at baseline, which worsened the past 6 mo or so. 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 chf hx)). they state they strongly desire avoiding recurrent bleeding (bebeto given present episode was potentially life-threatening) or recurrent hospitalization, and hence prefer ASA over AC (verbalize understanding that ASA offers incomplete CVA prevention). -would not pursue Watchman here given pt's baseline dementia status -resume ASA 81 mg later once stable per GI bath design sales consultant. CHF: -prior h/o "water on the heart" per , ? details -Echo here unremarkable -patient still NPO requiring IVF and pressors. Would prioritize mgm't of bleed/ hemodynamic stability and would not recommend diuresis for now (ok for continued ivf) htn: -pressors off now -holding home bb, monitor trend hld: -stable, statin not listed on home meds KEVEN: -unknown baseline -creat fluctuating 1.1-1.5 here -anemia correction +/- IVF as doing, observe trend
--- NOTE | 2017-11-15 13:15 | PN ---
Teaching Attending Note Name of Resident: Ajit You ATTENDING PHYSICIAN STATEMENT I saw and evaluated the patient. I reviewed the resident's note and discussed the case with the resident. I agree with the resident's findings and plan as documented. SUBJECTIVE: Patient seen and examined in the ICU. Remains intubated and sedated. No occult blood noted. No blood transfusions required overnight. Remains on NE for hemodynamic support. OBJECTIVE: Intake & Output 11/12/17 11/13/17 11/14/17 11/15/17 23:59 23:59 23:59 23:59 Intake Total 5638 4945.5 1265.4 1464 Output Total 450 1600 1300 300 Balance 5188 3345.5 -34.6 1164 Weight 172 lb 6.4 oz 178 lb 4.8 oz 178 lb 5 oz 187 lb 14.4 oz Last Vital Signs Temp Pulse Resp BP Pulse Ox 98.9 F 71 16 104/60 100 11/15/17 06:00 11/15/17 12:00 11/15/17 12:00 11/15/17 12:00 11/15/17 09:56 Active Medications Chlorhexidine Gluconate (Hibiclens For Decolonization -) 1 applic TP HS REPLACED BY [facility] Last Admin: 11/14/17 21:12 Dose: 1 applic Chlorhexidine Gluconate (Peridex -) 15 ml MM BID ERNIE Last Admin: 11/15/17 10:15 Dose: 15 ml Digoxin (Lanoxin Injection -) 0.25 mg IVPUSH DAILY ERNIE Last Admin: 11/15/17 10:15 Dose: 0.25 mg Norepinephrine Bitartrate 8, (000 mcg/ Sodium Chloride) 500 mls @ 18.75 mls/hr IV TITR ERNIE; 5 MCG/MIN PRN Reason: Protocol Last Titration: 11/15/17 04:00 Dose: 2 mcg/min, 7.5 mls/hr Pantoprazole Sodium 160 mg/ (Dextrose) 290 mls @ 14.5 mls/hr IVPB Q20H ERNIE Last Admin: 11/15/17 00:30 Dose: 14.5 mls/hr Piperacillin Sod/Tazobactam (Sod 3.375 gm/ Dextrose) 100 mls @ 100 mls/hr IVPB Q8H-IV ERNIE Last Admin: 11/15/17 10:14 Dose: 100 mls/hr Potassium Chloride 20 meq/ (Dextrose/Sodium Chloride) 1,010 mls @ 100 mls/hr IVPB Q10H REPLACED BY [facility] Last Admin: 11/15/17 10:16 Dose: 100 mls/hr Mupirocin (Bactroban Ointment (For Decolonization) -) 1 applic NS BID REPLACED BY [facility] Stop: 11/17/17 21:59 Last Admin: 11/14/17 21:11 Dose: 1 applic Gen: intubated, sedated Heart: RRR Lung: decreased breath sounds at the bases Abd: soft, nontender Ext: + edema Laboratory Results - last 24 hr 11/11/17 11/14/17 11/14/17 05:25 18:45 18:45 WBC 13.8 H RBC 3.30 L Hgb 9.9 L Hct 30.1 L MCV 91.4 MCH 30.0 MCHC 32.9 RDW 17.0 H Plt Count 86 L MPV 9.3 Neutrophils % Lymphocytes % Monocytes % Eosinophils % Basophils % Puncture Site ABG pH ABG pCO2 at Pt Temp ABG pO2 at Pt Temp ABG HCO3 ABG O2 Sat (Measured) ABG O2 Content ABG Base Excess Ramses Test O2 Delivery Device Oxygen Flow Rate Vent Mode Vent Rate PEEP Pressure Support Vent Sodium 147 H Potassium 4.0 D Chloride 120 H Carbon Dioxide 18 L Anion Gap 9 BUN 24 H Creatinine 1.2 Creat Clearance w eGFR Random Glucose 115 H D Calcium 6.6 L* Phosphorus Magnesium Total Bilirubin AST ALT Alkaline Phosphatase Total Protein Albumin Digoxin Blood Type O POSITIVE Antibody Screen Negative Crossmatch See Detail 11/15/17 11/15/17 11/15/17 05:15 05:15 05:50 WBC 13.2 H RBC 3.06 L Hgb 9.3 L Hct 28.0 L MCV 91.4 MCH 30.3 MCHC 33.2 RDW 16.7 H Plt Count 93 L MPV 9.5 Neutrophils % 87.1 H Lymphocytes % 3.9 L D Monocytes % 4.7 Eosinophils % 3.7 Basophils % 0.6 Puncture Site Right radial ABG pH 7.35 ABG pCO2 at Pt Temp 29.3 L ABG pO2 at Pt Temp 98.0 D ABG HCO3 15.6 L ABG O2 Sat (Measured) 98.1 ABG O2 Content 12.6 L ABG Base Excess -8.7 L Ramses Test Positive O2 Delivery Device Mech vent Oxygen Flow Rate 40 Vent Mode A/c Vent Rate 14 PEEP 5.0 Pressure Support Vent 500 Sodium 148 H Potassium 3.9 Chloride 121 H Carbon Dioxide 17 L Anion Gap 10 BUN 22 H Creatinine 1.2 Creat Clearance w eGFR 58.26 Random Glucose 118 H Calcium 6.7 L* Phosphorus 3.0 D Magnesium 2.1 Total Bilirubin 0.6 AST 17 D ALT 10 L D Alkaline Phosphatase 71 D Total Protein 3.7 L Albumin 1.6 L Digoxin 1.1657 Blood Type Antibody Screen Crossmatch ASSESSMENT AND PLAN: GI Bleed from Duodenal Ulcer Acute Blood Loss Anemia Hemorrhagic Shock Paroxysmal Atrial Fibrillation Lactic Acidosis UTI PAD CAD CKD HTN Hyperlipidemia Dementia - monitor H/H - transfuse as needed - protonix drip - hold all anticoagulation, antiplatelet therapy - taper pressors to maintain MAP >65 - rate control - continue antibiotics - f/u cultures - DVT prophylaxis - continue ICU monitoring Dr Rojas Critical care time spent in reviewing chart, evaluating patient and formulating plan 35 min
--- NOTE | 2017-11-15 13:27 | PN ---
Progress Note, Physician History of Present Illness: continue to be intubated improving remaining stable wbc trending downward - Current Medication List Current Medications: Active Medications Chlorhexidine Gluconate (Hibiclens For Decolonization -) 1 applic TP HS [facility] Last Admin: 11/14/17 21:12 Dose: 1 applic Chlorhexidine Gluconate (Peridex -) 15 ml MM BID [facility] Last Admin: 11/15/17 10:15 Dose: 15 ml Digoxin (Lanoxin Injection -) 0.25 mg IVPUSH DAILY [facility] Last Admin: 11/15/17 10:15 Dose: 0.25 mg Norepinephrine Bitartrate 8, (000 mcg/ Sodium Chloride) 500 mls @ 18.75 mls/hr IV TITR ERNIE; 5 MCG/MIN PRN Reason: Protocol Last Titration: 11/15/17 04:00 Dose: 2 mcg/min, 7.5 mls/hr Pantoprazole Sodium 160 mg/ (Dextrose) 290 mls @ 14.5 mls/hr IVPB Q20H [facility] Last Admin: 11/15/17 00:30 Dose: 14.5 mls/hr Piperacillin Sod/Tazobactam (Sod 3.375 gm/ Dextrose) 100 mls @ 100 mls/hr IVPB Q8H-IV [facility] Last Admin: 11/15/17 10:14 Dose: 100 mls/hr Potassium Chloride 20 meq/ (Dextrose/Sodium Chloride) 1,010 mls @ 100 mls/hr IVPB Q10H [facility] Last Admin: 11/15/17 10:16 Dose: 100 mls/hr Mupirocin (Bactroban Ointment (For Decolonization) -) 1 applic NS BID [facility] Stop: 11/17/17 21:59 Last Admin: 11/14/17 21:11 Dose: 1 applic - Objective Vital Signs: Vital Signs Temperature 98.9 F 11/15/17 06:00 Pulse Rate 71 11/15/17 12:00 Respiratory Rate 16 11/15/17 12:00 Blood Pressure 104/60 11/15/17 12:00 O2 Sat by Pulse Oximetry (%) 100 11/15/17 09:56 Constitutional: Yes: No Distress, Calm Cardiovascular: Yes: Regular Rate and Rhythm Respiratory: Yes: Intubated, Mechanically Ventilated Gastrointestinal: Yes: Normal Bowel Sounds, Soft Musculoskeletal: Yes: WNL Extremities: Yes: WNL Neurological: Yes: Other Psychiatric: Yes: Other Labs: CBC, BMP 11/15/17 05:15 11/15/17 05:15 INR, PTT INR 1.22 (0.82-1.09) H 11/14/17 06:10 - ....Imaging Chest X-ray: Report Reviewed, Image Reviewed Assessment/Plan Problem List - Problems (1) Gastrointestinal hemorrhage with melena Code(s): K92.1 - MELENA (2) Hyperlipidemia Code(s): E78.5 - HYPERLIPIDEMIA, UNSPECIFIED (3) HTN (hypertension) Code(s): I10 - ESSENTIAL (PRIMARY) HYPERTENSION (4) CAD (coronary artery disease) Code(s): I25.10 - ATHSCL HEART DISEASE OF [place] CORONARY ARTERY W/O ANG PCTRS (5) BPH (benign prostatic hyperplasia) Code(s): N40.0 - BENIGN PROSTATIC HYPERPLASIA WITHOUT LOWER URINRY TRACT SYMP (6) Dementia Code(s): F03.90 - UNSPECIFIED DEMENTIA WITHOUT BEHAVIORAL DISTURBANCE Lactic Acidosis UTI PAD CKD plan continue abx follow h and h monitor vital closely rest as per icu wbc follow up wbc trending down cc time 40 min
--- NOTE | 2017-11-15 15:25 | PN ---
Progress Note (short form) - Note Progress Note: PT found intubated and comatose in ICU. Transfusion not needed last night. Vital Signs Period Temp Pulse Resp BP Sys/Mcdowell Pulse Ox Last 24 Hr 97.4 F-98.9 F 69-107 14-24 92-120/52-83 98-100 HEENT- NL Neck- Supple Lungs- Clear Heart- S1/S2 Abd- soft, NT Ext- Trace LE edema 3+ pitting edema in bilateral UEs CBC, BMP 11/15/17 05:15 11/15/17 05:15 Active Medications Chlorhexidine Gluconate (Hibiclens For Decolonization -) 1 applic TP HS [facility] Last Admin: 11/14/17 21:12 Dose: 1 applic Chlorhexidine Gluconate (Peridex -) 15 ml MM BID ERNIE Last Admin: 11/15/17 10:15 Dose: 15 ml Digoxin (Lanoxin Injection -) 0.25 mg IVPUSH DAILY [facility] Last Admin: 11/15/17 10:15 Dose: 0.25 mg Norepinephrine Bitartrate 8, (000 mcg/ Sodium Chloride) 500 mls @ 18.75 mls/hr IV TITR ERNIE; 5 MCG/MIN PRN Reason: Protocol Last Titration: 11/15/17 04:00 Dose: 2 mcg/min, 7.5 mls/hr Pantoprazole Sodium 160 mg/ (Dextrose) 290 mls @ 14.5 mls/hr IVPB Q20H [facility] Last Admin: 11/15/17 00:30 Dose: 14.5 mls/hr Piperacillin Sod/Tazobactam (Sod 3.375 gm/ Dextrose) 100 mls @ 100 mls/hr IVPB Q8H-IV [facility] Last Admin: 11/15/17 10:14 Dose: 100 mls/hr Potassium Chloride 20 meq/ (Dextrose/Sodium Chloride) 1,010 mls @ 100 mls/hr IVPB Q10H [facility] Last Admin: 11/15/17 10:16 Dose: 100 mls/hr Mupirocin (Bactroban Ointment (For Decolonization) -) 1 applic NS BID ERNIE Stop: 11/17/17 21:59 Last Admin: 11/14/17 21:11 Dose: 1 applic # Intubated In ICU/ comatose # GI Bleed recurrent Acute Upper GI bleed /shock Duodenal ulcer continue to monitor h/h continue protonix avoid all A/C IR for possible emolization possible surgical intervention # shock, hemorrhagic continue supportive care # Tachycardia PA fib with rvr / MAT Problem List - Problems (1)_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
[2017-11-15] MEDS: CHLORHEXIDINE GLUCONATE 4% CLEANSER FOR DECOLONIZATION TP SCH (21:12)
[2017-11-15] MEDS ORDERED: PT OWN MED DRAWER 7, Y5N ONE (23:17)
[2017-11-16] MEDS: PIPERACILLIN/TAZOB 3.375 GM 3.375 GM in DEXTROSE 5%-WATER - 100 ML IVPB SCH ×2 (01:11→10:26)
[2017-11-16 06:17] LABS: BASO % 0.7 % (0-2.0); EOS % 1.8 % (0-4.5); HEMATOCRIT 26.5 % (35.4-49); HEMOGLOBIN 8.8 GM/dL (11.7-16.9); LYMPH % 9.2 % (8-40); MCH 30.9 pg (25.7-33.7); MCHC 33.3 g/dl (32.0-35.9); MEAN CELL VOLUME 93.1 fl (80-96); MEAN PLT VOLUME 8.9 fl (7.5-11.1); MONO % 6.6 % (3.8-10.2); NEUT % 81.7 % (42.8-82.8); PLATELET COUNT 116 K/MM3 (134-434); RBC 2.85 M/mm3 (4.00-5.60); RDW 17.4 % (11.9-15.9); WHITE BLOOD COUNT 9.4 K/mm3 (4.0-10.0)
[2017-11-16] MEDS: POTASSIUM CHLORIDE 20 MEQ in DEXTROSE 5%-NORMAL SALINE 1,000 ML IVPB SCH ×3 (06:25→22:09)
[2017-11-16 06:42] LABS: CHLORIDE 122 mmol/L (98-107); POTASSIUM 3.8 mmol/L (3.5-5.1); SODIUM 149 mmol/L (136-145)
[2017-11-16 06:50] LABS: ALBUMIN 1.5 g/dl (3.4-5.0); ALK PHOS 75 U/L (45-117); ANION GAP 8 (8-16); BILIRUBIN,TOTAL 0.5 mg/dL (0.2-1.0); BLOOD UREA NITROGEN 15 mg/dL (7-18); CO2 19 mmol/L (21-32); CREATININE 1.2 mg/dL (0.7-1.3); GLUCOSE,RANDOM 84 mg/dL (74-106); MAGNESIUM 1.9 mg/dL (1.8-2.4); PHOSPHOROUS 2.4 mg/dL (2.5-4.9); SGOT/AST 18 U/L (15-37); SGPT/ALT 12 U/L (12-78); TOT PROT 3.6 g/dl (6.4-8.2)
[2017-11-16 06:52] LABS: ARTERIAL BLOOD GAS PCO2 30.6 mmHg (35-45); ARTERIAL BLOOD GAS pH 7.37 (7.35-7.45)
[2017-11-16 07:20] LABS: ALLENS TEST POSITIVE
[2017-11-16 07:22] LABS: CALCIUM 6.6 mg/dL (8.5-10.1)
[2017-11-16 07:22] LABS: ARTERIAL BLD GAS O2 SATURATION 99.6 % (90-98.9)
--- NOTE | 2017-11-16 08:20 | PN ---
Progress Note, Physician History of Present Illness: No events to suggest ongoing GI bleeding. Open eyes to verbal stimuli. - Current Medication List Current Medications: Active Medications Chlorhexidine Gluconate (Hibiclens For Decolonization -) 1 applic TP HS [facility] Last Admin: 11/15/17 21:12 Dose: 1 applic Chlorhexidine Gluconate (Peridex -) 15 ml MM BID [facility] Last Admin: 11/15/17 21:12 Dose: 15 ml Digoxin (Lanoxin Injection -) 0.25 mg IVPUSH DAILY [facility] Last Admin: 11/15/17 10:15 Dose: 0.25 mg Pantoprazole Sodium 160 mg/ (Dextrose) 290 mls @ 14.5 mls/hr IVPB Q20H [facility] Last Admin: 11/15/17 21:12 Dose: 14.5 mls/hr Piperacillin Sod/Tazobactam (Sod 3.375 gm/ Dextrose) 100 mls @ 100 mls/hr IVPB Q8H-IV [facility] Last Admin: 11/16/17 01:11 Dose: 100 mls/hr Potassium Chloride 20 meq/ (Dextrose/Sodium Chloride) 1,010 mls @ 100 mls/hr IVPB Q10H [facility] Last Admin: 11/16/17 06:25 Dose: 100 mls/hr Mupirocin (Bactroban Ointment (For Decolonization) -) 1 applic NS BID [facility] Stop: 11/17/17 21:59 Last Admin: 11/15/17 21:12 Dose: 1 applic Potassium Phos/Sodium Phos (Phos-Nak Packet -) 1 packet PO ONCE ONE Stop: 11/16/17 07:48 - Objective Vital Signs: Vital Signs Temperature 98.5 F 11/16/17 06:00 Pulse Rate 72 11/16/17 07:50 Respiratory Rate 17 11/16/17 07:50 Blood Pressure 118/65 11/16/17 06:00 O2 Sat by Pulse Oximetry (%) 99 11/16/17 07:50 Constitutional: Yes: No Distress, Calm Respiratory: Yes: Mechanically Ventilated Neurological: Yes: Other (arousable) Labs: CBC, BMP 11/16/17 05:00 11/16/17 05:00 INR, PTT INR 1.22 (0.82-1.09) H 11/14/17 06:10 Problem List - Problems (1) GI bleed Code(s): K92.2 - GASTROINTESTINAL HEMORRHAGE, UNSPECIFIED (2) Gastrointestinal hemorrhage with melena Code(s): K92.1 - MELENA (3) Duodenal ulcer disease Code(s): K26.9 - DUODENAL ULCER, UNSP ACUTE OR CHRONIC, W/O HEMOR OR PERF (4) Duodenal ulcer hemorrhage Code(s): K26.4 - CHRONIC OR UNSPECIFIED DUODENAL ULCER WITH HEMORRHAGE Assessment/Plan No acute events overnight. Close monitoring for signs of rebleed. Continue PPI, octreotide, carafate via OGT Nutrition evaluation and start GT feeding unless planning to extubate today
[2017-11-16] MEDS ORDERED: NAPH,MB-DB/K PH,MBDB POWDER PACKET PO ONE (09:00)
--- NOTE | 2017-11-16 09:59 | PN ---
Progress Note, Physician Chief Complaint: GI bleed History of Present Illness: 82 yo male [place] resident [facility] anemia, BPH, hypertension, hyperlipidemia, CAD, CKD, dementia, depression, anxiety, and dementia who presents to the emergency department with rectal bleed. Additional melena was reported, passing clots per rectum. He had second endoscopy and clipping of the bleeding ulcer as well as GDA embolization by IR. Remains in the ICU sedated and intubated. - Current Medication List Current Medications: Active Medications Chlorhexidine Gluconate (Hibiclens For Decolonization -) 1 applic TP HS [facility] Last Admin: 11/15/17 21:12 Dose: 1 applic Chlorhexidine Gluconate (Peridex -) 15 ml MM BID [facility] Last Admin: 11/15/17 21:12 Dose: 15 ml Digoxin (Lanoxin Injection -) 0.25 mg IVPUSH DAILY [facility] Last Admin: 11/15/17 10:15 Dose: 0.25 mg Pantoprazole Sodium 160 mg/ (Dextrose) 290 mls @ 14.5 mls/hr IVPB Q20H [facility] Last Admin: 11/15/17 21:12 Dose: 14.5 mls/hr Piperacillin Sod/Tazobactam (Sod 3.375 gm/ Dextrose) 100 mls @ 100 mls/hr IVPB Q8H-IV [facility] Last Admin: 11/16/17 01:11 Dose: 100 mls/hr Potassium Chloride 20 meq/ (Dextrose/Sodium Chloride) 1,010 mls @ 100 mls/hr IVPB Q10H [facility] Last Admin: 11/16/17 06:25 Dose: 100 mls/hr Mupirocin (Bactroban Ointment (For Decolonization) -) 1 applic NS BID [facility] Stop: 11/17/17 21:59 Last Admin: 11/15/17 21:12 Dose: 1 applic - Objective Vital Signs: Vital Signs Temperature 98.5 F 11/16/17 06:00 Pulse Rate 72 11/16/17 07:50 Respiratory Rate 17 11/16/17 07:50 Blood Pressure 118/65 11/16/17 06:00 O2 Sat by Pulse Oximetry (%) 99 11/16/17 07:50 Vital Signs Period Temp Pulse Resp BP Sys/Mcdowell Pulse Ox Last 24 Hr 98.4 F-98.9 F 69-82 12-18 92-120/52-72 99-100 Intake & Output 11/15/17 11/16/17 11/16/17 23:59 07:59 15:59 Intake Total 1440 644 Output Total 400 300 Balance 1040 344 Weight 184 lb 9.6 oz Intake: IV 1180 174 Levophed - 8,000 Mcg In 10 Normal Saline - 492 ml @ 5 MCG/MIN 18.75 mls/hr IV TITR ERNIE Rx#:[id number] Right Forearm 1000 protonix 170 174 IVPB 100 100 Tube Feeding 80 210 Tube Irrigant 80 160 Output: Urine 400 300 Paul 400 300 Other: Voiding Method Indwelling Catheter Indwelling Catheter Bowel Movement Yes Yes # Bowel Movements 1 1 Weight Measurement Method Built in [facility] Constitutional: Yes: No Distress, Calm, Thin Eyes: Yes: Conjunctiva Clear, EOM Intact HENT: Yes: Atraumatic, Normocephalic Neck: Yes: Supple, Trachea Midline Cardiovascular: Yes: Regular Rate and Rhythm, S1, S2 Respiratory: Yes: Regular, CTA Bilaterally, Intubated, Mechanically Ventilated Gastrointestinal: Yes: Normal Bowel Sounds, Soft, Other (scaphoid). No: Tenderness ...Rectal Exam: Yes: Deferred Genitourinary: No: CVA Tenderness - Left, CVA Tenderness - Right Musculoskeletal: No: Muscle Pain, Muscle Weakness Extremities: No: Cool, Cyanosis Neurological: Yes: Alert, Oriented, Other (sedated) Psychiatric: Yes: Alert, Oriented Labs: CBC, BMP 11/16/17 05:00 11/16/17 05:00 INR, PTT INR 1.22 (0.82-1.09) H 11/14/17 06:10 Problem List - Problems (1) Gastrointestinal hemorrhage with melena Assessment/Plan: 82yo male [place] presented [place] with GI bleed with Melena. Massive transfusion over the weekend. 9 units, On ventilator and maintained on vasopressor. Refractory GI bleed. s/p repeat endoscopy and clipping and IR embolization of GDA. sheath removed. He is very edematous peripherally. no more bloody bowel movements. ICU management Trend H&H [id number] correct electrolytes diuressis will follow for serial exams This patient is critically ill. Time spent reviewing chart, examining patient, talking with providers and/or family and documentation is 35 minutes Code(s): K92.1 - MELENA (2) Hyperlipidemia Code(s): E78.5 - HYPERLIPIDEMIA, UNSPECIFIED (3) HTN (hypertension) Code(s): I10 - ESSENTIAL (PRIMARY) HYPERTENSION (4) CAD (coronary artery disease) Code(s): I25.10 - ATHSCL HEART DISEASE OF [place] CORONARY ARTERY W/O ANG PCTRS (5) BPH (benign prostatic hyperplasia) Code(s): N40.0 - BENIGN PROSTATIC HYPERPLASIA WITHOUT LOWER URINRY TRACT SYMP (6) Dementia Code(s): F03.90 - UNSPECIFIED DEMENTIA WITHOUT BEHAVIORAL DISTURBANCE
[2017-11-16] MEDS ORDERED: PT OWN MED DRAWER 7, Y5N ONE (10:13)
[2017-11-16] MEDS: DIGOXIN 0.5 MG/2 ML AMPUL IVPUSH SCH (10:25)
[2017-11-16] MEDS: CHLORHEXIDINE GLUCONATE 0.12% 15ML CUP MM SCH ×2 (10:27→22:11)
--- NOTE | 2017-11-16 11:11 | PN ---
Progress Note (short form) - Note Progress Note: Chief Complaint: GIB, tachy History of Present Illness: intubated, not communicative. pressors off now Current Medications Generic Name Dose Route Start Last Admin Trade Name Dario PRN Reason Stop Dose Admin Chlorhexidine Gluconate 1 applic 11/12/17 22:00 11/15/17 21:12 Hibiclens For Decolonization - TP 1 applic HS ERNIE Administration Chlorhexidine Gluconate 15 ml 11/13/17 22:00 11/16/17 10:27 Peridex - MM 15 ml BID ERNIE Administration Digoxin 0.25 mg 11/12/17 10:17 11/16/17 10:25 Lanoxin Injection - IVPUSH 0.25 mg DAILY ERNIE Administration Pantoprazole Sodium 160 mg/ 290 mls @ 14.5 mls/hr 11/10/17 21:00 11/15/17 21: 12 Dextrose IVPB 14.5 mls/hr Q20H ERNIE Administration Piperacillin Sod/Tazobactam 100 mls @ 100 mls/hr 11/11/17 10:00 11/16/17 10: 26 Sod 3.375 gm/ Dextrose IVPB 100 mls/hr Q8H-IV ERNIE Administration Potassium Chloride 20 meq/ 1,010 mls @ 100 mls/hr 11/14/17 14:15 11/16/17 06: 25 Dextrose/Sodium Chloride IVPB 100 mls/hr Q10H ERNIE Administration Mupirocin 1 applic 11/12/17 22:00 11/15/17 21:12 Bactroban Ointment (For Decolonization) - NS 11/17/17 21:59 1 applic BID ERNIE Administration - Objective Vital Signs: Vital Signs Temp 98.5 F 11/16/17 06:00 Pulse 74 11/16/17 10:25 Resp 17 11/16/17 07:50 BP 118/65 11/16/17 06:00 Pulse Ox 99 11/16/17 07:50 Intake & Output 11/15/17 11/15/17 11/16/17 11:59 23:59 11:59 Intake Total 1464 1640 644 Output Total 300 800 300 Balance 1164 840 344 Weight 187 lb 14.4 oz 184 lb 9.6 oz Intake: IV 1364 1180 174 DEXTROSE 5%-NORMAL SALINE 1100 +20 MEQ KCL - 20 meq In 1 ,000 ml @ 100 mls/hr IV ASDIR ERNIE Rx#:[id number] Levophed - 8,000 Mcg In 90 10 Normal Saline - 492 ml @ 5 MCG/MIN 18.75 mls/hr IV TITR ERNIE Rx#:[id number] Right Forearm 1000 protonix 174 170 174 IVPB 100 300 100 Tube Feeding 80 210 Tube Irrigant 80 160 Output: Gastric Drainage 0 Urine 300 800 300 Paul 300 800 300 Other: Voiding Method Indwelling Catheter Indwelling Catheter Indwelling Catheter Bowel Movement No Yes Yes # Bowel Movements 1 1 Weight Measurement Method Built in [facility] Built in [facility] Constitutional: Yes: Well Nourished, No Distress, Calm/sedated. Intubated Cardiovascular: Yes: Regular Rate and Rhythm, S1, S2. No: Gallop, Murmur Respiratory: Yes: Regular, CTA Bilaterally vented. No: Rales, Wheezes + bs soft nt nd Extremities: No: Cold Edema: No Neurological: No: sedated no jaundice diaphoresis Psychiatric: No: Agitated Labs: Laboratory Last Values WBC 9.4 K/mm3 (4.0-10.0) 11/16/17 05:00 RBC 2.85 M/mm3 (4.00-5.60) L 11/16/17 05:00 Hgb 8.8 GM/dL (11.7-16.9) L 11/16/17 05:00 Hct 26.5 % (35.4-49) L 11/16/17 05:00 MCV 93.1 fl (80-96) 11/16/17 05:00 MCH 30.9 pg (25.7-33.7) 11/16/17 05:00 MCHC 33.3 g/dl (32.0-35.9) 11/16/17 05:00 RDW 17.4 % (11.9-15.9) H 11/16/17 05:00 Plt Count 116 K/MM3 (134-434) L D 11/16/17 05:00 MPV 8.9 fl (7.5-11.1) 11/16/17 05:00 Total Counted 100 11/10/17 20:40 Neutrophils % 81.7 % (42.8-82.8) 11/16/17 05:00 Neutrophils % (Manual) 91.0 % (42.8-82.8) H* 11/10/17 20:40 Band Neutrophils % 3.0 % 11/10/17 20:40 Lymphocytes % 9.2 % (8-40) D 11/16/17 05:00 Lymphocytes % (Manual) 1.0 % (8-40) L 11/10/17 20:40 Monocytes % 6.6 % (3.8-10.2) 11/16/17 05:00 Monocytes % (Manual) 5 % (3.8-10.2) 11/10/17 20:40 Eosinophils % 1.8 % (0-4.5) 11/16/17 05:00 Basophils % 0.7 % (0-2.0) 11/16/17 05:00 Differential Comment Man diff performed 11/10/17 20:40 Hypersegmented Neuts Cancelled 11/12/17 05:20 Hypochromia Cancelled 11/12/17 05:20 Toxic Granulation Cancelled 11/12/17 05:20 Dohle Bodies Cancelled 11/12/17 05:20 Platelet Estimate Adequate 11/10/17 20:40 Platelet Comment 11/10/17 20:40 Polychromasia Cancelled 11/12/17 05:20 Poikilocytosis 1+ 11/10/17 20:40 Basophilic Stippling Cancelled 11/12/17 05:20 Anisocytosis 1+ 11/10/17 20:40 Microcytosis Cancelled 11/12/17 05:20 Macrocytosis Cancelled 11/12/17 05:20 Spherocytes Cancelled 11/12/17 05:20 Siderocytes Cancelled 11/12/17 05:20 Sickle Cells Cancelled 11/12/17 05:20 Target Cells Cancelled 11/12/17 05:20 Tear Drop Cells Cancelled 11/12/17 05:20 Ovalocytes 1+ 11/10/17 20:40 Stomatocytes Cancelled 11/12/17 05:20 Helmet Cells Cancelled 11/12/17 05:20 Dozier-Garland Bodies Cancelled 11/12/17 05:20 [place] Rings Cancelled 11/12/17 05:20 Sandie Cells Cancelled 11/12/17 05:20 Acanthocytes (Spur) Cancelled 11/12/17 05:20 Rouleaux Cancelled 11/12/17 05:20 Fragmented RBCs Cancelled 11/12/17 05:20 Schistocytes Cancelled 11/12/17 05:20 Morphology Comment Cancelled 11/12/17 05:20 PT with INR 13.80 SEC (9.98-11.88) H 11/14/17 06:10 INR 1.22 (0.82-1.09) H 11/14/17 06:10 PTT (Actin FS) 31.0 SECONDS (26.9-34.4) 11/13/17 05:15 Anticoagulation Therapy No Result Required. 11/10/17 20:40 Puncture Site Right radial 11/16/17 06:00 ABG pH 7.37 (7.35-7.45) 11/16/17 06:00 ABG pCO2 at Pt Temp 30.6 mmHg (35-45) L 11/16/17 06:00 ABG pO2 at Pt Temp 150.0 mmHg (68-100) H D 11/16/17 06:00 ABG HCO3 17.1 meq/L (22-26) L 11/16/17 06:00 ABG O2 Sat (Measured) 99.6 % (90-98.9) H* 11/16/17 06:00 ABG O2 Content 12.1 % vol (15-22) L 11/16/17 06:00 ABG Base Excess -7.0 meq/l (-2-2) L 11/16/17 06:00 Ramses Test Positive 11/16/17 06:00 O2 Delivery Device Mech vent 11/15/17 05:50 Oxygen Flow Rate No Result Required. 11/16/17 06:00 Vent Mode A/c 11/15/17 05:50 Vent Rate 14 11/15/17 05:50 Mechanical Rate Y 11/14/17 06:00 PEEP 5.0 cmH2O 11/15/17 05:50 Pressure Support Vent 500 11/15/17 05:50 Sodium 149 mmol/L (136-145) H 11/16/17 05:00 Potassium 3.8 mmol/L (3.5-5.1) 11/16/17 05:00 Chloride 122 mmol/L (98-107) H 11/16/17 05:00 Carbon Dioxide 19 mmol/L (21-32) L 11/16/17 05:00 Anion Gap 8 (8-16) 11/16/17 05:00 BUN 15 mg/dL (7-18) D 11/16/17 05:00 Creatinine 1.2 mg/dL (0.7-1.3) 11/16/17 05:00 Creat Clearance w eGFR 58.26 (>60) 11/16/17 05:00 POC Glucometer 268.62338 UNITS (80-120) 11/11/17 05:39 Random Glucose 84 mg/dL (74-106) D 11/16/17 05:00 Lactic Acid 1.9 mmol/L (0.0-2.0) 11/11/17 05:25 Calcium 6.6 mg/dL (8.5-10.1) L* 11/16/17 05:00 Phosphorus 2.4 mg/dL (2.5-4.9) L 11/16/17 05:00 Magnesium 1.9 mg/dL (1.8-2.4) 11/16/17 05:00 Total Bilirubin 0.5 mg/dL (0.2-1.0) 11/16/17 05:00 Direct Bilirubin 0.2 mg/dL (0.0-0.2) 11/09/17 06:30 AST 18 U/L (15-37) 11/16/17 05:00 ALT 12 U/L (12-78) 11/16/17 05:00 Alkaline Phosphatase 75 U/L (45-117) 11/16/17 05:00 Creatine Kinase 57 IU/L (39-308) 11/10/17 20:40 Troponin I 0.06 ng/ml (0.00-0.05) H D 11/10/17 20:40 B-Natriuretic Peptide 8130.55 pg/ml (5-450) H 11/08/17 23:22 Total Protein 3.6 g/dl (6.4-8.2) L 11/16/17 05:00 Albumin 1.5 g/dl (3.4-5.0) L 11/16/17 05:00 Urine Color Yellow 11/09/17 00:49 Urine Appearance Cloudy 11/09/17 00:49 Urine pH 5.0 (5.0-8.0) 11/09/17 00:49 Ur Specific [place] 1.017 (1.001-1.035) 11/09/17 00:49 Urine Protein 1+ (NEGATIVE) H 11/09/17 00:49 Urine Glucose (UA) Negative (NEGATIVE) 11/09/17 00:49 Urine Ketones Negative (NEGATIVE) 11/09/17 00:49 Urine Blood 1+ (NEGATIVE) H 11/09/17 00:49 Urine Nitrite Negative (NEGATIVE) 11/09/17 00:49 Urine Bilirubin Negative (NEGATIVE) 11/09/17 00:49 Urine Urobilinogen Negative mg/dL (0.2-1.0) 11/09/17 00:49 Ur Leukocyte Esterase 3+ (NEGATIVE) H 11/09/17 00:49 Urine WBC (Auto) 608 /hpf (3-5) 11/09/17 00:49 Urine RBC (Auto) 19 /hpf (0-3) 11/09/17 00:49 Ur Epithelial Cells Rare /HPF (FEW) 11/09/17 00:49 Stool Occult Blood Negative (NEGATIVE) 11/08/17 23:57 Digoxin 1.1657 ng/ml (0.8-2.0) 11/15/17 05:15 Blood Type O POSITIVE 11/11/17 05:25 Antibody Screen Negative 11/11/17 05:25 Crossmatch See Detail 11/11/17 05:25 - ....Imaging EKG: Other (tele: afib, rate ok) cxr: left opacification, slightly improved ecg: sr, nl intervals, ant/lat twis and subtle st depressions Echo 11/25: borderline vs mildly reduced LVSF (regional wall motion eval is TDS) . nl RV. mild LAE. valve fxn WNL. repeat echo 11/2017: lvh, nl lv/rv, mild tr, mild phtn est cct 36 mins a/p: 82 m hx dementia, htn, hld, pad, cad, ckd, sent from or for rectal bleed. PAfib , MAT: -on xarelto (in addition to asa for pad/cad) at or per charts, with no mention of Afib--indication for xarelto was reported as PAD which is not an approved indication--> hence have to assume there is h/o pafib here. no h/o CVA per [place] dx list, and per d/w family - holding AC and ASA in setting of GIB. Resume asa if/when cleared by GI. -episodes of both rapid afib/MAT 2/3-->2/4 in setting of acute large GI bleed ( hgb drop to 5) and urgent EGD with epinephrine injection into bleeding vessel. -/6-9: improved rate control. cont dig (level ok). h/o CAD/pad, unknown details - outside vascular follows for LE disease per family. details of cad unknown. UGIB (from PUD): - p/w GIB in setting of xarelto and ASA --> now on hold. -recurrent large melena 2/3 with bleeding ulcer treated on EGD. -severe rebleed 2/5 (hgb 5) with hypotension, urgent rpt EGD with control of visibly bleeding vessel. -holding both ASA and AC until GIB w/u and tx is complete. s/p EGD/FOC and epinephrine injection. -family describes moderate dementia at baseline, which worsened the past 6 mo or so. 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 chf hx)). they state they strongly desire avoiding recurrent bleeding (bebeto given present episode was potentially life-threatening) or recurrent hospitalization, and hence prefer ASA over AC (verbalize understanding that ASA offers incomplete CVA prevention). -would not pursue Watchman here given pt's baseline dementia status -resume ASA 81 mg later once stable per GI intelligence consultant. CHF: -prior h/o "water on the heart" per , ? details -Echo here unremarkable -patient still NPO requiring IVF. Would prioritize mgm't of bleed/hemodynamic stability and would not recommend diuresis for now (ok for continued ivf) htn: -pressors off now -holding home bb, monitor trend hld: -stable, statin not listed on home meds KEVEN: -unknown baseline -creat fluctuating 1.1-1.5 here
--- NOTE | 2017-11-16 11:29 | PN ---
Teaching Attending Note Name of Resident: Ajit You ATTENDING PHYSICIAN STATEMENT I saw and evaluated the patient. I reviewed the resident's note and discussed the case with the resident. I agree with the resident's findings and plan as documented. SUBJECTIVE: Patient seen and examined in the ICU. Remains intubated. Drowsy but arousable and intermittently follows simple commands. No occult blood noted. No blood transfusions required overnight. Currently off NE for hemodynamic support. OBJECTIVE: Intake & Output 11/13/17 11/14/17 11/15/17 11/16/17 23:59 23:59 23:59 23:59 Intake Total 4945.5 1265.4 3104 644 Output Total 1600 1300 1100 300 Balance 3345.5 -34.6 2004 344 Weight 178 lb 4.8 oz 178 lb 5 oz 187 lb 14.4 oz 184 lb 9.6 oz Last Vital Signs Temp Pulse Resp BP Pulse Ox 98.5 F 74 16 118/65 98 11/16/17 06:00 11/16/17 10:25 11/16/17 11:13 11/16/17 06:00 11/16/17 09:50 Active Medications Chlorhexidine Gluconate (Hibiclens For Decolonization -) 1 applic TP HS [facility] Last Admin: 11/15/17 21:12 Dose: 1 applic Chlorhexidine Gluconate (Peridex -) 15 ml MM BID [facility] Last Admin: 11/16/17 10:27 Dose: 15 ml Digoxin (Lanoxin Injection -) 0.25 mg IVPUSH DAILY [facility] Last Admin: 11/16/17 10:25 Dose: 0.25 mg Pantoprazole Sodium 160 mg/ (Dextrose) 290 mls @ 14.5 mls/hr IVPB Q20H [facility] Last Admin: 11/15/17 21:12 Dose: 14.5 mls/hr Piperacillin Sod/Tazobactam (Sod 3.375 gm/ Dextrose) 100 mls @ 100 mls/hr IVPB Q8H-IV [facility] Last Admin: 11/16/17 10:26 Dose: 100 mls/hr Potassium Chloride 20 meq/ (Dextrose/Sodium Chloride) 1,010 mls @ 100 mls/hr IVPB Q10H [facility] Last Admin: 11/16/17 06:25 Dose: 100 mls/hr Mupirocin (Bactroban Ointment (For Decolonization) -) 1 applic NS BID ERNIE Stop: 11/17/17 21:59 Last Admin: 11/15/17 21:12 Dose: 1 applic Gen: intubated,drowsy but arousable Heart: RRR Lung: decreased breath sounds at the bases Abd: soft, nontender Ext: + edema Laboratory Results - last 24 hr 11/11/17 11/16/17 11/16/17 05:25 05:00 05:00 WBC 9.4 RBC 2.85 L Hgb 8.8 L Hct 26.5 L MCV 93.1 MCH 30.9 MCHC 33.3 RDW 17.4 H Plt Count 116 L D MPV 8.9 Neutrophils % 81.7 Lymphocytes % 9.2 D Monocytes % 6.6 Eosinophils % 1.8 Basophils % 0.7 Puncture Site ABG pH ABG pCO2 at Pt Temp ABG pO2 at Pt Temp ABG HCO3 ABG O2 Sat (Measured) ABG O2 Content ABG Base Excess Ramses Test Oxygen Flow Rate Sodium 149 H Potassium 3.8 Chloride 122 H Carbon Dioxide 19 L Anion Gap 8 BUN 15 D Creatinine 1.2 Creat Clearance w eGFR 58.26 Random Glucose 84 D Calcium 6.6 L* Phosphorus 2.4 L Magnesium 1.9 Total Bilirubin 0.5 AST 18 ALT 12 Alkaline Phosphatase 75 Total Protein 3.6 L Albumin 1.5 L Blood Type O POSITIVE Antibody Screen Negative Crossmatch See Detail 11/16/17 06:00 WBC RBC Hgb Hct MCV MCH MCHC RDW Plt Count MPV Neutrophils % Lymphocytes % Monocytes % Eosinophils % Basophils % Puncture Site Right radial ABG pH 7.37 ABG pCO2 at Pt Temp 30.6 L ABG pO2 at Pt Temp 150.0 H D ABG HCO3 17.1 L ABG O2 Sat (Measured) 99.6 H* ABG O2 Content 12.1 L ABG Base Excess -7.0 L Ramses Test Positive Oxygen Flow Rate No Result Required. Sodium Potassium Chloride Carbon Dioxide Anion Gap BUN Creatinine Creat Clearance w eGFR Random Glucose Calcium Phosphorus Magnesium Total Bilirubin AST ALT Alkaline Phosphatase Total Protein Albumin Blood Type Antibody Screen Crossmatch ASSESSMENT AND PLAN: GI Bleed from Duodenal Ulcer Acute Blood Loss Anemia Hemorrhagic Shock Paroxysmal Atrial Fibrillation Lactic Acidosis UTI PAD CAD CKD HTN Hyperlipidemia Dementia - monitor H/H - transfuse as needed - protonix - hold all anticoagulation, antiplatelet therapy - Monitor off pressors as MAP is maintained >65 - rate control - Monitor off antibiotics for now - DVT prophylaxis - continue ICU monitoring Dr Rojas Critical care time spent in reviewing chart, evaluating patient and formulating plan 35 min
--- NOTE | 2017-11-16 13:18 | PN ---
Physical Exam: SUBJECTIVE: Patient seen and examined Patient currently intubated/off sedation/off levophed. Patient with no bloody bowel movements overnight. H/H stable this AM Opens eyes to stimuli OBJECTIVE: Vital Signs Period Temp Pulse Resp BP Sys/Mcdowell Pulse Ox Last 24 Hr 97 F-98.9 F 69-82 8-18 102-125/60-79 98-100 GENERAL: The patient is Intubated HEAD: Normal with no signs of trauma. Opens eyes to stimuli ENT: Tube in place, OG in place LUNGS: Decreased Breath sounds , clear to auscultation bilaterally, no wheezes, no crackles, no accessory muscle use. HEART: Regular rate and rhythm, S1, S2 without murmur, rub or gallop. ABDOMEN: Soft, nontender, nondistended, normoactive bowel sounds, no guarding, no rebound, no hepatosplenomegaly, no masses. Ext: 2+ edema with weeping Laboratory Results - last 24 hr 11/16/17 11/16/17 11/16/17 05:00 05:00 06:00 WBC 9.4 RBC 2.85 L Hgb 8.8 L Hct 26.5 L MCV 93.1 MCH 30.9 MCHC 33.3 RDW 17.4 H Plt Count 116 L D MPV 8.9 Neutrophils % 81.7 Lymphocytes % 9.2 D Monocytes % 6.6 Eosinophils % 1.8 Basophils % 0.7 Puncture Site Right radial ABG pH 7.37 ABG pCO2 at Pt Temp 30.6 L ABG pO2 at Pt Temp 150.0 H D ABG HCO3 17.1 L ABG O2 Sat (Measured) 99.6 H* ABG O2 Content 12.1 L ABG Base Excess -7.0 L Ramses Test Positive Oxygen Flow Rate No Result Required. Sodium 149 H Potassium 3.8 Chloride 122 H Carbon Dioxide 19 L Anion Gap 8 BUN 15 D Creatinine 1.2 Creat Clearance w eGFR 58.26 Random Glucose 84 D Calcium 6.6 L* Phosphorus 2.4 L Magnesium 1.9 Total Bilirubin 0.5 AST 18 ALT 12 Alkaline Phosphatase 75 Total Protein 3.6 L Albumin 1.5 L Active Medications Generic Name Dose Route Start Last Admin Trade Name Freq PRN Reason Stop Dose Admin Chlorhexidine Gluconate 1 applic 11/12/17 22:00 11/15/17 21:12 Hibiclens For Decolonization - TP 1 applic HS ERNIE Administration Chlorhexidine Gluconate 15 ml 11/13/17 22:00 11/16/17 10:27 Peridex - MM 15 ml BID ERNIE Administration Digoxin 0.25 mg 11/12/17 10:17 11/16/17 10:25 Lanoxin Injection - IVPUSH 0.25 mg DAILY ERNIE Administration Pantoprazole Sodium 160 mg/ 290 mls @ 14.5 mls/hr 11/10/17 21:00 11/15/17 21: 12 Dextrose IVPB 14.5 mls/hr Q20H ERNIE Administration Potassium Chloride 20 meq/ 1,010 mls @ 100 mls/hr 11/14/17 14:15 11/16/17 06: 25 Dextrose/Sodium Chloride IVPB 100 mls/hr Q10H ERNIE Administration Mupirocin 1 applic 11/12/17 22:00 11/15/17 21:12 Bactroban Ointment (For Decolonization) - NS 11/17/17 21:59 1 applic BID ERNIE Administration ASSESSMENT/PLAN: 82 y/o male with PMHx of anemia, BPH, HTN, HLD, CAD, CKD, depression, anxiety, presented from [facility] w/ melena (on home xarelto for PAD), found to be initially hypotensive w/ SBP- 80's in the ED #GI Acute GI bleed from duodenal ulcer -S/p EGD and clipping and IR embolization -Monitor CBC -Transfuse prbc as needed, maintan hgb >7 -Protonix drip -Keep patient off anticoagulation -Given 10 mg IV Vit K to reverse coagulopathy -GI on board, Dr. Enriquez -Surgery on board, Dr. Peng -IR on board, Dr. Pratt #Heme Acute blood loss anemia, stable -Monitor CBC -Transfuse prbc as needed, maintan hgb >7 -Keep patient off anticoagulation -Given 10 mg IV Vit K to reverse coagulopathy #Cardio HTN, HLD, CAD -Digoxin 0.25 mg po daily -Off levophed -D5 1/2 NS@ 100 cc/hr with potassium -Hold ASA -Hold Metoprolol Succinate 25 mg PO with hx of hypotension -Hold xarelto in acute bleeding #Resp Intubated/sedated, sepsis -Propofol stopped -Continue zosyn -CXR improved -Monitor respiratory status -Sedation vacations, trial on cpap to assess respiratory drive #Renal KEVEN on CKD -D5 1/2 NS@ 100 cc/hr w/ potassium -Avoid nephrotoxic medications -monitor Cr, urine output #FEN/GI -D5 1/2 NS@ 100 cc/hr w/ potassium -monitor BMP -Will start tube feeds #PPx -SCDs -Protonix drip #Dispo: Continue icu level of care Visit type - Emergency Visit Emergency Visit: Yes ED Registration Date: 11/08/17 Care time: The patient presented to the Emergency Department on the above date and was hospitalized for further evaluation of their emergent condition. - New Patient This patient is new to me today: No - Critical Care Critical Care patient: Yes Total Critical Care Time (in minutes): 35 Critical Care Statement: The care of this patient involved high complexity decision making to prevent further life threatening deterioration of the patient 's condition and/or to evaluate & treat vital organ system(s) failure or risk of failure.
[2017-11-16] MEDS: MUPIROCIN 2% TOPICAL OINTMENT FOR DECOLONIZATION NS SCH ×2 (13:36→22:10)
--- NOTE | 2017-11-16 16:30 | PN ---
Progress Note, Physician History of Present Illness: still intubated stable wbc normal - Current Medication List Current Medications: Active Medications Chlorhexidine Gluconate (Hibiclens For Decolonization -) 1 applic TP HS [facility] Last Admin: 11/15/17 21:12 Dose: 1 applic Chlorhexidine Gluconate (Peridex -) 15 ml MM BID [facility] Last Admin: 11/16/17 10:27 Dose: 15 ml Digoxin (Lanoxin Injection -) 0.25 mg IVPUSH DAILY [facility] Last Admin: 11/16/17 10:25 Dose: 0.25 mg Pantoprazole Sodium 160 mg/ (Dextrose) 290 mls @ 14.5 mls/hr IVPB Q20H [facility] Last Admin: 11/15/17 21:12 Dose: 14.5 mls/hr Potassium Chloride 20 meq/ (Dextrose/Sodium Chloride) 1,010 mls @ 100 mls/hr IVPB Q10H [facility] Last Admin: 11/16/17 13:31 Dose: 100 mls/hr Mupirocin (Bactroban Ointment (For Decolonization) -) 1 applic NS BID [facility] Stop: 11/17/17 21:59 Last Admin: 11/16/17 13:36 Dose: 1 applic - Objective Vital Signs: Vital Signs Temperature 97 F L 11/16/17 10:00 Pulse Rate 68 11/16/17 16:00 Respiratory Rate 12 11/16/17 16:00 Blood Pressure 98/56 11/16/17 16:00 O2 Sat by Pulse Oximetry (%) 98 11/16/17 09:50 Constitutional: Yes: No Distress, Calm Cardiovascular: Yes: Regular Rate and Rhythm Respiratory: Yes: Intubated, Mechanically Ventilated Gastrointestinal: Yes: Normal Bowel Sounds, Soft Musculoskeletal: Yes: WNL Extremities: Yes: WNL Neurological: Yes: Other Labs: CBC, BMP 11/16/17 05:00 11/16/17 05:00 INR, PTT INR 1.22 (0.82-1.09) H 11/14/17 06:10 Assessment/Plan Problem List - Problems (1) Gastrointestinal hemorrhage with melena Code(s): K92.1 - MELENA (2) Hyperlipidemia Code(s): E78.5 - HYPERLIPIDEMIA, UNSPECIFIED (3) HTN (hypertension) Code(s): I10 - ESSENTIAL (PRIMARY) HYPERTENSION (4) CAD (coronary artery disease) Code(s): I25.10 - ATHSCL HEART DISEASE OF [place] CORONARY ARTERY W/O ANG PCTRS (5) BPH (benign prostatic hyperplasia) Code(s): N40.0 - BENIGN PROSTATIC HYPERPLASIA WITHOUT LOWER URINRY TRACT SYMP (6) Dementia Code(s): F03.90 - UNSPECIFIED DEMENTIA WITHOUT BEHAVIORAL DISTURBANCE Lactic Acidosis UTI PAD CKD plan icu stopped abx s wbc normal will monitor without abx now' rest continue current mgmt cc time 40 min
[2017-11-16] MEDS: PANTOPRAZOLE SODIUM 160 MG in DEXTROSE 5%-WATER - 290 ML IVPB SCH (22:09)
[2017-11-16] MEDS: CHLORHEXIDINE GLUCONATE 4% CLEANSER FOR DECOLONIZATION TP SCH (22:10)
--- NOTE | 2017-11-17 01:27 | PN ---
Progress Note (short form) - Note Progress Note: examined in ICU no new events over night off sedation for over 24 hrs responds to loud verbal and tactile stimuli remains intubated Intake & Output 11/14/17 11/15/17 11/16/1718 23:59 23:59 23:59 23:59 Intake Total 1265.4 3104 1578 Output Total 1300 1100 800 Balance -34.6 2004 778 Weight 178 lb 5 oz 187 lb 14.4 oz 184 lb 9.6 oz Vital Signs Period Temp Pulse Resp BP Sys/Mcdowell Pulse Ox Last 24 Hr 97 F-98.7 F 68-82 8-18 95-125/56-79 98-100 Pale Intubated heart S1/S2 irreg / tachy lungs no wheezing/ grossly clear abd soft no tenderness / distended ext no edema CBC, BMP 11/16/17 05:00 11/16/17 05:00 Microbiology 11/09/17 00:59 Urine - Urine - Catheterized Urine Culture - Final NO GROWTH OBTAINED Active Medications Chlorhexidine Gluconate (Hibiclens For Decolonization -) 1 applic TP HS [facility] Last Admin: 11/16/17 22:10 Dose: 1 applic Chlorhexidine Gluconate (Peridex -) 15 ml MM BID [facility] Last Admin: 11/16/17 22:11 Dose: 15 ml Digoxin (Lanoxin Injection -) 0.25 mg IVPUSH DAILY [facility] Last Admin: 11/16/17 10:25 Dose: 0.25 mg Pantoprazole Sodium 160 mg/ (Dextrose) 290 mls @ 14.5 mls/hr IVPB Q20H [facility] Last Admin: 11/16/17 22:09 Dose: Not Given Potassium Chloride 20 meq/ (Dextrose/Sodium Chloride) 1,010 mls @ 100 mls/hr IVPB Q10H [facility] Last Admin: 11/16/17 22:09 Dose: Not Given Mupirocin (Bactroban Ointment (For Decolonization) -) 1 applic NS BID [facility] Stop: 11/17/17 21:59 Last Admin: 11/16/17 22:10 Dose: 1 applic 82 y/o male Hx dementia /HTN /PAD/CKD/ PVD/ was transfered from [facility] with rectal bleed and hypotension. Episode of acute bleed -- requiring transfusion / emergent EGD X 2 # Gi Bleed recurrent Acute Upper GI bleed /shock 4 unit blood transfusion now / FFP s/p repeat emergent EGD continue to monitor h/h continue protonix / octreotide drip avoid all A/C CCU care # s/p shock, hemorrhagic off pressors / off sedation continue supportive care CCu care Problem List - Problems (1) Gastrointestinal hemorrhage with melena Code(s): K92.1 - MELENA (2) GI bleed Code(s): K92.2 - GASTROINTESTINAL HEMORRHAGE, UNSPECIFIED (3) Dementia Code(s): F03.90 - UNSPECIFIED DEMENTIA WITHOUT BEHAVIORAL DISTURBANCE (4) BPH (benign prostatic hyperplasia) Code(s): N40.0 - BENIGN PROSTATIC HYPERPLASIA WITHOUT LOWER URINRY TRACT SYMP (5) CAD (coronary artery disease) Code(s): I25.10 - ATHSCL HEART DISEASE OF [place] CORONARY ARTERY W/O ANG PCTRS (6) HTN (hypertension) Code(s): I10 - ESSENTIAL (PRIMARY) HYPERTENSION (7) Hyperlipidemia Code(s): E78.5 - HYPERLIPIDEMIA, UNSPECIFIED
[2017-11-17] MEDS: POTASSIUM CHLORIDE 20 MEQ in DEXTROSE 5%-NORMAL SALINE 1,000 ML IVPB SCH (04:37)
[2017-11-17 06:37] LABS: BASO % 0.2 % (0-2.0); EOS % 2.3 % (0-4.5); HEMOGLOBIN 8.7 GM/dL (11.7-16.9); LYMPH % 8.6 % (8-40); MCH 31.1 pg (25.7-33.7); MCHC 33.3 g/dl (32.0-35.9); MEAN CELL VOLUME 93.1 fl (80-96); MEAN PLT VOLUME 8.8 fl (7.5-11.1); NEUT % 82.9 % (42.8-82.8); PLATELET COUNT 132 K/MM3 (134-434); RBC 2.79 M/mm3 (4.00-5.60); WHITE BLOOD COUNT 9.6 K/mm3 (4.0-10.0)
[2017-11-17 07:03] LABS: CHLORIDE 123 mmol/L (98-107); POTASSIUM 3.8 mmol/L (3.5-5.1); SODIUM 149 mmol/L (136-145)
[2017-11-17 07:03] LABS: ARTERIAL BLD GAS O2 SATURATION 99.2 % (90-98.9); ARTERIAL BLOOD GAS BASE EXCESS -6.4 meq/l (-2-2); ARTERIAL BLOOD GAS pH 7.36 (7.35-7.45)
[2017-11-17 07:26] LABS: ALBUMIN 1.4 g/dl (3.4-5.0); ALK PHOS 79 U/L (45-117); ANION GAP 6 (8-16); BILIRUBIN,TOTAL 0.3 mg/dL (0.2-1.0); BLOOD UREA NITROGEN 13 mg/dL (7-18); CO2 20 mmol/L (21-32); GLUCOSE,RANDOM 114 mg/dL (74-106); MAGNESIUM 1.9 mg/dL (1.8-2.4); PHOSPHOROUS 1.9 mg/dL (2.5-4.9); SGOT/AST 14 U/L (15-37); SGPT/ALT 12 U/L (12-78); TOT PROT 3.5 g/dl (6.4-8.2)
[2017-11-17 07:31] LABS: ALLENS TEST POSITIVE
[2017-11-17 07:44] LABS: CALCIUM 6.4 mg/dL (8.5-10.1)
--- NOTE | 2017-11-17 09:10 | PN ---
Progress Note (short form) - Note Progress Note: PULM/CCM SUBJECTIVE: Patient seen and examined in the ICU. -no further melena, counts stable -passing SBT this am OBJECTIVE: Vital Signs Temp 98.7 F 11/17/17 06:00 Pulse 77 11/17/17 08:34 Resp 16 11/17/17 08:34 BP 112/64 11/17/17 06:00 Pulse Ox 100 11/17/17 08:34 Intake & Output 11/16/17 11/16/17 11/17/17 11:59 23:59 11:59 Intake Total 634 663 4311 Output Total 300 500 350 Balance 344 434 767 Weight 83.733 kg 85.094 kg Intake: IV 174 174 177 protonix 174 174 177 IVPB 100 100 100 Tube Feeding 210 420 600 Tube Irrigant 160 240 240 Output: Urine 300 500 350 Paul 300 500 350 Other: Voiding Method Indwelling Catheter Indwelling Catheter Bowel Movement Yes Yes Yes # Bowel Movements 1 1 1 [facility] Active Medications Chlorhexidine Gluconate (Hibiclens For Decolonization -) 1 applic TP HS [facility] Last Admin: 11/16/17 22:10 Dose: 1 applic Chlorhexidine Gluconate (Peridex -) 15 ml MM BID [facility] Last Admin: 11/16/17 22:11 Dose: 15 ml Digoxin (Lanoxin Injection -) 0.25 mg IVPUSH DAILY [facility] Last Admin: 11/16/17 10:25 Dose: 0.25 mg Furosemide (Lasix Injection -) 20 mg IVPUSH ONCE ONE Stop: 11/17/17 09:16 Pantoprazole Sodium 160 mg/ (Dextrose) 290 mls @ 14.5 mls/hr IVPB Q20H [facility] Last Admin: 11/16/17 22:09 Dose: Not Given Mupirocin (Bactroban Ointment (For Decolonization) -) 1 applic NS BID [facility] Stop: 11/17/17 21:59 Last Admin: 11/16/17 22:10 Dose: 1 applic Gen: awakens to voice Heart: RRR Lung: diminished bases Abd: soft, nontender, non distended, +BS Ext: + edema Neuro: non focal exam. CBC, BMP 11/17/17 06:15 11/17/17 06:15 ASSESSMENT AND PLAN: GI Bleed from Duodenal Ulcer Acute Blood Loss Anemia Hemorrhagic Shock Paroxysmal Atrial Fibrillation Lactic Acidosis UTI PAD CAD CKD HTN Hyperlipidemia Dementia - monitor H/H - transfuse as needed - protonix daily - hold all anticoagulation, antiplatelet therapy - vent wean today - Monitor off pressors as MAP is maintained >65 - rate control - add free water for hypernatremia - Monitor off antibiotics for now - DVT prophylaxis with SCD - continue ICU monitoring Moy Tavares ACNP 4424 35min CCT
[2017-11-17] MEDS ORDERED: FUROSEMIDE 40 MG/4 ML INJECTABLE VIAL IVPUSH ONE (09:15)
[2017-11-17] MEDS: CHLORHEXIDINE GLUCONATE 0.12% 15ML CUP MM SCH ×2 (09:41→22:13)
[2017-11-17] MEDS: DIGOXIN 0.5 MG/2 ML AMPUL IVPUSH SCH (09:41)
[2017-11-17] MEDS: MUPIROCIN 2% TOPICAL OINTMENT FOR DECOLONIZATION NS SCH (10:44)
--- NOTE | 2017-11-17 11:58 | PN ---
Progress Note, Physician Chief Complaint: GI bleed History of Present Illness: 82 yo male [place] resident PMH anemia, BPH, hypertension, hyperlipidemia, CAD, CKD, dementia, depression, anxiety, and dementia who presents to the emergency department with rectal bleed. Additional melena was reported, passing clots per rectum. He had second endoscopy and clipping of the bleeding ulcer as well as GDA embolization by IR. Remains in the ICU extubated today - Current Medication List Current Medications: Active Medications Chlorhexidine Gluconate (Hibiclens For Decolonization -) 1 applic TP HS [facility] Last Admin: 11/16/17 22:10 Dose: 1 applic Chlorhexidine Gluconate (Peridex -) 15 ml MM BID [facility] Last Admin: 11/17/17 09:41 Dose: 15 ml Digoxin (Lanoxin Injection -) 0.25 mg IVPUSH DAILY [facility] Last Admin: 11/17/17 09:41 Dose: 0.25 mg Pantoprazole Sodium 160 mg/ (Dextrose) 290 mls @ 14.5 mls/hr IVPB Q20H [facility] Last Admin: 11/16/17 22:09 Dose: Not Given Mupirocin (Bactroban Ointment (For Decolonization) -) 1 applic NS BID [facility] Stop: 11/17/17 21:59 Last Admin: 11/17/17 10:44 Dose: 1 applic - Objective Vital Signs: Vital Signs Temperature 99.4 F 11/17/17 10:00 Pulse Rate 81 11/17/17 10:01 Respiratory Rate 16 11/17/17 10:00 Blood Pressure 132/78 11/17/17 10:00 O2 Sat by Pulse Oximetry (%) 100 11/17/17 10:01 Vital Signs Period Temp Pulse Resp BP Sys/Mcdowell Pulse Ox Last 24 Hr 98.5 F-99.4 F 68-82 -18 95-132/56-79 98-100 Intake & Output 11/16/17 11/17/17 11/17/17 23:59 07:59 15:59 Intake Total 1117 Output Total 200 350 Balance -200 767 Weight 187 lb 9.6 oz Intake: IV 177 protonix 177 IVPB 100 Tube Feeding 600 Tube Irrigant 240 Output: Urine 200 350 Paul 200 350 Other: Voiding Method Indwelling Catheter Bowel Movement Yes Yes # Bowel Movements 1 1 Weight Measurement Method Built in Bedscale Constitutional: Yes: Well Nourished, No Distress Eyes: Yes: Conjunctiva Clear, EOM Intact HENT: Yes: Atraumatic, Normocephalic Neck: Yes: Supple, Trachea Midline Cardiovascular: Yes: Regular Rate and Rhythm, S1, S2 Respiratory: Yes: Regular, CTA Bilaterally. No: Cough Gastrointestinal: Yes: Normal Bowel Sounds, Soft. No: Tenderness ...Rectal Exam: Yes: Deferred Genitourinary: No: CVA Tenderness - Left, CVA Tenderness - Right Musculoskeletal: No: Muscle Pain, Muscle Weakness Extremities: No: Cold, Cool Neurological: Yes: Alert, Oriented Psychiatric: Yes: Alert, Oriented Labs: CBC, BMP 11/17/17 06:15 11/17/17 06:15 INR, PTT INR 1.22 (0.82-1.09) H 11/14/17 06:10 Problem List - Problems (1) Gastrointestinal hemorrhage with melena Assessment/Plan: 82yo male MMP [place] with GI bleed with Melena. Massive transfusion over the weekend. 9 units, On ventilator and maintained on vasopressor. Refractory GI bleed. s/p repeat endoscopy and clipping and IR embolization of GDA. sheath removed. He is very edematous peripherally. no more bloody bowel movements, extubated today. ICU management correct electrolytes continue diuresis will follow peripherally from this point This patient is critically ill. Time spent reviewing chart, examining patient, talking with providers and/or family and documentation is 35 minutes Code(s): K92.1 - MELENA (2) Hyperlipidemia Code(s): E78.5 - HYPERLIPIDEMIA, UNSPECIFIED (3) HTN (hypertension) Code(s): I10 - ESSENTIAL (PRIMARY) HYPERTENSION (4) CAD (coronary artery disease) Code(s): I25.10 - ATHSCL HEART DISEASE OF [place] CORONARY ARTERY W/O ANG PCTRS (5) BPH (benign prostatic hyperplasia) Code(s): N40.0 - BENIGN PROSTATIC HYPERPLASIA WITHOUT LOWER URINRY TRACT SYMP (6) Dementia Code(s): F03.90 - UNSPECIFIED DEMENTIA WITHOUT BEHAVIORAL DISTURBANCE
--- NOTE | 2017-11-17 15:20 | PN ---
Progress Note, Physician History of Present Illness: wbc still normal patient extubated today on mask family in room - Current Medication List Current Medications: Active Medications Chlorhexidine Gluconate (Hibiclens For Decolonization -) 1 applic TP HS [facility] Last Admin: 11/16/17 22:10 Dose: 1 applic Chlorhexidine Gluconate (Peridex -) 15 ml MM BID [facility] Last Admin: 11/17/17 09:41 Dose: 15 ml Digoxin (Lanoxin Injection -) 0.25 mg IVPUSH DAILY [facility] Last Admin: 11/17/17 09:41 Dose: 0.25 mg Pantoprazole Sodium 160 mg/ (Dextrose) 290 mls @ 14.5 mls/hr IVPB Q20H [facility] Last Admin: 11/16/17 22:09 Dose: Not Given Mupirocin (Bactroban Ointment (For Decolonization) -) 1 applic NS BID [facility] Stop: 11/17/17 21:59 Last Admin: 11/17/17 10:44 Dose: 1 applic - Objective Vital Signs: Vital Signs Temperature 99.4 F 11/17/17 10:00 Pulse Rate 88 11/17/17 12:00 Respiratory Rate 16 11/17/17 12:00 Blood Pressure 102/60 11/17/17 12:00 O2 Sat by Pulse Oximetry (%) 100 11/17/17 10:01 Constitutional: Yes: No Distress, Calm Cardiovascular: Yes: Regular Rate and Rhythm Respiratory: Yes: On Venti-Mask, Poor Air Entry, Other Gastrointestinal: Yes: Normal Bowel Sounds, Soft Musculoskeletal: Yes: WNL Extremities: Yes: WNL Neurological: Yes: Alert Psychiatric: Yes: Alert Labs: CBC, BMP 11/17/17 06:15 11/17/17 06:15 INR, PTT INR 1.22 (0.82-1.09) H 11/14/17 06:10 Assessment/Plan Problem List - Problems (1) Gastrointestinal hemorrhage with melena Code(s): K92.1 - MELENA (2) Hyperlipidemia Code(s): E78.5 - HYPERLIPIDEMIA, UNSPECIFIED (3) HTN (hypertension) Code(s): I10 - ESSENTIAL (PRIMARY) HYPERTENSION (4) CAD (coronary artery disease) Code(s): I25.10 - ATHSCL HEART DISEASE OF [place] CORONARY ARTERY W/O ANG PCTRS (5) BPH (benign prostatic hyperplasia) Code(s): N40.0 - BENIGN PROSTATIC HYPERPLASIA WITHOUT LOWER URINRY TRACT SYMP (6) Dementia Code(s): F03.90 - UNSPECIFIED DEMENTIA WITHOUT BEHAVIORAL DISTURBANCE Lactic Acidosis UTI PAD CKD plan continue to monitor off of abx close watch on resp status watch for any bleeding rest as per icu patient stable rest as per primary cc time 40 min
--- NOTE | 2017-11-17 16:57 | PN ---
Progress Note (short form) - Note Progress Note: examined in ICU no new events over night off sedation for over 24 hrs responds to loud verbal and tactile stimuli remains intubated Intake & Output 11/14/17 11/15/1718 11/17/17 23:59 23:59 23:59 23:59 Intake Total 1265.4 3104 1578 1117 Output Total 1300 7598 762 9087 Balance -34.6 2004 778 -233 Weight 178 lb 5 oz 187 lb 14.4 oz 184 lb 9.6 oz 187 lb 9.6 oz Vital Signs Period Temp Pulse Resp BP Sys/Mcdowell Pulse Ox Last 24 Hr 98.5 F-99.6 F 70-89 13-18 95-132/58-78 98-100 Pale Intubated heart S1/S2 irreg / tachy lungs no wheezing/ grossly clear abd soft no tenderness / distended ext RUE extensive edema / weeping +edema CBC, BMP 11/17/17 06:15 11/17/17 06:15 Microbiology 11/09/17 00:59 Urine - Urine - Catheterized Urine Culture - Final NO GROWTH OBTAINED Active Medications Chlorhexidine Gluconate (Hibiclens For Decolonization -) 1 applic TP HS [facility] Last Admin: 11/16/17 22:10 Dose: 1 applic Chlorhexidine Gluconate (Peridex -) 15 ml MM BID [facility] Last Admin: 11/17/17 09:41 Dose: 15 ml Digoxin (Lanoxin Injection -) 0.25 mg IVPUSH DAILY [facility] Last Admin: 11/17/17 09:41 Dose: 0.25 mg Pantoprazole Sodium 160 mg/ (Dextrose) 290 mls @ 14.5 mls/hr IVPB Q20H [facility] Last Admin: 11/16/17 22:09 Dose: Not Given Mupirocin (Bactroban Ointment (For Decolonization) -) 1 applic NS BID [facility] Stop: 11/17/17 21:59 Last Admin: 11/17/17 10:44 Dose: 1 applic 82 y/o male Hx dementia /HTN /PAD/CKD/ PVD/ was transfered from [facility] with rectal bleed and hypotension. Xarelto indused coagulopathy in setting of duodenal bulb ulcer resulting in hemorrhagic shock requiring transfusion PRBC /FFP/ emergent EGD X 2 / IR embolization to control bleeding. being weaned this am off sedation for >48hrs # Gi Bleed recurrent Acute Upper GI bleed /shock 9 unit blood transfusion to date s/p emergent EGD X2 / emolization continue to monitor h/h # s/p shock, hemorrhagic off pressors / off sedation continue supportive care wean as tolerated follow lytes hypoalbumin -- TPN? CCu care Problem List - Problems (1) Gastrointestinal hemorrhage with melena Code(s): K92.1 - MELENA (2) GI bleed Code(s): K92.2 - GASTROINTESTINAL HEMORRHAGE, UNSPECIFIED (3) Dementia Code(s): F03.90 - UNSPECIFIED DEMENTIA WITHOUT BEHAVIORAL DISTURBANCE (4) BPH (benign prostatic hyperplasia) Code(s): N40.0 - BENIGN PROSTATIC HYPERPLASIA WITHOUT LOWER URINRY TRACT SYMP (5) CAD (coronary artery disease) Code(s): I25.10 - ATHSCL HEART DISEASE OF [place] CORONARY ARTERY W/O ANG PCTRS (6) HTN (hypertension) Code(s): I10 - ESSENTIAL (PRIMARY) HYPERTENSION (7) Hyperlipidemia Code(s): E78.5 - HYPERLIPIDEMIA, UNSPECIFIED
--- NOTE | 2017-11-17 19:58 | PN ---
Progress Note (short form) - Note Progress Note: Chief Complaint: GIB, tachy History of Present Illness: extubated this morning, lethargic off sedation. off IVF. s/p lasix 20 mg IV x 1 this morning. Slight bp drop after lasix dose. Current Medications Chlorhexidine Gluconate (Hibiclens For Decolonization -) 1 applic TP HS [facility] Last Admin: 11/16/17 22:10 Dose: 1 applic Chlorhexidine Gluconate (Peridex -) 15 ml MM BID [facility] Last Admin: 11/17/17 09:41 Dose: 15 ml Digoxin (Lanoxin Injection -) 0.25 mg IVPUSH DAILY [facility] Last Admin: 11/17/17 09:41 Dose: 0.25 mg Pantoprazole Sodium 160 mg/ (Dextrose) 290 mls @ 14.5 mls/hr IVPB Q20H [facility] Last Admin: 11/16/17 22:09 Dose: Not Given Mupirocin (Bactroban Ointment (For Decolonization) -) 1 applic NS BID [facility] Stop: 11/17/17 21:59 Last Admin: 11/17/17 10:44 Dose: 1 applic - Objective Vital Signs: Vital Signs - 24 hr 11/16/17 11/16/17 11/16/17 20:00 21:00 22:00 Temperature 98.6 F Pulse Rate 75 80 Respiratory 15 18 16 Rate Blood Pressure 118/73 95/58 O2 Sat by Pulse 98 Oximetry (%) 11/16/17 11/17/17 11/17/17 23:36 00:00 02:00 Temperature 98.5 F Pulse Rate 82 82 Respiratory 17 16 16 Rate Blood Pressure 117/68 128/78 O2 Sat by Pulse Oximetry (%) 11/17/17 11/17/17 11/17/17 02:25 04:00 05:00 Temperature Pulse Rate 80 Respiratory 16 16 16 Rate Blood Pressure 109/71 O2 Sat by Pulse Oximetry (%) 11/17/17 11/17/17 11/17/17 06:00 07:00 08:00 Temperature 98.7 F Pulse Rate 80 76 Respiratory 16 18 16 Rate Blood Pressure 112/64 126/73 O2 Sat by Pulse 100 Oximetry (%) 11/17/17 11/17/17 11/17/17 08:34 08:55 09:00 Temperature Pulse Rate 77 Respiratory 16 17 16 Rate Blood Pressure O2 Sat by Pulse 100 100 Oximetry (%) 11/17/17 11/17/17 11/17/17 09:41 10:00 10:01 Temperature 99.4 F Pulse Rate 78 80 81 Respiratory 16 Rate Blood Pressure 132/78 O2 Sat by Pulse 100 Oximetry (%) 11/17/17 11/17/17 11/17/17 12:00 14:00 16:00 Temperature 99.6 F Pulse Rate 88 89 71 Respiratory 16 13 13 Rate Blood Pressure 102/60 97/60 107/61 O2 Sat by Pulse Oximetry (%) Intake & Output 11/15/17 11/16/17 11/17/17 11/18/17 07:59 07:59 07:59 07:59 Intake Total 1464 2284 2051 375 Output Total 800 4981 389 5223 Balance 664 1184 1201 -1425 Weight 187 lb 14.4 oz 184 lb 9.6 oz 187 lb 9.6 oz Constitutional: Yes: Well Nourished, No Distress, lethargic Cardiovascular: Yes: Regular Rate and Rhythm, S1, S2. No: Gallop, Murmur Respiratory: Yes: bibasilar rales poor effort + bs soft nt nd Extremities: No: Cold Edema: No Neurological: No: sedated no jaundice diaphoresis Psychiatric: No: Agitated Labs: CBC, BMP 11/17/17 06:15 11/17/17 06:15 - ....Imaging EKG: Other (tele: aries javier) cxr: left opacification, slightly improved ecg: sr, nl intervals, ant/lat twis and subtle st depressions Echo 11/25: borderline vs mildly reduced LVSF (regional wall motion eval is TDS) . nl RV. mild LAE. valve fxn WNL. repeat echo 11/2017: lvh, nl lv/rv, mild tr, mild phtn est cct 36 mins a/p: 82 m hx dementia, htn, hld, pad, cad, ckd, sent [place] bleed. PAfib , MAT: -on xarelto (in addition to asa for pad/cad) [place] per charts, with no mention of Afib--indication for xarelto was reported as PAD which is not an approved indication--> hence have to assume there is h/o pafib here. no h/o CVA per [place] dx list, and per d/w family - holding AC and ASA in setting of GIB. Resume asa if/when cleared by GI. -episodes of both rapid afib/MAT 2/-->24 in setting of acute large GI bleed ( hgb drop to 5) and urgent EGD with epinephrine injection into bleeding vessel. -11/13-: improved rate control. cont dig (level ok). - 11/17: in sr. dig level ok today. h/o CAD/pad, unknown details - outside vascular follows for LE disease per family. details of cad unknown. UGIB (from PUD): - p/w GIB in setting of xarelto and ASA --> now on hold. -recurrent large melena 2/3 with bleeding ulcer treated on EGD. -severe rebleed 2/ (hgb 5) with hypotension, urgent rpt EGD with control of visibly bleeding vessel. -holding both ASA and AC until GIB w/u and tx is complete. s/p EGD/FOC and epinephrine injection. -family describes moderate dementia at baseline, which worsened the past 6 mo or so. 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 chf hx)). they state they strongly desire avoiding recurrent bleeding (bebeto given present episode was potentially life-threatening) or recurrent hospitalization, and hence prefer ASA over AC (verbalize understanding that ASA offers incomplete CVA prevention). -would not pursue Watchman here given pt's baseline dementia status -resume ASA 81 mg later once stable per GI data communications software consultant. CHF: -prior h/o "water on the heart" per , ? details -Echo here unremarkable - s/p IVF - 11/17: trial of lasix 20 mg IV x 1. Will monitor direction of sodium and assess need for further doses tomorrow. htn: -pressors off now -holding home bb, monitor trend hld: -stable, statin not listed on home meds KEVEN/hypernatremia: -unknown baseline -creat fluctuating 1.1-1.5 here
[2017-11-17] MEDS: PANTOPRAZOLE SODIUM 160 MG in DEXTROSE 5%-WATER - 290 ML IVPB SCH (22:11)
[2017-11-17] MEDS: CHLORHEXIDINE GLUCONATE 4% CLEANSER FOR DECOLONIZATION TP SCH (22:13)
[2017-11-18 06:10] LABS: HEMATOCRIT 27.7 % (35.4-49); HEMOGLOBIN 9.2 GM/dL (11.7-16.9); MCH 31.4 pg (25.7-33.7); MCHC 33.2 g/dl (32.0-35.9); MEAN CELL VOLUME 94.5 fl (80-96); MEAN PLT VOLUME 8.6 fl (7.5-11.1); PLATELET COUNT 171 K/MM3 (134-434); RBC 2.93 M/mm3 (4.00-5.60); RDW 19.5 % (11.9-15.9); WHITE BLOOD COUNT 10.8 K/mm3 (4.0-10.0)
[2017-11-18 06:35] LABS: CHLORIDE 119 mmol/L (98-107); POTASSIUM 3.8 mmol/L (3.5-5.1); SODIUM 147 mmol/L (136-145)
[2017-11-18 06:43] LABS: ALBUMIN 1.6 g/dl (3.4-5.0); ALK PHOS 88 U/L (45-117); BILIRUBIN,TOTAL 0.7 mg/dL (0.2-1.0); BLOOD UREA NITROGEN 13 mg/dL (7-18); CO2 22 mmol/L (21-32); GLUCOSE,RANDOM 70 mg/dL (74-106); MAGNESIUM 1.9 mg/dL (1.8-2.4); PHOSPHOROUS 2.4 mg/dL (2.5-4.9); SGOT/AST 15 U/L (15-37); SGPT/ALT 11 U/L (12-78); TOT PROT 3.9 g/dl (6.4-8.2)
[2017-11-18 07:34] LABS: CALCIUM 6.7 mg/dL (8.5-10.1)
[2017-11-18 08:09] LABS: ANION GAP 8 (8-16)
[2017-11-18] MEDS: DIGOXIN 0.5 MG/2 ML AMPUL IVPUSH SCH (09:19)
[2017-11-18] MEDS: CHLORHEXIDINE GLUCONATE 0.12% 15ML CUP MM SCH ×2 (09:19→21:05)
[2017-11-18] MEDS ORDERED: PT OWN MED DRAWER 7, Y5N ONE (11:18)
--- NOTE | 2017-11-18 12:22 | PN ---
Progress Note, Physician History of Present Illness: stable on nasal canula wbc marginally higher - Current Medication List Current Medications: Active Medications Chlorhexidine Gluconate (Hibiclens For Decolonization -) 1 applic TP HS [facility] Last Admin: 11/17/17 22:13 Dose: 1 applic Chlorhexidine Gluconate (Peridex -) 15 ml MM BID [facility] Last Admin: 11/18/17 09:19 Dose: 15 ml Digoxin (Lanoxin Injection -) 0.25 mg IVPUSH DAILY [facility] Last Admin: 11/18/17 09:19 Dose: 0.25 mg Pantoprazole Sodium 160 mg/ (Dextrose) 290 mls @ 14.5 mls/hr IVPB Q20H [facility] Last Admin: 11/17/17 22:11 Dose: Not Given - Objective Vital Signs: Vital Signs Temperature 98.6 F 11/18/17 10:00 Pulse Rate 66 11/18/17 12:00 Respiratory Rate 12 11/18/17 12:00 Blood Pressure 120/64 11/18/17 12:00 O2 Sat by Pulse Oximetry (%) 100 11/18/17 09:00 Constitutional: Yes: No Distress, Calm Cardiovascular: Yes: S1, S2 Respiratory: Yes: On Nasal O2, Poor Air Entry, Rhonchi Gastrointestinal: Yes: Normal Bowel Sounds, Soft Neurological: Yes: Alert Psychiatric: Yes: Alert Labs: CBC, BMP 11/18/17 05:55 11/18/17 05:55 INR, PTT INR 1.22 (0.82-1.09) H 11/14/17 06:10 - ....Imaging Chest X-ray: Report Reviewed, Image Reviewed Assessment/Plan Problem List - Problems (1) Gastrointestinal hemorrhage with melena Code(s): K92.1 - MELENA (2) Hyperlipidemia Code(s): E78.5 - HYPERLIPIDEMIA, UNSPECIFIED (3) HTN (hypertension) Code(s): I10 - ESSENTIAL (PRIMARY) HYPERTENSION (4) CAD (coronary artery disease) Code(s): I25.10 - ATHSCL HEART DISEASE OF [place] CORONARY ARTERY W/O ANG PCTRS (5) BPH (benign prostatic hyperplasia) Code(s): N40.0 - BENIGN PROSTATIC HYPERPLASIA WITHOUT LOWER URINRY TRACT SYMP (6) Dementia Code(s): F03.90 - UNSPECIFIED DEMENTIA WITHOUT BEHAVIORAL DISTURBANCE Lactic Acidosis UTI PAD CKD plan continue to monitor off of abx close watch on resp status watch for any bleeding rest as per icu patient stable rest as per primary monitor wbc chest pt cc time 40 min
--- NOTE | 2017-11-18 15:11 | PN ---
Progress Note (short form) - Note Progress Note: PULM/CCM Pt seen & examined in the ICU, Hgb stable in the 9.0's, off all pressors, gently diuresing, pt is confused but remains extubated & in NAD, no reported melena. ACTIVE MEDS Chlorhexidine Gluconate (Hibiclens For Decolonization -) 1 applic TP HS [facility] Last Admin: 11/17/17 22:13 Dose: 1 applic Chlorhexidine Gluconate (Peridex -) 15 ml MM BID [facility] Last Admin: 11/18/17 09:19 Dose: 15 ml Digoxin (Lanoxin Injection -) 0.25 mg IVPUSH DAILY [facility] Last Admin: 11/18/17 09:19 Dose: 0.25 mg Pantoprazole Sodium 160 mg/ (Dextrose) 290 mls @ 14.5 mls/hr IVPB Q20H [facility] Last Admin: 11/18/17 15:17 Dose: 14.5 mls/hr V/S Temp 98.6 F 11/18/17 18:00 Pulse 77 11/18/17 20:00 Resp 15 11/18/17 20:00 BP 97/62 11/18/17 20:00 Pulse Ox 100 11/18/17 19:24 I's & O's 11/17/17 11/18/17 11/18/17 23:59 11:59 23:59 Intake Total 375 164 165 Output Total 1999 250 300 Balance -1625 -86 -135 Weight 85.82 kg Intake: IV 164 164 165 protonix 164 164 165 IVPB 211 Output: Gastric Drainage 0 Urine 1999 250 300 Paul 1999 250 300 Other: Voiding Method Indwelling Catheter Indwelling Catheter Indwelling Catheter Bowel Movement No 1 Weight Measurement Method Built in Bedscale Gen: Confused but responds to voice Heart: RRR Lung: diminished bases Abd: soft, nontender, non distended, +BS Ext: + edema Neuro: non focal exam. CBC, BMP 11/18/17 05:55 11/18/17 05:55 RECENT STUDIES TO NOTE: CXR 11/17: Since 11/16/2017, again those chin artifact with right jugular line. Endotracheal tube cannot be seen because of the technique utilized. The NG tube has been removed. Again noted is the large heart with decrease in pulmonary and pleural findings. Correlation recommended. ASSESS: This is an 82 y/o man, SNF resident w/ dementia, HTN, HLD, PAD, CAD, & CKD, admitted on 11/16 for GIB in the setting of xarelto and ASA now s/p EGD w/ epi injection into bleeding vessel, c/c/b severe re-bleed requiring repeat EGD & re-injection of visibly bleeding vessel. PLAN: - monitor H/H - normal transfusion thresholds - protonix daily - hold all anticoagulation - Restart ASA a/p GI - DO NOT restart Xeralto - rate control - free water for hypernatremia - Gentle diuresis - Monitor off antibiotics for now - DVT prophylaxis with SCD DGL, ACNP-BC [facility] ICU PULM/CCM 4436 39min CCT Problem List - Problems (1) GI bleed Code(s): K92.2 - GASTROINTESTINAL HEMORRHAGE, UNSPECIFIED
[2017-11-18] MEDS: PANTOPRAZOLE SODIUM 160 MG in DEXTROSE 5%-WATER - 290 ML IVPB SCH (15:17)
--- NOTE | 2017-11-18 16:07 | PN ---
Progress Note (short form) - Note Progress Note: CC: GIB S: s/p lasix 20 mg IV x 1 yesterday. Per nursing, no longer receiving tube feeds since NTG was pulled after extubation yesterday. patient alert but not oriented. mumbles, difficult to understand but does not appear to be in distress. Current Medications Chlorhexidine Gluconate (Hibiclens For Decolonization -) 1 applic TP HS [facility] Last Admin: 11/17/17 22:13 Dose: 1 applic Chlorhexidine Gluconate (Peridex -) 15 ml MM BID [facility] Last Admin: 11/18/17 09:19 Dose: 15 ml Digoxin (Lanoxin Injection -) 0.25 mg IVPUSH DAILY [facility] Last Admin: 11/18/17 09:19 Dose: 0.25 mg Pantoprazole Sodium 160 mg/ (Dextrose) 290 mls @ 14.5 mls/hr IVPB Q20H [facility] Last Admin: 11/18/17 15:17 Dose: 14.5 mls/hr Vital Signs - 24 hr 11/17/17 11/17/17 11/17/17 18:00 20:00 22:00 Temperature 98.4 F Pulse Rate 76 74 72 Respiratory 23 16 16 Rate Blood Pressure 115/56 116/74 117/69 O2 Sat by Pulse 100 Oximetry (%) 11/18/17 11/18/17 11/18/17 00:00 02:00 04:00 Temperature 98.6 F Pulse Rate 68 66 60 Respiratory 12 12 14 Rate Blood Pressure 96/59 104/64 102/62 O2 Sat by Pulse Oximetry (%) 11/18/17 11/18/17 11/18/17 06:00 08:00 08:16 Temperature 98.4 F Pulse Rate 68 68 Respiratory 14 12 Rate Blood Pressure 118/64 115/62 O2 Sat by Pulse 100 Oximetry (%) 11/18/17 11/18/17 11/18/17 09:00 09:19 10:00 Temperature 98.6 F Pulse Rate 66 64 Respiratory 12 Rate Blood Pressure 112/63 O2 Sat by Pulse 100 Oximetry (%) 11/18/17 11/18/17 12:00 13:53 Temperature 98.7 F Pulse Rate 66 54 L Respiratory 12 12 Rate Blood Pressure 120/64 115/56 O2 Sat by Pulse Oximetry (%) Intake & Output 02/09/11/17/17 11/18/17 11/19/17 07:59 07:59 07:59 07:59 Intake Total 2284 2051 539 165 Output Total 1656 863 0980 300 Balance 1184 1201 -1711 -135 Weight 184 lb 9.6 oz 187 lb 9.6 oz 189 lb 3.2 oz CBC, BMP 11/18/17 05:55 11/18/17 05:55 Laboratory Tests 11/17/17 06:15 Digoxin 1.3903 EKG: Other (tele: aries javier) cxr: left opacification, slightly improved ecg: sr, nl intervals, ant/lat twis and subtle st depressions Echo 11/25: borderline vs mildly reduced LVSF (regional wall motion eval is TDS) . nl RV. mild LAE. valve fxn WNL. repeat echo 11/2017: lvh, nl lv/rv, mild tr, mild phtn est cct 36 mins a/p: 82 m hx dementia, htn, hld, pad, cad, ckd, sent from [facility] for rectal bleed. PAfib , MAT: -on xarelto (in addition to asa for pad/cad) at [facility] per charts, with no mention of Afib--indication for xarelto was reported as PAD which is not an approved indication--> hence have to assume there is h/o pafib here. no h/o CVA per CT dx list, and per d/w family - holding AC and ASA in setting of GIB. Resume asa if/when cleared by GI. -episodes of both rapid afib/MAT 2/3-->2/4 in setting of acute large GI bleed ( hgb drop to 5) and urgent EGD with epinephrine injection into bleeding vessel. -11/13-: improved rate control. cont dig (level ok). -11/17- 11/18: in sr. dig level ok 11/17 h/o CAD/pad, unknown details - outside vascular follows for LE disease per family. details of cad unknown. UGIB (from PUD): - p/w GIB in setting of xarelto and ASA --> now on hold. -recurrent large melena 2/3 with bleeding ulcer treated on EGD. -severe rebleed 2/5 (hgb 5) with hypotension, urgent rpt EGD with control of visibly bleeding vessel. -holding both ASA and AC until GIB w/u and tx is complete. s/p EGD/FOC and epinephrine injection. -family describes moderate dementia at baseline, which worsened the past 6 mo or so. 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 chf hx)). they state they strongly desire avoiding recurrent bleeding (bebeto given present episode was potentially life-threatening) or recurrent hospitalization, and hence prefer ASA over AC (verbalize understanding that ASA offers incomplete CVA prevention). -would not pursue Watchman here given pt's baseline dementia status -resume ASA 81 mg later once stable per GI solution consultant. CHF: -prior h/o "water on the heart" per , ? details -Echo here unremarkable - s/p IVF - 11/17: trial of lasix 20 mg IV x 1. Will monitor direction of sodium and assess need for further doses tomorrow. - 11/18: remains NPO, but still with pulmonary congestion on exam and sodium improved s/p lasix 20 mg IV x 1 yesterday. Will repeat dose today, cont to monitor closely. htn: -pressors off now -holding home bb, monitor trend hld: -stable, statin not listed on home meds KEVEN/hypernatremia: -unknown baseline -creat fluctuating 1.1-1.5 here extubated on 11/17.
[2017-11-18] MEDS ORDERED: FUROSEMIDE 40 MG/4 ML INJECTABLE VIAL IVPUSH ONE (16:15)
[2017-11-18] MEDS: KCL 10 MEQ IVPB 10 MEQ/100 ML INFUS.BAG IVPB SCH (16:50)
[2017-11-18] MEDS: CHLORHEXIDINE GLUCONATE 4% CLEANSER FOR DECOLONIZATION TP SCH (21:05)
--- NOTE | 2017-11-18 23:45 | PN ---
Progress Note (short form) - Note Progress Note: examined in ICU remains extubated / responding to verbal stinuli unclear speech / ??comprehension Vital Signs Period Temp Pulse Resp BP Sys/Mcdowell Pulse Ox Last 24 Hr 98.4 F-98.7 F 54-77 12-16 96-120/56-64 100-100 Intake & Output 11/15/17 11/16/17 11/17/17 11/18/17 23:59 23:59 23:59 23:59 Intake Total 3104 1578 1492 329 Output Total 2480 942 1949 2050 Balance 2003 579 -483 -2265 Weight 187 lb 14.4 oz 184 lb 9.6 oz 187 lb 9.6 oz 189 lb 3.2 oz Pale extubated/ NAD heart S1/S2 irreg / tachy lungs no wheezing/ grossly clear abd soft no tenderness / distended ext + edema / weeping +edema CBC, BMP 11/18/17 05:55 11/18/17 05:55 Microbiology 11/11/17 18:00 Blood - Central Line Blood Culture - Final NO GROWTH AFTER 5 DAYS INCUBATION 11/10/17 22:00 Sputum - Endotrachea Suction/Ventilator Gram Stain - Final 11/10/17 22:00 Sputum - Endotrachea Suction/Ventilator Sputum Culture - Final 11/09/17 00:59 Urine - Urine - Catheterized Urine Culture - Final NO GROWTH OBTAINED Active Medications Chlorhexidine Gluconate (Hibiclens For Decolonization -) 1 applic TP HS [facility] Last Admin: 11/18/17 21:05 Dose: 1 applic Chlorhexidine Gluconate (Peridex -) 15 ml MM BID [facility] Last Admin: 11/18/17 21:05 Dose: Not Given Digoxin (Lanoxin Injection -) 0.25 mg IVPUSH DAILY [facility] Last Admin: 11/18/17 09:19 Dose: 0.25 mg Pantoprazole Sodium 160 mg/ (Dextrose) 290 mls @ 14.5 mls/hr IVPB Q20H [facility] Last Admin: 11/18/17 15:17 Dose: 14.5 mls/hr 82 y/o male Hx dementia /HTN /PAD/CKD/ PVD/ was transfered from [facility] with rectal bleed and hypotension. Episode of recurrent GI bleed -- requiring transfusion / emergent EGD X 2 weaned / remains extubated off sedation # Gi Bleed no melena / H&H remains stable continue to monitor h/h # s/p shock, hemorrhagic hemodynamically stable # dementia more alert / responding to verbal unclear if at baseline Problem List - Problems (1) Gastrointestinal hemorrhage with melena Code(s): K92.1 - MELENA (2) GI bleed Code(s): K92.2 - GASTROINTESTINAL HEMORRHAGE, UNSPECIFIED (3) Dementia Code(s): F03.90 - UNSPECIFIED DEMENTIA WITHOUT BEHAVIORAL DISTURBANCE (4) BPH (benign prostatic hyperplasia) Code(s): N40.0 - BENIGN PROSTATIC HYPERPLASIA WITHOUT LOWER URINRY TRACT SYMP (5) CAD (coronary artery disease) Code(s): I25.10 - ATHSCL HEART DISEASE OF [place] CORONARY ARTERY W/O ANG PCTRS (6) HTN (hypertension) Code(s): I10 - ESSENTIAL (PRIMARY) HYPERTENSION (7) Hyperlipidemia Code(s): E78.5 - HYPERLIPIDEMIA, UNSPECIFIED
--- NOTE | 2017-11-19 07:55 | PN ---
Physical Exam: ICU RESIDENT NOTE SUBJECTIVE: Extubated. Awake, confused. As per nurse no episodes of bleeding last night. Stable vitals OBJECTIVE: Vital Signs Period Temp Pulse Resp BP Sys/Mcdowell Pulse Ox Last 24 Hr 98.4 F-98.7 F 54-77 18 97-120/56-88 100-100 GEN: Awake, alert, confused HEENT: PERRLA CV: S1, S2, RRR LUNG: Bibasilar crackles ABD: Soft, NT, ND MSK: +2 pedal edema CBC, BMP 11/18/17 05:55 11/18/17 05:55 Active Medications Generic Name Dose Route Start Last Admin Trade Name Freq PRN Reason Stop Dose Admin Chlorhexidine Gluconate 1 applic 11/12/17 22:00 11/18/17 21:05 Hibiclens For Decolonization - TP 1 applic HS ERNIE Administration Chlorhexidine Gluconate 15 ml 11/13/17 22:00 11/18/17 21:05 Peridex - MM Not Given BID ERNIE Digoxin 0.25 mg 11/12/17 10:17 11/18/17 09:19 Lanoxin Injection - IVPUSH 0.25 mg DAILY ERNIE Administration Pantoprazole Sodium 160 mg/ 290 mls @ 14.5 mls/hr 11/10/17 21:00 11/18/17 15: 17 Dextrose IVPB 14.5 mls/hr Q20H ERNIE Administration ASSESSMENT/PLAN: 82yo M with PMhx of Anemia, HTN, CAD, CKD, Anxiety who presented from [facility] w/ melena (on home Xarelto for ?pAfib), admitted for severe GI bleed w / hemodynamic instability # GI - UGI Bleed from duodenal ulcer -- S/p emergent EGD x2 with multiple clips and IR embolization. H/H currently stable. No events to suggest bleeding. On protonix drip. Vit K prn -- Dr Enriquez, Dr Peng/June, Dr Marquez evaluated # CV - Acute Blood loss. ?pAfib, CAD, HTN, -- Extubated since 11/17. Off pressors since 11/15. Hemodynamically stable. Currently sinus. On digoxin 0.25ivp daily for rate control. Dig level ok. Hold AntiHTN. -- Family prefers ASA over AC due to risk of recurrent bleed. Resume when stable -- No CHF on echo. s/p Lasix trial # FEN/PPX - No IVF, NGT attempted. SCDs, protonix drip # Dispo - H/H stable. BP stable. Continue ICU monitoring for now Kimo Hawkins MD - PGY1 ICU Medicine Visit type - Emergency Visit Emergency Visit: No - New Patient This patient is new to me today: No - Critical Care Critical Care patient: No Critical Care Statement: 45 - Discharge Referral Referred to [facility] Med P.C.: No
[2017-11-19 09:02] LABS: HEMATOCRIT 27.8 % (35.4-49); HEMOGLOBIN 9.1 GM/dL (11.7-16.9); MCHC 32.9 g/dl (32.0-35.9); MEAN CELL VOLUME 94.5 fl (80-96); MEAN PLT VOLUME 8.2 fl (7.5-11.1); PLATELET COUNT 190 K/MM3 (134-434); RBC 2.94 M/mm3 (4.00-5.60); RDW 20.7 % (11.9-15.9); WHITE BLOOD COUNT 10.5 K/mm3 (4.0-10.0)
[2017-11-19 09:37] LABS: ANION GAP 6 (8-16); BLOOD UREA NITROGEN 13 mg/dL (7-18); CALCIUM 7.1 mg/dL (8.5-10.1); CHLORIDE 116 mmol/L (98-107); CO2 24 mmol/L (21-32); GLUCOSE,RANDOM 61 mg/dL (74-106); MAGNESIUM 2.1 mg/dL (1.8-2.4); POTASSIUM 3.9 mmol/L (3.5-5.1); SODIUM 146 mmol/L (136-145)
[2017-11-19] MEDS: PANTOPRAZOLE SODIUM 160 MG in DEXTROSE 5%-WATER - 290 ML IVPB SCH (09:57)
[2017-11-19] MEDS: DIGOXIN 0.5 MG/2 ML AMPUL IVPUSH SCH (09:58)
[2017-11-19] MEDS: CHLORHEXIDINE GLUCONATE 0.12% 15ML CUP MM SCH (10:14)
--- NOTE | 2017-11-19 11:12 | PN ---
Progress Note (short form) - Note Progress Note: examined in ICU remains extubated nurses doing oral care -- unable to elicit gag reflex will have swallow eval - however seems may be high risk for aspiration nutrition -- defer to GI GUT ( ngt) vs TPN Vital Signs Period Temp Pulse Resp BP Sys/Mcdowell Pulse Ox Last 24 Hr 97.8 F-98.7 F 54-77 12-18 97-121/56-88 100-100 Intake & Output 11/16/17 11/17/17 11/18/17 11/19/17 23:59 23:59 23:59 23:59 Intake Total 1578 1492 329 Output Total 800 2350 2050 900 Balance 498 -264 -1906 -900 Weight 184 lb 9.6 oz 187 lb 9.6 oz 189 lb 3.2 oz 176 lb 12.8 oz more alert / speaking in short sentences extubated/ NAD heart S1/S2 irreg / tachy lungs rhonchi right > left / decreased BS at left base abd soft no tenderness / distended ext + edema / weeping Upper ext CBC, BMP 11/19/17 07:55 11/19/17 07:55 Microbiology 11/11/17 18:00 Blood - Central Line Blood Culture - Final NO GROWTH AFTER 5 DAYS INCUBATION 11/10/17 22:00 Sputum - Endotrachea Suction/Ventilator Gram Stain - Final 11/10/17 22:00 Sputum - Endotrachea Suction/Ventilator Sputum Culture - Final 11/09/17 00:59 Urine - Urine - Catheterized Urine Culture - Final NO GROWTH OBTAINED Active Medications Chlorhexidine Gluconate (Hibiclens For Decolonization -) 1 applic TP HS [facility] Last Admin: 11/18/17 21:05 Dose: 1 applic Chlorhexidine Gluconate (Peridex -) 15 ml MM BID [facility] Last Admin: 11/19/17 10:14 Dose: Not Given Digoxin (Lanoxin Injection -) 0.25 mg IVPUSH DAILY [facility] Last Admin: 11/19/17 09:58 Dose: 0.25 mg Pantoprazole Sodium 160 mg/ (Dextrose) 290 mls @ 14.5 mls/hr IVPB Q20H [facility] Last Admin: 11/19/17 09:57 Dose: 14.5 mls/hr 82 y/o male Hx dementia /HTN /PAD/CKD/ PVD/ was transfered from [facility] with rectal bleed and hypotension. Episode of recurrent GI bleed -- requiring transfusion / emergent EGD X 2 weaned / remains extubated off sedation # extubated swallow eval nutrition -- defer to GI discussed with CCU team # Gi Bleed no melena / H&H remains stable continue to monitor h/h # s/p shock, hemorrhagic hemodynamically stable # dementia more alert / responding to verbal unclear if at baseline but improving Problem List - Problems (1) Gastrointestinal hemorrhage with melena Code(s): K92.1 - MELENA (2) GI bleed Code(s): K92.2 - GASTROINTESTINAL HEMORRHAGE, UNSPECIFIED (3) Dementia Code(s): F03.90 - UNSPECIFIED DEMENTIA WITHOUT BEHAVIORAL DISTURBANCE (4) BPH (benign prostatic hyperplasia) Code(s): N40.0 - BENIGN PROSTATIC HYPERPLASIA WITHOUT LOWER URINRY TRACT SYMP (5) CAD (coronary artery disease) Code(s): I25.10 - ATHSCL HEART DISEASE OF [place] CORONARY ARTERY W/O ANG PCTRS (6) HTN (hypertension) Code(s): I10 - ESSENTIAL (PRIMARY) HYPERTENSION (7) Hyperlipidemia Code(s): E78.5 - HYPERLIPIDEMIA, UNSPECIFIED
--- NOTE | 2017-11-19 11:46 | PN ---
Progress Note, Physician History of Present Illness: No events to suggest ongoing GI bleeding. Able to hold simple conversation - Current Medication List Current Medications: Active Medications Chlorhexidine Gluconate (Hibiclens For Decolonization -) 1 applic TP HS [facility] Last Admin: 11/18/17 21:05 Dose: 1 applic Chlorhexidine Gluconate (Peridex -) 15 ml MM BID [facility] Last Admin: 11/19/17 10:14 Dose: Not Given Digoxin (Lanoxin Injection -) 0.25 mg IVPUSH DAILY [facility] Last Admin: 11/19/17 09:58 Dose: 0.25 mg Pantoprazole Sodium 160 mg/ (Dextrose) 290 mls @ 14.5 mls/hr IVPB Q20H [facility] Last Admin: 11/19/17 09:57 Dose: 14.5 mls/hr - Objective Vital Signs: Vital Signs Temperature 97.8 F 11/19/17 10:00 Pulse Rate 75 11/19/17 10:00 Respiratory Rate 16 11/19/17 10:00 Blood Pressure 117/75 11/19/17 10:00 O2 Sat by Pulse Oximetry (%) 100 11/19/17 10:00 Constitutional: Yes: No Distress, Calm Eyes: Yes: Conjunctiva Clear HENT: Yes: Atraumatic Neck: Yes: Supple Gastrointestinal: Yes: Soft Neurological: Yes: Alert Labs: CBC, BMP 11/19/17 07:55 11/19/17 07:55 INR, PTT INR 1.22 (0.82-1.09) H 11/14/17 06:10 CBCD WBC 10.5 K/mm3 (4.0-10.0) H 11/19/17 07:55 RBC 2.94 M/mm3 (4.00-5.60) L 11/19/17 07:55 Hgb 9.1 GM/dL (11.7-16.9) L 11/19/17 07:55 Hct 27.8 % (35.4-49) L 11/19/17 07:55 MCV 94.5 fl (80-96) 11/19/17 07:55 MCHC 32.9 g/dl (32.0-35.9) 11/19/17 07:55 RDW 20.7 % (11.9-15.9) H 11/19/17 07:55 Plt Count 190 K/MM3 (134-434) 11/19/17 07:55 MPV 8.2 fl (7.5-11.1) 11/19/17 07:55 CMP Sodium 146 mmol/L (136-145) H 11/19/17 07:55 Potassium 3.9 mmol/L (3.5-5.1) 11/19/17 07:55 Chloride 116 mmol/L (98-107) H 11/19/17 07:55 Carbon Dioxide 24 mmol/L (21-32) 11/19/17 07:55 Anion Gap 6 (8-16) L 11/19/17 07:55 BUN 13 mg/dL (7-18) 11/19/17 07:55 Creatinine 1.0 mg/dL (0.7-1.3) 11/19/17 07:55 Creat Clearance w eGFR > 60 (>60) 11/18/17 05:55 Calcium 7.1 mg/dL (8.5-10.1) L 11/19/17 07:55 Total Bilirubin 0.7 mg/dL (0.2-1.0) D 11/18/17 05:55 AST 15 U/L (15-37) 11/18/17 05:55 ALT 11 U/L (12-78) L 11/18/17 05:55 Alkaline Phosphatase 88 U/L (45-117) 11/18/17 05:55 Total Protein 3.9 g/dl (6.4-8.2) L 11/18/17 05:55 Albumin 1.6 g/dl (3.4-5.0) L 11/18/17 05:55 Problem List - Problems (1) GI bleed Code(s): K92.2 - GASTROINTESTINAL HEMORRHAGE, UNSPECIFIED (2) Gastrointestinal hemorrhage with melena Code(s): K92.1 - MELENA (3) Duodenal ulcer disease Code(s): K26.9 - DUODENAL ULCER, UNSP ACUTE OR CHRONIC, W/O HEMOR OR PERF (4) Duodenal ulcer hemorrhage Code(s): K26.4 - CHRONIC OR UNSPECIFIED DUODENAL ULCER WITH HEMORRHAGE Assessment/Plan No acute events Hgb stable w/o signs of GI bleeding Continue PPI, carafate
--- NOTE | 2017-11-19 12:23 | PN ---
Teaching Attending Note Name of Resident: Kimo Hawkins ATTENDING PHYSICIAN STATEMENT I saw and evaluated the patient. I reviewed the resident's note and discussed the case with the resident. I agree with the resident's findings and plan as documented. SUBJECTIVE: Pt seen and examined in the ICU. Remains extubated. No further bleeding noted. OBJECTIVE: Last Vital Signs Temp Pulse Resp BP Pulse Ox 97.8 F 75 16 117/75 100 11/19/17 10:00 11/19/17 10:00 11/19/17 10:00 11/19/17 10:00 11/19/17 10:00 Intake & Output 11/16/17 11/17/17 11/18/17 11/19/17 23:59 23:59 23:59 23:59 Intake Total 1578 1492 329 Output Total 800 2350 2050 900 Balance 778 -858 -1721 -900 Weight 83.733 kg 85.094 kg 85.82 kg 80.195 kg Gen: somnolent but arousable Heart: RRR Lung: decreased breath sounds at the bases Abd: soft, nontender Ext: + edema CBC, BMP 11/19/17 07:55 11/19/17 07:55 Active Medications Chlorhexidine Gluconate (Hibiclens For Decolonization -) 1 applic TP HS [facility] Last Admin: 11/18/17 21:05 Dose: 1 applic Chlorhexidine Gluconate (Peridex -) 15 ml MM BID [facility] Last Admin: 11/19/17 10:14 Dose: Not Given Digoxin (Lanoxin Injection -) 0.25 mg IVPUSH DAILY [facility] Last Admin: 11/19/17 09:58 Dose: 0.25 mg Pantoprazole Sodium 160 mg/ (Dextrose) 290 mls @ 14.5 mls/hr IVPB Q20H [facility] Last Admin: 11/19/17 09:57 Dose: 14.5 mls/hr ASSESSMENT AND PLAN: GI Bleed from Duodenal Ulcer Acute Blood Loss Anemia Hemorrhagic Shock s/p EGD/clipping s/p IR embolization of GDA Paroxysmal Atrial Fibrillation Lactic Acidosis UTI PAD CAD CKD HTN Hyperlipidemia Dementia - monitor H/H - transfuse as needed - protonix gtt - hold all anticoagulation, antiplatelet therapy - off pressors, maintain MAP >65 - rate control - s/p antibiotics - d/w GI if can place NGT for enteral feeds - DVT prophylaxis - continue ICU monitoring critical care time spent in reviewing chart, evaluating patient and formulating plan 35 min
--- NOTE | 2017-11-19 14:34 | PN ---
Progress Note, Physician History of Present Illness: stable on nasal canula patient looks much better no gag plan for ng tube placement for feeding - Current Medication List Current Medications: Active Medications Chlorhexidine Gluconate (Hibiclens For Decolonization -) 1 applic TP HS [facility] Last Admin: 11/18/17 21:05 Dose: 1 applic Chlorhexidine Gluconate (Peridex -) 15 ml MM BID [facility] Last Admin: 11/19/17 10:14 Dose: Not Given Digoxin (Lanoxin Injection -) 0.25 mg IVPUSH DAILY [facility] Last Admin: 11/19/17 09:58 Dose: 0.25 mg Pantoprazole Sodium 160 mg/ (Dextrose) 290 mls @ 14.5 mls/hr IVPB Q20H [facility] Last Admin: 11/19/17 09:57 Dose: 14.5 mls/hr - Objective Vital Signs: Vital Signs Temperature 97.8 F 11/19/17 10:00 Pulse Rate 79 11/19/17 12:00 Respiratory Rate 16 11/19/17 12:00 Blood Pressure 82/61 11/19/17 12:00 O2 Sat by Pulse Oximetry (%) 100 11/19/17 10:00 Constitutional: Yes: No Distress, Calm Cardiovascular: Yes: Regular Rate and Rhythm, S1, S2 Respiratory: Yes: Regular, On Nasal O2, Other Gastrointestinal: Yes: Normal Bowel Sounds, Soft Musculoskeletal: Yes: WNL Extremities: Yes: WNL Neurological: Yes: Alert Psychiatric: Yes: Alert Labs: CBC, BMP 11/19/17 07:55 11/19/17 07:55 INR, PTT INR 1.22 (0.82-1.09) H 11/14/17 06:10 - ....Imaging Chest X-ray: Report Reviewed, Image Reviewed Assessment/Plan Problem List - Problems (1) Gastrointestinal hemorrhage with melena Code(s): K92.1 - MELENA (2) Hyperlipidemia Code(s): E78.5 - HYPERLIPIDEMIA, UNSPECIFIED (3) HTN (hypertension) Code(s): I10 - ESSENTIAL (PRIMARY) HYPERTENSION (4) CAD (coronary artery disease) Code(s): I25.10 - ATHSCL HEART DISEASE OF [place] CORONARY ARTERY W/O ANG PCTRS (5) BPH (benign prostatic hyperplasia) Code(s): N40.0 - BENIGN PROSTATIC HYPERPLASIA WITHOUT LOWER URINRY TRACT SYMP (6) Dementia Code(s): F03.90 - UNSPECIFIED DEMENTIA WITHOUT BEHAVIORAL DISTURBANCE Lactic Acidosis UTI PAD CKD plan continue to monitor off of abx close watch on resp status watch for any bleeding rest as per icu patient stable rest as per primary monitor wbc chest pt nutrition cc time 40 min
[2017-11-19] MEDS: CHLORHEXIDINE GLUCONATE 4% CLEANSER FOR DECOLONIZATION TP SCH (21:28)
[2017-11-20] MEDS: PANTOPRAZOLE SODIUM 160 MG in DEXTROSE 5%-WATER - 290 ML IVPB SCH (01:00)
[2017-11-20 06:24] LABS: HEMATOCRIT 27.7 % (35.4-49); HEMOGLOBIN 9.3 GM/dL (11.7-16.9); MCH 31.7 pg (25.7-33.7); MCHC 33.4 g/dl (32.0-35.9); MEAN CELL VOLUME 94.7 fl (80-96); MEAN PLT VOLUME 8.1 fl (7.5-11.1); PLATELET COUNT 245 K/MM3 (134-434); RBC 2.92 M/mm3 (4.00-5.60); RDW 20.8 % (11.9-15.9); WHITE BLOOD COUNT 9.9 K/mm3 (4.0-10.0)
[2017-11-20 06:54] LABS: ALBUMIN 1.7 g/dl (3.4-5.0); ANION GAP 4 (8-16); BILIRUBIN,TOTAL 0.3 mg/dL (0.2-1.0); BLOOD UREA NITROGEN 13 mg/dL (7-18); CHLORIDE 115 mmol/L (98-107); CO2 26 mmol/L (21-32); CREATININE 0.9 mg/dL (0.7-1.3); GLUCOSE,RANDOM 78 mg/dL (74-106); POTASSIUM 3.9 mmol/L (3.5-5.1); SGOT/AST 15 U/L (15-37); SGPT/ALT 9 U/L (12-78); SODIUM 145 mmol/L (136-145); TOT PROT 4.3 g/dl (6.4-8.2)
[2017-11-20 06:55] LABS: ALK PHOS 97 U/L (45-117)
--- NOTE | 2017-11-20 08:32 | PN ---
Progress Note, Physician History of Present Illness: More awake and alert today, more talkative. Tube feeds started. No further bleeds. Good UOP - Current Medication List Current Medications: Active Medications Chlorhexidine Gluconate (Hibiclens For Decolonization -) 1 applic TP HS [facility] Last Admin: 11/19/17 21:28 Dose: 1 applic Digoxin (Lanoxin Injection -) 0.25 mg IVPUSH DAILY [facility] Last Admin: 11/19/17 09:58 Dose: 0.25 mg Pantoprazole Sodium 160 mg/ (Dextrose) 290 mls @ 14.5 mls/hr IVPB Q20H [facility] Last Admin: 11/20/17 01:00 Dose: 14.5 mls/hr - Objective Vital Signs: Vital Signs Temperature 98.8 F 11/20/17 06:00 Pulse Rate 72 11/20/17 08:00 Respiratory Rate 18 11/20/17 08:00 Blood Pressure 120/76 11/20/17 08:00 O2 Sat by Pulse Oximetry (%) 98 11/19/17 21:00 Additional Findings/Remarks: GEN: AAOx3, NAD, Lying in distress HEENT: PERRLA, EOMi CV: S1, S2, RRR LUNG: Bibasilar crackles ABD: Soft, NT, ND MSK: no edema, no erythema Labs: CBC, BMP 11/20/17 05:25 11/20/17 05:25 INR, PTT INR 1.22 (0.82-1.09) H 11/14/17 06:10 Assessment/Plan 82yo M with PMhx of Anemia, HTN, CAD, CKD, Anxiety who presented from [facility] w/ melena (on home Xarelto for ?pAfib), admitted for severe GI bleed w / hemodynamic instability. S/p emergent EGD x2 with multiple clips and IR embolization # GI: UGI Bleed from duodenal ulcer -- H/H stable. No active bleeds. Continue protonix ggt # CV: Acute Blood loss. ?pAfib, CAD, HTN, -- Extubated since 11/17. Off pressors since 11/15. Hemodynamically stable. Currently sinus. Digoxin 0.25 faily for rate control. -- Family prefers ASA over AC due to risk of recurrent bleed. Resume when stable -- Good UOP # FEN/PPX: No IVF, NGT w/ bolus feeds, SCDs, protonix drip # Dispo: H/H stable. BP stable. Pt improving. Transfer order placed. PHLEBOTOMIST for Dr Alonzo notified Kimo Hawkins MD - PGY1 ICU Medicine
[2017-11-20] MEDS ORDERED: NAPH,MB-DB/K PH,MBDB POWDER PACKET PO ONE (09:45)
--- NOTE | 2017-11-20 10:14 | PN ---
Progress Note (short form) - Note Progress Note: CC: GIB S: NGT placed yesterday. Tube feeds started overnight. no cp, sob, palps, dizziness. alert but not oriented. + cough. Current Medications Chlorhexidine Gluconate (Hibiclens For Decolonization -) 1 applic TP HS [facility] Last Admin: 11/19/17 21:28 Dose: 1 applic Pantoprazole Sodium 160 mg/ (Dextrose) 290 mls @ 14.5 mls/hr IVPB Q20H [facility] Last Admin: 11/20/17 01:00 Dose: 14.5 mls/hr Potassium Phos/Sodium Phos (Phos-Nak Packet -) 2 packet NGT TID [facility] Stop: 11/20/17 22:01 Vital Signs - 24 hr 11/19/17 11/19/17 11/19/17 12:00 14:00 16:00 Temperature 98.0 F Pulse Rate 79 76 79 Respiratory 16 12 14 Rate Blood Pressure 82/61 137/75 127/70 O2 Sat by Pulse Oximetry (%) 11/19/17 11/19/17 11/19/17 17:43 18:00 20:00 Temperature 97.6 F Pulse Rate 70 77 Respiratory 16 14 Rate Blood Pressure 130/79 135/78 O2 Sat by Pulse 100 98 Oximetry (%) 11/19/17 11/19/17 11/19/17 20:55 21:00 22:00 Temperature 98.5 F Pulse Rate 77 Respiratory 14 Rate Blood Pressure 130/92 O2 Sat by Pulse 98 98 Oximetry (%) 11/20/17 11/20/17 11/20/17 00:00 02:00 04:00 Temperature 98.2 F Pulse Rate 70 78 73 Respiratory 14 14 12 Rate Blood Pressure 134/77 130/77 140/72 O2 Sat by Pulse Oximetry (%) 11/20/17 11/20/17 11/20/17 06:00 08:00 08:46 Temperature 98.8 F Pulse Rate 74 72 Respiratory 15 18 18 Rate Blood Pressure 131/72 120/76 O2 Sat by Pulse 99 Oximetry (%) Intake & Output 11/18/17 11/19/17 11/20/17 11/21/17 07:59 07:59 07:59 07:59 Intake Total 539 165 918 Output Total 6600 8970 1100 135 Balance -6451 -2535 -182 -135 Weight 189 lb 3.2 oz 176 lb 12.8 oz 171 lb 3.2 oz Constitutional: Yes: Well Nourished, No Distress, Respiratory: Yes: bibasilar rales poor effort + bs soft nt nd Extremities: No: Cold Edema: No Neurological: No: sedated no jaundice diaphoresis Psychiatric: No: Agitated alert, not oriented + dp/pt no carotid bruit CBC, BMP 11/20/17 05:25 11/20/17 05:25 Laboratory Tests 11/19/17 11/20/17 07:55 05:25 Sodium 146 H Magnesium 2.0 Total Bilirubin 0.3 D AST 15 ALT 9 L Alkaline Phosphatase 97 Albumin 1.7 L 11/17/17 06:15 Digoxin 1.3903 EKG: Other (prior tele: aries javier) cxr: left opacification, slightly improved ecg: sr, nl intervals, ant/lat twis and subtle st depressions Echo 11/25: borderline vs mildly reduced LVSF (regional wall motion eval is TDS) . nl RV. mild LAE. valve fxn WNL. repeat echo 11/2017: lvh, nl lv/rv, mild tr, mild phtn est cct 36 mins a/p: 82 m hx dementia, htn, hld, pad, cad, ckd, sent from [facility] for rectal bleed. PAfib , MAT: -on xarelto (in addition to asa for pad/cad) at [facility] per charts, with no mention of Afib--indication for xarelto was reported as PAD which is not an approved indication--> hence have to assume there is h/o pafib here. no h/o CVA per ID dx list, and per d/w family - holding AC and ASA in setting of GIB. Resume asa if/when cleared by GI. -episodes of both rapid afib/MAT 2/3-->2/4 in setting of acute large GI bleed ( hgb drop to 5) and urgent EGD with epinephrine injection into bleeding vessel. -11/13-: improved rate control. cont dig (level ok). -11/17- 11/18: in sr. dig level ok 11/17 - 11/20: Remains in SR. last dig level 11/17. Patient has NGT. Transition to PO digoxin. Will check digoxin level prior to dosing. h/o CAD/pad, unknown details - outside vascular follows for LE disease per family. details of cad unknown. UGIB (from PUD): - p/w GIB in setting of xarelto and ASA --> now on hold. -recurrent large melena 2/3 with bleeding ulcer treated on EGD. -severe rebleed 2/5 (hgb 5) with hypotension, urgent rpt EGD with control of visibly bleeding vessel. -holding both ASA and AC until GIB w/u and tx is complete. s/p EGD/FOC and epinephrine injection. -family describes moderate dementia at baseline, which worsened the past 6 mo or so. 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 chf hx)). they state they strongly desire avoiding recurrent bleeding (bebeto given present episode was potentially life-threatening) or recurrent hospitalization, and hence prefer ASA over AC (verbalize understanding that ASA offers incomplete CVA prevention). -would not pursue Watchman here given pt's baseline dementia status -resume ASA 81 mg later once stable per GI brand sales consultant. CHF: -prior h/o "water on the heart" per , ? details -Echo here unremarkable - s/p IVF - 11/17 and 11/18: given lasix 20 mg IV x 1 each day. Hypernatremia continued to improve but patient remained NPO so no further lasix given 09/18. - 11/20: NGT placed yesterday, TF's started in evening. Patient remained slightly net negative/even yesterday off of lasix. Will hold again today htn: -pressors off now -holding home bb, monitor trend. 09/19 Bp improving today. Will resume BB tomorrow if remains stable. hld: -stable, statin not listed on home meds KEVEN/hypernatremia: -unknown baseline -creat fluctuating 1.1-1.5 here extubated on 11/17.
[2017-11-20] MEDS: DIGOXIN 0.5 MG/2 ML AMPUL IVPUSH SCH (10:50)
[2017-11-20] MEDS: NAPH,MB-DB/K PH,MBDB POWDER PACKET NGT SCH ×2 (10:55→17:00)
--- NOTE | 2017-11-20 12:51 | PN ---
Teaching Attending Note Name of Resident: Kimo Hawkins ATTENDING PHYSICIAN STATEMENT I saw and evaluated the patient. I reviewed the resident's note and discussed the case with the resident. I agree with the resident's findings and plan as documented. SUBJECTIVE: Pt seen and examined in the ICU. No further bleeding noted. More alert, awake today. at bedside. NGT placed yesterday, tolerating feeds. OBJECTIVE: Last Vital Signs Temp Pulse Resp BP Pulse Ox 97.8 F 71 11 L 137/92 99 11/20/17 10:00 11/20/17 10:00 11/20/17 10:00 11/20/17 10:00 11/20/17 08:46 Intake & Output 11/17/17 11/18/17 11/19/17 11/20/17 23:59 23:59 23:59 23:59 Intake Total 1492 329 264 654 Output Total 2350 2050 1700 435 Balance -858 -1721 -1436 219 Weight 85.094 kg 85.82 kg 80.195 kg 77.655 kg Gen: NAD at rest Heart: RRR Lung: decreased breath sounds at the bases Abd: soft, nontender Ext: less edema CBC, BMP 11/20/17 05:25 11/20/17 05:25 Active Medications Chlorhexidine Gluconate (Hibiclens For Decolonization -) 1 applic TP HS [facility] Last Admin: 11/19/17 21:28 Dose: 1 applic Pantoprazole Sodium 160 mg/ (Dextrose) 290 mls @ 14.5 mls/hr IVPB Q20H [facility] Last Admin: 11/20/17 01:00 Dose: 14.5 mls/hr Potassium Phos/Sodium Phos (Phos-Nak Packet -) 2 packet NGT TID [facility] Stop: 11/20/17 22:01 Last Admin: 11/20/17 10:55 Dose: 2 packet ASSESSMENT AND PLAN: GI Bleed from Duodenal Ulcer Acute Blood Loss Anemia Hemorrhagic Shock s/p EGD/clipping s/p IR embolization of GDA Paroxysmal Atrial Fibrillation Lactic Acidosis resolved UTI treated PAD CAD CKD HTN Hyperlipidemia Dementia - monitor H/H - transfuse as needed - protonix per GI, can likely change to BID dosing - hold all anticoagulation, antiplatelet therapy - off pressors, maintain MAP >65 - rate control - s/p antibiotics - enteral feeds via NGT - aspiration precautions - DVT prophylaxis - can monitor on floor critical care time spent in reviewing chart, evaluating patient and formulating plan 35 min
--- NOTE | 2017-11-20 13:44 | PN ---
Progress Note, Physician History of Present Illness: stable on nasal canula ng tube placed no complaints - Current Medication List Current Medications: Active Medications Chlorhexidine Gluconate (Hibiclens For Decolonization -) 1 applic TP HS [facility] Last Admin: 11/19/17 21:28 Dose: 1 applic Pantoprazole Sodium 160 mg/ (Dextrose) 290 mls @ 14.5 mls/hr IVPB Q20H [facility] Last Admin: 11/20/17 01:00 Dose: 14.5 mls/hr Potassium Phos/Sodium Phos (Phos-Nak Packet -) 2 packet NGT TID [facility] Stop: 11/20/17 22:01 Last Admin: 11/20/17 10:55 Dose: 2 packet - Objective Vital Signs: Vital Signs Temperature 97.8 F 11/20/17 10:00 Pulse Rate 71 11/20/17 10:00 Respiratory Rate 11 L 11/20/17 10:00 Blood Pressure 137/92 11/20/17 10:00 O2 Sat by Pulse Oximetry (%) 99 11/20/17 08:46 Constitutional: Yes: No Distress, Calm Cardiovascular: Yes: S1, S2 Respiratory: Yes: Regular, On Nasal O2, Poor Air Entry Gastrointestinal: Yes: Normal Bowel Sounds, Soft, Other (ng in place) Musculoskeletal: Yes: WNL Extremities: Yes: WNL Neurological: Yes: Alert Psychiatric: Yes: Alert Labs: CBC, BMP 11/20/17 05:25 11/20/17 05:25 INR, PTT INR 1.22 (0.82-1.09) H 11/14/17 06:10 Assessment/Plan Problem List - Problems (1) Gastrointestinal hemorrhage with melena Code(s): K92.1 - MELENA (2) Hyperlipidemia Code(s): E78.5 - HYPERLIPIDEMIA, UNSPECIFIED (3) HTN (hypertension) Code(s): I10 - ESSENTIAL (PRIMARY) HYPERTENSION (4) CAD (coronary artery disease) Code(s): I25.10 - ATHSCL HEART DISEASE OF [place] CORONARY ARTERY W/O ANG PCTRS (5) BPH (benign prostatic hyperplasia) Code(s): N40.0 - BENIGN PROSTATIC HYPERPLASIA WITHOUT LOWER URINRY TRACT SYMP (6) Dementia Code(s): F03.90 - UNSPECIFIED DEMENTIA WITHOUT BEHAVIORAL DISTURBANCE Lactic Acidosis UTI PAD CKD plan normal wbc continue to monitor ng tube feeding incentive vinay continue monitoring for any bleeding--resolved rest as per icu cc time 40 min
[2017-11-20] MEDS ORDERED: NAPH,MB-DB/K PH,MBDB POWDER PACKET NGT SCH (22:00)
[2017-11-20] MEDS ORDERED: PT OWN MED DRAWER 7, Y5N ONE (22:01)
--- NOTE | 2017-11-20 23:03 | PN ---
Progress Note (short form) - Note Progress Note: examined in ICU remains extubated NGT in place -- tolerating feeds Vital Signs Period Temp Pulse Resp BP Sys/Mcdowell Pulse Ox Last 24 Hr 97.8 F-98.8 F 69-78 11-18 106-140/59-92 97-99 Intake & Output 11/17/17 11/18/17 11/19/17 11/20/17 23:59 23:59 23:59 23:59 Intake Total 1492 468 179 4609.5 Output Total 2350 2050 1700 435 Balance -858 -1721 -1436 928.5 Weight 187 lb 9.6 oz 189 lb 3.2 oz 176 lb 12.8 oz 171 lb 3.2 oz more alert / speaking in short sentences heart S1/S2 irreg / tachy lungs rhonchi right > left / decreased BS at left base abd soft no tenderness / distended ext + edema / weeping Upper ext CBC, BMP 11/20/17 05:25 11/20/17 05:25 Microbiology 11/11/17 18:00 Blood - Central Line Blood Culture - Final NO GROWTH AFTER 5 DAYS INCUBATION 11/10/17 22:00 Sputum - Endotrachea Suction/Ventilator Gram Stain - Final 11/10/17 22:00 Sputum - Endotrachea Suction/Ventilator Sputum Culture - Final 11/09/17 00:59 Urine - Urine - Catheterized Urine Culture - Final NO GROWTH OBTAINED Active Medications Active Medications Pantoprazole Sodium 160 mg/ (Dextrose) 290 mls @ 14.5 mls/hr IVPB Q20H [facility] 82 y/o male Hx dementia /HTN /PAD/CKD/ PVD/ was transfered from [facility] with rectal bleed and hypotension. Episode of recurrent GI bleed from duodenal ulcer / hemorrhagic shock/-- requiring transfusion / emergent EGD X 2 /embolization by IR weaned / remains extubated NGT in place -tolerating feeds # Gi bleed monitor h/h PPi transfuse as needed # A fib continue off a/c currently rate controlled # UTI Abx completed # HTN remains normotensive s/p pressors MAP >65 # CAD stable # CKD monitor bmp stable # Dementia unclear if at baseline but more alert Problem List - Problems (1) Gastrointestinal hemorrhage with melena Code(s): K92.1 - MELENA (2) GI bleed Code(s): K92.2 - GASTROINTESTINAL HEMORRHAGE, UNSPECIFIED (3) Dementia Code(s): F03.90 - UNSPECIFIED DEMENTIA WITHOUT BEHAVIORAL DISTURBANCE (4) BPH (benign prostatic hyperplasia) Code(s): N40.0 - BENIGN PROSTATIC HYPERPLASIA WITHOUT LOWER URINRY TRACT SYMP (5) CAD (coronary artery disease) Code(s): I25.10 - ATHSCL HEART DISEASE OF [place] CORONARY ARTERY W/O ANG PCTRS (6) HTN (hypertension) Code(s): I10 - ESSENTIAL (PRIMARY) HYPERTENSION (7) Hyperlipidemia Code(s): E78.5 - HYPERLIPIDEMIA, UNSPECIFIED
[2017-11-21] MEDS ORDERED: PT OWN MED DRAWER 7, Y5N ONE (04:32)
[2017-11-21] MEDS: PANTOPRAZOLE SODIUM 160 MG in DEXTROSE 5%-WATER - 290 ML IVPB SCH ×3 (04:47→22:01)
[2017-11-21 07:52] LABS: HEMATOCRIT 31.9 % (35.4-49); HEMOGLOBIN 10.3 GM/dL (11.7-16.9); MCH 30.7 pg (25.7-33.7); MCHC 32.3 g/dl (32.0-35.9); MEAN CELL VOLUME 95.1 fl (80-96); MEAN PLT VOLUME 7.8 fl (7.5-11.1); PLATELET COUNT 243 K/MM3 (134-434); RBC 3.35 M/mm3 (4.00-5.60); RDW 21.3 % (11.9-15.9); WHITE BLOOD COUNT 9.7 K/mm3 (4.0-10.0)
[2017-11-21 08:13] LABS: CHLORIDE 113 mmol/L (98-107); SODIUM 145 mmol/L (136-145)
[2017-11-21 09:04] LABS: ALBUMIN 1.7 g/dl (3.4-5.0); ALK PHOS 111 U/L (45-117); ANION GAP 7 (8-16); BILIRUBIN,TOTAL 0.3 mg/dL (0.2-1.0); BLOOD UREA NITROGEN 13 mg/dL (7-18); CALCIUM 7.5 mg/dL (8.5-10.1); CO2 25 mmol/L (21-32); CREATININE 0.9 mg/dL (0.7-1.3); GLUCOSE,RANDOM 107 mg/dL (74-106); MAGNESIUM 2.4 mg/dL (1.8-2.4); PHOSPHOROUS 2.4 mg/dL (2.5-4.9); SGOT/AST 16 U/L (15-37); SGPT/ALT 9 U/L (12-78); TOT PROT 4.7 g/dl (6.4-8.2)
--- NOTE | 2017-11-21 16:18 | PN ---
Progress Note (short form) - Note Progress Note: CC: GIB S: + Tube feeds alert but not oriented. + cough. Unable to obtain reliable history from patient, but denies sob, cp, dizziness, abdominal discomfort. Appears comfortable. Digoxin dose held yesterday for elevated levels. Current Medications Pantoprazole Sodium 160 mg/ (Dextrose) 290 mls @ 14.5 mls/hr IVPB Q20H [facility] Last Admin: 11/21/17 04:47 Dose: 14.5 mls/hr Vital Signs - 24 hr 11/20/17 11/20/17 11/20/17 18:28 20:53 21:00 Temperature 98.3 F 98.1 F Pulse Rate 74 78 Respiratory 18 18 Rate Blood Pressure 128/74 106/59 O2 Sat by Pulse 95 Oximetry (%) 11/21/17 11/21/17 02:00 06:00 Temperature 99 F 97.9 F Pulse Rate 68 81 Respiratory 18 18 Rate Blood Pressure 123/61 140/80 O2 Sat by Pulse Oximetry (%) Intake & Output 11/19/17 11/20/17 11/21/17 11/22/17 07:59 07:59 07:59 07:59 Intake Total 449 416 7569.5 Output Total 2700 1100 635 Balance -2535 -182 954.5 Weight 176 lb 12.8 oz 171 lb 3.2 oz Constitutional: Yes: Well Nourished, No Distress, Respiratory: Yes: dullness at left base, + right basilar rales, poor effort + bs soft nt nd Extremities: + dp/pt Edema: trace-1+ dependent edema Neurological: alert No: sedated no jaundice diaphoresis Psychiatric: No: Agitated alert, not oriented no carotid bruit CBC, BMP 11/21/17 06:00 11/21/17 06:00 Laboratory Tests 11/20/17 11/21/17 05:25 06:00 Magnesium 2.4 Albumin 1.7 L Digoxin 2.0234 H EKG: Other (prior tele: aries javier) cxr: left opacification, slightly improved ecg: sr, nl intervals, ant/lat twis and subtle st depressions Echo 11/25: borderline vs mildly reduced LVSF (regional wall motion eval is TDS) . nl RV. mild LAE. valve fxn WNL. repeat echo 11/2017: lvh, nl lv/rv, mild tr, mild phtn a/p: 82 m hx dementia, htn, hld, pad, cad, ckd, sent from [facility] for rectal bleed. PAfib , MAT: -on xarelto (in addition to asa for pad/cad) at [facility] per charts, with no mention of Afib--indication for xarelto was reported as PAD which is not an approved indication--> hence have to assume there is h/o pafib here. no h/o CVA per [place] dx list, and per d/w family - holding AC and ASA in setting of GIB. Resume asa if/when cleared by GI. -episodes of both rapid afib/MAT 2/-->2/4 in setting of acute large GI bleed ( hgb drop to 5) and urgent EGD with epinephrine injection into bleeding vessel. -11/13-: improved rate control. cont dig (level ok). -11/17- 11/18: in sr. dig level ok 11/17 - 11/20: Remains in SR. last dig level 11/17. Patient has NGT. Will check digoxin level prior to transitioning to po digoxin - 11/21: HR remains controlled. Dig level elevated yesterday digoxin held. Repeat tomorrow and resume po digoxin at lower dose. h/o CAD/pad, unknown details - outside vascular follows for LE disease per family. details of cad unknown. UGIB (from PUD): - p/w GIB in setting of xarelto and ASA --> now on hold. -recurrent large melena 2/3 with bleeding ulcer treated on EGD. -severe rebleed 2/5 (hgb 5) with hypotension, urgent rpt EGD with control of visibly bleeding vessel. -holding both ASA and AC until GIB w/u and tx is complete. s/p EGD/FOC and epinephrine injection. -family describes moderate dementia at baseline, which worsened the past 6 mo or so. 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 chf hx)). they state they strongly desire avoiding recurrent bleeding (bebeto given present episode was potentially life-threatening) or recurrent hospitalization, and hence prefer ASA over AC (verbalize understanding that ASA offers incomplete CVA prevention). -would not pursue Watchman here given pt's baseline dementia status -resume ASA 81 mg later once stable per GI speech correction consultant. CHF: -prior h/o "water on the heart" per , ? details -Echo here unremarkable - s/p IVF - 11/17 and 11/18: given lasix 20 mg IV x 1 each day. Hypernatremia continued to improve but patient remained NPO so no further lasix given 09/18. - 11/20: NGT placed 11/19, TF's started in evening. Patient remained slightly net negative/even yesterday off of lasix. Will hold again today - 11/21: patient now net positive with development of some increased dependent edema. cxr yesterday still with opacification of left lung --> will give another dose of lasix 20 mg IV x 1 today. htn: -pressors off now -holding home bb, monitor trend. 09/19 Bp improving today. Will resume BB tomorrow if remains stable. hld: -stable, statin not listed on home meds KEVEN/hypernatremia: -unknown baseline -creat/na now normalized, monitor with intermittent lasix. extubated on 11/17.
[2017-11-21] MEDS ORDERED: FUROSEMIDE 40 MG/4 ML INJECTABLE VIAL IVPUSH ONE (16:48)
--- NOTE | 2017-11-21 20:27 | PN ---
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 cannot provide any hx or complaint keep crying saying "dont hurt me" although no one touching him NGT in place -- tolerating feeds Vital Signs Period Temp Pulse Resp BP Sys/Mcdowell Pulse Ox Last 24 Hr 97.4 F-99 F 68-81 18-18 106-140/59-80 95-95 Intake & Output 11/18/17 11/19/17 11/20/17 11/21/17 23:59 23:59 23:59 23:59 Intake Total 675 468 6921.5 588 Output Total 0 1700 435 500 Balance -1721 -1436 1220.5 88 Weight 189 lb 3.2 oz 176 lb 12.8 oz 171 lb 3.2 oz more confused today heart S1/S2 irreg / tachy lungs rhonchi right > left / decreased BS at left base abd soft no tenderness / distended ross in place ext + edema / weeping Upper ext CBC, BMP 11/21/17 06:00 11/21/17 06:00 Microbiology 11/11/17 18:00 Blood - Central Line Blood Culture - Final NO GROWTH AFTER 5 DAYS INCUBATION 11/10/17 22:00 Sputum - Endotrachea Suction/Ventilator Gram Stain - Final 11/10/17 22:00 Sputum - Endotrachea Suction/Ventilator Sputum Culture - Final 11/09/17 00:59 Urine - Urine - Catheterized Urine Culture - Final NO GROWTH OBTAINED Active Medications Pantoprazole Sodium 160 mg/ (Dextrose) 290 mls @ 14.5 mls/hr IVPB Q20H [facility] Last Admin: 11/21/17 18:49 Dose: Not Given 82 y/o male Hx dementia /HTN /PAD/CKD/ PVD/ was transfered from [facility] with rectal bleed and hypotension. Episode of recurrent GI bleed from duodenal ulcer / hemorrhagic shock/-- requiring transfusion / emergent EGD X 2 /embolization by IR has remained hemodynamically stable transfered to medical floor NGT in place -tolerating feeds # s/p Gi bleed monitor h/h -- stable PPi transfuse as needed # nutrition NGT feeding add protein supplement # A fib continue off a/c currently rate controlled # UTI Abx completed # HTN remains normotensive s/p pressors MAP >65 # CAD stable # CKD monitor bmp stable # Dementia unclear if at baseline but more alert supportive care start passive ROM at bedside Problem List - Problems (1) Gastrointestinal hemorrhage with melena Code(s): K92.1 - MELENA (2) GI bleed Code(s): K92.2 - GASTROINTESTINAL HEMORRHAGE, UNSPECIFIED (3) Dementia Code(s): F03.90 - UNSPECIFIED DEMENTIA WITHOUT BEHAVIORAL DISTURBANCE (4) BPH (benign prostatic hyperplasia) Code(s): N40.0 - BENIGN PROSTATIC HYPERPLASIA WITHOUT LOWER URINRY TRACT SYMP (5) CAD (coronary artery disease) Code(s): I25.10 - ATHSCL HEART DISEASE OF [place] CORONARY ARTERY W/O ANG PCTRS (6) HTN (hypertension) Code(s): I10 - ESSENTIAL (PRIMARY) HYPERTENSION (7) Hyperlipidemia Code(s): E78.5 - HYPERLIPIDEMIA, UNSPECIFIED
[2017-11-22 07:42] LABS: BASO % 0.2 % (0-2.0); EOS % 1.4 % (0-4.5); HEMATOCRIT 27.9 % (35.4-49); HEMOGLOBIN 9.2 GM/dL (11.7-16.9); LYMPH % 6.4 % (8-40); MCH 31.3 pg (25.7-33.7); MCHC 32.9 g/dl (32.0-35.9); MEAN CELL VOLUME 95.1 fl (80-96); MONO % 4.3 % (3.8-10.2); NEUT % 87.7 % (42.8-82.8); PLATELET COUNT 233 K/MM3 (134-434); RBC 2.94 M/mm3 (4.00-5.60); RDW 21.5 % (11.9-15.9)
[2017-11-22 07:54] LABS: ANION GAP 5 (8-16); BLOOD UREA NITROGEN 11 mg/dL (7-18); CHLORIDE 110 mmol/L (98-107); CO2 29 mmol/L (21-32); CREATININE 0.8 mg/dL (0.7-1.3); GLUCOSE,RANDOM 105 mg/dL (74-106); MAGNESIUM 2.1 mg/dL (1.8-2.4); POTASSIUM 3.7 mmol/L (3.5-5.1); SODIUM 144 mmol/L (136-145)
[2017-11-22 08:20] LABS: CALCIUM 6.8 mg/dL (8.5-10.1)
[2017-11-22] MEDS: AMINO ACIDS/PROTEIN HYDROLYS 30 ML LIQUID.PKT NGT SCH ×2 (09:14→18:20)
[2017-11-22] MEDS ORDERED: CALCIUM GLUCONATE 10% - 1,000 MG/10 ML VIAL IVPB ONE (09:26)
--- NOTE | 2017-11-22 11:01 | PN ---
Progress Note, Physician History of Present Illness: patient opens eyes after talking to him on ng tube feeding still not completely mentally awake and alert - Current Medication List Current Medications: Active Medications Amino Acids (Prosource No Carb Liquid Pkt) 30 ml NGT BID@0800,1730 [facility] Last Admin: 11/22/17 09:14 Dose: Not Given Pantoprazole Sodium 160 mg/ (Dextrose) 290 mls @ 14.5 mls/hr IVPB Q20H [facility] Last Admin: 11/21/17 22:01 Dose: 14.5 mls/hr - Objective Vital Signs: Vital Signs Temperature 98.8 F 11/21/17 22:00 Pulse Rate 79 11/22/17 10:41 Respiratory Rate 18 11/22/17 10:41 Blood Pressure 131/69 11/22/17 10:41 O2 Sat by Pulse Oximetry (%) 92 L 11/21/17 21:00 Constitutional: Yes: No Distress, Calm Cardiovascular: Yes: S1, S2 Respiratory: Yes: Regular, Poor Air Entry Gastrointestinal: Yes: Normal Bowel Sounds, Soft, Other (ng tube in place) Musculoskeletal: Yes: WNL Extremities: Yes: WNL Neurological: Yes: Alert, Other Labs: CBC, BMP 11/22/17 06:00 11/22/17 06:00 INR, PTT INR 1.22 (0.82-1.09) H 11/14/17 06:10 Assessment/Plan Problem List - Problems (1) Gastrointestinal hemorrhage with melena Code(s): K92.1 - MELENA (2) Hyperlipidemia Code(s): E78.5 - HYPERLIPIDEMIA, UNSPECIFIED (3) HTN (hypertension) Code(s): I10 - ESSENTIAL (PRIMARY) HYPERTENSION (4) CAD (coronary artery disease) Code(s): I25.10 - ATHSCL HEART DISEASE OF [place] CORONARY ARTERY W/O ANG PCTRS (5) BPH (benign prostatic hyperplasia) Code(s): N40.0 - BENIGN PROSTATIC HYPERPLASIA WITHOUT LOWER URINRY TRACT SYMP (6) Dementia Code(s): F03.90 - UNSPECIFIED DEMENTIA WITHOUT BEHAVIORAL DISTURBANCE Lactic Acidosis UTI PAD CKD plan continue to monitor nutrition continue feeding monitor wbc rest as per primary team
--- NOTE | 2017-11-22 11:18 | PN ---
Progress Note, Physician History of Present Illness: still drowsy responds calm no new issues - Current Medication List Current Medications: Active Medications Amino Acids (Prosource No Carb Liquid Pkt) 30 ml NGT BID@0800,1730 [facility] Last Admin: 11/22/17 09:14 Dose: Not Given Pantoprazole Sodium 160 mg/ (Dextrose) 290 mls @ 14.5 mls/hr IVPB Q20H [facility] Last Admin: 11/21/17 22:01 Dose: 14.5 mls/hr - Objective Vital Signs: Vital Signs Temperature 98.8 F 11/21/17 22:00 Pulse Rate 79 11/22/17 10:41 Respiratory Rate 18 11/22/17 10:41 Blood Pressure 131/69 11/22/17 10:41 O2 Sat by Pulse Oximetry (%) 92 L 11/21/17 21:00 Constitutional: Yes: No Distress, Calm Cardiovascular: Yes: Regular Rate and Rhythm. No: Gallop, Murmur Respiratory: Yes: Regular, Poor Air Entry (at the bases) Gastrointestinal: Yes: Normal Bowel Sounds, Soft, Other (ng tube in place) Musculoskeletal: Yes: WNL Extremities: Yes: WNL Neurological: Yes: Alert, Other Psychiatric: Yes: Alert Labs: CBC, BMP 11/22/17 06:00 11/22/17 06:00 INR, PTT INR 1.22 (0.82-1.09) H 11/14/17 06:10 Assessment/Plan Problem List - Problems (1) Gastrointestinal hemorrhage with melena Code(s): K92.1 - MELENA (2) Hyperlipidemia Code(s): E78.5 - HYPERLIPIDEMIA, UNSPECIFIED (3) HTN (hypertension) Code(s): I10 - ESSENTIAL (PRIMARY) HYPERTENSION (4) CAD (coronary artery disease) Code(s): I25.10 - ATHSCL HEART DISEASE OF [place] CORONARY ARTERY W/O ANG PCTRS (5) BPH (benign prostatic hyperplasia) Code(s): N40.0 - BENIGN PROSTATIC HYPERPLASIA WITHOUT LOWER URINRY TRACT SYMP (6) Dementia Code(s): F03.90 - UNSPECIFIED DEMENTIA WITHOUT BEHAVIORAL DISTURBANCE Lactic Acidosis UTI PAD CKD plan stable continue to monitor electrolyte replacement rest as per priamry team
[2017-11-22] MEDS ORDERED: CALCIUM GLUCONATE 10% - 1,000 MG/10 ML VIAL ONE (12:15)
--- NOTE | 2017-11-22 15:01 | PN ---
Progress Note (short form) - Note Progress Note: Pt found lying in bed. Bilateral UEs remain edematous/ weeping. Pt opened his eyes. NG tube/ Paul and IV fluids in place. Calium level 6.8. Vital Signs Period Temp Pulse Resp BP Sys/Mcdowell Pulse Ox Last 24 Hr 97.4 F-98.8 F 72-81 18-20 131-140/69-78 92-92 HEENT- NL Neck- Supple Lungs- CTAB Heart- RRR Abd- Soft, NT - Urine clear/yellow Ext- No LE edema CBC, BMP 11/22/17 06:00 11/22/17 06:00 Active Medications Amino Acids (Prosource No Carb Liquid Pkt) 30 ml NGT BID@0800,1730 [facility] Last Admin: 11/22/17 09:14 Dose: Not Given Pantoprazole Sodium 160 mg/ (Dextrose) 290 mls @ 14.5 mls/hr IVPB Q20H [facility] Last Admin: 11/21/17 22:01 Dose: 14.5 mls/hr 82 y/o male Hx dementia /HTN /PAD/CKD/ PVD/ was transfered from [facility] with rectal bleed and hypotension. Episode of recurrent GI bleed from duodenal ulcer / hemorrhagic shock/-- requiring transfusion / emergent EGD X 2 /embolization by IR has remained hemodynamically stable # s/p GI bleed monitor h/h -- stable IV Pantoprazole # nutrition NGT in plae- tolerating feeding Prosource 30 ml BID # A fib continue off a/c currently rate controlled # UTI Abx completed # HTN remains normotensive s/p pressors MAP >65 # CAD stable # CKD monitor bmp stable # Dementia at baseline supportive care start passive ROM at bedside Problem List - Problems (1) Gastrointestinal hemorrhage with melena Code(s): K92.1 - MELENA (2) GI bleed Code(s): K92.2 - GASTROINTESTINAL HEMORRHAGE, UNSPECIFIED (3) Dementia Code(s): F03.90 - UNSPECIFIED DEMENTIA WITHOUT BEHAVIORAL DISTURBANCE (4) BPH (benign prostatic hyperplasia) Code(s): N40.0 - BENIGN PROSTATIC HYPERPLASIA WITHOUT LOWER URINRY TRACT SYMP (5) CAD (coronary artery disease) Code(s): I25.10 - ATHSCL HEART DISEASE OF [place] CORONARY ARTERY W/O ANG PCTRS (6) HTN (hypertension) Code(s): I10 - ESSENTIAL (PRIMARY) HYPERTENSION (7) Hyperlipidemia Code(s): E78.5 - HYPERLIPIDEMIA, UNSPECIFIED
[2017-11-22] MEDS: PANTOPRAZOLE SODIUM 160 MG in DEXTROSE 5%-WATER - 290 ML IVPB SCH ×2 (16:24→22:01)
--- NOTE | 2017-11-22 17:37 | PN ---
Progress Note (short form) - Note Progress Note: Please note. I will be away from 11/23/17 to 12/03/17. Dr. Rolando Singletary will be covering for me in my absence. Problem List - Problems (1) GI bleed Code(s): K92.2 - GASTROINTESTINAL HEMORRHAGE, UNSPECIFIED (2) Gastrointestinal hemorrhage with melena Code(s): K92.1 - MELENA (3) Duodenal ulcer disease Code(s): K26.9 - DUODENAL ULCER, UNSP ACUTE OR CHRONIC, W/O HEMOR OR PERF (4) Duodenal ulcer hemorrhage Code(s): K26.4 - CHRONIC OR UNSPECIFIED DUODENAL ULCER WITH HEMORRHAGE
[2017-11-23 07:54] LABS: BASO % 0.4 % (0-2.0); EOS % 2.6 % (0-4.5); HEMATOCRIT 28.1 % (35.4-49); MCH 30.6 pg (25.7-33.7); MCHC 31.9 g/dl (32.0-35.9); MEAN CELL VOLUME 95.9 fl (80-96); MEAN PLT VOLUME 8.1 fl (7.5-11.1); MONO % 4.5 % (3.8-10.2); NEUT % 85.5 % (42.8-82.8); PLATELET COUNT 213 K/MM3 (134-434); RBC 2.93 M/mm3 (4.00-5.60); RDW 21.5 % (11.9-15.9); WHITE BLOOD COUNT 10.8 K/mm3 (4.0-10.0)
[2017-11-23 07:57] LABS: CHLORIDE 106 mmol/L (98-107); POTASSIUM 4.4 mmol/L (3.5-5.1); SODIUM 142 mmol/L (136-145)
[2017-11-23 08:09] LABS: ANION GAP 7 (8-16); BLOOD UREA NITROGEN 15 mg/dL (7-18); CO2 29 mmol/L (21-32); CREATININE 0.8 mg/dL (0.7-1.3); GLUCOSE,RANDOM 91 mg/dL (74-106); MAGNESIUM 2.2 mg/dL (1.8-2.4); PHOSPHOROUS 1.9 mg/dL (2.5-4.9)
[2017-11-23] MEDS ORDERED: PT OWN MED DRAWER 7, Y5N ONE ×2 (08:23→17:17)
[2017-11-23] MEDS: AMINO ACIDS/PROTEIN HYDROLYS 30 ML LIQUID.PKT NGT SCH ×2 (09:30→17:25)
[2017-11-23] MEDS: PANTOPRAZOLE SODIUM 160 MG in DEXTROSE 5%-WATER - 290 ML IVPB SCH ×2 (09:31→17:24)
--- NOTE | 2017-11-23 11:10 | PN ---
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 cannot provide any hx or complaint responds to verbal - not communicative NGT feeds Intake & Output 11/20/17 11/21/17 11/22/17 11/23/17 23:59 23:59 23:59 23:59 Intake Total 1655.5 1548 1252 1369.5 Output Total 435 1900 800 300 Balance 1220.5 -991 436 9672.5 Weight 171 lb 3.2 oz 174 lb Vital Signs Period Temp Pulse Resp BP Sys/Mcdowell Pulse Ox Last 24 Hr 97.6 F-98.6 F 74-80 18-20 125-144/59-78 94 heart S1/S2 irreg / tachy lungs rhonchi right > left / decreased BS at left base abd soft no tenderness / distended ross in place ext + edema / weeping Upper ext CBC, BMP 11/23/17 06:12 11/23/17 06:12 Microbiology 11/11/17 18:00 Blood - Central Line Blood Culture - Final NO GROWTH AFTER 5 DAYS INCUBATION 11/10/17 22:00 Sputum - Endotrachea Suction/Ventilator Gram Stain - Final 11/10/17 22:00 Sputum - Endotrachea Suction/Ventilator Sputum Culture - Final 11/09/17 00:59 Urine - Urine - Catheterized Urine Culture - Final NO GROWTH OBTAINED Active Medications Amino Acids (Prosource No Carb Liquid Pkt) 30 ml NGT BID@0800,1730 [facility] Last Admin: 11/23/17 09:30 Dose: 30 ml Pantoprazole Sodium 160 mg/ (Dextrose) 290 mls @ 14.5 mls/hr IVPB Q20H [facility] Last Admin: 11/23/17 09:31 Dose: Not Given 82 y/o male Hx dementia /HTN /PAD/CKD/ PVD/ was transfered from [facility] with rectal bleed and hypotension. Episode of recurrent GI bleed from duodenal ulcer / hemorrhagic shock/-- requiring transfusion / emergent EGD X 2 /embolization by IR has remained hemodynamically stable transfered to medical floor NGT in place -tolerating feeds # s/p Gi bleed monitor h/h -- stable PPi transfuse as needed # nutrition NGT feeding add protein supplement will request swallow eval may need feeding tube -- will need to address with family # A fib continue off a/c currently rate controlled # UTI Abx completed # HTN remains normotensive s/p pressors MAP >65 # CAD stable # CKD monitor bmp stable # Dementia unclear if at baseline but more alert supportive care start passive ROM at bedside Problem List - Problems (1) Gastrointestinal hemorrhage with melena Code(s): K92.1 - MELENA (2) GI bleed Code(s): K92.2 - GASTROINTESTINAL HEMORRHAGE, UNSPECIFIED (3) Dementia Code(s): F03.90 - UNSPECIFIED DEMENTIA WITHOUT BEHAVIORAL DISTURBANCE (4) BPH (benign prostatic hyperplasia) Code(s): N40.0 - BENIGN PROSTATIC HYPERPLASIA WITHOUT LOWER URINRY TRACT SYMP (5) CAD (coronary artery disease) Code(s): I25.10 - ATHSCL HEART DISEASE OF [place] CORONARY ARTERY W/O ANG PCTRS (6) HTN (hypertension) Code(s): I10 - ESSENTIAL (PRIMARY) HYPERTENSION (7) Hyperlipidemia Code(s): E78.5 - HYPERLIPIDEMIA, UNSPECIFIED
--- NOTE | 2017-11-23 13:16 | PN ---
Progress Note, Physician History of Present Illness: more alert still confused on ng tube feeding otherwise comfortable - Current Medication List Current Medications: Active Medications Amino Acids (Prosource No Carb Liquid Pkt) 30 ml NGT BID@0800,1730 [facility] Last Admin: 11/23/17 09:30 Dose: 30 ml Pantoprazole Sodium 160 mg/ (Dextrose) 290 mls @ 14.5 mls/hr IVPB Q20H [facility] Last Admin: 11/23/17 09:31 Dose: Not Given - Objective Vital Signs: Vital Signs Temperature 98.3 F 11/23/17 05:00 Pulse Rate 79 11/23/17 05:00 Respiratory Rate 20 11/23/17 05:00 Blood Pressure 125/59 11/23/17 05:00 O2 Sat by Pulse Oximetry (%) 94 L 11/22/17 21:00 Constitutional: Yes: No Distress, Calm Cardiovascular: Yes: Regular Rate and Rhythm Respiratory: Yes: Regular, Poor Air Entry Gastrointestinal: Yes: Normal Bowel Sounds, Soft, Other (ng tube in place) Musculoskeletal: Yes: WNL Extremities: Yes: WNL Neurological: Yes: Alert, Confusion Psychiatric: Yes: Alert, Other Labs: CBC, BMP 11/23/17 06:12 11/23/17 06:12 INR, PTT INR 1.22 (0.82-1.09) H 11/14/17 06:10 Assessment/Plan Problem List - Problems (1) Gastrointestinal hemorrhage with melena Code(s): K92.1 - MELENA (2) Hyperlipidemia Code(s): E78.5 - HYPERLIPIDEMIA, UNSPECIFIED (3) HTN (hypertension) Code(s): I10 - ESSENTIAL (PRIMARY) HYPERTENSION (4) CAD (coronary artery disease) Code(s): I25.10 - ATHSCL HEART DISEASE OF [place] CORONARY ARTERY W/O ANG PCTRS (5) BPH (benign prostatic hyperplasia) Code(s): N40.0 - BENIGN PROSTATIC HYPERPLASIA WITHOUT LOWER URINRY TRACT SYMP (6) Dementia Code(s): F03.90 - UNSPECIFIED DEMENTIA WITHOUT BEHAVIORAL DISTURBANCE main issue will be of nutrition Lactic Acidosis UTI PAD CKD plan stable continue to monitor aspiration precautions nutrition rest as per primary team
[2017-11-23] MEDS ORDERED: FUROSEMIDE 40 MG/4 ML INJECTABLE VIAL IVPUSH ONE (18:30)
--- NOTE | 2017-11-23 22:00 | PN ---
Progress Note (short form) - Note Progress Note: CC: GIB S:alert but not oriented. + cough. Unable to obtain reliable history from patient, but denies sob, cp, dizziness, abdominal discomfort. Appears comfortable. Increased oxygen requirement. Current Medications Amino Acids (Prosource No Carb Liquid Pkt) 30 ml NGT BID@0800,1730 [facility] Last Admin: 11/23/17 17:25 Dose: 30 ml Pantoprazole Sodium 160 mg/ (Dextrose) 290 mls @ 14.5 mls/hr IVPB Q20H [facility] Last Admin: 11/23/17 17:24 Dose: 14.5 mls/hr Vital Signs - 24 hr 11/23/17 11/23/17 11/23/17 05:00 09:00 10:00 Temperature 98.3 F Pulse Rate 79 88 Respiratory 20 20 Rate Blood Pressure 125/59 133/67 O2 Sat by Pulse 91 L Oximetry (%) 11/23/17 11/23/17 13:45 19:04 Temperature 98.4 F 97.3 F L Pulse Rate 86 80 Respiratory 20 20 Rate Blood Pressure 129/72 142/80 O2 Sat by Pulse Oximetry (%) Intake & Output 11/21/17 11/22/17 11/23/17 11/24/17 07:59 07:59 07:59 07:59 Intake Total 1589.5 2100 1231.5 1429.5 Output Total 635 1800 700 200 Balance 954.5 300 531.5 1229.5 Weight 174 lb Constitutional: Yes: Well Nourished, No Distress, Respiratory: Yes: dullness at left base, diffuse rales, poor effort + bs soft nt nd Extremities: + dp/pt Edema: trace-1+ dependent edema Neurological: alert No: sedated no jaundice diaphoresis Psychiatric: No: Agitated alert, not oriented no carotid bruit CBC, BMP 11/23/17 06:12 11/23/17 06:12 EKG: Other (prior tele: aries javier) cxr: left opacification, slightly improved ecg: sr, nl intervals, ant/lat twis and subtle st depressions Echo 11/25: borderline vs mildly reduced LVSF (regional wall motion eval is TDS) . nl RV. mild LAE. valve fxn WNL. repeat echo 11/2017: lvh, nl lv/rv, mild tr, mild phtn a/p: 82 m hx dementia, htn, hld, pad, cad, ckd, sent from [facility] for rectal bleed. PAfib , MAT: -on xarelto (in addition to asa for pad/cad) at [facility] per charts, with no mention of Afib--indication for xarelto was reported as PAD which is not an approved indication--> hence have to assume there is h/o pafib here. no h/o CVA per [place] dx list, and per d/w family - holding AC and ASA in setting of GIB. Resume asa if/when cleared by GI. -episodes of both rapid afib/MAT 11/10-->11/11 in setting of acute large GI bleed ( hgb drop to 5) and urgent EGD with epinephrine injection into bleeding vessel. -11/13-: improved rate control. cont dig (level ok). -11/17- 11/18: in sr. dig level ok 11/17 - 11/20: Remains in SR. last dig level 11/17. Patient has NGT. Will check digoxin level prior to transitioning to po digoxin - 11/21: HR remains controlled. Dig level elevated yesterday digoxin held. Repeat tomorrow and resume po digoxin at lower dose. - 11/23 digoxin level theraeutic, will resume po dosing at lower dose. con't to monitor levels. lyte repletion prn. h/o CAD/pad, unknown details - outside vascular follows for LE disease per family. details of cad unknown. UGIB (from PUD): - p/w GIB in setting of xarelto and ASA --> now on hold. -recurrent large melena 2/3 with bleeding ulcer treated on EGD. -severe rebleed 2/5 (hgb 5) with hypotension, urgent rpt EGD with control of visibly bleeding vessel. -holding both ASA and AC until GIB w/u and tx is complete. s/p EGD/FOC and epinephrine injection. -family describes moderate dementia at baseline, which worsened the past 6 mo or so. 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 chf hx)). they state they strongly desire avoiding recurrent bleeding (bebeto given present episode was potentially life-threatening) or recurrent hospitalization, and hence prefer ASA over AC (verbalize understanding that ASA offers incomplete CVA prevention). -would not pursue Watchman here given pt's baseline dementia status -resume ASA 81 mg later once stable per GI java consultant. CHF: -prior h/o "water on the heart" per , ? details -Echo here unremarkable - s/p IVF - 11/17 and 11/18: given lasix 20 mg IV x 1 each day. Hypernatremia continued to improve but patient remained NPO so no further lasix given 09/18. - 11/20: NGT placed 11/19, TF's started in evening. Patient remained slightly net negative/even yesterday off of lasix. Will hold again today - 11/21: patient now net positive with development of some increased dependent edema. cxr yesterday still with opacification of left lung --> will give another dose of lasix 20 mg IV x 1 today. - 11/23: slighly net positive with increased rales and increased o2 requirement. Will give 40 mg IV lasix x 1 today and then initiate lasix iv 20 mg daily. monitor weights, i/o's, bmp htn: -pressors off now -holding home bb, monitor trend. 09/22 bp stable off bb. hld: -stable, statin not listed on home meds KEVEN/hypernatremia: -unknown baseline -creat/na now normalized, monitor with initiation of daily lasix. extubated on 11/17.
--- NOTE | 2017-11-24 00:04 | HOSP ---
Subjective - Review of Symptoms Subjective: Hospitalist team called at 11:44pm for patient desaturating to 80% on 2L NC. Appears in no acute distress. Patient had course breath sounds, no accessory muscle use. Not tachycardic. O2 sat improved to 87% on venti mask Called respiratory, who placed patient on non-rebreather -> O2 sat improved to 94%. Discussed w/ Attending -> will place on bipap. Chest XR ordered -> last was on 11/20 and showed R sided opacification. Chest PT Physical Examination Vital Signs: Vital Signs Temperature 97.3 F L 11/23/17 19:04 Pulse Rate 80 11/23/17 19:04 Respiratory Rate 20 11/23/17 19:04 Blood Pressure 142/80 11/23/17 19:04 O2 Sat by Pulse Oximetry (%) 91 L 11/23/17 09:00 Labs: CBC, BMP 11/23/17 06:12 11/23/17 06:12 Visit type - Emergency Visit Emergency Visit: No - New Patient This patient is new to me today: Yes Date on this admission: 11/24/17 - Critical Care Critical Care patient: No
[2017-11-24] MEDS ORDERED: ACETAMINOPHEN 650 MG SUPP.RECT PR ONE (00:24)
[2017-11-24 07:55] LABS: HEMATOCRIT 33.9 % (35.4-49); HEMOGLOBIN 10.7 GM/dL (11.7-16.9); MCH 30.9 pg (25.7-33.7); MCHC 31.7 g/dl (32.0-35.9); MEAN CELL VOLUME 97.6 fl (80-96); MEAN PLT VOLUME 8.2 fl (7.5-11.1); RBC 3.47 M/mm3 (4.00-5.60); RDW 21.1 % (11.9-15.9); WHITE BLOOD COUNT 20.7 K/mm3 (4.0-10.0)
[2017-11-24] MEDS: AMINO ACIDS/PROTEIN HYDROLYS 30 ML LIQUID.PKT NGT SCH ×2 (08:22→18:48)
[2017-11-24 08:25] LABS: CHLORIDE 103 mmol/L (98-107); POTASSIUM 4.1 mmol/L (3.5-5.1); SODIUM 139 mmol/L (136-145)
[2017-11-24 08:30] LABS: ANION GAP 6 (8-16); BLOOD UREA NITROGEN 22 mg/dL (7-18); CO2 30 mmol/L (21-32); GLUCOSE,RANDOM 77 mg/dL (74-106)
[2017-11-24 09:56] LABS: CALCIUM 6.8 mg/dL (8.5-10.1)
[2017-11-24 10:18] LABS: ANISOCYTOSIS 1+; MACROCYTOSIS 0; PLATELET ESTIMATE NORMAL
[2017-11-24 11:16] LABS: PLATELET COUNT 225 K/MM3 (134-434)
--- NOTE | 2017-11-24 11:39 | PN ---
Progress Note (short form) - Note Progress Note: Clinical deterioration overnight and was placed on CPAP. Lethargic, Mode changed to NIPPV with improvement of respiratory parameters. Intake & Output 11/21/17 11/22/17 11/23/17 11/24/17 23:59 23:59 23:59 23:59 Intake Total 1548 1252 2549.0 360 Output Total 7109 294 7335 700 Balance -352 452 349.0 -340 Weight 174 lb 169 lb 4 oz Last Vital Signs Temp Pulse Resp BP Pulse Ox 97.8 F 74 18 122/77 98 11/24/17 06:00 11/24/17 06:00 11/24/17 06:00 11/24/17 06:00 11/24/17 09:55 Active Medications Amino Acids (Prosource No Carb Liquid Pkt) 30 ml NGT BID@0800,1730 [facility] Last Admin: 11/24/17 08:22 Dose: Not Given Digoxin (Lanoxin -) 0.125 mg PO DAILY [facility] Furosemide (Lasix Injection -) 20 mg IVPUSH DAILY [facility] Pantoprazole Sodium 160 mg/ (Dextrose) 290 mls @ 14.5 mls/hr IVPB Q20H [facility] GEN: Lethargic on NIPPV HEENT: dry membranes CVS: S1, S2, RRR LUNG: Bibasilar crackles ABD: Soft, NT, ND MSK: no edema, no erythema Labs: Laboratory Results - last 24 hr 11/24/17 11/24/17 06:20 06:20 WBC 20.7 H D RBC 3.47 L Hgb 10.7 L D Hct 33.9 L D MCV 97.6 H MCH 30.9 MCHC 31.7 L RDW 21.1 H Plt Count 225 MPV 8.2 Neutrophils % No Result Required. Neutrophils % (Manual) 90.8 H* Band Neutrophils % 7.2 Lymphocytes % No Result Required. Lymphocytes % (Manual) 0.0 L Monocytes % (Manual) 2 L Eosinophils % (Manual) 0.0 Basophils % (Manual) 0.0 Myelocytes % (Man) 0 Promyelocytes % (Man) 0 Nucleated RBC % 0 Metamyelocytes 0 Hypochromia 0 Platelet Estimate Normal Platelet Comment No clumping noted Polychromasia 0 Poikilocytosis 0 Anisocytosis 1+ Microcytosis 1+ Macrocytosis 0 Sodium 139 Potassium 4.1 Chloride 103 Carbon Dioxide 30 Anion Gap 6 L BUN 22 H D Creatinine 1.0 D Random Glucose 77 Calcium 6.8 L* ASSESSMENT AND PLAN: GI Bleed from Duodenal Ulcer Acute Blood Loss Anemia Hemorrhagic Shock Paroxysmal Atrial Fibrillation Lactic Acidosis UTI PAD CAD CKD HTN Hyperlipidemia Dementia - NIPPV, follow ABG - CXR - Aspiration precautions - monitor H/H - transfuse as needed - protonix - DVT prophylaxis - Need to discuss GOC with family as overall prognosis/outcome is likely to be poor Dr Rojas
--- NOTE | 2017-11-24 12:17 | PN ---
Progress Note (short form) - Note Progress Note: patient examined at bedside and son at bedside discussed events of last night desaturation required bipap overnight currently Sat 92% on fio2 @ 60% Vital Signs Period Temp Pulse Resp BP Sys/Mcdowell Pulse Ox Last 24 Hr 97.3 F-100.9 F 74-92 18-27 122-146/66-88 82-98 Intake & Output 11/21/17 11/22/17 11/23/17 11/24/17 23:59 23:59 23:59 23:59 Intake Total 1548 1252 2549.0 360 Output Total 9131 822 1209 700 Balance -352 452 349.0 -340 Weight 174 lb 169 lb 4 oz on bipap / NGT in place /feedings on hold moving arms not interactive and does not follow directions heart S1/S2 irreg / lungs rhonchi left upper chest / no wheezing abd soft no tenderness / distended ext RUE extensive edema CBC, BMP 11/24/17 06:20 11/24/17 06:20 Microbiology 11/11/17 18:00 Blood - Central Line Blood Culture - Final NO GROWTH AFTER 5 DAYS INCUBATION 11/10/17 22:00 Sputum - Endotrachea Suction/Ventilator Gram Stain - Final 11/10/17 22:00 Sputum - Endotrachea Suction/Ventilator Sputum Culture - Final 11/09/17 00:59 Urine - Urine - Catheterized Urine Culture - Final NO GROWTH OBTAINED Active Medications Amino Acids (Prosource No Carb Liquid Pkt) 30 ml NGT BID@0800,1730 [facility] Last Admin: 11/24/17 08:22 Dose: Not Given Digoxin (Lanoxin -) 0.125 mg PO DAILY [facility] Furosemide (Lasix Injection -) 20 mg IVPUSH DAILY [facility] Pantoprazole Sodium 160 mg/ (Dextrose) 290 mls @ 14.5 mls/hr IVPB Q20H [facility] 82 y/o male Hx dementia /HTN /PAD/CKD/ PVD/ was transfered from [facility] with rectal bleed and hypotension. Xarelto induced coagulopathy in setting of duodenal bulb ulcer resulting in hemorrhagic shock requiring transfusion PRBC /FFP/ emergent EGD X 2 / IR embolization to control bleeding. Last night notified patient desaturating / with inc respiratory work -- now on bipap ( ABG pending) Hypoxic / hypercapnic ? NGT in place -feeds on hold On bipap # aspiration PNA? desaturation last night with resp distress required inc Oxygen now on Bipap inc WBC recall ID / repeat CXR discussed care with Pulmonary # s/p Gi bleed monitor h/h -- stable PPi transfuse as needed # nutrition NGT feeding on hold # A fib continue off a/c digoxin for rate control # UTI Abx completed # HTN remains normotensive s/p pressors MAP >65 # CAD stable # CKD monitor bmp stable # Dementia discussed with and son current care / events of last night / and wishes for advance directives Son states father did not want "any of this" "he didn't want to live this way" is hcp all questions and concerns addressed with both - they agree, and are requesting no heroics - they do not want him resuscitated nor intubated ( no breathing machine) signed DNR forms continue current care supportive care Problem List - Problems (1) Gastrointestinal hemorrhage with melena Code(s): K92.1 - MELENA (2) GI bleed Code(s): K92.2 - GASTROINTESTINAL HEMORRHAGE, UNSPECIFIED (3) Dementia Code(s): F03.90 - UNSPECIFIED DEMENTIA WITHOUT BEHAVIORAL DISTURBANCE (4) BPH (benign prostatic hyperplasia) Code(s): N40.0 - BENIGN PROSTATIC HYPERPLASIA WITHOUT LOWER URINRY TRACT SYMP (5) CAD (coronary artery disease) Code(s): I25.10 - ATHSCL HEART DISEASE OF [place] CORONARY ARTERY W/O ANG PCTRS (6) HTN (hypertension) Code(s): I10 - ESSENTIAL (PRIMARY) HYPERTENSION (7) Hyperlipidemia Code(s): E78.5 - HYPERLIPIDEMIA, UNSPECIFIED
[2017-11-24 14:12] LABS: ALLENS TEST POSITIVE
[2017-11-24 14:19] LABS: ARTERIAL BLD GAS O2 SATURATION 91.2 % (90-98.9); ARTERIAL BLOOD GAS BASE EXCESS 6.7 meq/l (-2-2); ARTERIAL BLOOD GAS PCO2 44.2 mmHg (35-45); ARTERIAL BLOOD GAS PO2 55.9 mmHg (68-100); ARTERIAL BLOOD GAS pH 7.46 (7.35-7.45)
--- NOTE | 2017-11-24 14:50 | PN ---
Progress Note, Physician History of Present Illness: Pt seen and examined. Events noted. Labs/imaging results noted. Pt noted to be hypoxic, desaturated to 82% on NC. Currently on CPAP. Remains weak. Febrile, WBC elevated to 20K. - Current Medication List Current Medications: Active Medications Amino Acids (Prosource No Carb Liquid Pkt) 30 ml NGT BID@0800,1730 [facility] Last Admin: 11/24/17 08:22 Dose: Not Given Digoxin (Lanoxin -) 0.125 mg PO DAILY [facility] Furosemide (Lasix Injection -) 20 mg IVPUSH DAILY [facility] Pantoprazole Sodium 160 mg/ (Dextrose) 290 mls @ 14.5 mls/hr IVPB Q20H [facility] - Objective Vital Signs: Vital Signs Temperature 97.8 F 11/24/17 06:00 Pulse Rate 84 11/24/17 14:33 Respiratory Rate 18 11/24/17 14:33 Blood Pressure 147/65 11/24/17 14:33 O2 Sat by Pulse Oximetry (%) 94 L 11/24/17 13:45 Constitutional: Yes: Mild Distress (on CPAP) Neck: Yes: Supple Cardiovascular: Yes: Tachycardia Respiratory: Yes: Diminished (bibasilar) Gastrointestinal: Yes: Normal Bowel Sounds, Soft Genitourinary: Yes: Paul Present Edema: Yes Edema: RUE: 3+ Neurological: Yes: Weakness Labs: CBC, BMP 11/24/17 06:20 11/24/17 06:20 INR, PTT INR 1.22 (0.82-1.09) H 11/14/17 06:10 - ....Imaging Chest X-ray: Report Reviewed Problem List - Problems (1) BPH (benign prostatic hyperplasia) Code(s): N40.0 - BENIGN PROSTATIC HYPERPLASIA WITHOUT LOWER URINRY TRACT SYMP (2) CAD (coronary artery disease) Code(s): I25.10 - ATHSCL HEART DISEASE OF [place] CORONARY ARTERY W/O ANG PCTRS (3) Dementia Code(s): F03.90 - UNSPECIFIED DEMENTIA WITHOUT BEHAVIORAL DISTURBANCE (4) Duodenal ulcer with hemorrhage but without obstruction Code(s): K26.4 - CHRONIC OR UNSPECIFIED DUODENAL ULCER WITH HEMORRHAGE (5) Gastrointestinal hemorrhage with melena Code(s): K92.1 - MELENA (6) HTN (hypertension) Code(s): I10 - ESSENTIAL (PRIMARY) HYPERTENSION (7) Hyperlipidemia Code(s): E78.5 - HYPERLIPIDEMIA, UNSPECIFIED Assessment/Plan Fever/Leukocytosis Sepsis, Aspiration PNA vs HCAP Resp failure on CPAP -- start Meropenem IV -- send lactic acid, blood cultures -- aspiration precautions -- repeat cbc/bmp in am monitor vitals closely
[2017-11-24] MEDS ORDERED: MEROPENEM 1 GM in DEXTROSE 5%-WATER - 100 ML IVPB STA (14:53)
[2017-11-24] MEDS: PANTOPRAZOLE SODIUM 160 MG in DEXTROSE 5%-WATER - 290 ML IVPB SCH (15:41)
[2017-11-24] MEDS: FUROSEMIDE 40 MG/4 ML INJECTABLE VIAL IVPUSH SCH (15:41)
[2017-11-24] MEDS: MEROPENEM 1 GM PUSH 1 GM/20 ML DISP.SYRIN IVPUSH SCH ×2 (18:17→21:03)
[2017-11-24] MEDS: DIGOXIN 0.125 MG TABLET (FP) PO SCH (18:51)
[2017-11-24] MEDS: DEXTROSE 5%-0.45% SALINE 1,000 ML IV SCH (18:51)
[2017-11-25 08:53] LABS: BASO % 0.5 % (0-2.0); EOS % 0.3 % (0-4.5); HEMOGLOBIN 10.1 GM/dL (11.7-16.9); LYMPH % 3.3 % (8-40); MCH 30.7 pg (25.7-33.7); MCHC 31.6 g/dl (32.0-35.9); MEAN CELL VOLUME 97.2 fl (80-96); MEAN PLT VOLUME 8.4 fl (7.5-11.1); MONO % 3.4 % (3.8-10.2); NEUT % 92.5 % (42.8-82.8); PLATELET COUNT 215 K/MM3 (134-434); RDW 20.8 % (11.9-15.9); WHITE BLOOD COUNT 18.1 K/mm3 (4.0-10.0)
[2017-11-25 08:58] LABS: ADD RBC MORPHOLOGY YES
[2017-11-25 09:11] LABS: ANION GAP 8 (8-16); BLOOD UREA NITROGEN 23 mg/dL (7-18); CALCIUM 7.4 mg/dL (8.5-10.1); CHLORIDE 102 mmol/L (98-107); CO2 31 mmol/L (21-32); GLUCOSE,RANDOM 83 mg/dL (74-106); POTASSIUM 3.7 mmol/L (3.5-5.1); SODIUM 141 mmol/L (136-145)
[2017-11-25] MEDS ORDERED: PT OWN MED DRAWER 7, Y5N ONE (09:36)
--- NOTE | 2017-11-25 10:58 | PN ---
Progress Note (short form) - Note Progress Note: S:alert but not oriented. Unable to obtain reliable history from patient. Appears comfortable. on bipap. Current Medications Generic Name Dose Route Start Last Admin Trade Name Dario PRN Reason Stop Dose Admin Amino Acids 30 ml 11/22/17 08:00 11/24/17 18:48 Prosource No Carb Liquid Pkt NGT Not Given BID@0800,1730 ERNIE Digoxin 0.125 mg 11/24/17 10:00 11/24/17 18:51 Lanoxin - PO Not Given DAILY ERNIE Furosemide 20 mg 11/24/17 10:00 11/24/17 15:41 Lasix Injection - IVPUSH 20 mg DAILY ERNIE Administration Pantoprazole Sodium 160 mg/ 290 mls @ 14.5 mls/hr 11/24/17 13:00 11/24/17 15: 41 Dextrose IVPB 14.5 mls/hr Q20H ERNIE Administration Meropenem 1 gm in 20 mls @ 240 mls/hr 11/24/17 15:15 11/24/17 21:03 Merrem (Restricted To Id) - IVPUSH 240 mls/hr BID ERNIE Administration Dextrose/Sodium Chloride 1,000 mls @ 75 mls/hr 11/24/17 18:15 11/24/17 18:51 D5-1/2ns - IV 75 mls/hr ASDIR ERNIE Administration Vital Signs Period Temp Pulse Resp BP Sys/Mcdowell Pulse Ox Last 24 Hr 97.1 F-98.4 F 79-94 18-20 113-147/56-85 93-96 Constitutional: Yes: Well Nourished, No Distress, Respiratory: Yes: dullness at left base, diffuse rales, poor effort + bs soft nt nd Extremities: + dp/pt Edema: trace-1+ dependent edema Neurological: alert No: sedated no jaundice diaphoresis Psychiatric: No: Agitated alert, not oriented no carotid bruit CBC, BMP 11/25/17 08:25 11/25/17 08:25 cxr: left opacification, slightly improved ecg: sr, nl intervals, ant/lat twis and subtle st depressions Echo 11/2017: borderline vs mildly reduced LVSF (regional wall motion eval is TDS ). nl RV. mild LAE. valve fxn WNL. repeat echo 11/2017: lvh, nl lv/rv, mild tr, mild phtn a/p: 82 m hx dementia, htn, hld, pad, cad, ckd, sent from [facility] for rectal bleed. PAfib , MAT: -on xarelto (in addition to asa for pad/cad) at [facility] per charts, with no mention of Afib--indication for xarelto was reported as PAD which is not an approved indication--> hence have to assume there is h/o pafib here. no h/o CVA per [place] dx list, and per d/w family - holding AC and ASA in setting of GIB. Resume asa if/when cleared by GI. -episodes of both rapid afib/MAT 2/3-->11/11 in setting of acute large GI bleed ( hgb drop to 5) and urgent EGD with epinephrine injection into bleeding vessel. -11/13-: improved rate control. cont dig (level ok). -11/17- 11/18: in sr. dig level ok 11/17 - 11/20: Remains in SR. last dig level 11/17. Patient has NGT. Will check digoxin level prior to transitioning to po digoxin - 11/21: HR remains controlled. Dig level elevated yesterday digoxin held. Repeat tomorrow and resume po digoxin at lower dose. - 11/23-: cont digoxin h/o CAD/pad, unknown details - outside vascular follows for LE disease per family. details of cad unknown. UGIB (from PUD): - p/w GIB in setting of xarelto and ASA --> now on hold. -recurrent large melena 2/3 with bleeding ulcer treated on EGD. -severe rebleed 2/5 (hgb 5) with hypotension, urgent rpt EGD with control of visibly bleeding vessel. -holding both ASA and AC until GIB w/u and tx is complete. s/p EGD/FOC and epinephrine injection. -family describes moderate dementia at baseline, which worsened the past 6 mo or so. 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 chf hx)). they state they strongly desire avoiding recurrent bleeding (bebeto given present episode was potentially life-threatening) or recurrent hospitalization, and hence prefer ASA over AC (verbalize understanding that ASA offers incomplete CVA prevention). -would not pursue Watchman here given pt's baseline dementia status -resume ASA 81 mg later once stable per GI business analyst consultant. CHF: -prior h/o "water on the heart" per , ? details -Echo here unremarkable - s/p IVF - 11/17 and 11/18: given lasix 20 mg IV x 1 each day. Hypernatremia continued to improve but patient remained NPO so no further lasix given 09/18. - 11/20: NGT placed 11/19, TF's started in evening. Patient remained slightly net negative/even yesterday off of lasix. Will hold again today - 11/21: patient now net positive with development of some increased dependent edema. cxr yesterday still with opacification of left lung --> will give another dose of lasix 20 mg IV x 1 today. - 11/23: slighly net positive with increased rales and increased o2 requirement. Will give 40 mg IV lasix x 1 today and then initiate lasix iv 20 mg daily. -11/25: cont lasix 20 iv qd htn: -holding home bb, monitor trend. -bp stable off bb. hld: -stable, statin not listed on home meds KEVEN/hypernatremia: -unknown baseline -creat/na now normalized
[2017-11-25] MEDS: AMINO ACIDS/PROTEIN HYDROLYS 30 ML LIQUID.PKT NGT SCH ×2 (11:10→18:05)
[2017-11-25 11:11] LABS: ACANTHOCYTES 1+; ANISOCYTOSIS 2+; MACROCYTOSIS 1+; PLATELET ESTIMATE NORMAL; TARGET CELLS 1+
[2017-11-25] MEDS: MEROPENEM 1 GM PUSH 1 GM/20 ML DISP.SYRIN IVPUSH SCH ×2 (11:16→21:40)
[2017-11-25] MEDS: FUROSEMIDE 40 MG/4 ML INJECTABLE VIAL IVPUSH SCH (11:17)
[2017-11-25] MEDS: PANTOPRAZOLE SODIUM 160 MG in DEXTROSE 5%-WATER - 290 ML IVPB SCH ×2 (11:18→13:58)
--- NOTE | 2017-11-25 11:49 | PN ---
Progress Note (short form) - Note Progress Note: Lethargic but more arousable than yesterday. Still not able to verbalize or follow commands. NIPPV in place 60% FiO2. Intake & Output 11/22/17 11/23/17 11/24/17 11/25/17 23:59 23:59 23:59 23:59 Intake Total 1252 2549.0 476 1099 Output Total 800 2200 1900 600 Balance 452 349.0 -1424 499 Weight 174 lb 169 lb 4 oz 165 lb 11.2 oz Last Vital Signs Temp Pulse Resp BP Pulse Ox 97.7 F 81 20 133/59 93 L 11/25/17 06:00 11/25/17 06:00 11/25/17 06:00 11/25/17 06:00 11/25/17 10:05 Active Medications Amino Acids (Prosource No Carb Liquid Pkt) 30 ml NGT BID@0800,1730 [facility] Last Admin: 11/25/17 11:10 Dose: Not Given Digoxin (Lanoxin -) 0.125 mg PO DAILY [facility] Last Admin: 11/24/17 18:51 Dose: Not Given Furosemide (Lasix Injection -) 20 mg IVPUSH DAILY [facility] Last Admin: 11/25/17 11:17 Dose: 20 mg Pantoprazole Sodium 160 mg/ (Dextrose) 290 mls @ 14.5 mls/hr IVPB Q20H [facility] Last Admin: 11/25/17 11:18 Dose: Not Given Meropenem (Merrem (Restricted To Id) -) 1 gm in 20 mls @ 240 mls/hr IVPUSH BID [facility] Last Admin: 11/25/17 11:16 Dose: 240 mls/hr Dextrose/Sodium Chloride (D5-1/2ns -) 1,000 mls @ 75 mls/hr IV ASDIR [facility] Last Admin: 11/24/17 18:51 Dose: 75 mls/hr GEN: Lethargic on NIPPV HEENT: dry membranes CVS: S1, S2, RRR LUNG: Bibasilar crackles ABD: Soft, NT, ND MSK: no edema, no erythema Labs: Laboratory Results - last 24 hr 11/24/17 11/25/17 11/25/17 14:00 08:25 08:25 WBC 18.1 H RBC 3.30 L Hgb 10.1 L Hct 32.0 L MCV 97.2 H MCH 30.7 MCHC 31.6 L RDW 20.8 H Plt Count 215 MPV 8.4 Neutrophils % 92.5 H Lymphocytes % 3.3 L D Monocytes % 3.4 L Eosinophils % 0.3 D Basophils % 0.5 Platelet Estimate Normal Anisocytosis 2+ Microcytosis 1+ Macrocytosis 1+ Target Cells 1+ Acanthocytes (Spur) 1+ Fragmented RBCs 1+ Anticoagulation Therapy No Result Required. Puncture Site Right radial ABG pH 7.46 H ABG pCO2 at Pt Temp 44.2 D ABG pO2 at Pt Temp 55.9 L D ABG HCO3 30.9 H ABG O2 Sat (Measured) 91.2 ABG O2 Content 11.5 L ABG Base Excess 6.7 H Ramses Test Positive O2 Delivery Device Bipap epap 8 ipap 12 Oxygen Flow Rate 60% Vent Mode St Vent Rate 12 Mechanical Rate No Result Required. Pressure Support Vent No Result Required. Sodium 141 Potassium 3.7 Chloride 102 Carbon Dioxide 31 Anion Gap 8 BUN 23 H Creatinine 1.0 Random Glucose 83 Calcium 7.4 L Digoxin 1.0385 ASSESSMENT AND PLAN: GI Bleed from Duodenal Ulcer Acute Blood Loss Anemia Hemorrhagic Shock Paroxysmal Atrial Fibrillation Lactic Acidosis UTI PAD CAD CKD HTN Hyperlipidemia Dementia - Trial of partial non-rebreather - NIPPV if needed - Aspiration precautions - monitor H/H - transfuse as needed - protonix - DVT prophylaxis - DNR / DNI Dr Rojas
--- NOTE | 2017-11-25 12:15 | PN ---
Progress Note (short form) - Note Progress Note: patient examined at bedside lethargic but more arousable than yesterday currently Sat 92% on fio2 @ 60% Vital Signs Period Temp Pulse Resp BP Sys/Mcdowell Pulse Ox Last 24 Hr 97.1 F-98.4 F 79-94 18-20 113-147/56-85 93-96 Intake & Output 11/22/17 11/23/17 11/24/17 11/25/17 23:59 23:59 23:59 23:59 Intake Total 1252 2549.0 476 1099 Output Total 800 2200 1900 600 Balance 452 349.0 -1424 499 Weight 174 lb 169 lb 4 oz 165 lb 11.2 oz on bipap / NGT in place /feedings on hold moving arms not interactive and does not follow directions heart S1/S2 irreg / lungs rhonchi left upper chest / no wheezing abd soft no tenderness / distended ext RUE extensive edema CBC, BMP 11/25/17 08:25 11/25/17 08:25 Microbiology 11/11/17 18:00 Blood - Central Line Blood Culture - Final NO GROWTH AFTER 5 DAYS INCUBATION 11/10/17 22:00 Sputum - Endotrachea Suction/Ventilator Gram Stain - Final 11/10/17 22:00 Sputum - Endotrachea Suction/Ventilator Sputum Culture - Final 11/09/17 00:59 Urine - Urine - Catheterized Urine Culture - Final NO GROWTH OBTAINED Active Medications Amino Acids (Prosource No Carb Liquid Pkt) 30 ml NGT BID@0800,1730 [facility] Last Admin: 11/25/17 11:10 Dose: Not Given Digoxin (Lanoxin -) 0.125 mg PO DAILY [facility] Last Admin: 11/24/17 18:51 Dose: Not Given Furosemide (Lasix Injection -) 20 mg IVPUSH DAILY [facility] Last Admin: 11/25/17 11:17 Dose: 20 mg Pantoprazole Sodium 160 mg/ (Dextrose) 290 mls @ 14.5 mls/hr IVPB Q20H [facility] Last Admin: 11/25/17 11:18 Dose: Not Given Meropenem (Merrem (Restricted To Id) -) 1 gm in 20 mls @ 240 mls/hr IVPUSH BID [facility] Last Admin: 11/25/17 11:16 Dose: 240 mls/hr Dextrose/Sodium Chloride (D5-1/2ns -) 1,000 mls @ 75 mls/hr IV ASDIR ERNIE Last Admin: 11/24/17 18:51 Dose: 75 mls/hr 82 y/o male Hx dementia /HTN /PAD/CKD/ PVD/ was transfered from [facility] with rectal bleed and hypotension. Xarelto induced coagulopathy in setting of duodenal bulb ulcer resulting in hemorrhagic shock requiring transfusion PRBC /FFP/ emergent EGD X 2 / IR embolization to control bleeding. recent episode of de- saturation increase O2 demand --possible aspiration ID recounsult appreciated NGT in place -feeds on hold On bipap # aspiration PNA? required inc Oxygen now on Bipap inc WBC now on meropenem discussed care with Pulmonary # s/p Gi bleed monitor h/h -- stable PPi transfuse as needed # nutrition NGT feeding on hold # A fib continue off a/c digoxin for rate control # UTI Abx completed # HTN remains normotensive s/p pressors MAP >65 # CAD stable # CKD monitor bmp stable # Dementia # DNR/DNI supportive care Problem List - Problems (1) Gastrointestinal hemorrhage with melena Code(s): K92.1 - MELENA (2) GI bleed Code(s): K92.2 - GASTROINTESTINAL HEMORRHAGE, UNSPECIFIED (3) Dementia Code(s): F03.90 - UNSPECIFIED DEMENTIA WITHOUT BEHAVIORAL DISTURBANCE (4) BPH (benign prostatic hyperplasia) Code(s): N40.0 - BENIGN PROSTATIC HYPERPLASIA WITHOUT LOWER URINRY TRACT SYMP (5) CAD (coronary artery disease) Code(s): I25.10 - ATHSCL HEART DISEASE OF [place] CORONARY ARTERY W/O ANG PCTRS (6) HTN (hypertension) Code(s): I10 - ESSENTIAL (PRIMARY) HYPERTENSION (7) Hyperlipidemia Code(s): E78.5 - HYPERLIPIDEMIA, UNSPECIFIED
[2017-11-25] MEDS: DEXTROSE 5%-0.45% SALINE 1,000 ML IV SCH (13:58)
[2017-11-25] MEDS: DIGOXIN 0.125 MG TABLET (FP) PO SCH (13:58)
--- NOTE | 2017-11-25 14:19 | PN ---
Progress Note, Physician History of Present Illness: Pt afebrile today. Weak but more responsive. On O2 mask. No respiratory distress. Was suctioned, noted to have possible small amt food particles. - Current Medication List Current Medications: Active Medications Amino Acids (Prosource No Carb Liquid Pkt) 30 ml NGT BID@0800,1730 [facility] Last Admin: 11/25/17 11:10 Dose: Not Given Digoxin (Lanoxin -) 0.125 mg PO DAILY [facility] Last Admin: 11/25/17 13:58 Dose: 0.125 mg Furosemide (Lasix Injection -) 20 mg IVPUSH DAILY [facility] Last Admin: 11/25/17 11:17 Dose: 20 mg Pantoprazole Sodium 160 mg/ (Dextrose) 290 mls @ 14.5 mls/hr IVPB Q20H [facility] Last Admin: 11/25/17 13:58 Dose: 14.5 mls/hr Meropenem (Merrem (Restricted To Id) -) 1 gm in 20 mls @ 240 mls/hr IVPUSH BID [facility] Last Admin: 11/25/17 11:16 Dose: 240 mls/hr Dextrose/Sodium Chloride (D5-1/2ns -) 1,000 mls @ 75 mls/hr IV ASDIR [facility] Last Admin: 11/25/17 13:58 Dose: 75 mls/hr - Objective Vital Signs: Vital Signs Temperature 97.7 F 11/25/17 06:00 Pulse Rate 81 11/25/17 13:58 Respiratory Rate 20 11/25/17 06:00 Blood Pressure 133/59 11/25/17 06:00 O2 Sat by Pulse Oximetry (%) 93 L 11/25/17 10:05 Constitutional: Yes: No Distress HENT: Yes: Other (NGT) Cardiovascular: Yes: Tachycardia Respiratory: Yes: Regular Gastrointestinal: Yes: Normal Bowel Sounds, Soft Genitourinary: Yes: Paul Present Neurological: Yes: Weakness (generalized) Labs: CBC, BMP 11/25/17 08:25 11/25/17 08:25 INR, PTT INR 1.22 (0.82-1.09) H 11/14/17 06:10 blood work - unable to draw yesterday Problem List - Problems (1) BPH (benign prostatic hyperplasia) Code(s): N40.0 - BENIGN PROSTATIC HYPERPLASIA WITHOUT LOWER URINRY TRACT SYMP (2) CAD (coronary artery disease) Code(s): I25.10 - ATHSCL HEART DISEASE OF [place] CORONARY ARTERY W/O ANG PCTRS (3) Dementia Code(s): F03.90 - UNSPECIFIED DEMENTIA WITHOUT BEHAVIORAL DISTURBANCE (4) Duodenal ulcer with hemorrhage but without obstruction Code(s): K26.4 - CHRONIC OR UNSPECIFIED DUODENAL ULCER WITH HEMORRHAGE (5) Gastrointestinal hemorrhage with melena Code(s): K92.1 - MELENA (6) HTN (hypertension) Code(s): I10 - ESSENTIAL (PRIMARY) HYPERTENSION (7) Hyperlipidemia Code(s): E78.5 - HYPERLIPIDEMIA, UNSPECIFIED Assessment/Plan Fever/Leukocytosis Sepsis, Aspiration PNA vs HCAP Resp failure now on O2 mask -- continue antibiotics -- send lactic acid, blood cultures if possible -- aspiration precautions -- repeat cbc/bmp in am monitor vitals pt now DNR/DNI
[2017-11-26 00:58] VITALS: BP 142/88; PULSE 80; TEMP 99
[2017-11-26] MEDS: PANTOPRAZOLE SODIUM 160 MG in DEXTROSE 5%-WATER - 290 ML IVPB SCH (06:06)
--- NOTE | 2017-11-26 06:11 | PN ---
Progress Note (short form) - Note Progress Note: Called to see a patient said to be DNR/DNI noticed to have stopped breathing. PE: Gen:Patient lying still in bed, non-responsive to verbal or painful stimuli Neuro: Pupils fixed and dilated. Absent doll's eye reflex. Absent corneal reflex Chest: Absent respiratory effort. Absent breath sounds Cardio: Absent pulses, absent HR Assessment: Pt at 6.06am Family to be notified
== END 2017-11-26 07:00 | disposition expired | DRG 813 ==
LOC: JER 22:45 → JERBED 23:39 → JICU 11-09 01:15 → J7W 11-20 14:50
PROVIDERS: ADMIT Family Medicine; ATTEND Family Medicine
PROC: 05HM33Z Insertion of Infusion Device into Right Internal Jugular Vein, Percutaneous Approach (ICD-10-PCS; 2017-11-08)
PROC: B543ZZA Ultrasonography of Right Jugular Veins, Guidance (ICD-10-PCS; 2017-11-08)
PROC: 30233N1 Transfusion of Nonautologous Red Blood Cells into Peripheral Vein, Percutaneous Approach (ICD-10-PCS; 2017-11-10)
PROC: 30233R1 Transfusion of Nonautologous Platelets into Peripheral Vein, Percutaneous Approach (ICD-10-PCS; 2017-11-10)
PROC: 0W3P8ZZ Control Bleeding in Gastrointestinal Tract, Via Natural or Artificial Opening Endoscopic (ICD-10-PCS; 2017-11-10)
PROC: 3E0G8GC Introduction of Other Therapeutic Substance into Upper GI, Via Natural or Artificial Opening Endoscopic (ICD-10-PCS; 2017-11-10)
PROC: 0DJ08ZZ Inspection of Upper Intestinal Tract, Via Natural or Artificial Opening Endoscopic (ICD-10-PCS; 2017-11-10)
PROC: 5A1955Z Respiratory Ventilation, Greater than 96 Consecutive Hours (ICD-10-PCS; 2017-11-10)
PROC: 0BH17EZ Insertion of Endotracheal Airway into Trachea, Via Natural or Artificial Opening (ICD-10-PCS; 2017-11-10)
PROC: 30233K1 Transfusion of Nonautologous Frozen Plasma into Peripheral Vein, Percutaneous Approach (ICD-10-PCS; principal; 2017-11-11)
PROC: 0D9670Z Drainage of Stomach with Drainage Device, Via Natural or Artificial Opening (ICD-10-PCS; 2017-11-11)
PROC: 04L23DZ Occlusion of Gastric Artery with Intraluminal Device, Percutaneous Approach (ICD-10-PCS; 2017-11-12)
PROC: B41BZZZ Fluoroscopy of Other Intra-Abdominal Arteries (ICD-10-PCS; 2017-11-12)
PROC: 0W3P8ZZ Control Bleeding in Gastrointestinal Tract, Via Natural or Artificial Opening Endoscopic (ICD-10-PCS; 2017-11-12)
PROC: 3E0G8GC Introduction of Other Therapeutic Substance into Upper GI, Via Natural or Artificial Opening Endoscopic (ICD-10-PCS; 2017-11-12)
PROC: 3E0G76Z Introduction of Nutritional Substance into Upper GI, Via Natural or Artificial Opening (ICD-10-PCS; 2017-11-15)
DX: D68.32 Hemorrhagic disorder due to extrinsic circulating anticoagulants (principal); K26.4 Chronic or unspecified duodenal ulcer with hemorrhage; J96.01 Acute respiratory failure with hypoxia; A41.9 Sepsis, unspecified organism; J69.0 Pneumonitis due to inhalation of food and vomit; D62 Acute posthemorrhagic anemia; N39.0 Urinary tract infection, site not specified; E87.2 Acidosis; I47.2 Ventricular tachycardia; N17.9 Acute kidney failure, unspecified; E87.0 Hyperosmolality and hypernatremia; I48.0 Paroxysmal atrial fibrillation; E78.5 Hyperlipidemia, unspecified; I25.10 Atherosclerotic heart disease of native coronary artery without angina pectoris; N40.0 Benign prostatic hyperplasia without lower urinary tract symptoms; F03.90 Unspecified dementia, unspecified severity, without behavioral disturbance, psychotic disturbance, mood disturbance, and anxiety; F41.8 Other specified anxiety disorders; J44.9 Chronic obstructive pulmonary disease, unspecified; I12.9 Hypertensive chronic kidney disease with stage 1 through stage 4 chronic kidney disease, or unspecified chronic kidney disease; N18.9 Chronic kidney disease, unspecified; I73.89 Other specified peripheral vascular diseases; R57.8 Other shock; T45.515A Adverse effect of anticoagulants, initial encounter; I50.9 Heart failure, unspecified; Z66 Do not resuscitate; R50.9 Fever, unspecified; D72.828 Other elevated white blood cell count
CPT/HCPCS: 36415; 36430; 36600; 37244; 71045-TC-FY; 77001-TC-FY; 80048; 80053; 80076; 80162; 81003; 81015; 82040; 82272; 82550; 82803; 82962; 83605; 83735; 83880; 84100; 84484; 85025; 85027; 85610; 85730; 86850; 86900; 86901; 86922; 87040; 87070; 87086; 87205; 93005; 93010; 93306-TC; 94002; 94660; 97161-GP; 99284-25; C1760; C1769; C1887; C1894; G0463; J2597; P9017; P9034; P9038; P9058